=== PATIENT | male | born 1990 | race Caucasian/White ===

== ENCOUNTER 2021-08-07 12:10 | Emergency (ER) | payer MEDICAID, SELFPAY ==
--- NOTE | ~2021-08-07 | US_ITS ---
EXAMINATION: US SCROTUM CLINICAL INFORMATION: Testicular pain. COMPARISON: None TECHNIQUE: A sonogram of the scrotum was performed assessing galeano-scale appearance and color Doppler flow. Spectral Doppler analysis of the arterial and venous flow were performed in the testes bilaterally. FINDINGS: About the inferior lateral aspect of both testicles, right greater than left, there are heterogeneous echotexture structures which traverse superiorly to the spermatic cord up to the region of the inguinal canal.. These may be related to ductus deferens. With Valsalva maneuvers there is no evidence of inguinal hernia. RIGHT: Right testicle measures 4.0 x 2.3 x 3.2 cm, volume 15.4 mL. No focal testicular parenchymal lesions are visualized. Spectral Doppler analysis of the arterial and venous flow is normal in the right testis. Right epididymal head is normal in size. No varicocele is seen. There is a small right hydrocele. Right epididymal Doppler flow is normal. LEFT: Left testicle measures 4.0 x 2.2 x 2.6 cm, volume 12.0 mL. No focal testicular parenchymal lesions are visualized. Spectral Doppler analysis of the arterial and venous flow is normal in the left testis. Left epididymal head is normal in size. No left varicocele is seen. There is a small left hydrocele. Left epididymal Doppler flow is normal. US/US scrotum IMPRESSION: No suspicious testicular lesions. Small bilateral hydroceles. Region of pain and palpable abnormalities appear to be related to heterogeneous echotexture structure which communicates with the spermatic cord and may represent ductus deferens. This finding is bilateral.
--- NOTE | ~2021-08-07 | US_ITS ---
EXAMINATION: US SCROTUM CLINICAL INFORMATION: Testicular pain. COMPARISON: None TECHNIQUE: A sonogram of the scrotum was performed assessing galeano-scale appearance and color Doppler flow. Spectral Doppler analysis of the arterial and venous flow were performed in the testes bilaterally. FINDINGS: About the inferior lateral aspect of both testicles, right greater than left, there are heterogeneous echotexture structures which traverse superiorly to the spermatic cord up to the region of the inguinal canal.. These may be related to ductus deferens. With Valsalva maneuvers there is no evidence of inguinal hernia. RIGHT: Right testicle measures 4.0 x 2.3 x 3.2 cm, volume 15.4 mL. No focal testicular parenchymal lesions are visualized. Spectral Doppler analysis of the arterial and venous flow is normal in the right testis. Right epididymal head is normal in size. No varicocele is seen. There is a small right hydrocele. Right epididymal Doppler flow is normal. LEFT: Left testicle measures 4.0 x 2.2 x 2.6 cm, volume 12.0 mL. No focal testicular parenchymal lesions are visualized. Spectral Doppler analysis of the arterial and venous flow is normal in the left testis. Left epididymal head is normal in size. No left varicocele is seen. There is a small left hydrocele. Left epididymal Doppler flow is normal. US/US scrotum doppler IMPRESSION: No suspicious testicular lesions. Small bilateral hydroceles. Region of pain and palpable abnormalities appear to be related to heterogeneous echotexture structure which communicates with the spermatic cord and may represent ductus deferens. This finding is bilateral.
[2021-08-07 12:47] VITALS: BP 124/69; PULSE 80; RESP 19; TEMP 37.2; O2SAT 98; BMI 17.7
[2021-08-07 16:48] VITALS: BP 141/86; PULSE 80; RESP 16; TEMP 36.6; O2SAT 98
[2021-08-07 17:16] LABS: Appearance Urine CLEAR; Color Urine YELLOW; Glucose Urine UA NEG (NEG); Leukocyte Esterase Urine NEG (NEG); Nitrite Urine NEG (NEG); Specific Gravity - Urine 1.015 (1.005-1.025); Urine Blood NEG (NEG); Urine Ketones NEG (NEG); Urine Protein NEG (NEG-TRACE)
--- NOTE | 2021-08-07 17:45 | ED_ITS ---
HPI - Male Genitourinary General Chief complaint: Urogenital-Male Stated complaint: testicle pain lump Time Seen by Provider: 08/07/21 16:48 Source: patient Mode of arrival: ambulatory History of Present Illness HPI Narrative: 31-year-old male with a past medical history significant for recently diagnosed with syphilis, presenting to the ED complaining of acute on chronic bilateral testicular pain x6 years. Admits to feeling extra lumps in testicles which are painful to palpation. Admits went to [facility] on Wednesday was tested for HIV, syphilis, CT/NG tested positive for syphilis and was treated appropriately, tested negative for everything else. Denies being sexually active. Denies fever, abdominal pain, nausea/vomiting, penile discharge, penile/testicular lesions. MD Complaint: testicle pain Onset (ago): year(s) Related Data Previous Rx's Medication Instructions Recorded acetaminophen 500 mg tablet 500 mg PO Q6H PRN #20 tab 08/07/21 (Tylenol Extra Strength) levofloxacin 500 mg tablet 500 mg PO DAILY #10 tab 08/07/21 metronidazole 500 mg tablet 500 mg PO Q8H 7 Days #21 tab 08/07/21 naproxen 500 mg tablet 500 mg PO BID PRN 10 Days #20 tab 08/07/21 Allergies Allergy/AdvReac Type Severity Reaction Status Date / Time No Known Allergies Allergy Verified 08/07/21 12:50 Review of Systems Review of Systems: Constitutional: No Fever, No Chills, No Fatigue, No Malaise ENT/Mouth:No Ear Pain, No Nasal Congestion, No sore throat, No Rhinorrhea, No Swallowing Difficulty Eyes: No Eye Pain, No Swelling, No Redness Cardiovascular: No Chest Pain, No SOB, No Edema, No Palpitations Respiratory: No Cough, No Sputum, No Dyspnea Gastrointestinal: No Nausea, No Vomiting, No Diarrhea, No Constipation, No Abdominal pain Genitourinary: + bilateral testicular pain/lumps, No penile discharge, No Dysuria, No Urinary Frequency, No Hematuria, No Urinary Incontinence, No Urgency, No Flank Pain, No Urinary Flow Changes Musculoskeletal: No joint pain, No Myalgias, No Joint Swelling Skin: No Skin Lesions, No rash Neuro: No Weakness, No Dizziness, No Headache Yes all other systems are reviewed and are negative [facility] Past Medical History Attestation statement: The following information was validated with the patient. Social History Social History Advance Directives: No Advance Directives Information Provided: No Physical Exam Vital Signs: Vital Signs: Last Vital Signs Temp 97.9 F 08/07/21 16:48 Pulse 80 08/07/21 16:48 Resp 16 08/07/21 16:48 BP 141/86 H 08/07/21 16:48 Pulse Ox 98 08/07/21 16:48 BMI result Body Mass Index 17.7 Const: General: cooperative, healthy appearing and no acute distress Orientation/consciousness: patient oriented x3 Limitations: no limitations HEENT: Head: Yes normal to inspection and Yes atraumatic Ears: hearing grossly normal bilaterally General nose exam: Normal external nose present Face and sinus: Yes normal facial exam Eyes: General: appearance normal, both eyes and all related structures EOM: EOMs intact bilaterally Neck: Neck: Yes normal visual inspection and Yes no meningeal signs Resp: Effort & Inspection: normal respiratory effort and no respiratory distress Cardio: Rate: regular rate GI: Inspection: Yes normal to inspection Palpation (GI): Soft to palpation, nontender, no guarding and not rigid : Other: +bilateral tender testicular lumps/cord Penis: normal penis Testes: epididymal tenderness bilateral, no testicular swelling, testicular tenderness bilateral and normal testicular lie Skin: Rashes: no rashes Wounds: no wounds Neuro: General: patient oriented x3 and no meningeal signs Gait exam (Neuro): Normal gait present Extrem: General: Yes normal to inspection Course Course Course Narrative: -UA negative US scrotum doppler IMPRESSION: No suspicious testicular lesions. ? Small bilateral hydroceles. ? Region of pain and palpable abnormalities appear to be related to heterogeneous echotexture structure which communicates with the spermatic cord and may represent ductus deferens. This finding is bilateral. >> case discussed with Dr. Grady, will initiate patient on Levaquin and Metronidazole. Discussed results with patient which she was mostly already aware due to previous workup in the past. Discussed with patient risk of sterility, and needed follow-up with Urology, he verbalized understanding and feel safe for discharge home at this time. Also discussed follow-up with [facility] for further STI testing MDM - Male Genitourinary MDM Narrative Medical decision making narrative: 31-year-old male with a past medical history significant for recently diagnosed with syphilis, presenting to the ED complaining of acute on chronic bilateral testicular pain x6 years. On exam vital signs stable, LUÍS, physical exam as above. Concern for epididymitis/orchitis vs UTI vs ?abscess. Unlikely torsion due to length of symptoms Patient already appropriately treated for syphilis Plan: UA, repeat CT NG, testicular ultrasound Differential Diagnosis Differential diagnosis: Likely urinary tract infection and epididymitis Medical Records Attestation: I reviewed the patient's medical records. Lab Data Attestation: I reviewed the patient's lab results. Labs: Lab Results 08/07/21 Range/Units 17:02 Urine Color YELLOW Urine Appearance CLEAR Urine pH 8.0 (5.0-8.0) Ur Specific [place] 1.015 (1.005-1.025) Urine Protein NEG (NEG-TRACE) MG/DL Urine Glucose (UA) NEG (NEG) MG/DL Urine Ketones NEG (NEG) MG/DL Urine Blood NEG (NEG) Urine Nitrite NEG (NEG) Ur Leukocyte Esterase NEG (NEG) Discharge Plan Discharge Clinical Impression: Scrotal pain Patient Disposition: Home, Self-Care Instructions: Scrotal Pain (ED) Additional Instructions: YOU NEED TO FOLLOW-UP WITH UROLOGY Levaquin and Flagyl are antibiotics please take as prescribed Please follow-up with [facility] for further STI testing If her symptoms persist or worsen, developed unbearable testicular pain, discharge, inability to urinate, abdominal pain, or fever please return to the ED Prescriptions: New levofloxacin 500 mg tablet 500 mg PO DAILY Qty: 10 0RF metronidazole 500 mg tablet 500 mg PO Q8H 7 Days Qty: 21 0RF acetaminophen [Tylenol Extra Strength] 500 mg tablet 500 mg PO Q6H PRN (Reason: pain or fever) Qty: 20 0RF naproxen 500 mg tablet 500 mg PO BID PRN (Reason: pain) 10 Days Qty: 20 0RF Referrals: David Quesada MD [Physician] - 1 day Interventions: ED Discharge Assessment Last Done: 08/07/21 17:54 Discharge Date/Time: 08/07/21 17:54
[2021-08-08 03:56] LABS: CT PCR NOT DETECTED (Not Detect.); NG PCR NOT DETECTED (Not Detect.)
== END 2021-08-07 17:54 | disposition home or self-care (01) ==
PROVIDERS: Physician Assistant; Emergency Provider Internal Medicine
DX: N50.812 Left testicular pain (principal); N50.811 Right testicular pain; N50.82 Scrotal pain
CPT/HCPCS: 76870; 81003; 87491; 87591; 93975; 99284

== ENCOUNTER → 2021-10-07 10:47 | Outpatient (BNVA) | payer MEDICAID, SELFPAY | PROVIDERS: Visit Provider Urology | DX: N45.3 Epididymo-orchitis (principal) | CPT/HCPCS: 99202 ==

== ENCOUNTER → 2021-11-26 11:09 | Outpatient (BNVA) | payer MEDICAID, SELFPAY | PROVIDERS: Visit Provider Urology | DX: N50.812 Left testicular pain (principal); N45.3 Epididymo-orchitis; Z20.2 Contact with and (suspected) exposure to infections with a predominantly sexual mode of transmission | CPT/HCPCS: 64425; 99212 ==

== ENCOUNTER 2022-05-17 21:20 | Emergency (ER) | payer MEDICAID, SELFPAY ==
--- NOTE | ~2022-05-17 | CT_ITS ---
EXAMINATION: CT ABDOMEN AND PELVIS WITHOUT CONTRAST CLINICAL INFORMATION: Made abdominal pain COMPARISON: None TECHNIQUE: Multidetector volumetric imaging was performed from the superior aspect of the liver through the pubic symphysis. Sagittal and coronal reformatted images were obtained on the technologist's workstation. This CT examination was performed using dose optimization techniques as appropriate, variously including the following: *Automated exposure control *Adjustment of mA and/or kV according to patient size (this includes techniques or standardized protocols for targeted exams where dose is matched to indication/reason for exam; i.e. extremities or head) *Use of iterative reconstruction technique DLP: 394 mGy-cm FINDINGS: LUNG BASES: Reticular nodular infiltrate at the right base. LIVER, GALLBLADDER, AND BILIARY TREE: The liver is normal in size, shape, and attenuation. No focal hepatic lesion or biliary ductal dilatation is present. The gallbladder is unremarkable with no evidence of radiopaque gallstones, gallbladder wall thickening, or obvious pericholecystic inflammatory changes. PANCREAS: Unremarkable. SPLEEN: Unremarkable. ADRENAL GLANDS: Unremarkable. KIDNEYS AND URETERS: The kidneys are normal in size, shape, and attenuation. No hydronephrosis, hydroureter, or calculi seen. No perinephric stranding. BLADDER: Unremarkable. GASTROINTESTINAL TRACT: The bowel pattern is felt to be nonobstructing. There is no free fluid. Small hiatal hernia ABDOMINAL WALL: No significant hernia is appreciated. LYMPH NODES: Normal. VASCULAR: Unremarkable. PELVIC VISCERA: Unremarkable. OSSEOUS STRUCTURES: Unremarkable. CT/CT abdomen pelvis wo IV con IMPRESSION: Reticulonodular infiltrate at the right base. Small sliding-type hiatal hernia. The bowel pattern is felt to be nonobstructing. There is no free fluid. Fleischner guidelines were followed.
[2022-05-17 21:24] VITALS: BP 125/70; PULSE 80; O2SAT 98; BMI 26.6
[2022-05-17 21:28] VITALS: BP 146/102; PULSE 90; RESP 27; O2SAT 96
--- NOTE | 2022-05-17 21:54 | ED.NAVMDI ---
HPI - Nausea/Vomiting/Diarrhea General Chief complaint: Nausea/Vomiting/Diarrhea Stated complaint: Substance use, n/v, chills x1hr per EMS Time Seen by Provider: 05/17/22 21:29 Source: patient Mode of arrival: EMS Limitations: no limitations History of Present Illness HPI Narrative: Patient has a substance abuse on methadone 120 mg daily comes here for nausea vomiting and diarrhea not feeling good after taking a pill from her grandmother's pill box does not know what kind of pill was it feels weak exhausted no fever no chills Related Data Previous Rx's Medication Instructions Recorded acetaminophen 500 mg tablet 500 mg PO Q6H PRN pain or fever 08/07/21 (Tylenol Extra Strength) #20 tabs levofloxacin 500 mg tablet 500 mg PO DAILY #10 tabs 08/07/21 metronidazole 500 mg tablet 500 mg PO Q8H 7 days #21 tabs 08/07/21 naproxen 500 mg tablet 500 mg PO BID PRN pain 10 days #20 08/07/21 tabs ondansetron 4 mg disintegrating 4 mg PO Q6-8H PRN nausea and 05/18/22 tablet vomiting #7 tabs Allergies Allergy/AdvReac Type Severity Reaction Status Date / Time No Known Allergies Allergy Verified 11/25/21 15:47 Review of Systems Review of Systems: Yes all other systems are reviewed and are negative [facility] Social History Social History Smoked in Last 30 Days: Yes Use of substances other than those prescribed or required for medical reasons: No Physical Exam Vital Signs: Vital Signs: Last Vital Signs Temp 98.2 F 05/18/22 00:24 Pulse 77 05/18/22 00:24 Resp 16 05/18/22 00:24 BP 119/70 05/18/22 00:24 Pulse Ox 95 05/18/22 00:24 O2 Del Method 05/18/22 00:24 BMI result Body Mass Index 26.6 Appearance: Alert. Oriented X3. No acute distress. Diaphoretic Eyes: PERRLA, No Nystagmus ENT: Pharynx normal. Oral Mucosa moist Neck: Normal inspection. Neck supple. CVS: Normal heart rate and rhythm. Pulses normal. Respiratory: No respiratory distress. Equal air entry bilateral, no wheezing/rales/rhonchi Abdomen: Soft and nontender. Bowel sounds are present, no mass palpable, no CVA tenderness Skin: Skin warm and dry. Normal skin color. Normal skin turgor. Extremities: No lower extremity edema. No calf tenderness Neuro: Oriented X 3. No motor deficit. No sensory deficit.No cerebellar signs , cranial nerves II-XII intact Medications Administered Discontinued Medications Generic Name Dose Route Start Last Admin Trade Name Freq PRN Reason Stop Dose Admin Famotidine 20 mg 05/17/22 23:39 05/17/22 23:47 Famotidine/Pf 20 Mg/2 Ml Vial IVPUSH 05/17/22 23:40 20 mg ONCE ONE Administration Sodium Chloride 1,000 mls @ 999 mls/hr 05/17/22 22:10 05/17/22 23:51 Ns IV 05/17/22 23:10 Infused .Q1H1M ONE Infusion Loperamide HCl 4 mg 05/17/22 22:11 05/17/22 22:19 Loperamide Hcl 2 Mg Capsule PO 05/17/22 22:12 4 mg ONCE ONE Administration Lorazepam 1 mg 05/17/22 22:10 05/17/22 22:19 Lorazepam 2 Mg/Ml Vial IVPUSH 05/17/22 22:11 1 mg ONCE ONE Administration Ondansetron HCl 4 mg 05/17/22 22:10 05/17/22 22:19 Ondansetron Hcl 4 Mg/2 Ml Vial IVPUSH 05/17/22 22:11 4 mg ONCE ONE Administration Ondansetron HCl 4 mg 05/17/22 23:39 05/17/22 23:47 Ondansetron Hcl 4 Mg/2 Ml Vial IVPUSH 05/17/22 23:40 4 mg ONCE ONE Administration Medical Decision Making Medical Decision Making MDM Narrative: . Acute gastroenteritis likely withdrawal from opiates feeling much better now after IV hydration has elevated lipase with CT scan is negative without any significant abdominal pain which taking p.o. fluids will discharge patient home Lab Data [facility] Lab Attestation statement: I reviewed the patient's lab results. 05/17/22 21:52 05/17/22 21:52 Labs: Lab Results 05/17/22 05/17/22 05/17/22 Range/Units 21:52 21:52 23:53 WBC 11.8 H (4.8-10.8) X10*3/uL RBC 5.96 H (4.60-5.80) X10*6/uL Hgb 16.8 (14.0-18.0) g/dl Hct 48.2 (42.0-52.0) % MCV 80.9 (80.0-98.0) fL MCH 28.2 (27.0-33.0) pg MCHC 34.9 (31.0-36.0) g/dl RDW 15.3 (11.0-16.0) % Plt Count 340 (160-400) X10*3/uL MPV 11.5 (9.4-12.4) fL Immature Gran % (Auto) 0.3 (0.0-0.4) % Neut % (Auto) 71.6 (45-73) % Lymph % (Auto) 18.4 L (20-40) % [place] % (Auto) 7.9 (2-11) % Eos % (Auto) 1.3 (0-4) % Baso % (Auto) 0.5 (0-2) % Lymph # (Auto) 2.2 (1.2-4.9) X10*3/uL [place] # (Auto) 0.9 (0.1-1.2) X10*3/uL Eos # (Auto) 0.2 (0.0-0.4) X10*3/uL Baso # (Auto) 0.1 (0.0-0.2) X10*3/uL Abs Immat Gran (auto) 0.04 H (0.00-0.03) X10*3/uL Absolute Neuts (auto) 8.4 H (2.0-8.3) x10*3/uL Absolute Nucleated RBC 0.000 (0.0-0.012) X10*3/uL Nucleated RBC % (auto) 0.0 (0.0-0.2) /100WBC Sodium 140 (135-145) mmol/L Potassium 3.5 (3.3-5.1) mmol/L Chloride 103 (96-108) mmol/L Carbon Dioxide 22 (22-29) mmol/L Anion Gap 19 (12-20) BUN 13 (9-16) mg/dL Creatinine 1.00 (0.5-1.4) mg/dL Estim Creat Clear Calc 93.1 Estimated GFR > 60 Random Glucose 125 H (60-115) mg/dL Calcium 10.3 H (8.4-10.2) mg/dL Total Bilirubin 0.3 (0.0-1.0) mg/dL AST 24 (5-37) U/L ALT 19 (0-40) U/L Alkaline Phosphatase 113 (39-117) U/L Total Protein 8.7 H (6.5-8.0) g/dL Albumin 4.9 (3.5-5.0) g/dL Lipase 223 H (8-78) U/L COVID-19 (CHASE) Negative (Negative) COVID-19 Clin Com See Note Discharge Plan Discharge Clinical Impression: Gastroenteritis, Opiate withdrawal Patient Disposition: Home, Self-Care Instructions: Acute Nausea and Vomiting (ED), Narcotic Withdrawal (ED) Additional Instructions: Drink plenty of fluids Medicine for nausea and anxiety as prescribed Do not take non-prescribed medications Prescriptions: New ondansetron 4 mg tablet,disintegrating 4 mg PO Q6-8H PRN (Reason: nausea and vomiting) Qty: 7 0RF No Action levofloxacin 500 mg tablet 500 mg PO DAILY Qty: 10 0RF metronidazole 500 mg tablet 500 mg PO Q8H 7 Days Qty: 21 0RF acetaminophen [Tylenol Extra Strength] 500 mg tablet 500 mg PO Q6H PRN (Reason: pain or fever) Qty: 20 0RF naproxen 500 mg tablet 500 mg PO BID PRN (Reason: pain) 10 Days Qty: 20 0RF
[2022-05-17 21:59] LABS: Basophils Absolute Auto 0.1 X10*3/uL (0.0-0.2); Basophils Percent Auto 0.5 % (0-2); Imm Gran Pct Auto 0.3 % (0.0-0.4); Mean Corpuscular HGB Conc 34.9 g/dl (31.0-36.0); WBC ABN SCTR 1
--- NOTE | 2022-05-17 22:03 | PC.NURSE ---
Pt aox3. Reports N/V/D that started within the last hour. Reports taking one pill from grandmother but unable to identify the medication. Pt is on methadone 120mg. Diaphoretic with palor. Forecful vomiting noted. IV line established. Pt tolerated well. MD at bedside.
[2022-05-17 22:05] LABS: Eosinophils Absolute Auto 0.2 X10*3/uL (0.0-0.4); Eosinophils Percent Auto 1.3 % (0-4); Hematocrit 48.2 % (42.0-52.0); Hemoglobin 16.8 g/dl (14.0-18.0); Imm Gran Abs Auto 0.04 X10*3/uL (0.00-0.03); Lymphocytes Absolute Auto 2.2 X10*3/uL (1.2-4.9); Lymphocytes Percent Auto 18.4 % (20-40); Mean Corpuscular Hemoglobin 28.2 pg (27.0-33.0); Mean Corpuscular Volume 80.9 fL (80.0-98.0); Mean Platelet Volume 11.5 fL (9.4-12.4); Monocytes Absolute Auto 0.9 X10*3/uL (0.1-1.2); Monocytes Percent Auto 7.9 % (2-11); Neutrophils Absolute Auto 8.4 x10*3/uL (2.0-8.3); Neutrophils Percent Auto 71.6 % (45-73); Platelet Count 340 X10*3/uL (160-400); Red Blood Count 5.96 X10*6/uL (4.60-5.80); Red Cell Distribution Width 15.3 % (11.0-16.0)
[2022-05-17 22:07] LABS: WBC ABN SCTR FOR CBC 1
[2022-05-17 22:08] LABS: MANUAL DIFF FLAG NO; White Blood Count 11.8 X10*3/uL (4.8-10.8)
--- NOTE | 2022-05-17 22:11 | PC.NURSE ---
Pts mother, Phuong, called for an update. Phuong updated on pts status with pts verbal consent.
[2022-05-17] MEDS: LORazepam 2 MG/ML VIAL 1 MG IVPUSH (22:19)
[2022-05-17] MEDS: 0.9 % Sodium Chloride 1,000 ML 999 ML IV (22:19)
[2022-05-17] MEDS: Loperamide HCl 2 MG CAPSULE 4 MG PO (22:19)
[2022-05-17] MEDS: ondansetron HCL 4 MG/2 ML VIAL IVPUSH ×2 (22:19→23:47)
[2022-05-17 22:23] LABS: Alanine Aminotransferase 19 U/L (0-40); Albumin Level 4.9 g/dL (3.5-5.0); Alkaline Phosphatase 113 U/L (39-117); Anion Gap 19 (12-20); Aspartate Amino Transferase 24 U/L (5-37); Bilirubin Total 0.3 mg/dL (0.0-1.0); Blood Urea Nitrogen 13 mg/dL (9-16); Calcium 10.3 mg/dL (8.4-10.2); Carbon Dioxide 22 mmol/L (22-29); Chloride 103 mmol/L (96-108); Creatinine Clr Calc Pharmacy 93.1; Estimated Glomerular Filt Rate > 60; Glucose Random 125 mg/dL (60-115); Lipase 223 U/L (8-78); Potassium 3.5 mmol/L (3.3-5.1); Sodium 140 mmol/L (135-145); Total Protein 8.7 g/dL (6.5-8.0)
[2022-05-17] MEDS: Famotidine/PF 20 MG/2 ML VIAL IVPUSH (23:47)
[2022-05-18 00:16] LABS: COVID-19 Test Negative (Negative); IDNOW Serial# BCCEAD1C
[2022-05-18 00:24] VITALS: BP 119/70; PULSE 77; RESP 16; TEMP 36.8; O2SAT 95
--- NOTE | 2022-05-18 01:44 | PC.NURSE ---
IV line removed. Pt tolerated well. Discharge instructions reviewed with pt. Pt verbalizes understanding.
== END 2022-05-18 01:46 | disposition home or self-care (01) ==
PROVIDERS: Emergency Provider Internal Medicine
DX: K52.9 Noninfective gastroenteritis and colitis, unspecified (principal); F11.23 Opioid dependence with withdrawal; R11.2 Nausea with vomiting, unspecified; Z20.822 Contact with and (suspected) exposure to COVID-19
CPT/HCPCS: 36415; 74176; 80053; 83690; 85025; 87635; 96361; 96374; 96375; 96376; 99284; J2060; J2405

== ENCOUNTER → 2022-05-19 14:18 | Outpatient (BNVA) | payer MEDICAID, SELFPAY | PROVIDERS: Visit Provider Urology | DX: Z13.89 Encounter for screening for other disorder (principal) ==

== ENCOUNTER → 2022-08-27 10:39 | Outpatient (REF) | payer MEDICAID, SELFPAY ==
--- NOTE | 2022-08-27 10:46 | ECG_ITS ---
Test Reason : QTC PROLONGATION Blood Pressure : / mmHG Vent. Rate : 078 BPM Atrial Rate : 078 BPM P-R Int : 152 ms QRS Dur : 086 ms QT Int : 360 ms P-R-T Axes : 040 068 031 degrees QTc Int : 410 ms Normal sinus rhythm Normal ECG No previous ECGs available Referred By: Polina Bruce Electronically Signed By:Yoshi Johnson
== END ==
LOC: HO.CARD 10:39
PROVIDERS: Visit Provider Family Medicine
DX: Z79.899 Other long term (current) drug therapy (principal)
CPT/HCPCS: 93005

== ENCOUNTER 2022-11-25 09:03 | Outpatient (AMB) | payer MEDICAID, SELFPAY ==
--- NOTE | 2022-11-25 06:52 | A.OFFVIS_ITS ---
Intake Intake Visit Reasons: Discussed epididymectomy, former pt of Dr Quesada Allergies No Known Allergies Allergy (Verified 11/25/22 09:14) HPI HPI Comments History of Present Illness Details Antonio is a 32-year-old male who presents today to the office for an evaluation of epididymectomy. 11/25/2022-- He was last seen on 05/19/[address] Quesada. He is in a residential addiction recovery program and he presents with a care provider from that program. He reports testicle pain, left greater than the right. After ejaculation, he feels the sensation of pain gets better. He reports that something was placed in urethra, at the age of 6. He also reports urinary urgency. The patient has a history of STDs in his mid 20s. He is not sure what type of an STD it was. He denies any history of HIV infection or hepatitis. He is on methadone 135 mg daily, trazadone, hydroxyzine, Prozac, and Clonidine. He had a procedure on when he was 5-years ago. He denies vasectomy. Results reviewed-- CT of the abdomen/pelvis without contrast-- -05/18/2022--kidneys and bladder unremarkable; negative for stones Results reviewed-- US scrotal-- 11/21/2022-- no suspicious testicular lesions. Evaluation today UA-- 11/25/2022--Lueocytes: negative; blood: negative. Exam: mild tenderness on palpation of both testicles, left greater than right; tail of epididymis on both right and left side has mild tenderness. Plan Scrotal US prior was ordered. Urinalysis for chlamydia and gonorrhea. I discussed that his primary care physician can send other blood tests for STD screening. The patient will follow up with Dr. Quesada to discuss surgical options. Review of Systems Const All systems reviewed & are unremarkable except as noted in HPI and below Reports no additional complaints Eyes Reports no additional complaints ENT Reports no additional complaints Card Denies dyspnea Resp Denies cough and Denies dyspnea GI Reports no additional complaints Musc Reports no additional complaints Skin/Breast Denies rash and Denies unusual bruising Neuro Reports no additional complaints Psych Reports no additional complaints Endo Reports no additional complaints Jeff/Lymph Reports no additional complaints Aller/Immun Reports no additional complaints Physical Exam Const General: healthy appearing, no acute distress and well developed Orientation/consciousness: patient oriented x3 HEENT Head: Yes normocephalic and Yes atraumatic Eyes Conjunctivae: conjunctivae normal Neck Neck: Yes normal visual inspection Chest Chest palpation & inspection: normal inspection of the chest Resp Effort & Inspection: normal respiratory effort Cardio Rate: regular rate GI Inspection: Yes normal to inspection Palpation (GI): Soft to palpation Other: Bilateral testes palp'd, no suspicious masses palp'd, mild tenderness L>R, also mild tenderness tail of epidydimis L>R Penis: normal penis Scrotum: scrotum normal Skin General skin exam: no rashes or lesions noted Neuro General: patient oriented x3 Extrem General: No pedal edema Psych Appearance: grossly normal Affect: normal affect Results AMB Urinalysis, Automated UA Leukoctes 0 Cuong/uL Last Edit by Andre Kerr CMA on 11/25/22 09:30 UA Nitrite Negative Last Edit by Andre Kerr CMA on 11/25/22 09:30 UA Urobilinogen 0.2 mg/dL Last Edit by Andre Kerr CMA on 11/25/22 09:3 0 UA Protein 0 mg/dL Last Edit by Andre Kerr CMA on 11/25/22 09:30 UA pH 5.5 Last Edit by Andre Kerr CMA on 11/25/22 09:30 UA Blood 0 Luis Felipe/uL Last Edit by Andre Kerr CMA on 11/25/22 09:30 UA Specific [place] 1.025 Last Edit by Andre Kerr CMA on 11/25/22 09: 30 UA Ketone Negative Last Edit by Andre Kerr CMA on 11/25/22 09:30 UA Bilirubin 0 mg/dL Last Edit by nAdre Kerr CMA on 11/25/22 09:30 UA Glucose 0 mg/dL Last Edit by Andre Kerr CMA on 11/25/22 09:30 Results Reviewed Results Reviewed: Laboratory Last Values Urine pH (Auto) 5.5 11/25/22 09:28 Specific [place] (Auto) 1.025 11/25/22 09:28 Urine Protein (Auto) 0 mg/dL 11/25/22 09:28 Glucose (UA)(Auto) 0 mg/dL 11/25/22 09:28 Urine Ketones (Auto) Negative 11/25/22 09:28 Urine Blood (Auto) 0 Luis Felipe/uL 11/25/22 09:28 Urine Nitrite (Auto) Negative 11/25/22 09:28 Urine Bilirubin (Auto) 0 mg/dL 11/25/22 09:28 Urine Urobilinogen (Auto) 0.2 mg/dL 11/25/22 09:28 Leukocyte Esterase (Auto) 0 Cuong/uL 11/25/22 09:28 Assessment & Plan Assessment & Plan (1) Orchalgia: Code(s): N50.819 - Testicular pain, unspecified Plan Scrotal US prior was ordered. Urinalysis was ordered for chlamydia and gonorrhea. I discussed that his primary care physician can send other blood tests for STD screening. The patient will follow up with Dr. Quesada to discuss other surgical options. Orders: Orders US scrotum 11/25/22 N50.819 - Testicular pain, unspecified CT NG by PCR 11/25/22 N50.819 - Testicular pain, unspecified, N45.3 - Epididymo- orchitis AMB Urinalysis Automated 11/25/22 Z13.9 - Encounter for screening, unspecified Patient Instructions: The patient had an opportunity to ask questions regarding treatment plan. All questions were answered. Imaging, Laboratory studies and physical exam results were discussed and reviewed in detail. No major barriers to understanding were identified. The patient expressed understanding and agreement with the above treatment plan.? ? ? The patient is aware they should contact our office by phone for worsening of their current condition or the appearance of new symptoms. Compliance is encouraged with any medications and followup testing that is ordered.? ? ? It is a privilege to be allowed the opportunity to participate in the urologic care of your patient. If you have any questions or concerns regarding treatment for the above conditions please do not hesitate to contact me. The office telephone contact is [phone].? ? ? This note is constructed in part using voice recognition software. While every effort has been made to ensure accuracy mending carrier errors may have been included.? ? ? Yours sincerely,? ? ? Annika Mas MD? Coding Level of Care Code Est Pt Level 4 (28712) Diagnoses Orchalgia N50.819
== END 2022-11-25 09:47 | disposition home or self-care (01) ==
PROVIDERS: PCP Registered Nurse; Visit Provider Urology
DX: N50.819 Testicular pain, unspecified (principal)
CPT/HCPCS: 99214

== ENCOUNTER 2022-11-25 09:03 | Outpatient (REF) | payer MEDICAID, SELFPAY ==
[2022-11-26 02:52] LABS: CT PCR NOT DETECTED (Not Detect.); NG PCR NOT DETECTED (Not Detect.)
== END 2022-11-25 09:04 | disposition home or self-care (01) ==
LOC: HO.LNP 09:03
PROVIDERS: PCP Registered Nurse; Visit Provider Urology
DX: N50.819 Testicular pain, unspecified (principal); N45.3 Epididymo-orchitis
CPT/HCPCS: 0353U; 81003; 99212

== ENCOUNTER 2023-02-25 15:18 | Outpatient (REF) | payer MEDICAID, SELFPAY ==
--- NOTE | ~2023-02-25 | US_ITS ---
EXAMINATION: US SCROTUM CLINICAL INFORMATION: Testicular pain, unspecified. COMPARISON: Scrotal ultrasound 08/07/2021. TECHNIQUE: A sonogram of the scrotum was performed assessing galeano-scale appearance and color Doppler flow. Spectral Doppler analysis of the arterial and venous flow were performed in the testes bilaterally. FINDINGS: BILATERAL: Along the inferior lateral aspect of the bilateral testicles there is redemonstration of right greater than left heterogeneous in echotexture structures which appear to extend superiorly to the spermatic cord. RIGHT: Right testicle measures 4.0 x 2.0 x 3.0 cm, volume 12.6 mL. No focal testicular parenchymal lesions are visualized. Spectral Doppler analysis of the arterial and venous flow is normal in the right testis. Right epididymal head is normal in size. No right varicocele is seen. Right epididymal Doppler flow is normal. Small right hydrocele. LEFT: Left testicle measures 3.9 x 1.9 x 2.6 cm, volume 10.1 mL. No focal testicular parenchymal lesions are visualized. Spectral Doppler analysis of the arterial and venous flow is normal in the left testis. Left epididymal head is normal in size. No left varicocele is seen. Left epididymal Doppler flow is normal. Small left hydrocele. US/US scrotum IMPRESSION: 1. Small bilateral hydroceles. 2. Right epididymis appendix identified. 3. Along the inferolateral aspect of the bilateral testicles there is redemonstration of right greater than left heterogeneous in echotexture structures which appear to extend superiorly to the spermatic cord. Urology consultation and possible MRI recommended for further evaluation.
== END 2023-02-25 15:19 | disposition home or self-care (01) ==
LOC: HO.US 15:18
PROVIDERS: PCP Registered Nurse; Visit Provider Urology
DX: N50.819 Testicular pain, unspecified (principal)
CPT/HCPCS: 76870

== ENCOUNTER 2023-04-02 12:58 | Outpatient (AMB) | payer MEDICAID, SELFPAY ==
--- NOTE | 2023-04-02 13:01 | A.OFFVIS_ITS ---
Intake Intake Visit Reasons: possible surgery Intake Note: Patient is present for Consultation on surgery Allergies No Known Allergies Allergy (Verified 04/02/23 13:04) HPI HPI Comments History of Present Illness Details Antonio is a 33-year-old male who presents today to the office for a follow-up. 04/02/2023? He was last seen by me on 11/25/2022 for orchalgia. He states the pain has improved. I have reviewed the US results from 02/25/2023 revealed small bilateral hydroceles. Examination: no significant abnormalities along the spermatic cord; no masses or tenderness in the testicles. Review of chart: Last visit: 11/25/2022-- He is in a residential addiction recovery program and he presents with a care provider from that program. He was last seen on 05/19/[address] Quesada. He reports testicle pain, left greater than the right. After ejaculation, he feels the sensation of pain gets better. He reports that something was placed in urethra, at the age of 6. He also reports urinary urgency. The patient has a history of STDs in his mid 20s. He is not sure what type of an STD it was. He denies any history of HIV infection or hepatitis. He is on methadone 135 mg daily, trazadone, hydroxyzine, Prozac, and Clonidine.? He had a procedure on when he was 5-years ago. He denies vasectomy.? Exam:mild tenderness on palpation of both testicles, left greater than right; tail of epididymis on both right and left side has mild tenderness.? Results reviewed-- CT of the abdomen/pelvis without contrast-- -05/18/2022--kidneys and bladder unremarkable; negative for stones Results reviewed-- US scrotal-- 11/21/2022-- no suspicious testicular lesions. 03/04/2023: Plan: Repeat a scrotal US in 6 months. Follow-up post scrotal US done. [facility] Social History Smoked in Last 30 Days: No Advance Directives: No Advance Directives Information Provided: No Review of Systems Const All systems reviewed & are unremarkable except as noted in HPI and below Reports no additional complaints Eyes Reports no additional complaints ENT Reports no additional complaints Card Denies dyspnea Resp Denies cough and Denies dyspnea GI Reports no additional complaints Musc Reports no additional complaints Skin/Breast Denies rash and Denies unusual bruising Neuro Reports no additional complaints Psych Reports no additional complaints Endo Reports no additional complaints Jeff/Lymph Reports no additional complaints Aller/Immun Reports no additional complaints Physical Exam Const General: healthy appearing, no acute distress and well developed Orientation/consciousness: patient oriented x3 HEENT Head: Yes normocephalic and Yes atraumatic Eyes Conjunctivae: conjunctivae normal Neck Neck: Yes normal visual inspection Chest Chest palpation & inspection: normal inspection of the chest Resp Effort & Inspection: normal respiratory effort Cardio Rate: regular rate GI Inspection: Yes normal to inspection Other: Examination: no significant abnormalities along the spermatic cord; no masses or tenderness in the testicles. Penis: normal penis Scrotum: scrotum normal Skin General skin exam: no rashes or lesions noted Neuro General: patient oriented x3 Extrem General: No pedal edema Psych Appearance: grossly normal Affect: normal affect Results Reviewed Results Reviewed: Date of Service: 02/25/23 EXAMINATION: US SCROTUM CLINICAL INFORMATION:? Testicular pain, unspecified. COMPARISON:? Scrotal ultrasound 08/07/2021. FINDINGS: BILATERAL: Along the inferior lateral aspect of the bilateral testicles there is redemonstration of right greater than left heterogeneous in echotexture structures which appear to extend superiorly to the spermatic cord.? RIGHT: Right testicle measures 4.0 x 2.0 x 3.0 cm, volume 12.6 mL. No focal testicular parenchymal lesions are visualized. Spectral Doppler analysis of the arterial and venous flow is normal in the right testis. Right epididymal head is normal in size. No right varicocele is seen. Right epididymal Doppler flow is normal. Small right hydrocele. LEFT: Left testicle measures 3.9 x 1.9 x 2.6 cm, volume 10.1 mL. No focal testicular parenchymal lesions are visualized. Spectral Doppler analysis of the arterial and venous flow is normal in the left testis.? Left epididymal head is normal in size. No left varicocele is seen. Left epididymal Doppler flow is normal. Small left hydrocele. IMPRESSION: 1. Small bilateral hydroceles. 2. Right epididymis appendix identified. 3. Along the inferolateral aspect of the bilateral testicles there is redemonstration of right greater than left heterogeneous in echotexture structures which appear to extend superiorly to the spermatic cord. Urology consultation and possible MRI recommended for further evaluation. Assessment & Plan Assessment & Plan (1) Orchalgia: Code(s): N50.819 - Testicular pain, unspecified Plan Repeat a scrotal US in 6 months. Follow-up post scrotal US done. Patient Instructions: The patient had an opportunity to ask questions regarding treatment plan. All questions were answered. Imaging, Laboratory studies and physical exam results were discussed and reviewed in detail. No major barriers to understanding were identified. The patient expressed understanding and agreement with the above treatment plan.? ? ? The patient is aware they should contact our office by phone for worsening of their current condition or the appearance of new symptoms. Compliance is encouraged with any medications and followup testing that is ordered.? ? ? It is a privilege to be allowed the opportunity to participate in the urologic care of your patient. If you have any questions or concerns regarding treatment for the above conditions please do not hesitate to contact me. The office telephone contact is [phone].? ? ? This note is constructed in part using voice recognition software. While every effort has been made to ensure accuracy title one kindergarten teacher errors may have been included.? ? ? Yours sincerely,? ? ? Annika Mas MD? Coding Level of Care Code Est Pt Level 4 (47160) Diagnoses Orchalgia N50.819
== END 2023-04-02 13:49 | disposition home or self-care (01) ==
PROVIDERS: PCP Registered Nurse; Visit Provider Urology
DX: N50.819 Testicular pain, unspecified (principal)
CPT/HCPCS: 99213

== ENCOUNTER → 2023-04-02 12:58 | Outpatient (BNVA) | payer MEDICAID, SELFPAY | PROVIDERS: PCP Registered Nurse; Visit Provider Urology | DX: N50.819 Testicular pain, unspecified (principal) | CPT/HCPCS: 99212 ==

== ENCOUNTER 2023-04-28 11:57 | Emergency (ER) | payer MEDICAID, SELFPAY ==
--- NOTE | 2023-04-28 12:19 | ED.SKABFB ---
HPI - Skin/Abscess/Foreign Bdy General Chief complaint: Skin/Abscess/Foreign Body Stated complaint: Rash on foot Time Seen by Provider: 04/28/23 12:51 Source: patient Mode of arrival: ambulatory Limitations: no limitations History of Present Illness HPI narrative: This is a 33-year-old male hx of substance abuse clean X 6 months presenting to the emergency for complaints of rash that has been progressively worsening over the past month, patient reports the rash is itchy, painful and localized to his upper and lower extremities, patient reports that the rash does also involve his palms and soles, he denies new exposures, lotions, travel, sexual partners. No history of syphilis, HIV. Denies fevers, chills, chest pain, shortness of breath, nausea, vomiting, abnormal bleeding, headache, vision changes, dizziness and weakness Reports something similar happened 3 years ago Related Data Home Medications Medication Instructions Recorded Confirmed clonidine HCl 0.1 mg tablet 0.1 mg PO TID 11/25/22 fluoxetine 40 mg capsule (Prozac) 40 mg PO DAILY 11/25/22 hydroxyzine HCl 50 mg tablet 50 mg PO TID 11/25/22 trazodone 50 mg tablet 50 mg PO DAILY 11/25/22 Previous Rx's Medication Instructions Recorded acetaminophen 500 mg tablet 500 mg PO Q6H PRN pain or fever 08/07/21 (Tylenol Extra Strength) #20 tabs cephalexin 500 mg tablet 500 mg PO Q6H 10 days #40 tabs 04/28/23 doxycycline hyclate 100 mg capsule 100 mg PO BID 10 days #20 caps 04/28/23 prednisone 50 mg tablet 50 mg PO DAILY 5 days #5 tabs 04/28/23 Allergies Allergy/AdvReac Type Severity Reaction Status Date / Time No Known Allergies Allergy Verified 04/02/23 13:04 Review of Systems Review of Systems: Constitutional : No Weight loss, No Fever, No Chills, No Fatigue, No Malaise ENT/Mouth : No sore throat, No Rhinorrhea Eyes: No Eye Pain, No Swelling, No Redness Cardiovascular : No Chest Pain, No SOB, No Dyspnea on Exertion, No Orthopnea, No Edema, No Palpitations Respiratory : No Cough, No Sputum, No Wheezing Gastrointestinal : No Nausea, No Vomiting, No Diarrhea, No Constipation, No abdominal Pain, No Hematochezia, No Melena Genitourinary : No Dysuria, No Urinary Frequency, No Hematuria, Musculoskeletal : No joint pain, No Myalgias, No Joint Swelling Skin : No Skin Lesions, + rash Neuro : No Weakness, No Numbness, No Dizziness, No Headache Psych : No Anxiety/Panic, No Depression All other systems reviewed and are negative Yes all other systems are reviewed and are negative [facility] Past Medical History Attestation statement: The following information was validated with the patient. Source: old records reviewed and nursing notes reviewed Social History Social History Advance Directives: No Advance Directives Information Provided: No Physical Exam Vital Signs: Vital Signs: Last Vital Signs Temp 98.2 F 04/28/23 12:20 Pulse 84 04/28/23 12:20 Resp 18 04/28/23 12:20 BP 121/71 04/28/23 12:20 Pulse Ox 96 04/28/23 12:20 O2 Del Method Room Air 04/28/23 12:20 BMI result Body Mass Index 26.5 vss Appearance: Alert.? Oriented X3.? No acute distress.? Head: Normocephalic, atraumatic, no step-offs or deformities Eyes: Pupils equal, round and reactive to light.? Respiratory: No respiratory distress.? Skin: Skin warm and dry.? Normal skin color.? Normal skin turgor.?Diffuse excoriated/scabbed papules to palms and soles, UE and LE, trunk and back Extremities: No lower extremity edema.? 5/5 strength to bilateral upper and lower extremities Neuro: Oriented X 3.? No motor deficit.? No sensory deficit. CN 2-12 intact Course Course Course Narrative: RME: 33yo M w/PMHx IVDA presenting to the ED c/o painful pruritic rash to UE and LE x1 month. reports pain ambulating and using hands from rash. denies new exposures/lotions, travel. Diffuse excoriated/scabbed papules to palms and soles and LE's visible in triage Labs ordered Full HPI, ROS and PE to be performed by primary ED provider. Reevaluation(s) Reevaluation #1: Labs appear to be around patient's baseline. Chemistry unremarkable. CRP is markedly elevated. Likely secondary to rash. Will have him follow up with Dermatology. Will prescribe doxycycline, Keflex and prednisone. Educated patient on diagnosis and treatment plan, answered all question, patient verbalizes understanding. At this time patient will be discharged home, advised to return with new or worsening symptoms. Educated on worrisome signs and symptoms and when to return. At this time I feel comfortable discharge home. Time: 13:12 Reevaluation #2: Patient left and moments after syphillis + I Called patient to let him know states he will be back later. Time: 14:12 Medical Decision Making Medical Decision Making [facility] Narrative: 33-year-old male presents with painful rash upper and lower extremities involving palms soles. PE w/ Diffuse excoriated/scabbed papules to palms and soles, UE and LE, trunk and back History and physical exam concerning for contact dermatitis versus rash versus allergic reaction versus syphilis versus [id number] although unlikely due to lack of viral illness vs viral illness vs spotted fever. Unlikely necrotizing infection, SJS,TEN Labs ordered Differential Diagnosis Differential Diagnoses: The differential diagnosis associated with the presentation includes History and physical exam concerning for contact dermatitis versus rash versus allergic reaction versus syphilis versus [id number] although unlikely due to lack of viral illness vs viral illness vs spotted fever Unlikely necrotizing infection, SJS, TEN Admission/Observation Consideration of admission/observation: Escalation of care including admission/observation considered Lab Data [facility] Lab Attestation statement: I reviewed the patient's lab results. 04/28/23 12:34 04/28/23 12:34 Labs: Lab Results 04/28/23 Range/Units 12:34 WBC 6.9 (4.8-10.8) X10*3/uL RBC 5.84 H (4.60-5.80) X10*6/uL Hgb 13.5 L (14.0-18.0) g/dl Hct 42.6 (42.0-52.0) % MCV 72.9 L (80.0-98.0) fL MCH 23.1 L (27.0-33.0) pg MCHC 31.7 (31.0-36.0) g/dl RDW 16.4 H (11.0-16.0) % Plt Count 406 H (160-400) X10*3/uL MPV 9.4 (9.4-12.4) fL Immature Gran % (Auto) 0.3 (0.0-0.4) % Neut % (Auto) 42.1 L (45-73) % Lymph % (Auto) 39.0 (20-40) % [place] % (Auto) 10.0 (2-11) % Eos % (Auto) 7.6 H (0-4) % Baso % (Auto) 1.0 (0-2) % Lymph # (Auto) 2.7 (1.2-4.9) X10*3/uL [place] # (Auto) 0.7 (0.1-1.2) X10*3/uL Eos # (Auto) 0.5 H (0.0-0.4) X10*3/uL Baso # (Auto) 0.1 (0.0-0.2) X10*3/uL Abs Immat Gran (auto) 0.02 (0.00-0.03) X10*3/uL Absolute Neuts (auto) 2.9 (2.0-8.3) x10*3/uL Absolute Nucleated RBC 0.000 (0.0-0.012) X10*3/uL Nucleated RBC % (auto) 0.0 (0.0-0.2) /100WBC ESR 12 (0-15) MM/HR Sodium 140 (135-145) mmol/L Potassium 4.0 (3.3-5.1) mmol/L Chloride 102 (96-108) mmol/L Carbon Dioxide 31 H (22-29) mmol/L Anion Gap 11 L (12-20) BUN 14 (9-16) mg/dL Creatinine 1.09 (0.5-1.4) mg/dL Estim Creat Clear Calc 84.6 Estimated GFR > 60 Random Glucose 86 (60-115) mg/dL Calcium 9.5 D (8.4-10.2) mg/dL C-Reactive Protein 3.69 H (< or = 0.50) mg/dL T.pallidum Ab (EIA) Reactive A (Nonreactive) Chronic Conditions Patient?s care impacted by: Other (opiate abuse.) Critical Care Time Critical Care Time Critical Care Time: No Discharge Plan Discharge Clinical Impression: Rash, Syphilis Patient Disposition: Home, Self-Care Instructions: Contact Dermatitis (DC), Acute Rash (ED), Cold Compress or Soak (ED) Additional Instructions: Take your medications as prescribed. If you were prescribed antibiotics today, it is important that you take your medication to their entirety, do not skip any doses, do not finish them early. Follow-up with your primary care provider this week. Return to the emergency department with new or worsening symptoms. Such as fevers, chills, chest pain, shortness of breath, nausea, vomiting, dizziness, headache, vision changes, lethargy In case of emergency call 911 Follow up with derm Prescriptions: New doxycycline hyclate 100 mg capsule 100 mg PO BID 10 Days Qty: 20 0RF prednisone 50 mg tablet 50 mg PO DAILY 5 Days Qty: 5 0RF cephalexin 500 mg tablet 500 mg PO Q6H 10 Days Qty: 40 0RF No Action acetaminophen [Tylenol Extra Strength] 500 mg tablet 500 mg PO Q6H PRN (Reason: pain or fever) Qty: 20 0RF fluoxetine [Prozac] 40 mg capsule 40 mg PO DAILY clonidine HCl 0.1 mg tablet 0.1 mg PO TID trazodone 50 mg tablet 50 mg PO DAILY hydroxyzine HCl 50 mg tablet 50 mg PO TID Referrals: [facility] [Provider Group] Interventions: ED Discharge Assessment Last Done: 04/28/23 13:40
[2023-04-28 12:20] VITALS: BP 121/71; PULSE 84; RESP 18; TEMP 36.8; O2SAT 96; BMI 26.5
[2023-04-28 12:38] LABS: MANUAL DIFF FLAG NO
[2023-04-28 12:42] LABS: Basophils Absolute Auto 0.1 X10*3/uL (0.0-0.2); Eosinophils Absolute Auto 0.5 X10*3/uL (0.0-0.4); Eosinophils Percent Auto 7.6 % (0-4); Hematocrit 42.6 % (42.0-52.0); Hemoglobin 13.5 g/dl (14.0-18.0); Imm Gran Abs Auto 0.02 X10*3/uL (0.00-0.03); Imm Gran Pct Auto 0.3 % (0.0-0.4); Lymphocytes Absolute Auto 2.7 X10*3/uL (1.2-4.9); Mean Corpuscular HGB Conc 31.7 g/dl (31.0-36.0); Mean Corpuscular Hemoglobin 23.1 pg (27.0-33.0); Mean Corpuscular Volume 72.9 fL (80.0-98.0); Mean Platelet Volume 9.4 fL (9.4-12.4); Monocytes Absolute Auto 0.7 X10*3/uL (0.1-1.2); Neutrophils Absolute Auto 2.9 x10*3/uL (2.0-8.3); Neutrophils Percent Auto 42.1 % (45-73); Platelet Count 406 X10*3/uL (160-400); Red Blood Count 5.84 X10*6/uL (4.60-5.80); Red Cell Distribution Width 16.4 % (11.0-16.0); White Blood Count 6.9 X10*3/uL (4.8-10.8)
[2023-04-28 12:57] LABS: Anion Gap 11 (12-20); Blood Urea Nitrogen 14 mg/dL (9-16); C Reactive Protein 3.69 mg/dL (< or = 0.50); Calcium 9.5 mg/dL (8.4-10.2); Carbon Dioxide 31 mmol/L (22-29); Chloride 102 mmol/L (96-108); Creatinine Clr Calc Pharmacy 84.6; Estimated Glomerular Filt Rate > 60; Glucose Random 86 mg/dL (60-115); Sodium 140 mmol/L (135-145)
[2023-04-28 13:19] LABS: Syphilis Screen Reactive (Nonreactive)
[2023-04-28 13:21] LABS: Erythrocyte Sedimentation Rate 12 MM/HR (0-15)
[2023-04-28 15:25] LABS: CT PCR NOT DETECTED (Not Detect.); NG PCR NOT DETECTED (Not Detect.)
[2023-04-29 09:14] LABS: Lyme Abs Screen <0.90 index
[2023-04-30 01:58] LABS: A. Phagocytphilium DNA,RT-PCR NOT DETECTED (NOT DETECTED); Babesia Microti DNA, RT-PCR NOT DETECTED (NOT DETECTED); Borrelia Miyamotoi,DNA RT-PCR NOT DETECTED (NOT DETECTED); E.Chaffeensis DNA RT-PCR NOT DETECTED (NOT DETECTED); Lyme(Borrelia ssp)DNA RT-PCR NOT DETECTED (NOT DETECTED)
[2023-05-07 14:35] LABS: RPR Quantitative Reactive 1:4 (Nonreactive); T.Pallidum Particle Agg Test Reactive (Nonreactive)
== END 2023-04-28 14:17 | disposition home or self-care (01) ==
PROVIDERS: Physician Assistant; Emergency Provider Emergency Medicine Emergency Medical Services
DX: A53.9 Syphilis, unspecified (principal)
CPT/HCPCS: 0353U; 36415; 80048; 85025; 85652; 86140; 86592; 86617; 86618; 86780; 87468; 87469; 87478; 87484; 87798; 99283

== ENCOUNTER 2023-04-28 15:41 | Emergency (ER) | payer MEDICAID, SELFPAY ==
[2023-04-28 16:07] VITALS: BP 118/78; PULSE 75; RESP 18; TEMP 36.7; O2SAT 98; BMI 26.3
[2023-04-28] MEDS: Penicillin G Benzathine 2,400,000 UNIT/4 ML SYRINGE 2400000 UNIT IM (16:29)
--- NOTE | 2023-04-28 16:38 | ED_ITS ---
HPI - General Adult General Chief complaint: General Medical Stated complaint: Was called an told to come back for a shot Time Seen by Provider: 04/28/23 16:10 Source: patient Mode of arrival: ambulatory Limitations: no limitations History of Present Illness HPI narrative: Patient was seen earlier for rash, re-presented after testing positive for syphilis. No tells me he has a remote history of syphilis. Will treat with penicillin G as discussed with him on the phone. No new symptoms since initial evaluation today at 12:19. Pain, shortness of breath, fevers, chills. Related Data Home Medications Medication Instructions Recorded Confirmed clonidine HCl 0.1 mg tablet 0.1 mg PO TID 11/25/22 fluoxetine 40 mg capsule (Prozac) 40 mg PO DAILY 11/25/22 hydroxyzine HCl 50 mg tablet 50 mg PO TID 11/25/22 trazodone 50 mg tablet 50 mg PO DAILY 11/25/22 Previous Rx's Medication Instructions Recorded acetaminophen 500 mg tablet 500 mg PO Q6H PRN pain or fever 08/07/21 (Tylenol Extra Strength) #20 tabs cephalexin 500 mg tablet 500 mg PO Q6H 10 days #40 tabs 04/28/23 doxycycline hyclate 100 mg capsule 100 mg PO BID 10 days #20 caps 04/28/23 prednisone 50 mg tablet 50 mg PO DAILY 5 days #5 tabs 04/28/23 Allergies Allergy/AdvReac Type Severity Reaction Status Date / Time No Known Allergies Allergy Verified 04/02/23 13:04 Review of Systems Review of Systems: Constitutional : No Weight loss, No Fever, No Chills, No Fatigue, No Malaise ENT/Mouth : No sore throat, No Rhinorrhea Eyes: No Eye Pain, No Swelling, No Redness Cardiovascular : No Chest Pain, No SOB, No Dyspnea on Exertion, No Orthopnea, No Edema, No Palpitations Respiratory : No Cough, No Sputum, No Wheezing Gastrointestinal : No Nausea, No Vomiting, No Diarrhea, No Constipation, No abdominal Pain, No Hematochezia, No Melena Genitourinary : No Dysuria, No Urinary Frequency, No Hematuria, Musculoskeletal : No joint pain, No Myalgias, No Joint Swelling Skin : No Skin Lesions, + rash Neuro : No Weakness, No Numbness, No Dizziness, No Headache Psych : No Anxiety/Panic, No Depression Yes all other systems are reviewed and are negative PMFSH Past Medical History Attestation statement: The following information was validated with the patient. Source: old records reviewed and nursing notes reviewed Social History Social History Smoked in Last 30 Days: No Advance Directives: No Advance Directives Information Provided: No Physical Exam ED Vital Signs: Vital Signs - 24 hr 04/28/23 16:07 Temperature 98.1 F Pulse Rate 75 Respiratory Rate 18 Blood Pressure 118/78 Pulse Oximetry 98 Oxygen Delivery Method Room Air BMI result Body Mass Index 26.3 vss Appearance: Alert.? Oriented X3.? No acute distress.? Head: Normocephalic, atraumatic, no step-offs or deformities Eyes: Pupils equal, round and reactive to light.? Respiratory: No respiratory distress.? Skin: Skin warm and dry.? Normal skin color.? Normal skin turgor.?Diffuse excoriated/scabbed papules to palms and soles, UE and LE, trunk and back Extremities: No lower extremity edema.? 5/5 strength to bilateral upper and lower extremities Neuro: Oriented X 3.? No motor deficit.? No sensory deficit. CN 2-12 intact Medications Administered Discontinued Medications Generic Name Dose Route Start Last Admin Trade Name Freq PRN Reason Stop Dose Admin Penicillin G Benzathine 2,400,000 unit 04/28/23 16:21 04/28/23 16:29 Penicillin G Benzathine 2,400,000 Unit/4 Ml Syringe IM 04/28/23 16:22 2,400,000 unit ONCE ONE Administration Medical Decision Making Medical Decision Making MDM Narrative: 33-year-old male presents after testing positive for syphilis, requesting treatment. He was called back by this [facility]. Physical exam with rash please refer to patient's previous charge Patient will be treated for syphilis. Advised for full panel STD testing Differential Diagnosis Differential Diagnoses: The differential diagnosis associated with the pres entation includes Likely syphilis rash. Admission/Observation Consideration of admission/observation: Escalation of care including admission/observation considered Discharge Plan Discharge Clinical Impression: Syphilis Patient Disposition: Home, Self-Care Additional Instructions: Take your medications as prescribed. If you were prescribed antibiotics today, it is important that you take your medication to their entirety, do not skip any doses, do not finish them early. Follow-up with your primary care provider this week. Return to the emergency department with new or worsening symptoms. Such as fevers, chills, chest pain, shortness of breath, nausea, vomiting, dizziness, headache, vision changes, lethargy In case of emergency call 911 Please practice safe sex practices. You tested positive for syphilis. Please speak to your sexual partners. Please go to a local clinic or your PCP for full panel STD testing. Prescriptions: No Action acetaminophen [Tylenol Extra Strength] 500 mg tablet 500 mg PO Q6H PRN (Reason: pain or fever) Qty: 20 0RF doxycycline hyclate 100 mg capsule 100 mg PO BID 10 Days Qty: 20 0RF prednisone 50 mg tablet 50 mg PO DAILY 5 Days Qty: 5 0RF cephalexin 500 mg tablet 500 mg PO Q6H 10 Days Qty: 40 0RF fluoxetine [Prozac] 40 mg capsule 40 mg PO DAILY clonidine HCl 0.1 mg tablet 0.1 mg PO TID trazodone 50 mg tablet 50 mg PO DAILY hydroxyzine HCl 50 mg tablet 50 mg PO TID Referrals: [facility] [Primary Care Provider] - 2 days
== END 2023-04-28 16:51 | disposition home or self-care (01) ==
PROVIDERS: Emergency Provider Emergency Medicine
DX: A53.9 Syphilis, unspecified (principal)
CPT/HCPCS: 96372; 99283; 99284; J0561

== ENCOUNTER 2023-05-20 16:38 | Emergency (ER) | payer MEDICAID, SELFPAY ==
[2023-05-20 17:12] VITALS: BP 97/76; PULSE 85; RESP 18; TEMP 36.9; O2SAT 97; BMI 23.9
--- NOTE | 2023-05-20 17:58 | ED.GENADULT ---
HPI - General Adult General Chief complaint: Skin/Abscess/Foreign Body Stated complaint: scabies Time Seen by Provider: 05/20/23 17:14 Source: patient Mode of arrival: ambulatory Limitations: no limitations History of Present Illness HPI narrative: 24-year-old male presents to ED for generalized itchiness and rash. Patient exposed to confirmed case of scabies at a prison. Patient other prison members also symptomatic. Patient denies any chest pain, shortness of breath, tongue swelling, facial swelling, chest pain, or shortness of breath Related Data Home Medications Medication Instructions Recorded Confirmed clonidine HCl 0.1 mg tablet 0.1 mg PO TID 11/25/22 fluoxetine 40 mg capsule (Prozac) 40 mg PO DAILY 11/25/22 hydroxyzine HCl 50 mg tablet 50 mg PO TID 11/25/22 trazodone 50 mg tablet 50 mg PO DAILY 11/25/22 Previous Rx's Medication Instructions Recorded acetaminophen 500 mg tablet 500 mg PO Q6H PRN pain or fever 08/07/21 (Tylenol Extra Strength) #20 tabs cephalexin 500 mg tablet 500 mg PO Q6H 10 days #40 tabs 04/28/23 doxycycline hyclate 100 mg capsule 100 mg PO BID 10 days #20 caps 04/28/23 prednisone 50 mg tablet 50 mg PO DAILY 5 days #5 tabs 04/28/23 permethrin 5 % topical cream 1 appl topical Q14D 2 doses #60 05/20/23 grams Allergies Allergy/AdvReac Type Severity Reaction Status Date / Time No Known Allergies Allergy Verified 05/20/23 17:14 Review of Systems Review of Systems: itchiness Yes all other systems are reviewed and are negative [facility] Social History Social History Advance Directives: No Advance Directives Information Provided: No Physical Exam ED Vital Signs: Vital Signs - 24 hr 05/20/23 17:12 Temperature 98.5 F Pulse Rate 85 Respiratory Rate 18 Blood Pressure 97/76 Pulse Oximetry 97 Oxygen Delivery Method Room Air BMI result Body Mass Index 23.9 Const General: cooperative, healthy appearing, comfortable, no acute distress, well developed, alert, awake and Physically active Orientation/consciousness: oriented to person, oriented to place, oriented to time and patient oriented x3 HENMT Head: Yes normal to inspection, Yes No palpable skull fracture present, Yes normocephalic and Yes atraumatic Eyes General: appearance normal, both eyes and all related structures Neck Neck: Yes normal visual inspection, Yes full ROM, Yes no lymphadenopathy, Yes no meningeal signs, Yes trachea midline, Yes supple, No anterior neck swelling and No tender Chest Chest palpation & inspection: normal inspection of the chest and normal palpation of entire chest wall Resp Effort & Inspection: normal respiratory effort and able to speak in complete sentences Auscultation: clear to auscultation bilaterally Cardio Jugular venous distension: no JVD Heart sounds: S1 normal heart sound present and S2 normal heart sound present GI Inspection: Yes normal to inspection Palpation (GI): Soft to palpation, not firm, nontender, no guarding and not rigid General: No CVA tenderness and Yes no CVA tenderness Back/Spine/Pelvis Back: no CVA tenderness, No CVA tenderness and No back tenderness Skin Other: Excoriations from itchiness. General skin exam: no rashes or lesions noted and elasticity normal Neuro General: oriented to person, oriented to place, oriented to time, patient oriented x3, gait normal, tone normal, moves all extremities, Normal light touch and pain sensation, no meningeal signs, no focal motor deficits, CN's II-XI intact bilaterally and normal sensation to monofilament Extrem General: Yes normal to inspection, Yes full ROM and Yes capillary refill normal Psych Appearance: grossly normal, well kempt and not disheveled Medical Decision Making Medical Decision Making MDM Narrative: 33-year-old male presents to ED for generalized itchiness.. Patient is exposed to confirm case of scabies at prison. Patient other prison members symptomatic with itchiness rash. Patient denies any anaphylactic symptoms. Patient denies any chest pain or shortness of breath. Differential Diagnosis Differential Diagnoses: The differential diagnosis associated with the presentation includes (Scabies, contact dermatitis, allergic reaction) Admission/Observation Consideration of admission/observation: Escalation of care including admission/observation considered Independent Historian Clinical information obtained from an independent historian. History obtained from or confirmed by: Other (assisted staff) External Record Review External record reviewed: Other (Per ED visits) Prescription Management I considered prescription management with: Other (Permethrin) Social Determinants Patient?s care significantly limited by Social Determinants of Health including: Other Social Determinant of Health (Lives in a prison) Discharge Plan Discharge Clinical Impression: Scabies Patient Disposition: Home, Self-Care Instructions: Scabies (ED) Additional Instructions: Return to the ED immediately for lip swelling, tongue swelling, sensation of throat closing, facial swelling, worsening rash, chest pain, shortness of breath, fever, chills, or any other concerning symptoms. Please follow-up with primary care provider Prescriptions: New permethrin 5 % cream 1 appl topical Q14D Qty: 60 0RF Rx Instructions: apply second treatment 14 days after first treatment if live lice remain. Leave on for 8-14 hours and then wash by shower or bath. No Action acetaminophen [Tylenol Extra Strength] 500 mg tablet 500 mg PO Q6H PRN (Reason: pain or fever) Qty: 20 0RF doxycycline hyclate 100 mg capsule 100 mg PO BID 10 Days Qty: 20 0RF prednisone 50 mg tablet 50 mg PO DAILY 5 Days Qty: 5 0RF cephalexin 500 mg tablet 500 mg PO Q6H 10 Days Qty: 40 0RF fluoxetine [Prozac] 40 mg capsule 40 mg PO DAILY clonidine HCl 0.1 mg tablet 0.1 mg PO TID trazodone 50 mg tablet 50 mg PO DAILY hydroxyzine HCl 50 mg tablet 50 mg PO TID Interventions: ED Discharge Assessment Last Done: 05/20/23 18:58 Discharge Date/Time: 05/20/23 19:12 Print Language: Pashto
== END 2023-05-20 19:12 | disposition home or self-care (01) ==
PROVIDERS: Emergency Provider Emergency Medicine
DX: B86 Scabies (principal); Z79.899 Other long term (current) drug therapy
CPT/HCPCS: 99282; 99283

== ENCOUNTER 2023-08-21 11:44 | Emergency (ER) | payer MEDICAID, SELFPAY ==
[2023-08-21 11:48] VITALS: BP 114/76; PULSE 104; RESP 18; TEMP 36; O2SAT 96; BMI 23.3
--- NOTE | 2023-08-21 11:49 | ED.GENADULT ---
HPI - General Adult General Stated complaint: Methadone dose Time Seen by Provider: 08/21/23 11:49 Source: patient Mode of arrival: ambulatory Limitations: no limitations History of Present Illness HPI narrative: 33 yo male with history of opiate use disorder here with complaints of needing methadone dose. Last dose yesterday and was 125mg. Goes to [facility] clinic on [address]. Arrived at clinic today 30 min after they closed. No physical complaints. Related Data Home Medications ?Medication ?Instructions ?Recorded ?Confirmed clonidine HCl 0.1 mg tablet 0.1 mg PO TID 11/25/22 fluoxetine 40 mg capsule (Prozac) 40 mg PO DAILY 11/25/22 hydroxyzine HCl 50 mg tablet 50 mg PO TID 11/25/22 trazodone 50 mg tablet 50 mg PO DAILY 11/25/22 Previous Rx's ?Medication ?Instructions ?Recorded acetaminophen 500 mg tablet 500 mg PO Q6H PRN pain or fever 08/07/21 (Tylenol Extra Strength) #20 tabs cephalexin 500 mg tablet 500 mg PO Q6H 10 days #40 tabs 04/28/23 doxycycline hyclate 100 mg capsule 100 mg PO BID 10 days #20 caps 04/28/23 prednisone 50 mg tablet 50 mg PO DAILY 5 days #5 tabs 04/28/23 permethrin 5 % topical cream 1 appl topical Q14D 2 doses #60 05/20/23 grams Allergies Allergy/AdvReac Type Severity Reaction Status Date / Time No Known Allergies Allergy Verified 08/21/23 11:50 Review of Systems Review of Systems: Yes all other systems are reviewed and are negative Constitutional: Constitutional: Reports no additional constitutional complaints, Denies body ache(s), Denies chills, Denies fever(s), Denies headache(s) and Denies weakness Eyes: Eyes: Reports no additional eye complaints and Denies change in vision ENT: Reports system reviewed and no additional complaints, except as documented, Denies dizziness, Denies headache(s), Denies nasal congestion, Denies nasal discharge and Denies neck pain Cardiovascular: Cardiovascular: Reports no additional cardiovascular complaints, Denies chest pain, Denies leg edema and Denies dyspnea Respiratory: Respiratory: Reports no additional respiratory complaints, Denies cough and Denies dyspnea Gastrointestinal: Gastrointestinal: Reports no additional gastrointestinal complaints, Denies abdominal pain, Denies diarrhea, Denies nausea and Denies vomiting Genitourinary: Genitourinary: Denies urinary incontinence Musculoskeletal: Musculoskeletal: Reports no additional musculoskeletal complaints, Denies back pain, Denies arthralgias, Denies joint swelling, Denies neck pain, Denies numbness and Denies tingling Integumentary/Breasts: Skin/Breast: Reports system reviewed and no additional complaints, except as docu and Denies rash Neurologic: Reports system reviewed and no additional complaints, except as documented, Denies Abnormal speech present, Denies dizziness, Denies headache(s), Denies numbness, Denies tingling and Denies weakness [facility] Past Medical History Attestation statement: The following information was validated with the patient. Source: old records reviewed and nursing notes reviewed Physical Exam ED Const General: cooperative, healthy appearing, comfortable and no acute distress Orientation/consciousness: patient oriented x3 Limitations: no limitations HENMT Head: Yes normal to inspection Ears: hearing grossly normal bilaterally General nose exam: Normal external nose present Face and sinus: Yes normal facial exam Mouth: Normal oral and palatal mucosa present Throat: Yes posterior oropharynx normal Eyes General: appearance normal, both eyes and all related structures Pupils: Equal, round and reactive pupils present Neck Neck: Yes normal visual inspection Chest Chest palpation & inspection: normal inspection of the chest Resp Effort & Inspection: normal respiratory effort Auscultation: clear to auscultation bilaterally Cardio Rate: regular rate Rhythm: regular rhythm Peripheral pulses: Peripheral pulses 2+ throughout GI Inspection: Yes normal to inspection Palpation (GI): Soft to palpation and nontender Auscultation: normal bowel sounds Back/Spine/Pelvis Thoracic/Lumbar Spine: thoracic and lumbar spine normal to inspection Skin General skin exam: no rashes or lesions noted Neuro General: patient oriented x3, no focal motor deficits and normal sensation to monofilament Cranial nerves: Yes Equal, round and reactive pupils present Cognition (Neuro): normal cognition Speech: No Abnormal speech present Gait exam (Neuro): Normal gait present Motor exam (neuro): 5/5 motor strength present throughout Extrem General: Yes normal to inspection Medical Decision Making Medical Decision Making MDM Narrative: 33 yo male with history of opiate use disorder here with complaints of needing methadone dose. Last dose yesterday and was 125mg. Goes to [facility] clinic on [address]. Arrived at clinic today 30 min after they closed. No physical complaints. Nursing will need to call to verify dose Differential Diagnosis Differential Diagnoses: The differential diagnosis associated with the presentation includes OUD Admission/Observation Consideration of admission/observation: Escalation of care including admission/observation considered no active withdrawal requiring admission External Record Review External record reviewed: Outpatient record Social Determinants Patient?s care significantly limited by Social Determinants of Health including: Problems related to primary support group and Other Social Determinant of Health Discharge Plan Discharge Clinical Impression: Opiate use, Medicine refill Patient Disposition: Still a Patient Prescriptions: No Action acetaminophen [Tylenol Extra Strength] 500 mg tablet 500 mg PO Q6H PRN (Reason: pain or fever) Qty: 20 0RF permethrin 5 % cream 1 appl topical Q14D Qty: 60 0RF Rx Instructions: apply second treatment 14 days after first treatment if live lice remain. Leave on for 8-14 hours and then wash by shower or bath. doxycycline hyclate 100 mg capsule 100 mg PO BID 10 Days Qty: 20 0RF prednisone 50 mg tablet 50 mg PO DAILY 5 Days Qty: 5 0RF cephalexin 500 mg tablet 500 mg PO Q6H 10 Days Qty: 40 0RF fluoxetine [Prozac] 40 mg capsule 40 mg PO DAILY clonidine HCl 0.1 mg tablet 0.1 mg PO TID trazodone 50 mg tablet 50 mg PO DAILY hydroxyzine HCl 50 mg tablet 50 mg PO TID Print Language: Macedonian
--- NOTE | 2023-08-21 12:02 | HE.PHANOTE ---
RE METHADONE PT RECEIVES METHADONE 125 MG FROM [facility] LAST DOSED 08/20/23 [place]
--- NOTE | 2023-08-21 12:02 | PC.NURSE ---
methadone dose verified: DANAE Will Lucile by Mae Nolan RN Last Dose 125 mg 08/20/23 @ 1128 paperwork faxed to pharmacy.
[2023-08-21] MEDS: methADONE HCl 20 MG/2 ML ORAL.CONC 125 MG PO (12:25)
--- NOTE | 2023-08-21 12:32 | PC.NURSE ---
pt medicated per MAR, last dose letter given.
[2023-08-21 12:33] VITALS: BP 114/76; PULSE 104; RESP 18; TEMP 36; O2SAT 96
== END 2023-08-21 12:34 | disposition home or self-care (01) ==
LOC: HO.ED 12:30
PROVIDERS: Emergency Provider Emergency Medicine
DX: F11.20 Opioid dependence, uncomplicated (principal); Z76.0 Encounter for issue of repeat prescription
CPT/HCPCS: 99282; 99283

== ENCOUNTER 2023-08-22 12:36 | Emergency (ER) | payer MEDICAID, SELFPAY ==
[2023-08-22 12:55] VITALS: BP 113/78; PULSE 91; RESP 19; TEMP 36.6; O2SAT 98; BMI 23.3
--- NOTE | 2023-08-22 12:57 | ED.GENADULT ---
HPI - General Adult General Chief complaint: General Medical Stated complaint: Methadone dose Time Seen by Provider: 08/22/23 12:55 Source: patient Mode of arrival: ambulatory Limitations: no limitations History of Present Illness HPI narrative: 33 yold male with pmh of substance abuse presents to the ED for his methadone dose. patient had last dose in the the ED yesterday. patient denies any physical or mental complaints. Related Data Home Medications ?Medication ?Instructions ?Recorded ?Confirmed clonidine HCl 0.1 mg tablet 0.1 mg PO TID 11/25/22 fluoxetine 40 mg capsule (Prozac) 40 mg PO DAILY 11/25/22 hydroxyzine HCl 50 mg tablet 50 mg PO TID 11/25/22 trazodone 50 mg tablet 50 mg PO DAILY 11/25/22 methadone 10 mg/mL oral 125 mg PO DAILY 08/22/23 08/22/23 concentrate (Methadone Intensol) Previous Rx's ?Medication ?Instructions ?Recorded acetaminophen 500 mg tablet 500 mg PO Q6H PRN pain or fever 08/07/21 (Tylenol Extra Strength) #20 tabs cephalexin 500 mg tablet 500 mg PO Q6H 10 days #40 tabs 04/28/23 doxycycline hyclate 100 mg capsule 100 mg PO BID 10 days #20 caps 04/28/23 prednisone 50 mg tablet 50 mg PO DAILY 5 days #5 tabs 04/28/23 permethrin 5 % topical cream 1 appl topical Q14D 2 doses #60 05/20/23 grams Allergies Allergy/AdvReac Type Severity Reaction Status Date / Time No Known Allergies Allergy Verified 08/22/23 12:57 Review of Systems Review of Systems: methadone dose Yes all other systems are reviewed and are negative [facility] Social History Social History Advance Directives: No Physical Exam ED Vital Signs: Vital Signs - 24 hr 08/22/23 12:55 08/22/23 13:29 Temperature 98 F 0 F L Pulse Rate 91 0 L Respiratory Rate 19 0 L Blood Pressure 113/78 0/0 L Pulse Oximetry 98 0 L Oxygen Delivery Method Room Air BMI result Body Mass Index 23.3 Const General: cooperative, healthy appearing, comfortable, no acute distress, well developed, alert, awake and Physically active Orientation/consciousness: oriented to person, oriented to place, oriented to time and patient oriented x3 [facility] Head: Yes normal to inspection, Yes No palpable skull fracture present, Yes normocephalic and Yes atraumatic Eyes General: appearance normal, both eyes and all related structures Neck Neck: Yes normal visual inspection, Yes full ROM, Yes no lymphadenopathy, Yes no meningeal signs, Yes trachea midline, Yes supple, No anterior neck swelling and No tender Chest Chest palpation & inspection: normal inspection of the chest and normal palpation of entire chest wall Resp Effort & Inspection: normal respiratory effort and able to speak in complete sentences Auscultation: clear to auscultation bilaterally Cardio Jugular venous distension: no JVD Heart sounds: S1 normal heart sound present and S2 normal heart sound present GI Inspection: Yes normal to inspection Palpation (GI): Soft to palpation, not firm, nontender, no guarding and not rigid General: No CVA tenderness and Yes no CVA tenderness Back/Spine/Pelvis Back: no CVA tenderness and No CVA tenderness Skin General skin exam: no rashes or lesions noted, elasticity normal and turgor normal Neuro General: oriented to person, oriented to place, oriented to time, patient oriented x3, gait normal, tone normal, moves all extremities, Normal light touch and pain sensation, no meningeal signs, no focal motor deficits, CN's II-XI intact bilaterally and normal sensation to monofilament Extrem General: Yes normal to inspection, Yes full ROM and Yes capillary refill normal Psych Appearance: grossly normal, well kempt and not disheveled Course Course Course Narrative: RME: 33-year-old male presents to the ED for methadone dose 125 mg. Patient states methadone clinic closed today. Patient last dose letter was was at this ER and given 125 dose yesterday. Patient denies any complaints Medications Administered Discontinued Medications Generic Name Dose Route Start Last Admin Trade Name Freq PRN Reason Stop Dose Admin Methadone HCl 125 mg 08/22/23 12:56 08/22/23 13:18 Methadone Hcl 20 Mg/2 Ml Oral.Conc PO 08/22/23 12:57 125 mg ONCE ONE Administration Medical Decision Making Medical Decision Making MDM Narrative: 33-year-old male presents to ED for methadone dose. Patient denies any complaints. Methadone 125 mg ordered and given to patient. Patient will follow up tomorrow at clinic Differential Diagnosis Differential Diagnoses: The differential diagnosis associated with the presentation includes (Methadone dose) Admission/Observation Consideration of admission/observation: Escalation of care including admission/observation considered Independent Historian Clinical information obtained from an independent historian. History obtained from or confirmed by: Other (Patient) External Record Review External record reviewed: Other (Prior visits) Discharge Plan Discharge Clinical Impression: Medication refill Patient Disposition: Home, Self-Care Instructions: Medicine Refill (ED) Additional Instructions: Recommend follow-up with methadone clinic tomorrow. Return to ED immediately for any physical, psychological or any other concerning symptoms. Prescriptions: No Action acetaminophen [Tylenol Extra Strength] 500 mg tablet 500 mg PO Q6H PRN (Reason: pain or fever) Qty: 20 0RF permethrin 5 % cream 1 appl topical Q14D Qty: 60 0RF Rx Instructions: apply second treatment 14 days after first treatment if live lice remain. Leave on for 8-14 hours and then wash by shower or bath. doxycycline hyclate 100 mg capsule 100 mg PO BID 10 Days Qty: 20 0RF prednisone 50 mg tablet 50 mg PO DAILY 5 Days Qty: 5 0RF cephalexin 500 mg tablet 500 mg PO Q6H 10 Days Qty: 40 0RF methadone [Methadone Intensol] 10 mg/mL Concentrate 125 mg PO DAILY Rx Instructions: CONFIRMED LAST DOSE WAS GIVEN IN THIS FACILITY 08/21/23 @1225 fluoxetine [Prozac] 40 mg capsule 40 mg PO DAILY clonidine HCl 0.1 mg tablet 0.1 mg PO TID trazodone 50 mg tablet 50 mg PO DAILY hydroxyzine HCl 50 mg tablet 50 mg PO TID Interventions: ED Discharge Assessment Last Done: 08/22/23 13:29 Discharge Date/Time: 08/22/23 13:30 Print Language: [place] Islander
--- NOTE | 2023-08-22 13:03 | HE.PHANOTE ---
LAST DOSE METHADONE GIVEN IN THIS FACILITY 08/21/23 CONFIRMED IN MAR
[2023-08-22] MEDS: methADONE HCl 20 MG/2 ML ORAL.CONC 125 MG PO (13:18)
[2023-08-22 13:29] VITALS: BP 0/0; PULSE 0; RESP 0; TEMP -17.7; TEMP 0; O2SAT 0
== END 2023-08-22 13:30 | disposition home or self-care (01) ==
PROVIDERS: Emergency Provider Emergency Medicine
DX: Z76.0 Encounter for issue of repeat prescription (principal); Z79.899 Other long term (current) drug therapy
CPT/HCPCS: 99282; 99283

== ENCOUNTER 2023-09-24 03:27 | Inpatient (IN) | payer OTHER, SELFPAY ==
--- NOTE | 2023-09-24 | ECG_ITS ---
Test Reason : qt interval Blood Pressure : / mmHG Vent. Rate : 083 BPM Atrial Rate : 083 BPM P-R Int : 142 ms QRS Dur : 078 ms QT Int : 322 ms P-R-T Axes : 052 061 058 degrees QTc Int : 378 ms Normal sinus rhythm Possible Left atrial enlargement Borderline ECG When compared with ECG of 27-AUG-2022 11:16, No significant change was found Referred By: Ellis Rodriguez Electronically Signed By:Yoshi Johnson
--- NOTE | ~2023-09-24 | XR_ITS ---
EXAMINATION: XR CHEST CLINICAL INFORMATION: Leukocytosis. Shortness of breath. COMPARISON: None available. TECHNIQUE: Frontal view of the chest was obtained. FINDINGS: The lungs are well expanded. No focal consolidation. No pleural effusion. Cardiac silhouette is within normal limits. XR/XR chest 1V IMPRESSION: No acute abnormality.
[2023-09-24 03:49] VITALS: BP 100/62; BP 156/97; PULSE 103; PULSE 110; RESP 16; TEMP 36.7; O2SAT 96; O2SAT 97; BMI 22.8
--- NOTE | 2023-09-24 04:27 | PC.NURSE ---
Addendum entered by Eliud Omer RN 09/24/23 04:41: pt changed over, belongins in the POD Original Note: pt reported he is having a mental health crisis, pt reported I took pictures of kids i dont suppose to , security called pt changed over
[2023-09-24 06:05] VITALS: BP 127/82; PULSE 99; RESP 16; TEMP 37; O2SAT 97
--- NOTE | 2023-09-24 07:05 | ED_ITS ---
HPI - General Adult General Chief complaint: Behavioral Concerns Stated complaint: PTSD FLASHBACK Time Seen by Provider: 09/24/23 06:53 Source: patient Mode of arrival: EMS History of Present Illness ED Provider: CHICO Cannon HPI narrative: This is a 33 year old man with a history of PTSD, presenting to the emergency room for increased feelings of confusion, depression, and PTSD flashbacks. He also complains of nausea and vomiting. Patient has not been taking his meds for the last 3 days. He denies suicidal ideation and homicidal ideation. No visual or auditory hallucinations. Related Data Home Medications ?Medication ?Instructions ?Recorded ?Confirmed clonidine HCl 0.1 mg tablet 0.1 mg PO TID 11/25/22 fluoxetine 40 mg capsule (Prozac) 40 mg PO DAILY 11/25/22 hydroxyzine HCl 50 mg tablet 50 mg PO TID 11/25/22 trazodone 50 mg tablet 50 mg PO DAILY 11/25/22 methadone 10 mg/mL oral 145 mg PO DAILY 08/22/23 08/22/23 concentrate (Methadone Intensol) Previous Rx's ?Medication ?Instructions ?Recorded acetaminophen 500 mg tablet 500 mg PO Q6H PRN pain or fever 08/07/21 (Tylenol Extra Strength) #20 tabs cephalexin 500 mg tablet 500 mg PO Q6H 10 days #40 tabs 04/28/23 doxycycline hyclate 100 mg capsule 100 mg PO BID 10 days #20 caps 04/28/23 prednisone 50 mg tablet 50 mg PO DAILY 5 days #5 tabs 04/28/23 permethrin 5 % topical cream 1 appl topical Q14D 2 doses #60 05/20/23 grams Allergies Allergy/AdvReac Type Severity Reaction Status Date / Time No Known Allergies Allergy Verified 09/24/23 03:55 Review of Systems 2 Review of Systems: Yes all other systems are reviewed and are negative Gastrointestinal: Gastrointestinal: Reports nausea and Reports vomiting Neurologic: Reports confusion Psychiatric: Psychiatric: Reports confusion and Reports depression [facility] Social History Social History Advance Directives: No Advance Directives Information Provided: Yes Do you have a plan to hurt others: No Plan Physical Exam ED Vital Signs: Vital Signs - 24 hr 09/24/23 03:49 09/24/23 06:05 Temperature 98.0 F 98.6 F Pulse Rate 103 H 99 Respiratory Rate 16 16 Blood Pressure 156/97 H 127/82 Pulse Oximetry 96 97 Oxygen Delivery Method Room Air Room Air BMI result Body Mass Index 22.8 vss. Appearance: Alert.? Oriented X3. Flat affect poor historian. Head: Normocephalic, atraumatic, no step-offs or deformities Eyes: Pupils equal, round and reactive to light.? Neck: Normal inspection.? Neck supple.? CVS: Normal heart rate and rhythm.? Pulses normal.? Respiratory: No respiratory distress.? Breath sounds normal.? Abdomen: Soft and nontender.? Skin: Skin warm and dry.? Normal skin color.? Normal skin turgor.? Extremities: No lower extremity edema.? No calf ttp. 5/5 strength to bilateral upper and lower extremities Back: No midline tenderness, no C-spine tenderness, full range of motion, no CVA tenderness bilaterally Neuro: Oriented X 3.? No motor deficit.? No sensory deficit. CN 2-12 intact Const General: confusion Orientation/consciousness: confusion Neuro General: confusion Course Reevaluation(s) Reevaluation #1: Concerning nursing note reviewed in regards to patient taking pictures of children. Patient did not mention this to me and no further comments made, denies this. Again patient with unorganized thoughts and poor historian he is withdrawn in conversation and a vague historian upon my exam and history taking. Time: 07:28 Reevaluation #2: CBC with a white count of 13.3. No medical complaints. I do not suspect infection. Will obtain a urine and chest xray to rule out however, as patient is poor historian. No electrolyte abnormalities needing intervention. UA clean.Utox posiive for methadone and marajuana. Negative salicylates, acetaminophen, and ehtanol. At this time, physician observation will be inittiated. PAtient calm and cooperative. Pending crisis evaluation and will follow Xray. Time: 09:22 Reevaluation #3: Patient will be an inpatient bedsearch Medical Decision Making Medical Decision Making MDM Narrative: 0700 33 year old male presenting with PTSD flashbacks, confusion, and increased feelings of depression, not taking medications x3 days. Negative SI/HI. PE: Appearance: Alert.? Oriented X3.?Flat affect, poor historian. Differential: PTSD vs depression vs drug/alcohol intoxication. Unlikely metabolic derangements, encephaitis/menangitis, or intracranial hemorrhage. Plan: Safety checks every 15 minutes, consult to care team. UA, drug screen, ethanol, salicylate, acetaminophen, CBC, CMP results pending. Differential Diagnosis Differential Diagnoses: The differential diagnosis associated with the presentation includes PTSD vs depression vs drug/alcohol intoxication. Unlikely metabolic derangements, encephaitis/menangitis, or intracranial hemmorhage. Admission/Observation Consideration of admission/observation: Escalation of care including admission/observation considered Consult Healthcare Provider Management of the patient was discussed with: Behavioral Health Provider Lab Data MDM Lab Attestation statement: I reviewed the patient's lab results. 09/24/23 08:04 09/24/23 08:04 Labs: Lab Results 09/24/23 Range/Units 08:04 WBC 13.3 H (4.8-10.8) X10*3/uL RBC 5.77 (4.60-5.80) X10*6/uL Hgb 15.9 (14.0-18.0) g/dl Hct 45.4 (42.0-52.0) % MCV 78.7 L (80.0-98.0) fL MCH 27.6 (27.0-33.0) pg MCHC 35.0 (31.0-36.0) g/dl RDW 15.4 (11.0-16.0) % Plt Count 408 H (160-400) X10*3/uL MPV 10.3 (9.4-12.4) fL Immature Gran % (Auto) 0.4 (0.0-0.4) % Neut % (Auto) 83.7 H (45-73) % Lymph % (Auto) 10.4 L (20-40) % [place] % (Auto) 5.2 (2-11) % Eos % (Auto) 0.1 (0-4) % Baso % (Auto) 0.2 (0-2) % Lymph # (Auto) 1.4 (1.2-4.9) X10*3/uL [place] # (Auto) 0.7 (0.1-1.2) X10*3/uL Eos # (Auto) 0.0 (0.0-0.4) X10*3/uL Baso # (Auto) 0.0 (0.0-0.2) X10*3/uL Abs Immat Gran (auto) 0.05 H (0.00-0.03) X10*3/uL Absolute Neuts (auto) 11.2 H (2.0-8.3) x10*3/uL Absolute Nucleated RBC 0.000 (0.0-0.012) X10*3/uL Nucleated RBC % (auto) 0.0 (0.0-0.2) /100WBC Sodium 140 (135-145) mmol/L Potassium 3.8 (3.3-5.1) mmol/L Chloride 103 (96-108) mmol/L Carbon Dioxide 26 (22-29) mmol/L Anion Gap 15 (12-20) BUN 12 (9-16) mg/dL Creatinine 0.74 (0.5-1.4) mg/dL Estim Creat Clear Calc 129.3 Estimated GFR > 60 Random Glucose 131 H (60-115) mg/dL Calcium 10.2 D (8.4-10.2) mg/dL Total Bilirubin 0.8 (0.0-1.0) mg/dL AST 21 (5-37) U/L ALT 20 (0-40) U/L Alkaline Phosphatase 105 (39-117) U/L Total Protein 9.1 H (6.5-8.0) g/dL Albumin 4.7 (3.5-5.0) g/dL Urine Color Yellow Urine Appearance Turbid Urine pH 7.5 (5.0-9.0) Ur Specific [place] >= 1.030 H (1.005-1.025) Urine Protein 30 (1+) H (Neg-Trace) mg/dL Urine Glucose (UA) Negative (Negative) mg/dL Urine Ketones 15 (Negative) mg/dL Urine Blood Negative (Negative) Urine Nitrite Negative (Negative) Ur Leukocyte Esterase Negative (Negative) Urine RBC 0-2 (0-2) /HPF Urine WBC 0-5 (0-5) /HPF Ur Squamous Epith Cells 0-2 (0-2) /HPF Urine Bacteria None Seen (None Seen) Hyaline Casts 0-2 (0-2) /LPF Salicylates < 5.0 L (15-30) mg/dL Urine Opiates Screen Not Detected (Not Detect) Ur Buprenorphine Scrn Not Detected (Not Detect) ng/mL Ur Oxycodone Screen Not Detected (Not Detect) ng/mL Urine Methadone Screen Positive H (Not Detect) ng/mL Urine Fentanyl Screen Not Detected (Not Detect) Acetaminophen < 3 (<30) mcg/mL Ur Barbiturates Screen Not Detected (Not Detect) Ur Phencyclidine Scrn Not Detected (Not Detect) Ur Amphetamines Screen Not Detected (Not Detect) U Benzodiazepines Scrn Not Detected (Not Detect) Urine Cocaine Screen Not Detected (Not Detect) U Marijuana (THC) Screen POSITIVE H (Not Detect) Ethyl Alcohol < 10 mg/dL External Record Review External record reviewed: Inpatient record, Office record, Outpatient record, Prior outpatient labs, Prior outpatient radiology, Primary care record and Outside ED record Chronic Conditions Patient?s care impacted by: Other (PTSD) Discharge Plan Discharge Clinical Impression: Depression, Acute anxiety, Post traumatic stress disorder (PTSD) Patient Disposition: Still a Patient Prescriptions: No Action acetaminophen [Tylenol Extra Strength] 500 mg tablet 500 mg PO Q6H PRN (Reason: pain or fever) Qty: 20 0RF permethrin 5 % cream 1 appl topical Q14D Qty: 60 0RF Rx Instructions: apply second treatment 14 days after first treatment if live lice remain. Leave on for 8-14 hours and then wash by shower or bath. doxycycline hyclate 100 mg capsule 100 mg PO BID 10 Days Qty: 20 0RF prednisone 50 mg tablet 50 mg PO DAILY 5 Days Qty: 5 0RF cephalexin 500 mg tablet 500 mg PO Q6H 10 Days Qty: 40 0RF methadone [Methadone Intensol] 10 mg/mL Concentrate 145 mg PO DAILY fluoxetine [Prozac] 40 mg capsule 40 mg PO DAILY clonidine HCl 0.1 mg tablet 0.1 mg PO TID trazodone 50 mg tablet 50 mg PO DAILY hydroxyzine HCl 50 mg tablet 50 mg PO TID Print Language: [place]
--- NOTE | 2023-09-24 07:49 | PC.NURSE ---
Assumed care of patient at approximately 0730. Patient brought over from main ER, phone removed from patient and placed with rica. CARE team now meeting with patient
[2023-09-24 08:08] LABS: MANUAL DIFF FLAG NO
[2023-09-24 08:11] LABS: Appearance Urine Turbid; Basophils Percent Auto 0.2 % (0-2); Color Urine Yellow; Eosinophils Percent Auto 0.1 % (0-4); Glucose Urine UA Negative (Negative); Hematocrit 45.4 % (42.0-52.0); Hemoglobin 15.9 g/dl (14.0-18.0); Imm Gran Abs Auto 0.05 X10*3/uL (0.00-0.03); Imm Gran Pct Auto 0.4 % (0.0-0.4); Leukocyte Esterase Urine Negative (Negative); Lymphocytes Absolute Auto 1.4 X10*3/uL (1.2-4.9); Lymphocytes Percent Auto 10.4 % (20-40); Mean Corpuscular Hemoglobin 27.6 pg (27.0-33.0); Mean Corpuscular Volume 78.7 fL (80.0-98.0); Mean Platelet Volume 10.3 fL (9.4-12.4); Monocytes Absolute Auto 0.7 X10*3/uL (0.1-1.2); Monocytes Percent Auto 5.2 % (2-11); Neutrophils Absolute Auto 11.2 x10*3/uL (2.0-8.3); Neutrophils Percent Auto 83.7 % (45-73); Nitrite Urine Negative (Negative); PH 7.5 (5.0-9.0); Platelet Count 408 X10*3/uL (160-400); Red Blood Count 5.77 X10*6/uL (4.60-5.80); Red Cell Distribution Width 15.4 % (11.0-16.0); Specific Gravity - Urine >= 1.030 (1.005-1.025); UMIC TRIGGER UACC YES; Urine Blood Negative (Negative); Urine Ketones 15 mg/dL (Negative); Urine Protein 30 (1+) mg/dL (Neg-Trace); White Blood Count 13.3 X10*3/uL (4.8-10.8)
[2023-09-24 08:16] LABS: Bacteria Urine None Seen (None Seen); Hyaline Casts Urine 0-2 /LPF (0-2); RBC Urine 0-2 /HPF (0-2); Squamous Epithelial Cell Urine 0-2 /HPF (0-2); WBC Urine 0-5 /HPF (0-5)
[2023-09-24 08:21] LABS: Amphetamine Screen Urine Not Detected (Not Detect); Barbiturates, Urine Not Detected (Not Detect); Benzodiazepines Screen Urine Not Detected (Not Detect); Buprenorphine Scr Not Detected (Not Detect); Cannabinoid Screen Urine POSITIVE (Not Detect); Cocaine Screen Urine Not Detected (Not Detect); Fentanyl, urine Not Detected (Not Detect); Methadone Screen, Urine Positive (Not Detect); Opiate Screen Urine Not Detected (Not Detect); Oxycodone Screen Urine Not Detected (Not Detect); Phencyclidine Screen Urine Not Detected (Not Detect)
[2023-09-24 08:31] LABS: Alanine Aminotransferase 20 U/L (0-40); Albumin Level 4.7 g/dL (3.5-5.0); Alkaline Phosphatase 105 U/L (39-117); Anion Gap 15 (12-20); Aspartate Amino Transferase 21 U/L (5-37); Bilirubin Total 0.8 mg/dL (0.0-1.0); Blood Urea Nitrogen 12 mg/dL (9-16); Calcium 10.2 mg/dL (8.4-10.2); Carbon Dioxide 26 mmol/L (22-29); Chloride 103 mmol/L (96-108); Creatinine Clr Calc Pharmacy 129.3; Estimated Glomerular Filt Rate > 60; Ethanol < 10 mg/dL; Glucose Random 131 mg/dL (60-115); Potassium 3.8 mmol/L (3.3-5.1); Sodium 140 mmol/L (135-145); Total Protein 9.1 g/dL (6.5-8.0)
[2023-09-24 09:05] LABS: Acetaminophen LAB < 3 mcg/mL (<30); Salicylate < 5.0 mg/dL (15-30)
--- NOTE | 2023-09-24 10:07 | HE.PHANOTE ---
RE: methadone Received last dose verification for 145mg; last given in clinic 09/20 @1143 with six take home bottles, which patient reports last taking yesterday
--- NOTE | 2023-09-24 11:18 | PC.NURSE ---
Patient resting comfortably on couch in milieu watching TV with another patient, offers no complaints at this time. Aware of plan for inpatient admission
--- NOTE | 2023-09-24 11:29 | MHC.CARE ---
CARE Team noted that nurse and providers notes indicated that pt may have taken photos of children.? This did not come up during the assessment.? Pt does appear disorganized, did speak regarding childhood trauma, and does appear to be responding to internal stimuli and may be experiencing delusions.
[2023-09-24 14:00] VITALS: BMI 22.0
[2023-09-24 14:01] VITALS: BP 166/105; PULSE 97; RESP 22; TEMP 36.6; O2SAT 97
[2023-09-24] MEDS: hydrOXYzine HCL 25 MG TABLET PO (14:54)
[2023-09-24] MEDS: methADONE HCl 20 MG/2 ML ORAL.CONC 145 MG PO (18:47)
--- NOTE | 2023-09-24 19:28 | HO.PSYADMNOT ---
HPI Date of Service: 09/24/23 Chief Complaint: Psychosis Sources of Information: patient interviewed, chart reviewed and crisis/core team assessment reviewed HPI Subjective Notes: [place] Warning and Conditional Voluntary Healthcare Proxy: No Guardianship: No Medical Problems Affecting Mental Status: No Narrative: I hope to show the world that my lifestyle will change. I am wanting to try something new. (references sexual identity). 33 yo male, hx of PTSD, opiate use-methadone maintence, 145 mg daily verified with Lindsay by team- last dose 09/22-needs his dose today, reports off meds for 3-5 days. Presented with plan to go cold and stop Methadone as he reports he had a moment of euphoric insight and does not need it any longer. I am trying to find pain, find feeling. Pt is anxious and tangential when talking. He is responding to internal stimuli, attempting to have 2 conversations at once. Reports stopping medicines which he is not sure what they are, do I need them? . Reports using cannabis to sleep, but has been up for 3 days, having flashbacks and anxiety. Pt willing to take Methadone today and work with addictions on a tapering schedule, so this was ordered. 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 5 years with positive results Trauma History: of brother in childhood Affirms other traumas without specifics Diagnostics Vital Signs (24Hr): Vital Signs - 24 hr 09/24/23 03:49 09/24/23 06:05 09/24/23 14:01 Temperature 98.0 F 98.6 F 98 F Pulse Rate 103 H 99 97 Respiratory Rate 16 16 22 H Blood Pressure 156/97 H 127/82 166/105 H Pulse Oximetry 96 97 97 Oxygen Delivery Method Room Air Room Air Room Air BMI result Body Mass Index 22.0 Labs 09/29/23 08:37 09/29/23 08:36 Labs: Laboratory Results - last 48 hr 09/24/23 08:04 WBC 13.3 H RBC 5.77 Hgb 15.9 Hct 45.4 MCV 78.7 L MCH 27.6 MCHC 35.0 RDW 15.4 Plt Count 408 H MPV 10.3 Immature Gran % (Auto) 0.4 Neut % (Auto) 83.7 H Lymph % (Auto) 10.4 L [place] % (Auto) 5.2 Eos % (Auto) 0.1 Baso % (Auto) 0.2 Lymph # (Auto) 1.4 [place] # (Auto) 0.7 Eos # (Auto) 0.0 Baso # (Auto) 0.0 Abs Immat Gran (auto) 0.05 H Absolute Neuts (auto) 11.2 H Absolute Nucleated RBC 0.000 Nucleated RBC % (auto) 0.0 Sodium 140 Potassium 3.8 Chloride 103 Carbon Dioxide 26 Anion Gap 15 BUN 12 Creatinine 0.74 Estim Creat Clear Calc 129.3 Estimated GFR > 60 Random Glucose 131 H Calcium 10.2 D Total Bilirubin 0.8 AST 21 ALT 20 Alkaline Phosphatase 105 Total Protein 9.1 H Albumin 4.7 Urine Color Yellow Urine Appearance Turbid Urine pH 7.5 Ur Specific [place] >= 1.030 H Urine Protein 30 (1+) H Urine Glucose (UA) Negative Urine Ketones 15 Urine Blood Negative Urine Nitrite Negative Ur Leukocyte Esterase Negative Urine RBC 0-2 Urine WBC 0-5 Ur Squamous Epith Cells 0-2 Urine Bacteria None Seen Hyaline Casts 0-2 Salicylates < 5.0 L Urine Opiates Screen Not Detected Ur Buprenorphine Scrn Not Detected Ur Oxycodone Screen Not Detected Urine Methadone Screen Positive H Urine Fentanyl Screen Not Detected Acetaminophen < 3 Ur Barbiturates Screen Not Detected Ur Phencyclidine Scrn Not Detected Ur Amphetamines Screen Not Detected U Benzodiazepines Scrn Not Detected Urine Cocaine Screen Not Detected U Marijuana (THC) Screen POSITIVE H Ethyl Alcohol < 10 Imaging Radiology Impressions: ITS Impressions Chest X-Ray 09/24/23 09:58 IMPRESSION: No acute abnormality. Meds/Allergies Meds Home Medications ?Medication ?Instructions ?Recorded ?Confirmed ?Type clonidine HCl 0.1 mg tablet 0.1 mg PO TID 11/25/22 History fluoxetine 40 mg capsule (Prozac) 40 mg PO DAILY 11/25/22 History hydroxyzine HCl 50 mg tablet 50 mg PO TID 11/25/22 History trazodone 50 mg tablet 50 mg PO DAILY 11/25/22 History methadone 10 mg/mL oral 145 mg PO DAILY 08/22/23 09/24/23 History concentrate (Methadone Intensol) Allergies Allergies Allergy/AdvReac Type Severity Reaction Status Date / Time No Known Allergies Allergy Verified 09/24/23 03:55 Mental Status Exam Mental Status Exam Patient Appearance: Fatigued Patient Orientation: Person, Place and Situation Level of Consciousness: Alert Patient Behavior: Guarded, Talkative, Anxious, Fearful, Fatigued, Distractible and Good Eye Contact Mood Description: Anxious and Apprehensive Affect Description: Anxious and Apprehensive Patient Cognition Impaired: No Ability to Follow Directions: Fair Speech Pattern: Spontaneous Speech Memory Description: Episodic Impaired Hallucinations: Auditory Delusions: Paranoid Ideation and Present Perceptual Disturbances: Depersonalization and Derealization Thought Process: Distracted Thought Content: positive for Circumstantial and positive for Preoccupation Depressive Symptoms: Increased Anxiety Abnormal Motor Activity Signs and Symptoms: Restlessness Judgement: Poor Assessment & Plan Assessment & Plan (1) Post traumatic stress disorder (PTSD): Status: Acute Code(s): F43.10 - Post-traumatic stress disorder, unspecified (2) Acute anxiety: Status: Acute Code(s): F41.9 - Anxiety disorder, unspecified (3) Depression: Status: Acute Code(s): F32.A - Depression, unspecified (4) Opioid use disorder, severe, on maintenance therapy: Status: Acute Code(s): F11.20 - Opioid dependence, uncomplicated Plan 33 yo male, hx of opiate use disorder, methadone maintenace, PTSD, currently with psychotic sx. Plan: Collateral contact Maintain methadone dosing tonight Addiction consult Re-started clonidine, prozac, hydroxyzine, trazodone Risperdal trial- ?psychosis, PTSD exacerbation? Pt may need a mood stabilizer, however will re-establish regime, treat psychosis and assess. Patient educated on: therapeutic strategies Informed Consent: further education needed Reason for continued inpatient stay Substantial Risk for: rapid decompensation Statement Statement: I have reviewed the history and physical and performed a pertinent examination on my patient. No changes have occurred unless specified. If the History and Physical was not performed prior to admission, the Hospitalist's service will be consulted for completing the admission physical. Time Spent With Patient Time: Total time managing care of this patient today ____ minutes.
[2023-09-24 20:00] VITALS: BP 151/93; PULSE 80; RESP 17; RESP 18; TEMP 36.3; O2SAT 97
[2023-09-24 21:07] VITALS: BP 151/93
[2023-09-24] MEDS: cloNIDine HCL 0.1 MG TABLET PO (21:07)
[2023-09-24] MEDS: risperiDONE 0.5 MG TABLET PO (21:08)
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
[2023-09-25] MEDS: traZODone HCL 50 MG TABLET PO (00:15)
[2023-09-25] MEDS: hydrOXYzine HCL 25 MG TABLET PO ×2 (00:15→09:56)
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
--- NOTE | 2023-09-25 08:04 | HO.PSYCHPN ---
Subjective Subjective Date of Service: 09/25/23 Reason For Visit: Psychosis Subjective Notes: Conditional Voluntary Interim History: Patient presents very anxious, disorganized, and worried. He reports that he now knows he has schizophrenia he states he has always had different personalities but now he understands what is diagnosis is he reports he is having epiphanies. He reports feeling mixed up and disorganized in his head. He reports hearing voices he makes paranoid statements he reports he is having flashbacks of old trauma. He states he thought he was investigating someone else but now he knows that it is himself. No SI no HI, did not sleep last night Medication Compliance: Intermittent Side effects from medications: No Review of Systems Acute medical concerns: No Medical Review of Systems: unchanged Review of Systems Review of Systems pt appears to be in withdrawal. Yes all other systems are reviewed and are negative Gastrointestinal: Reports nausea and Reports vomiting Reports confusion Psychiatric: Reports confusion and Reports depression Mental Status Exam Mental Status Exam Patient Appearance: Fatigued and Perspiring Patient Orientation: Person, Place and Situation Level of Consciousness: Alert Patient Behavior: Guarded, Talkative, Anxious, Fearful, Fatigued, Distractible and Good Eye Contact Mood Description: Anxious and Apprehensive Affect Description: Anxious and Apprehensive Patient Cognition Impaired: No Ability to Follow Directions: Fair Speech Pattern: Spontaneous Speech Memory Description: Episodic Impaired Hallucinations: Auditory Delusions: Paranoid Ideation Thought Process: Illogical and Rumination Thought Content: positive for Loose Associations Judgement: Poor Diagnostics Vital Signs (24Hr): Vital Signs - 24 hr 09/24/23 14:01 09/24/23 20:00 09/24/23 20:00 Temperature 98 F 97.4 F 97.4 F Pulse Rate 97 80 80 Respiratory Rate 22 H 18 17 Blood Pressure 166/105 H 151/93 H 151/93 H Pulse Oximetry 97 97 97 Oxygen Delivery Method Room Air Room Air Room Air 09/24/23 21:07 Temperature Pulse Rate Respiratory Rate Blood Pressure 151/93 H Pulse Oximetry Oxygen Delivery Method BMI result Body Mass Index 22.0 Labs 09/24/23 08:04 09/24/23 08:04 Labs: Laboratory Results - last 48 hr 09/24/23 08:04 WBC 13.3 H RBC 5.77 Hgb 15.9 Hct 45.4 MCV 78.7 L MCH 27.6 MCHC 35.0 RDW 15.4 Plt Count 408 H MPV 10.3 Immature Gran % (Auto) 0.4 Neut % (Auto) 83.7 H Lymph % (Auto) 10.4 L [place] % (Auto) 5.2 Eos % (Auto) 0.1 Baso % (Auto) 0.2 Lymph # (Auto) 1.4 [place] # (Auto) 0.7 Eos # (Auto) 0.0 Baso # (Auto) 0.0 Abs Immat Gran (auto) 0.05 H Absolute Neuts (auto) 11.2 H Absolute Nucleated RBC 0.000 Nucleated RBC % (auto) 0.0 Sodium 140 Potassium 3.8 Chloride 103 Carbon Dioxide 26 Anion Gap 15 BUN 12 Creatinine 0.74 Estim Creat Clear Calc 129.3 Estimated GFR > 60 Random Glucose 131 H Calcium 10.2 D Total Bilirubin 0.8 AST 21 ALT 20 Alkaline Phosphatase 105 Total Protein 9.1 H Albumin 4.7 Urine Color Yellow Urine Appearance Turbid Urine pH 7.5 Ur Specific [place] >= 1.030 H Urine Protein 30 (1+) H Urine Glucose (UA) Negative Urine Ketones 15 Urine Blood Negative Urine Nitrite Negative Ur Leukocyte Esterase Negative Urine RBC 0-2 Urine WBC 0-5 Ur Squamous Epith Cells 0-2 Urine Bacteria None Seen Hyaline Casts 0-2 Salicylates < 5.0 L Urine Opiates Screen Not Detected Ur Buprenorphine Scrn Not Detected Ur Oxycodone Screen Not Detected Urine Methadone Screen Positive H Urine Fentanyl Screen Not Detected Acetaminophen < 3 Ur Barbiturates Screen Not Detected Ur Phencyclidine Scrn Not Detected Ur Amphetamines Screen Not Detected U Benzodiazepines Scrn Not Detected Urine Cocaine Screen Not Detected U Marijuana (THC) Screen POSITIVE H Ethyl Alcohol < 10 Imaging Radiology Impressions: ITS Impressions Chest X-Ray 09/24/23 09:58 IMPRESSION: No acute abnormality. Medications Medications Current Medications Acetaminophen (Acetaminophen 325 Mg Tablet) 650 mg PO Q6H PRN PRN Reason: Headache/Pain Mild Scale (1-3) Al Hydroxide/Mg Hydroxide (Magnesium Hydrox/Alum Hydrox 30 Ml Oral.Susp) 30 ml PO Q6H PRN PRN Reason: Heartburn/Nausea Clonidine HCl (Clonidine Hcl 0.1 Mg Tablet) 0.1 mg PO TID [facility]; Protocol Last Admin: 09/24/23 21:07 Dose: 0.1 mg Fluoxetine HCl (Fluoxetine Hcl 20 Mg Capsule) 20 mg PO DAILY [facility] Hydroxyzine HCl (Hydroxyzine Hcl 25 Mg Tablet) 25 mg PO Q6H PRN PRN Reason: Anxiety Last Admin: 09/25/23 00:15 Dose: 25 mg Magnesium Hydroxide (Milk Of Magnesia 30 Ml Oral.Susp) 30 ml PO DAILY PRN PRN Reason: Constipation Methadone HCl (Methadone Hcl 20 Mg/2 Ml Oral.Conc) 145 mg PO DAILY [facility] Last Admin: 09/24/23 18:47 Dose: 145 mg Risperidone (Risperidone 0.5 Mg Tablet) 0.5 mg PO BID [facility] Last Admin: 09/24/23 21:08 Dose: 0.5 mg Risperidone (Risperidone 0.5 Mg Tablet) 0.5 mg PO Q4H PRN PRN Reason: Psychosis Trazodone HCl (Trazodone Hcl 50 Mg Tablet) 50 mg PO BEDTIME MRX1 PRN PRN Reason: Insomnia Last Admin: 09/25/23 00:15 Dose: 50 mg Allergies Allergies Allergy/AdvReac Type Severity Reaction Status Date / Time No Known Allergies Allergy Verified 09/24/23 03:55 Assessment & Plan Assessment & Plan (1) Post traumatic stress disorder (PTSD): Status: Acute Code(s): F43.10 - Post-traumatic stress disorder, unspecified (2) Acute anxiety: Status: Acute Code(s): F41.9 - Anxiety disorder, unspecified (3) Depression: Status: Acute Code(s): F32.A - Depression, unspecified (4) Opioid use disorder, severe, on maintenance therapy: Status: Acute Code(s): F11.20 - Opioid dependence, uncomplicated Plan 33 yo male, hx of opiate use disorder, methadone maintenace, PTSD, currently with psychotic sx. Plan: Collateral contact Maintain methadone dosing tonight Addiction consult Re-started clonidine, prozac, hydroxyzine, trazodone Risperdal trial- ?psychosis, PTSD exacerbation? Pt may need a mood stabilizer, however will re-establish regime, treat psychosis and assess. 09/25/23 trial of zyprexa 5 mg BID prn and if more calming may switch from risperdal to zyprexa Reason for continued inpatient stay Substantial Risk for: harm to self, inability to function and rapid decompensation Time Spent With Patient Time: Total time managing care of this patient today ____ minutes.
[2023-09-25 08:06] LABS: Estimated Average Glucose 91 mg/dL; Hemoglobin A1c % 4.8 % (<6.0)
[2023-09-25 08:18] LABS: Cholesterol 164 mg/dL (<200); HDL Cholesterol 49 mg/dL (>40); LDL Cholesterol Calculated 104 mg/dL (<100); Magnesium 1.9 mg/dL (1.6-2.6); Triglycerides 58 mg/dL (<150)
[2023-09-25 08:24] VITALS: BP 165/111
[2023-09-25] MEDS: cloNIDine HCL 0.1 MG TABLET PO ×3 (08:24→22:26)
[2023-09-25 08:34] LABS: Free T4 (Free Thyroxine) 1.28 ng/dL (0.71-1.85); Thyroid Stimulating Hormone 0.71 uIU/mL (0.32-4.0)
[2023-09-25 08:46] LABS: Folate 11.1 ng/mL (> or = 4.0); Vitamin B12 760 pg/mL (200-900)
[2023-09-25 09:12] VITALS: BP 160/103; PULSE 107; RESP 18; TEMP 36.4; O2SAT 97
[2023-09-25] MEDS: FLUoxetine HCl 20 MG CAPSULE PO (09:14)
[2023-09-25] MEDS: risperiDONE 0.5 MG TABLET PO (09:14)
[2023-09-25] MEDS: methADONE HCl 20 MG/2 ML ORAL.CONC 145 MG PO (09:16)
[2023-09-25] MEDS: OLANZapine 5 MG TABLET PO (14:05)
[2023-09-25 14:07] VITALS: BP 136/92; PULSE 95
[2023-09-25 22:15] VITALS: BP 135/94; PULSE 92; TEMP 36.9
[2023-09-26] MEDS: risperiDONE 0.5 MG TABLET PO ×2 (08:51→21:55)
[2023-09-26] MEDS: FLUoxetine HCl 20 MG CAPSULE PO (08:51)
[2023-09-26] MEDS: cloNIDine HCL 0.1 MG TABLET PO ×3 (08:51→21:55)
[2023-09-26 08:59] VITALS: BP 129/84; PULSE 103; RESP 16; TEMP 37; O2SAT 97
--- NOTE | 2023-09-26 10:25 | HO.PSYCHPN ---
Subjective Subjective Date of Service: 09/26/23 Reason For Visit: Psychosis Interim History: Patient presents very anxious, disorganized, and worried. Initiall refuse methadone this am; he reports he wants to be off it; education re: need to taper done in session; pt intermittently agreeable; stated he would take medication if I reduce dose tomorrow. He reports hearing voices he makes paranoid statements he reports he is having flashbacks of old trauma. He states he thought he was investigating someone else but now he knows that it is himself. No SI no HI, did not sleep last night Medication Compliance: Yes Side effects from medications: No Review of Systems Review of Systems pt appears to be in withdrawal. Yes all other systems are reviewed and are negative Gastrointestinal: Reports nausea and Reports vomiting Reports confusion Psychiatric: Reports confusion and Reports depression Mental Status Exam Mental Status Exam Patient Appearance: Fatigued and Perspiring Patient Orientation: Person, Place and Situation Level of Consciousness: Alert Patient Behavior: Guarded, Talkative, Anxious, Fearful, Fatigued, Distractible and Good Eye Contact Mood Description: Anxious and Apprehensive Affect Description: Anxious and Apprehensive Patient Cognition Impaired: No Ability to Follow Directions: Fair Speech Pattern: Spontaneous Speech Memory Description: Episodic Impaired Judgement: Poor Diagnostics Vital Signs (24Hr): Vital Signs - 24 hr 09/25/23 14:07 09/25/23 22:15 09/26/23 08:59 Temperature 98.4 F 98.6 F Pulse Rate 95 92 103 H Respiratory Rate 16 Blood Pressure 136/92 H 135/94 H 129/84 Pulse Oximetry 97 Oxygen Delivery Method Room Air BMI result Body Mass Index 22.0 Labs 09/24/23 08:04 09/24/23 08:04 Labs: Laboratory Results - last 48 hr 09/25/23 07:43 Estimat Average Glucose 91 Hemoglobin A1c % 4.8 Magnesium 1.9 Triglycerides 58 Cholesterol 164 LDL Cholesterol, Calc 104 H HDL Cholesterol 49 Vitamin B12 760 Folate 11.1 TSH 0.71 Free T4 1.28 Imaging Radiology Impressions: ITS Impressions Chest X-Ray 09/24/23 09:58 IMPRESSION: No acute abnormality. Medications Medications Current Medications Acetaminophen (Acetaminophen 325 Mg Tablet) 650 mg PO Q6H PRN PRN Reason: Headache/Pain Mild Scale (1-3) Al Hydroxide/Mg Hydroxide (Magnesium Hydrox/Alum Hydrox 30 Ml Oral.Susp) 30 ml PO Q6H PRN PRN Reason: Heartburn/Nausea Clonidine HCl (Clonidine Hcl 0.1 Mg Tablet) 0.1 mg PO TID [facility]; Protocol Last Admin: 09/26/23 08:51 Dose: 0.1 mg Fluoxetine HCl (Fluoxetine Hcl 20 Mg Capsule) 20 mg PO DAILY [facility] Last Admin: 09/26/23 08:51 Dose: 20 mg Hydroxyzine HCl (Hydroxyzine Hcl 25 Mg Tablet) 25 mg PO Q6H PRN PRN Reason: Anxiety Last Admin: 09/25/23 09:56 Dose: 25 mg Magnesium Hydroxide (Milk Of Magnesia 30 Ml Oral.Susp) 30 ml PO DAILY PRN PRN Reason: Constipation Methadone HCl (Methadone Hcl 20 Mg/2 Ml Oral.Conc) 145 mg PO DAILY [facility] Last Admin: 09/26/23 08:58 Dose: Not Given Olanzapine (Olanzapine 5 Mg Tablet) 5 mg PO BID PRN PRN Reason: voices,paranoid thoughts Last Admin: 09/25/23 14:05 Dose: 5 mg Risperidone (Risperidone 0.5 Mg Tablet) 0.5 mg PO BID [facility] Last Admin: 09/26/23 08:51 Dose: 0.5 mg Risperidone (Risperidone 0.5 Mg Tablet) 0.5 mg PO Q4H PRN PRN Reason: Psychosis Trazodone HCl (Trazodone Hcl 50 Mg Tablet) 50 mg PO BEDTIME MRX1 PRN PRN Reason: Insomnia Last Admin: 09/25/23 00:15 Dose: 50 mg Allergies Allergies Allergy/AdvReac Type Severity Reaction Status Date / Time No Known Allergies Allergy Verified 09/24/23 03:55 Assessment & Plan Assessment & Plan (1) Post traumatic stress disorder (PTSD): Status: Acute Code(s): F43.10 - Post-traumatic stress disorder, unspecified (2) Acute anxiety: Status: Acute Code(s): F41.9 - Anxiety disorder, unspecified (3) Depression: Status: Acute Code(s): F32.A - Depression, unspecified (4) Opioid use disorder, severe, on maintenance therapy: Status: Acute Code(s): F11.20 - Opioid dependence, uncomplicated Plan 33 yo male, hx of opiate use disorder, methadone maintenace, PTSD, currently with psychotic sx. Plan: Collateral contact Maintain methadone dosing tonight Addiction consult Re-started clonidine, prozac, hydroxyzine, trazodone Risperdal trial- ?psychosis, PTSD exacerbation? Pt may need a mood stabilizer, however will re-establish regime, treat psychosis and assess. 09/25/23 trial of zyprexa 5 mg BID prn and if more calming may switch from risperdal to zyprexa 09/25 methadone reduced to 140 mg for 09/26; brief consult with [facility] Care Team [facility] specialist in agreement Reason for continued inpatient stay Substantial Risk for: harm to self, inability to function and rapid decompensation Time Spent With Patient Time: Total time managing care of this patient today ____ minutes.
[2023-09-26] MEDS: methADONE HCl 20 MG/2 ML ORAL.CONC 145 MG PO (11:56)
[2023-09-26 16:23] VITALS: BP 154/95; PULSE 103
[2023-09-26 20:00] VITALS: BP 115/79; PULSE 97; RESP 20; TEMP 37.1; O2SAT 96
[2023-09-27] MEDS: risperiDONE 0.5 MG TABLET PO ×3 (08:35→22:02)
[2023-09-27] MEDS: FLUoxetine HCl 20 MG CAPSULE PO (08:35)
[2023-09-27] MEDS: cloNIDine HCL 0.1 MG TABLET PO ×3 (08:35→22:01)
[2023-09-27 08:40] VITALS: BP 137/79; PULSE 123; RESP 16; TEMP 37.1; O2SAT 99
[2023-09-27] MEDS: methADONE HCl 20 MG/2 ML ORAL.CONC 142 MG PO (09:33)
[2023-09-27 16:08] VITALS: BP 135/86; PULSE 117
[2023-09-27 17:37] LABS: Glucose, Whole Blood 128 mg/dL (60-115)
[2023-09-27] MEDS: OLANZapine 5 MG TABLET PO (18:00)
--- NOTE | 2023-09-27 18:55 | HO.PSYCHPN ---
Subjective Subjective Date of Service: 09/27/23 Reason For Visit: Psychosis Interim History: Patient presents very anxious, disorganized, and confused. he reports he wants to be off the methadone- spilled some on himself today; education re: need to taper done in session; wants to reduce dose of methadone. No SI no HI, did not sleep last night Review of Systems Review of Systems pt appears to be in withdrawal. Yes all other systems are reviewed and are negative Gastrointestinal: Reports nausea and Reports vomiting Reports confusion Psychiatric: Reports confusion and Reports depression Mental Status Exam Mental Status Exam Patient Appearance: Fatigued and Perspiring Patient Orientation: Person, Place and Situation Level of Consciousness: Drowsy and Sedated Patient Behavior: Guarded, Anxious, Fearful, Fatigued and Distractible Mood Description: Withdrawn, Anxious and Apprehensive Affect Description: Withdrawn, Anxious and Apprehensive Patient Cognition Impaired: No Ability to Follow Directions: Fair Speech Pattern: Spontaneous Speech Memory Description: Episodic Impaired Thought Process: Illogical, Distracted and Confusion Thought Content: positive for Thought Blocking Judgement: Poor Diagnostics Vital Signs (24Hr): Vital Signs - 24 hr 09/26/23 20:00 09/27/23 08:40 09/27/23 16:08 Temperature 98.7 F 98.8 F Pulse Rate 97 123 H 117 H Respiratory Rate 20 16 Blood Pressure 115/79 137/79 135/86 Pulse Oximetry 96 99 Oxygen Delivery Method Room Air Room Air BMI result Body Mass Index 22.0 Labs 09/24/23 08:04 09/24/23 08:04 Labs: Laboratory Results - last 48 hr 09/27/23 17:33 POC Glucose 128 H Imaging Radiology Impressions: ITS Impressions Chest X-Ray 09/24/23 09:58 IMPRESSION: No acute abnormality. Medications Medications Current Medications Acetaminophen (Acetaminophen 325 Mg Tablet) 650 mg PO Q6H PRN PRN Reason: Headache/Pain Mild Scale (1-3) Al Hydroxide/Mg Hydroxide (Magnesium Hydrox/Alum Hydrox 30 Ml Oral.Susp) 30 ml PO Q6H PRN PRN Reason: Heartburn/Nausea Clonidine HCl (Clonidine Hcl 0.1 Mg Tablet) 0.1 mg PO TID [facility]; Protocol Last Admin: 09/27/23 16:05 Dose: 0.1 mg Fluoxetine HCl (Fluoxetine Hcl 20 Mg Capsule) 20 mg PO DAILY [facility] Last Admin: 09/27/23 08:35 Dose: 20 mg Hydroxyzine HCl (Hydroxyzine Hcl 25 Mg Tablet) 25 mg PO Q6H PRN PRN Reason: Anxiety Last Admin: 09/25/23 09:56 Dose: 25 mg Magnesium Hydroxide (Milk Of Magnesia 30 Ml Oral.Susp) 30 ml PO DAILY PRN PRN Reason: Constipation Methadone HCl (Methadone Hcl 20 Mg/2 Ml Oral.Conc) 138 mg PO DAILY [facility] Olanzapine (Olanzapine 5 Mg Tablet) 5 mg PO BID PRN PRN Reason: voices,paranoid thoughts Last Admin: 09/27/23 18:00 Dose: 5 mg Risperidone (Risperidone 0.5 Mg Tablet) 0.5 mg PO BID [facility] Last Admin: 09/27/23 08:35 Dose: 0.5 mg Risperidone (Risperidone 0.5 Mg Tablet) 0.5 mg PO Q4H PRN PRN Reason: Psychosis Last Admin: 09/27/23 17:59 Dose: 0.5 mg Trazodone HCl (Trazodone Hcl 50 Mg Tablet) 50 mg PO BEDTIME MRX1 PRN PRN Reason: Insomnia Last Admin: 09/25/23 00:15 Dose: 50 mg Allergies Allergies Allergy/AdvReac Type Severity Reaction Status Date / Time No Known Allergies Allergy Verified 09/24/23 03:55 Assessment & Plan Assessment & Plan (1) Post traumatic stress disorder (PTSD): Status: Acute Code(s): F43.10 - Post-traumatic stress disorder, unspecified (2) Acute anxiety: Status: Acute Code(s): F41.9 - Anxiety disorder, unspecified (3) Depression: Status: Acute Code(s): F32.A - Depression, unspecified (4) Opioid use disorder, severe, on maintenance therapy: Status: Acute Code(s): F11.20 - Opioid dependence, uncomplicated Plan 33 yo male, hx of opiate use disorder, methadone maintenace, PTSD, currently with psychotic sx. Plan: Collateral contact Maintain methadone dosing tonight Addiction consult Re-started clonidine, prozac, hydroxyzine, trazodone Risperdal trial- ?psychosis, PTSD exacerbation? Pt may need a mood stabilizer, however will re-establish regime, treat psychosis and assess. 09/25/23 trial of zyprexa 5 mg BID prn and if more calming may switch from risperdal to zyprexa 09/25 methadone reduced to 142 mg for 09/26; brief consult with [facility] Care Team [facility] specialist in agreement 09/26 methadone decreased to 138mg daily CBC and CMP ordered as pt more confused and WBc high in ED Patient educated on: diagnosis and medication risk/benefits Informed Consent: does not understand and further education needed Reason for continued inpatient stay Substantial Risk for: harm to self and inability to function Time Spent With Patient Time: Total time managing care of this patient today ____ minutes.
[2023-09-27 20:00] VITALS: BP 136/88; PULSE 114; RESP 18; TEMP 36.7; O2SAT 98
[2023-09-27 22:01] VITALS: BP 136/88
[2023-09-27] MEDS: traZODone HCL 50 MG TABLET PO (22:02)
--- NOTE | 2023-09-28 05:33 | PC.NURSE ---
RN woke patient to administer night time medications at 2100. Patient was confused, RN thought that patient might not understand [place] at first. Patient appeared a little sweaty, he is very thin and looks malnourished. Vital signs taken and stable at that time. Patient took his medications after prompting with just a very small sip of water. An hour later patient was up wandering halls with his tamia pants in his hand although he had underwear on and a tamia top. RN requested patient put his pants on but he was very confused and didn't know what to do or how to do it. His speech was not making sense talking about God and keeping it real . He was opening and closing his room door, very paranoid, and did state the fact that he was confused. RN paged the doctor, attempted to administer medications but patient would not take them. ordered a one to one sitter for patients safety. Early this morning patient was vomiting. He was accepting help this morning and his linens were changed and his face washed with a washcloth. Once again the patient reports feeling confused. Will continue to monitor closely
[2023-09-28] MEDS: methADONE HCl 20 MG/2 ML ORAL.CONC 138 MG PO (08:02)
[2023-09-28] MEDS: FLUoxetine HCl 20 MG CAPSULE PO (08:04)
[2023-09-28] MEDS: cloNIDine HCL 0.1 MG TABLET PO ×3 (08:04→21:06)
[2023-09-28] MEDS: risperiDONE 0.5 MG TABLET PO (08:05)
[2023-09-28 08:45] VITALS: BP 120/78; PULSE 103; RESP 18; TEMP 37.2; O2SAT 97
--- NOTE | 2023-09-28 10:21 | P.PNPSI_ITS ---
Subjective Subjective Date of Service: 09/28/23 Reason For Visit: Psychosis Subjective Notes: Conditional Voluntary Healthcare Proxy: No Guardianship: No Medical Problems Affecting Mental Status: No Interim History: Reviewed with team. Met with pt who is paranoid, distracted. Risperdal changed to Haldol. Pt struggled over the weekend with psychotic sx, refusal of methadone with agreement to taper. Dosage from 145 to 142 to 140 to 138 mg. Reports poor sleep, flashbacks, anxiety, disorganizaion, AH, paranoia. Tells team over the weekend he is schizophrenic with different personalities and having epiphanes about these now. Zyprexa prn added over the weekend Daily CBC, CMP ordered. Today, labs were not possible due to coagulation of the sample. Re-ordered for 09/28. Met with pt who is paranoid, appears fearful. Attempted to reassure him we are here to help. His response was I know, do you think I am beyond help at this point.? Reassurance offered. Medication Compliance: Yes Side effects from medications: No Attending Groups: No Review of Systems Acute medical concerns: No WBC elevation Medical Review of Systems: unchanged Review of Systems Review of Systems Yes all other systems are reviewed and are negative (denies) Mental Status Exam Mental Status Exam Patient Appearance: Fatigued, Disheveled and Unkempt Patient Orientation: Person and Place Level of Consciousness: Alert Patient Behavior: Guarded, Talkative, Cooperative, Suspicious, Anxious, Fearful, Fatigued, Distractible, Confused, Isolative and Good Eye Contact Mood Description: Blunted Affect Description: Blunted Patient Cognition Impaired: Yes Ability to Follow Directions: Fair Speech Pattern: Perseverating, Spontaneous Speech and Soft-Spoken Memory Description: Remote Impaired Hallucinations: Auditory Delusions: Being Controlled, Paranoid Ideation and Present Perceptual Disturbances: Depersonalization and Derealization Thought Process: Rumination Thought Content: positive for [place], positive for Obsessional Thoughts, positive for Circumstantial, positive for Perseveration, positive for Preoccupation, positive for Thought Blocking and positive for Tangential Depressive Symptoms: Difficulty Sleeping, Hopelessness, Increased Fatigue, Loss of Energy and Difficulty Concentrating Judgement: Poor Diagnostics Vital Signs (24Hr): Vital Signs - 24 hr 09/27/23 16:08 09/27/23 20:00 09/27/23 22:01 Temperature 98.0 F Pulse Rate 117 H 114 H Respiratory Rate 18 Blood Pressure 135/86 136/88 136/88 Pulse Oximetry 98 Oxygen Delivery Method Room Air 09/28/23 08:45 Temperature 98.9 F Pulse Rate 103 H Respiratory Rate 18 Blood Pressure 120/78 Pulse Oximetry 97 Oxygen Delivery Method Room Air BMI result Body Mass Index 22.0 Labs 09/28/23 10:08 09/28/23 10:08 Labs: Laboratory Results - last 48 hr 09/27/23 17:33 POC Glucose 128 H Imaging Radiology Impressions: ITS Impressions Chest X-Ray 09/24/23 09:58 IMPRESSION: No acute abnormality. Medications Medications Current Medications Acetaminophen (Acetaminophen 325 Mg Tablet) 650 mg PO Q6H PRN PRN Reason: Headache/Pain Mild Scale (1-3) Al Hydroxide/Mg Hydroxide (Magnesium Hydrox/Alum Hydrox 30 Ml Oral.Susp) 30 ml PO Q6H PRN PRN Reason: Heartburn/Nausea Clonidine HCl (Clonidine Hcl 0.1 Mg Tablet) 0.1 mg PO TID [facility]; Protocol Last Admin: 09/28/23 08:04 Dose: 0.1 mg Fluoxetine HCl (Fluoxetine Hcl 20 Mg Capsule) 20 mg PO DAILY [facility] Last Admin: 09/28/23 08:04 Dose: 20 mg Hydroxyzine HCl (Hydroxyzine Hcl 25 Mg Tablet) 25 mg PO Q6H PRN PRN Reason: Anxiety Last Admin: 09/25/23 09:56 Dose: 25 mg Magnesium Hydroxide (Milk Of Magnesia 30 Ml Oral.Susp) 30 ml PO DAILY PRN PRN Reason: Constipation Methadone HCl (Methadone Hcl 20 Mg/2 Ml Oral.Conc) 138 mg PO DAILY [facility] Last Admin: 09/28/23 08:02 Dose: 138 mg Olanzapine (Olanzapine 5 Mg Tablet) 5 mg PO BID PRN PRN Reason: voices,paranoid thoughts Last Admin: 09/27/23 18:00 Dose: 5 mg Risperidone (Risperidone 0.5 Mg Tablet) 0.5 mg PO BID [facility] Last Admin: 09/28/23 08:05 Dose: 0.5 mg Risperidone (Risperidone 0.5 Mg Tablet) 0.5 mg PO Q4H PRN PRN Reason: Psychosis Last Admin: 09/27/23 17:59 Dose: 0.5 mg Trazodone HCl (Trazodone Hcl 50 Mg Tablet) 50 mg PO BEDTIME MRX1 PRN PRN Reason: Insomnia Last Admin: 09/27/23 22:02 Dose: 50 mg Allergies Allergies Allergy/AdvReac Type Severity Reaction Status Date / Time No Known Allergies Allergy Verified 09/24/23 03:55 Assessment & Plan Assessment & Plan (1) Post traumatic stress disorder (PTSD): Status: Acute Code(s): F43.10 - Post-traumatic stress disorder, unspecified (2) Acute anxiety: Status: Acute Code(s): F41.9 - Anxiety disorder, unspecified (3) Depression: Status: Acute Code(s): F32.A - Depression, unspecified (4) Opioid use disorder, severe, on maintenance therapy: Status: Acute Code(s): F11.20 - Opioid dependence, uncomplicated Plan 33 yo male, hx of opiate use disorder, methadone maintenace, PTSD, currently with psychotic sx. Plan: Collateral contact Maintain methadone dosing tonight Addiction consult Re-started clonidine, prozac, hydroxyzine, trazodone Risperdal trial- ?psychosis, PTSD exacerbation? Pt may need a mood stabilizer, however will re-establish regime, treat psychosis and assess. 09/25/23 trial of zyprexa 5 mg BID prn and if more calming may switch from risperdal to zyprexa 09/25 methadone reduced to 142 mg for 09/26; brief consult with Comprehensice Care Team [facility] specialist in agreement 09/26 methadone decreased to 138mg daily CBC and CMP ordered as pt more confused and WBc high in ED 09/27 DC Risperdal Haldol 10 mg concentrate po bid [facility], CMP for 09/28 Continue Olanzapine prn Informed Consent: does not understand Reason for continued inpatient stay Substantial Risk for: rapid decompensation Time Spent With Patient Time: Total time managing care of this patient today ____ minutes.
[2023-09-28 10:48] LABS: Alanine Aminotransferase 22 U/L (0-40); Albumin Level 4.5 g/dL (3.5-5.0); Alkaline Phosphatase 118 U/L (39-117); Anion Gap 17 (12-20); Aspartate Amino Transferase 22 U/L (5-37); Bilirubin Total 0.7 mg/dL (0.0-1.0); Blood Urea Nitrogen 20 mg/dL (9-16); Calcium 9.7 mg/dL (8.4-10.2); Carbon Dioxide 25 mmol/L (22-29); Chloride 98 mmol/L (96-108); Creatinine Clr Calc Pharmacy 106.3; Estimated Glomerular Filt Rate > 60; Glucose Fasting 96 mg/dL (60-99); Potassium 4.3 mmol/L (3.3-5.1); Sodium 136 mmol/L (135-145); Total Protein 8.7 g/dL (6.5-8.0)
[2023-09-28] MEDS: hydrOXYzine HCL 25 MG TABLET PO ×2 (10:50→18:46)
[2023-09-28] MEDS: OLANZapine 5 MG TABLET PO ×2 (10:50→21:06)
--- NOTE | 2023-09-28 11:29 | PM.EVENT ---
Event Note Date of Service: 09/28/23 Event Note: Addiction consult placed for patient who is currently admitted to unit and requesting to d/c methadone Chart reviewed methadone dose 145mg daily Patient presents as disorganized, paranoid and making statements like he needs to feel pain recommendations: -methadone dose decreased by 5mg -advise against continuing to decrease dose as patient is not demonstrating ability to understand impact of reduction/discontinuation--outpatient dose is decreased once per week, unless medically necessary. If he continues to request decrease, small increments are preferred -will check in with patient once psychiatric acuity has lessened Time Spent With Patient Time: Total time managing care of this patient today ____ minutes.
[2023-09-28 14:52] VITALS: BP 145/98; PULSE 98
[2023-09-28 21:00] VITALS: BP 145/85; PULSE 98; RESP 16; TEMP 36.7; O2SAT 99
[2023-09-28] MEDS: Haloperidol Lactate Oral Conc 10 MG/5 ML ORAL.CONC PO (21:05)
[2023-09-28 21:06] VITALS: BP 145/85
[2023-09-28] MEDS: traZODone HCL 50 MG TABLET PO (21:06)
[2023-09-29 04:56] VITALS: BP 132/88; PULSE 125; RESP 17; TEMP 36.4; O2SAT 96
--- NOTE | 2023-09-29 06:36 | PC.NURSE ---
vomiting=patient slept until 0445. when still sleeping observer noted patient began retching in his sleep then woke up and began to vomit. odd coloration noted being a green colored bile. patient fell back asleep. HOB is elevated.
[2023-09-29 07:30] VITALS: BP 125/75; PULSE 98; RESP 15; TEMP 36.8; O2SAT 96
[2023-09-29 08:41] LABS: MANUAL DIFF FLAG NO
[2023-09-29 08:43] LABS: Basophils Absolute Auto 0.1 X10*3/uL (0.0-0.2); Basophils Percent Auto 0.7 % (0-2); Eosinophils Absolute Auto 0.1 X10*3/uL (0.0-0.4); Eosinophils Percent Auto 0.5 % (0-4); Hematocrit 48.5 % (42.0-52.0); Hemoglobin 16.9 g/dl (14.0-18.0); Imm Gran Abs Auto 0.05 X10*3/uL (0.00-0.03); Imm Gran Pct Auto 0.5 % (0.0-0.4); Lymphocytes Absolute Auto 2.1 X10*3/uL (1.2-4.9); Lymphocytes Percent Auto 18.5 % (20-40); Mean Corpuscular HGB Conc 34.8 g/dl (31.0-36.0); Mean Corpuscular Hemoglobin 27.6 pg (27.0-33.0); Mean Corpuscular Volume 79.1 fL (80.0-98.0); Monocytes Absolute Auto 1.1 X10*3/uL (0.1-1.2); Monocytes Percent Auto 9.9 % (2-11); Neutrophils Absolute Auto 7.7 x10*3/uL (2.0-8.3); Neutrophils Percent Auto 69.9 % (45-73); Platelet Count 388 X10*3/uL (160-400); Red Blood Count 6.13 X10*6/uL (4.60-5.80); Red Cell Distribution Width 13.9 % (11.0-16.0); White Blood Count 11.1 X10*3/uL (4.8-10.8)
[2023-09-29 08:57] LABS: Alanine Aminotransferase 22 U/L (0-40); Albumin Level 4.2 g/dL (3.5-5.0); Alkaline Phosphatase 111 U/L (39-117); Anion Gap 15 (12-20); Aspartate Amino Transferase 26 U/L (5-37); Bilirubin Total 0.6 mg/dL (0.0-1.0); Blood Urea Nitrogen 21 mg/dL (9-16); Calcium 9.1 mg/dL (8.4-10.2); Carbon Dioxide 24 mmol/L (22-29); Chloride 101 mmol/L (96-108); Creatinine Clr Calc Pharmacy 94.4; Estimated Glomerular Filt Rate > 60; Glucose Random 99 mg/dL (60-115); Potassium 4.1 mmol/L (3.3-5.1); Sodium 136 mmol/L (135-145)
[2023-09-29] MEDS: Haloperidol Lactate Oral Conc 10 MG/5 ML ORAL.CONC PO ×2 (09:01→21:30)
[2023-09-29] MEDS: methADONE HCl 20 MG/2 ML ORAL.CONC 138 MG PO (09:04)
[2023-09-29 09:09] VITALS: BP 125/75
[2023-09-29] MEDS: cloNIDine HCL 0.1 MG TABLET PO ×3 (09:09→21:30)
[2023-09-29] MEDS: FLUoxetine HCl 20 MG CAPSULE PO (09:09)
--- NOTE | 2023-09-29 09:59 | HO.PSYCHPN ---
Subjective Subjective Date of Service: 09/29/23 Reason For Visit: Psychosis Subjective Notes: Conditional Voluntary Healthcare Proxy: No Guardianship: No Medical Problems Affecting Mental Status: No Interim History: One to one remains. Team report vomiting x 1-bile like substance. Haldol has been helpful per team report, pt able to eat, drink, interact, however it wears off quickly. Overall appetite is poor when paranoia is high. Alternated today from eating nothing to a full meal. Meds reviewed- Will add benztropine, lorazepam prn, MVI, Thiamine, Folic Acid Met with pt and aunt briefly. Pt presented as non verbal, staring, smiling. Team is working on collateral information from family. Medication Compliance: Intermittent Side effects from medications: No Attending Groups: No Review of Systems Acute medical concerns: No Medical Review of Systems: unchanged Review of Systems Review of Systems Yes Unobtainable due to mental status Mental Status Exam Mental Status Exam Patient Appearance: Fatigued, Disheveled and Unkempt Patient Orientation: Person and Place Level of Consciousness: Alert Patient Behavior: Guarded, Talkative, Cooperative, Suspicious, Anxious, Fearful, Fatigued, Distractible, Confused, Isolative and Good Eye Contact Mood Description: Blunted Affect Description: Blunted Patient Cognition Impaired: Yes Ability to Follow Directions: Fair Speech Pattern: Perseverating, Spontaneous Speech and Soft-Spoken Memory Description: Remote Impaired Hallucinations: Auditory Delusions: Being Controlled, Paranoid Ideation and Present Perceptual Disturbances: Depersonalization and Derealization Thought Process: Rumination Thought Content: positive for [place], positive for Obsessional Thoughts, positive for Circumstantial, positive for Perseveration, positive for Preoccupation, positive for Thought Blocking and positive for Tangential Depressive Symptoms: Difficulty Sleeping, Hopelessness, Increased Fatigue, Loss of Energy and Difficulty Concentrating Judgement: Poor Diagnostics Vital Signs (24Hr): Vital Signs - 24 hr 09/28/23 14:52 09/28/23 21:00 09/28/23 21:06 Temperature 98.1 F Pulse Rate 98 98 Respiratory Rate 16 Blood Pressure 145/98 H 145/85 H 145/85 H Pulse Oximetry 99 Oxygen Delivery Method Room Air 09/29/23 04:56 09/29/23 09:09 Temperature 97.6 F Pulse Rate 125 H Respiratory Rate 17 Blood Pressure 132/88 125/75 Pulse Oximetry 96 Oxygen Delivery Method Room Air BMI result Body Mass Index 22.0 Labs 09/29/23 08:37 09/29/23 08:36 Labs: Laboratory Results - last 48 hr 09/27/23 09/28/23 09/29/23 17:33 10:08 08:36 WBC Not Reportable RBC TNP Hgb TNP Hct TNP MCV TNP MCH TNP MCHC TNP RDW TNP Plt Count Not Reportable MPV Not Reportable Immature Gran % (Auto) Neut % (Auto) Lymph % (Auto) [place] % (Auto) Eos % (Auto) Baso % (Auto) Lymph # (Auto) [place] # (Auto) Eos # (Auto) Baso # (Auto) Abs Immat Gran (auto) Absolute Neuts (auto) Absolute Nucleated RBC [employer]ER Nucleated RBC % (auto) [place] Neutrophils % (Manual) Not Reportable Abs Neuts (Manual) Not Reportable Platelet Estimate Not Reportable Plt Morphology Comment Not Reportable RBC Morphology Not Reportable Sodium 136 136 Potassium 4.3 4.1 Chloride 98 101 Carbon Dioxide 25 24 Anion Gap 17 15 BUN 20 H 21 H Creatinine 0.87 0.98 Estim Creat Clear Calc 106.3 94.4 Estimated GFR > 60 > 60 POC Glucose 128 H Random Glucose 99 Fasting Glucose 96 Calcium 9.7 9.1 D Total Bilirubin 0.7 0.6 AST 22 26 ALT 22 22 Alkaline Phosphatase 118 H 111 Total Protein 8.7 H 8.0 Albumin 4.5 4.2 09/29/23 08:37 WBC 11.1 H RBC 6.13 H Hgb 16.9 Hct 48.5 MCV 79.1 L MCH 27.6 MCHC 34.8 RDW 13.9 Plt Count 388 MPV 10.0 Immature Gran % (Auto) 0.5 H Neut % (Auto) 69.9 Lymph % (Auto) 18.5 L [place] % (Auto) 9.9 Eos % (Auto) 0.5 Baso % (Auto) 0.7 Lymph # (Auto) 2.1 [place] # (Auto) 1.1 Eos # (Auto) 0.1 Baso # (Auto) 0.1 Abs Immat Gran (auto) 0.05 H Absolute Neuts (auto) 7.7 Absolute Nucleated RBC 0.000 Nucleated RBC % (auto) 0.0 Neutrophils % (Manual) Abs Neuts (Manual) Platelet Estimate Plt Morphology Comment RBC Morphology Sodium Potassium Chloride Carbon Dioxide Anion Gap BUN Creatinine Estim Creat Clear Calc Estimated GFR POC Glucose Random Glucose Fasting Glucose Calcium Total Bilirubin AST ALT Alkaline Phosphatase Total Protein Albumin Imaging Radiology Impressions: ITS Impressions Chest X-Ray 09/24/23 09:58 IMPRESSION: No acute abnormality. Medications Medications Current Medications Acetaminophen (Acetaminophen 325 Mg Tablet) 650 mg PO Q6H PRN PRN Reason: Headache/Pain Mild Scale (1-3) Al Hydroxide/Mg Hydroxide (Magnesium Hydrox/Alum Hydrox 30 Ml Oral.Susp) 30 ml PO Q6H PRN PRN Reason: Heartburn/Nausea Clonidine HCl (Clonidine Hcl 0.1 Mg Tablet) 0.1 mg PO TID [facility]; Protocol Last Admin: 09/29/23 09:09 Dose: 0.1 mg Fluoxetine HCl (Fluoxetine Hcl 20 Mg Capsule) 20 mg PO DAILY [facility] Last Admin: 09/29/23 09:09 Dose: 20 mg Haloperidol Lactate (Haloperidol Lactate Oral Conc 10 Mg/5 Ml Oral.Conc) 10 mg PO BID [facility] Last Admin: 09/29/23 09:01 Dose: 10 mg Hydroxyzine HCl (Hydroxyzine Hcl 25 Mg Tablet) 25 mg PO Q6H PRN PRN Reason: Anxiety Last Admin: 09/28/23 18:46 Dose: 25 mg Magnesium Hydroxide (Milk Of Magnesia 30 Ml Oral.Susp) 30 ml PO DAILY PRN PRN Reason: Constipation Methadone HCl (Methadone Hcl 20 Mg/2 Ml Oral.Conc) 138 mg PO DAILY [facility] Last Admin: 09/29/23 09:04 Dose: 138 mg Olanzapine (Olanzapine 5 Mg Tablet) 5 mg PO BID PRN PRN Reason: voices,paranoid thoughts Last Admin: 09/28/23 21:06 Dose: 5 mg Trazodone HCl (Trazodone Hcl 50 Mg Tablet) 50 mg PO BEDTIME MRX1 PRN PRN Reason: Insomnia Last Admin: 09/28/23 21:06 Dose: 50 mg Allergies Allergies Allergy/AdvReac Type Severity Reaction Status Date / Time No Known Allergies Allergy Verified 09/24/23 03:55 Assessment & Plan Assessment & Plan (1) Post traumatic stress disorder (PTSD): Status: Acute Code(s): F43.10 - Post-traumatic stress disorder, unspecified (2) Acute anxiety: Status: Acute Code(s): F41.9 - Anxiety disorder, unspecified (3) Depression: Status: Acute Code(s): F32.A - Depression, unspecified (4) Opioid use disorder, severe, on maintenance therapy: Status: Acute Code(s): F11.20 - Opioid dependence, uncomplicated Plan 33 yo male, hx of opiate use disorder, methadone maintenace, PTSD, currently with psychotic sx. Plan: Collateral contact Maintain methadone dosing tonight Addiction consult Re-started clonidine, prozac, hydroxyzine, trazodone Risperdal trial- ?psychosis, PTSD exacerbation? Pt may need a mood stabilizer, however will re-establish regime, treat psychosis and assess. 09/25/23 trial of zyprexa 5 mg BID prn and if more calming may switch from risperdal to zyprexa 09/25 methadone reduced to 142 mg for 09/26; brief consult with Comprehensice Care Team [facility] specialist in agreement 09/26 methadone decreased to 138mg daily CBC and CMP ordered as pt more confused and WBc high in ED 09/27 DC Risperdal Haldol 10 mg concentrate po bid [facility], CMP for 09/28 Continue Olanzapine prn 09/28 Lorazepam prn Benztropine scheduled MVI, Thiamine, Folate Informed Consent: does not understand Reason for continued inpatient stay Substantial Risk for: rapid decompensation Time Spent With Patient Time: Total time managing care of this patient today ____ minutes.
[2023-09-29 16:29] VITALS: BP 133/90
[2023-09-29 20:00] VITALS: BP 122/80; PULSE 102; RESP 18; TEMP 36.7; O2SAT 98
[2023-09-29 21:30] VITALS: BP 122/80
[2023-09-29] MEDS: LORazepam 0.5 MG TABLET PO (21:30)
[2023-09-29] MEDS: traZODone HCL 50 MG TABLET PO (21:30)
[2023-09-29] MEDS: Benztropine Mesylate 1 MG TABLET PO (21:30)
[2023-09-30 08:00] VITALS: BP 131/79; PULSE 95; RESP 16; TEMP 36.2; O2SAT 94
[2023-09-30] MEDS: Haloperidol Lactate Oral Conc 10 MG/5 ML ORAL.CONC PO (09:13)
[2023-09-30] MEDS: methADONE HCl 20 MG/2 ML ORAL.CONC 138 MG PO (09:13)
[2023-09-30] MEDS: Multivitamin TABLET 1 TAB PO (09:14)
[2023-09-30] MEDS: Thiamine HCL 100 MG TABLET PO (09:14)
[2023-09-30] MEDS: Folic Acid 1 MG TABLET PO (09:14)
--- NOTE | 2023-09-30 16:13 | HO.PSYCHPN ---
Subjective Subjective Date of Service: 09/30/23 Reason For Visit: Psychosis Subjective Notes: Conditional Voluntary Healthcare Proxy: No Guardianship: No Medical Problems Affecting Mental Status: No Interim History: Team report mother has given helpful information. Pt had been staying with grandmother in her home. It is described as a volitile home. Mother believes pt has experienced trauma there as this is when he began to decompensate. Family reports no hx of psychosis- hx trauma-hx of [facility] program for 2 years with stability. Mom, who is in [place] will come to see pt when team feels it is an appropriate time. One to one in place. Refused clonidine, prozac, benztropine Review of Systems Review of Systems Yes Unobtainable due to mental status Mental Status Exam Mental Status Exam Patient Appearance: Fatigued, Disheveled and Unkempt Patient Orientation: Person and Place Level of Consciousness: Alert Patient Behavior: Guarded, Talkative, Cooperative, Suspicious, Anxious, Fearful, Fatigued, Distractible, Confused, Isolative and Good Eye Contact Mood Description: Blunted Affect Description: Blunted Patient Cognition Impaired: Yes Ability to Follow Directions: Fair Speech Pattern: Perseverating, Spontaneous Speech and Soft-Spoken Memory Description: Remote Impaired Hallucinations: Auditory Delusions: Being Controlled, Paranoid Ideation and Present Perceptual Disturbances: Depersonalization and Derealization Thought Process: Rumination Thought Content: positive for [place], positive for Obsessional Thoughts, positive for Circumstantial, positive for Perseveration, positive for Preoccupation, positive for Thought Blocking and positive for Tangential Depressive Symptoms: Difficulty Sleeping, Hopelessness, Increased Fatigue, Loss of Energy and Difficulty Concentrating Judgement: Poor Diagnostics Vital Signs (24Hr): Vital Signs - 24 hr 09/29/23 16:29 09/29/23 20:00 09/29/23 21:30 Temperature 98.0 F Pulse Rate 102 H Respiratory Rate 18 Blood Pressure 133/90 H 122/80 122/80 Pulse Oximetry 98 Oxygen Delivery Method Room Air 09/30/23 08:00 Temperature 97.1 F Pulse Rate 95 Respiratory Rate 16 Blood Pressure 131/79 Pulse Oximetry 94 Oxygen Delivery Method Room Air BMI result Body Mass Index 22.0 Labs 09/29/23 08:37 09/29/23 08:36 Labs: Laboratory Results - last 48 hr 09/29/23 09/29/23 08:36 08:37 WBC 11.1 H RBC 6.13 H Hgb 16.9 Hct 48.5 MCV 79.1 L MCH 27.6 MCHC 34.8 RDW 13.9 Plt Count 388 MPV 10.0 Immature Gran % (Auto) 0.5 H Neut % (Auto) 69.9 Lymph % (Auto) 18.5 L [place] % (Auto) 9.9 Eos % (Auto) 0.5 Baso % (Auto) 0.7 Lymph # (Auto) 2.1 [place] # (Auto) 1.1 Eos # (Auto) 0.1 Baso # (Auto) 0.1 Abs Immat Gran (auto) 0.05 H Absolute Neuts (auto) 7.7 Absolute Nucleated RBC 0.000 Nucleated RBC % (auto) 0.0 Sodium 136 Potassium 4.1 Chloride 101 Carbon Dioxide 24 Anion Gap 15 BUN 21 H Creatinine 0.98 Estim Creat Clear Calc 94.4 Estimated GFR > 60 Random Glucose 99 Calcium 9.1 D Total Bilirubin 0.6 AST 26 ALT 22 Alkaline Phosphatase 111 Total Protein 8.0 Albumin 4.2 Imaging Radiology Impressions: ITS Impressions Chest X-Ray 09/24/23 09:58 IMPRESSION: No acute abnormality. Medications Medications Current Medications Acetaminophen (Acetaminophen 325 Mg Tablet) 650 mg PO Q6H PRN PRN Reason: Headache/Pain Mild Scale (1-3) Al Hydroxide/Mg Hydroxide (Magnesium Hydrox/Alum Hydrox 30 Ml Oral.Susp) 30 ml PO Q6H PRN PRN Reason: Heartburn/Nausea Benztropine Mesylate (Benztropine Mesylate 1 Mg Tablet) 1 mg PO BID [facility] Last Admin: 09/30/23 10:28 Dose: Not Given Clonidine HCl (Clonidine Hcl 0.1 Mg Tablet) 0.1 mg PO TID [facility]; Protocol Last Admin: 09/30/23 10:28 Dose: Not Given Fluoxetine HCl (Fluoxetine Hcl 20 Mg Capsule) 20 mg PO DAILY [facility] Last Admin: 09/30/23 10:28 Dose: Not Given Folic Acid (Folic Acid 1 Mg Tablet) 1 mg PO DAILY [facility] Last Admin: 09/30/23 09:14 Dose: 1 mg Haloperidol Lactate (Haloperidol Lactate Oral Conc 10 Mg/5 Ml Oral.Conc) 10 mg PO BID [facility] Last Admin: 09/30/23 09:13 Dose: 10 mg Hydroxyzine HCl (Hydroxyzine Hcl 25 Mg Tablet) 25 mg PO Q6H PRN PRN Reason: Anxiety Last Admin: 09/28/23 18:46 Dose: 25 mg Lorazepam (Lorazepam 0.5 Mg Tablet) 0.5 mg PO Q8H PRN PRN Reason: Anxiety Last Admin: 09/29/23 21:30 Dose: 0.5 mg Magnesium Hydroxide (Milk Of Magnesia 30 Ml Oral.Susp) 30 ml PO DAILY PRN PRN Reason: Constipation Methadone HCl (Methadone Hcl 20 Mg/2 Ml Oral.Conc) 138 mg PO DAILY [facility] Last Admin: 09/30/23 09:13 Dose: 138 mg Multivitamins/Vitamin C (Multivitamin Tablet) 1 tab PO DAILY [facility] Last Admin: 09/30/23 09:14 Dose: 1 tab Olanzapine (Olanzapine 5 Mg Tablet) 5 mg PO BID PRN PRN Reason: voices,paranoid thoughts Last Admin: 09/28/23 21:06 Dose: 5 mg Thiamine HCl (Thiamine Hcl 100 Mg Tablet) 100 mg PO DAILY [facility] Last Admin: 09/30/23 09:14 Dose: 100 mg Trazodone HCl (Trazodone Hcl 50 Mg Tablet) 50 mg PO BEDTIME MRX1 PRN PRN Reason: Insomnia Last Admin: 09/29/23 21:30 Dose: 50 mg Allergies Allergies Allergy/AdvReac Type Severity Reaction Status Date / Time No Known Allergies Allergy Verified 09/24/23 03:55 Assessment & Plan Assessment & Plan (1) Post traumatic stress disorder (PTSD): Status: Acute Code(s): F43.10 - Post-traumatic stress disorder, unspecified (2) Acute anxiety: Status: Acute Code(s): F41.9 - Anxiety disorder, unspecified (3) Depression: Status: Acute Code(s): F32.A - Depression, unspecified (4) Opioid use disorder, severe, on maintenance therapy: Status: Acute Code(s): F11.20 - Opioid dependence, uncomplicated Plan 33 yo male, hx of opiate use disorder, methadone maintenace, PTSD, currently with psychotic sx. Plan: Collateral contact Maintain methadone dosing tonight Addiction consult Re-started clonidine, prozac, hydroxyzine, trazodone Risperdal trial- ?psychosis, PTSD exacerbation? Pt may need a mood stabilizer, however will re-establish regime, treat psychosis and assess. 09/25/23 trial of zyprexa 5 mg BID prn and if more calming may switch from risperdal to zyprexa 09/25 methadone reduced to 142 mg for 09/26; brief consult with Comprehensice Care Team [facility]IL[facility] specialist in agreement 09/26 methadone decreased to 138mg daily CBC and CMP ordered as pt more confused and WBc high in ED 09/27 DC Risperdal Haldol 10 mg concentrate po bid [facility], CMP for 09/28 Continue Olanzapine prn 09/29 Change Haldol to 5 mg tid Add lorazepam 0.5 mg tid ?trauma, ?psychosis, ?catatonia, ?substance induced response Supportive care Continue one to one. Informed Consent: does not understand Reason for continued inpatient stay Substantial Risk for: rapid decompensation Time Spent With Patient Time: Total time managing care of this patient today ____ minutes.
[2023-09-30 20:00] VITALS: BP 132/92; PULSE 88; RESP 17; TEMP 36.6; O2SAT 96
[2023-09-30] MEDS: cloNIDine HCL 0.1 MG TABLET PO (20:19)
[2023-09-30] MEDS: Benztropine Mesylate 1 MG TABLET PO (20:19)
[2023-09-30] MEDS: LORazepam 0.5 MG TABLET PO (20:19)
[2023-09-30] MEDS: HaloperidoL 5 MG TABLET PO (20:19)
[2023-09-30 22:15] VITALS: BP 132/92; PULSE 96; TEMP 36.7; O2SAT 96
[2023-10-01 08:00] VITALS: RESP 18
[2023-10-01] MEDS: methADONE HCl 20 MG/2 ML ORAL.CONC 138 MG PO (09:13)
[2023-10-01] MEDS: HaloperidoL 5 MG TABLET PO ×3 (09:39→21:53)
[2023-10-01] MEDS: LORazepam 0.5 MG TABLET PO ×2 (09:39→21:53)
[2023-10-01] MEDS: Benztropine Mesylate 1 MG TABLET PO (09:39)
--- NOTE | 2023-10-01 10:26 | HO.PSYCHPN ---
Subjective Subjective Date of Service: 10/01/23 Reason For Visit: Psychosis Subjective Notes: Conditional Voluntary Healthcare Proxy: No Guardianship: No Medical Problems Affecting Mental Status: No Interim History: One to one remains. Mostly non verbal, thought blocking, catatonic appearing at times Family is coming in to support him. Appetite remains poor. Medication Compliance: Intermittent Side effects from medications: No Attending Groups: No Review of Systems Acute medical concerns: No Medical Review of Systems: unchanged Review of Systems Review of Systems Poor appetite Mental Status Exam Mental Status Exam Patient Appearance: Fatigued, Disheveled and Unkempt Patient Orientation: Person and Place Level of Consciousness: Alert Patient Behavior: Guarded, Talkative, Cooperative, Suspicious, Anxious, Fearful, Fatigued, Distractible, Confused, Isolative and Good Eye Contact Mood Description: Blunted Affect Description: Blunted Patient Cognition Impaired: Yes Ability to Follow Directions: Fair Speech Pattern: Perseverating, Spontaneous Speech and Soft-Spoken Memory Description: Remote Impaired Hallucinations: Auditory Delusions: Being Controlled, Paranoid Ideation and Present Perceptual Disturbances: Depersonalization and Derealization Thought Process: Rumination Thought Content: positive for [place], positive for Obsessional Thoughts, positive for Circumstantial, positive for Perseveration, positive for Preoccupation, positive for Thought Blocking and positive for Tangential Depressive Symptoms: Difficulty Sleeping, Hopelessness, Increased Fatigue, Loss of Energy and Difficulty Concentrating Judgement: Poor Diagnostics Vital Signs (24Hr): Vital Signs - 24 hr 09/30/23 20:00 09/30/23 22:15 10/01/23 08:00 Temperature 97.8 F 98.1 F Pulse Rate 88 96 Respiratory Rate 17 18 Blood Pressure 132/92 H 132/92 H Pulse Oximetry 96 96 Oxygen Delivery Method Room Air Room Air BMI result Body Mass Index 22.0 Labs 10/02/23 07:40 10/02/23 07:40 Imaging Radiology Impressions: ITS Impressions Chest X-Ray 09/24/23 09:58 IMPRESSION: No acute abnormality. Medications Medications Current Medications Acetaminophen (Acetaminophen 325 Mg Tablet) 650 mg PO Q6H PRN PRN Reason: Headache/Pain Mild Scale (1-3) Al Hydroxide/Mg Hydroxide (Magnesium Hydrox/Alum Hydrox 30 Ml Oral.Susp) 30 ml PO Q6H PRN PRN Reason: Heartburn/Nausea Benztropine Mesylate (Benztropine Mesylate 1 Mg Tablet) 1 mg PO BID [facility] Last Admin: 10/01/23 09:39 Dose: 1 mg Clonidine HCl (Clonidine Hcl 0.1 Mg Tablet) 0.1 mg PO TID [facility]; Protocol Last Admin: 10/01/23 10:08 Dose: Not Given Fluoxetine HCl (Fluoxetine Hcl 20 Mg Capsule) 20 mg PO DAILY [facility] Last Admin: 10/01/23 10:07 Dose: Not Given Folic Acid (Folic Acid 1 Mg Tablet) 1 mg PO DAILY [facility] Last Admin: 10/01/23 10:07 Dose: Not Given Haloperidol (Haloperidol 5 Mg Tablet) 5 mg PO TID [facility] Last Admin: 10/01/23 09:39 Dose: 5 mg Hydroxyzine HCl (Hydroxyzine Hcl 25 Mg Tablet) 25 mg PO Q6H PRN PRN Reason: Anxiety Last Admin: 09/28/23 18:46 Dose: 25 mg Lorazepam (Lorazepam 0.5 Mg Tablet) 0.5 mg PO Q8H PRN PRN Reason: Anxiety Last Admin: 09/29/23 21:30 Dose: 0.5 mg Lorazepam (Lorazepam 0.5 Mg Tablet) 0.5 mg PO TID [facility] Last Admin: 10/01/23 09:39 Dose: 0.5 mg Magnesium Hydroxide (Milk Of Magnesia 30 Ml Oral.Susp) 30 ml PO DAILY PRN PRN Reason: Constipation Methadone HCl (Methadone Hcl 20 Mg/2 Ml Oral.Conc) 138 mg PO DAILY [facility] Last Admin: 10/01/23 09:13 Dose: 138 mg Multivitamins/Vitamin C (Multivitamin Tablet) 1 tab PO DAILY [facility] Last Admin: 10/01/23 10:07 Dose: Not Given Olanzapine (Olanzapine 5 Mg Tablet) 5 mg PO BID PRN PRN Reason: voices,paranoid thoughts Last Admin: 09/28/23 21:06 Dose: 5 mg Thiamine HCl (Thiamine Hcl 100 Mg Tablet) 100 mg PO DAILY [facility] Last Admin: 10/01/23 10:07 Dose: Not Given Trazodone HCl (Trazodone Hcl 50 Mg Tablet) 50 mg PO BEDTIME MRX1 PRN PRN Reason: Insomnia Last Admin: 09/29/23 21:30 Dose: 50 mg Allergies Allergies Allergy/AdvReac Type Severity Reaction Status Date / Time No Known Allergies Allergy Verified 09/24/23 03:55 Assessment & Plan Assessment & Plan (1) Post traumatic stress disorder (PTSD): Status: Acute Code(s): F43.10 - Post-traumatic stress disorder, unspecified (2) Acute anxiety: Status: Acute Code(s): F41.9 - Anxiety disorder, unspecified (3) Depression: Status: Acute Code(s): F32.A - Depression, unspecified (4) Opioid use disorder, severe, on maintenance therapy: Status: Acute Code(s): F11.20 - Opioid dependence, uncomplicated Plan 33 yo male, hx of opiate use disorder, methadone maintenace, PTSD, currently with psychotic sx. Plan: Collateral contact Maintain methadone dosing tonight Addiction consult Re-started clonidine, prozac, hydroxyzine, trazodone Risperdal trial- ?psychosis, PTSD exacerbation? Pt may need a mood stabilizer, however will re-establish regime, treat psychosis and assess. 09/25/23 trial of zyprexa 5 mg BID prn and if more calming may switch from risperdal to zyprexa 09/25 methadone reduced to 142 mg for 09/26; brief consult with Comprehensice Care Team [facility] specialist in agreement 09/26 methadone decreased to 138mg daily CBC and CMP ordered as pt more confused and WBc high in ED 09/27 DC Risperdal Haldol 10 mg concentrate po bid CBCD, CMP for 09/28 Continue Olanzapine prn 09/29 Change Haldol to 5 mg tid Add lorazepam 0.5 mg tid ?trauma, ?psychosis, ?catatonia, ?substance induced response Supportive care Continue one to one. 09/30: CBC, CMP Decrease Benztropine to 0.5 mg bid Increase Lorazapam to 1 mg tid-?catatonia Reason for continued inpatient stay Substantial Risk for: med/psych decompensation Time Spent With Patient Time: Total time managing care of this patient today ____ minutes.
[2023-10-01 10:30] VITALS: BP 132/78; PULSE 96; RESP 18; TEMP 37.1; O2SAT 97
[2023-10-01 16:26] VITALS: BP 132/83; PULSE 100; RESP 18; TEMP 36.9; O2SAT 97
[2023-10-01] MEDS: LORazepam 1 MG TABLET PO ×2 (16:50→21:54)
[2023-10-01 20:00] VITALS: BP 121/81; PULSE 131; RESP 20; TEMP 36.4; O2SAT 97
[2023-10-01 21:53] VITALS: BP 121/81
[2023-10-01] MEDS: cloNIDine HCL 0.1 MG TABLET PO (21:53)
[2023-10-01] MEDS: Benztropine Mesylate 0.5 MG TABLET PO (21:53)
[2023-10-01] MEDS: OLANZapine 5 MG TABLET PO (21:54)
[2023-10-01] MEDS: traZODone HCL 50 MG TABLET PO (21:54)
[2023-10-02 08:05] LABS: MANUAL DIFF FLAG NO
[2023-10-02 08:09] LABS: Basophils Absolute Auto 0.1 X10*3/uL (0.0-0.2); Basophils Percent Auto 0.7 % (0-2); Eosinophils Absolute Auto 0.2 X10*3/uL (0.0-0.4); Eosinophils Percent Auto 1.9 % (0-4); Hemoglobin 16.8 g/dl (14.0-18.0); Imm Gran Abs Auto 0.04 X10*3/uL (0.00-0.03); Imm Gran Pct Auto 0.5 % (0.0-0.4); Lymphocytes Absolute Auto 2.9 X10*3/uL (1.2-4.9); Lymphocytes Percent Auto 35.4 % (20-40); Mean Corpuscular HGB Conc 32.9 g/dl (31.0-36.0); Mean Corpuscular Hemoglobin 26.9 pg (27.0-33.0); Mean Corpuscular Volume 81.7 fL (80.0-98.0); Mean Platelet Volume 10.7 fL (9.4-12.4); Monocytes Absolute Auto 0.9 X10*3/uL (0.1-1.2); Monocytes Percent Auto 11.2 % (2-11); Neutrophils Absolute Auto 4.1 x10*3/uL (2.0-8.3); Neutrophils Percent Auto 50.3 % (45-73); Platelet Count 387 X10*3/uL (160-400); Red Blood Count 6.24 X10*6/uL (4.60-5.80); Red Cell Distribution Width 13.8 % (11.0-16.0); White Blood Count 8.1 X10*3/uL (4.8-10.8)
[2023-10-02 08:31] LABS: Alanine Aminotransferase 24 U/L (0-40); Albumin Level 4.1 g/dL (3.5-5.0); Alkaline Phosphatase 106 U/L (39-117); Anion Gap 17 (12-20); Aspartate Amino Transferase 30 U/L (5-37); Bilirubin Total 0.5 mg/dL (0.0-1.0); Blood Urea Nitrogen 30 mg/dL (9-16); Calcium 9.8 mg/dL (8.4-10.2); Carbon Dioxide 27 mmol/L (22-29); Chloride 100 mmol/L (96-108); Creatinine Clr Calc Pharmacy 77.7; Estimated Glomerular Filt Rate > 60; Glucose Random 80 mg/dL (60-115); Potassium 4.2 mmol/L (3.3-5.1); Sodium 140 mmol/L (135-145); Total Protein 7.9 g/dL (6.5-8.0)
[2023-10-02 09:08] VITALS: BP 129/87; PULSE 92; RESP 16; TEMP 37; O2SAT 95
[2023-10-02] MEDS: methADONE HCl 20 MG/2 ML ORAL.CONC 138 MG PO (09:28)
[2023-10-02] MEDS: Benztropine Mesylate 0.5 MG TABLET PO ×2 (09:29→20:51)
[2023-10-02] MEDS: HaloperidoL 5 MG TABLET PO ×3 (09:29→20:51)
[2023-10-02] MEDS: LORazepam 1 MG TABLET PO ×3 (09:29→20:51)
[2023-10-02] MEDS: cloNIDine HCL 0.1 MG TABLET PO ×3 (09:29→20:50)
[2023-10-02] MEDS: FLUoxetine HCl 20 MG CAPSULE PO (09:55)
[2023-10-02 15:41] VITALS: BP 112/76
[2023-10-02] MEDS: Milk of Magnesia 30 ML ORAL.SUSP PO (16:03)
--- NOTE | 2023-10-02 18:01 | P.PNPSI_ITS ---
Subjective Subjective Date of Service: 10/02/23 Reason For Visit: Psychosis Interim History: Pt seen, discussed with team. Diagnostics reviewed, indicating dehydration. Team report improvement with increase in scheduled Ativan. Increase in intake, engagement and ability to talk with family via phone. Able to stand independently Medication Compliance: Yes Side effects from medications: No Attending Groups: No Review of Systems Acute medical concerns: No Dehydration Medical Review of Systems: unchanged Review of Systems Review of Systems Yes Unobtainable due to mental status Mental Status Exam Mental Status Exam Patient Appearance: Fatigued, Disheveled and Unkempt Patient Orientation: Person and Place Level of Consciousness: Alert Patient Behavior: Guarded, Talkative, Cooperative, Suspicious, Anxious, Fearful, Fatigued, Distractible, Confused, Isolative and Good Eye Contact Mood Description: Blunted Affect Description: Blunted Patient Cognition Impaired: Yes Ability to Follow Directions: Fair Speech Pattern: Perseverating, Spontaneous Speech and Soft-Spoken Memory Description: Remote Impaired Hallucinations: Auditory Delusions: Being Controlled, Paranoid Ideation and Present Perceptual Disturbances: Depersonalization and Derealization Thought Process: Rumination Thought Content: positive for [place], positive for Obsessional Thoughts, positive for Circumstantial, positive for Perseveration, positive for Preoccupation, positive for Thought Blocking and positive for Tangential Depressive Symptoms: Difficulty Sleeping, Hopelessness, Increased Fatigue, Loss of Energy and Difficulty Concentrating Judgement: Poor Diagnostics Vital Signs (24Hr): Vital Signs - 24 hr 10/01/23 20:00 10/01/23 21:53 10/02/23 09:08 Temperature 97.6 F 98.6 F Pulse Rate 131 H 92 Respiratory Rate 20 16 Blood Pressure 121/81 121/81 129/87 Pulse Oximetry 97 95 Oxygen Delivery Method Room Air Room Air 10/02/23 15:41 Temperature Pulse Rate Respiratory Rate Blood Pressure 112/76 Pulse Oximetry Oxygen Delivery Method BMI result Body Mass Index 22.0 Labs 10/02/23 07:40 10/02/23 07:40 Labs: Laboratory Results - last 48 hr 10/02/23 07:40 WBC 8.1 RBC 6.24 H Hgb 16.8 Hct 51.0 MCV 81.7 MCH 26.9 L MCHC 32.9 RDW 13.8 Plt Count 387 MPV 10.7 Immature Gran % (Auto) 0.5 H Neut % (Auto) 50.3 Lymph % (Auto) 35.4 [place] % (Auto) 11.2 H Eos % (Auto) 1.9 Baso % (Auto) 0.7 Lymph # (Auto) 2.9 [place] # (Auto) 0.9 Eos # (Auto) 0.2 Baso # (Auto) 0.1 Abs Immat Gran (auto) 0.04 H Absolute Neuts (auto) 4.1 Absolute Nucleated RBC 0.000 Nucleated RBC % (auto) 0.0 Sodium 140 Potassium 4.2 Chloride 100 Carbon Dioxide 27 Anion Gap 17 BUN 30 H Creatinine 1.19 Estim Creat Clear Calc 77.7 Estimated GFR > 60 Random Glucose 80 Calcium 9.8 D Total Bilirubin 0.5 AST 30 ALT 24 Alkaline Phosphatase 106 Total Protein 7.9 Albumin 4.1 Imaging Radiology Impressions: ITS Impressions Chest X-Ray 09/24/23 09:58 IMPRESSION: No acute abnormality. Medications Medications Current Medications Acetaminophen (Acetaminophen 325 Mg Tablet) 650 mg PO Q6H PRN PRN Reason: Headache/Pain Mild Scale (1-3) Al Hydroxide/Mg Hydroxide (Magnesium Hydrox/Alum Hydrox 30 Ml Oral.Susp) 30 ml PO Q6H PRN PRN Reason: Heartburn/Nausea Benztropine Mesylate (Benztropine Mesylate 0.5 Mg Tablet) 0.5 mg PO BID COUNTS INCLUDE 234 BEDS AT [facility] Last Admin: 10/02/23 09:29 Dose: 0.5 mg Clonidine HCl (Clonidine Hcl 0.1 Mg Tablet) 0.1 mg PO TID COUNTS INCLUDE 234 BEDS AT THE [facility]; Protocol Last Admin: 10/02/23 15:41 Dose: 0.1 mg Fluoxetine HCl (Fluoxetine Hcl 20 Mg Capsule) 20 mg PO DAILY COUNTS INCLUDE 234 BEDS AT THE [facility] Last Admin: 10/02/23 09:55 Dose: 20 mg Folic Acid (Folic Acid 1 Mg Tablet) 1 mg PO DAILY COUNTS INCLUDE 234 BEDS AT THE [facility] Last Admin: 10/02/23 09:51 Dose: Not Given Haloperidol (Haloperidol 5 Mg Tablet) 5 mg PO TID COUNTS INCLUDE 234 BEDS AT [facility] Last Admin: 10/02/23 15:41 Dose: 5 mg Hydroxyzine HCl (Hydroxyzine Hcl 25 Mg Tablet) 25 mg PO Q6H PRN PRN Reason: Anxiety Last Admin: 09/28/23 18:46 Dose: 25 mg Lorazepam (Lorazepam 0.5 Mg Tablet) 0.5 mg PO Q8H PRN PRN Reason: Anxiety Last Admin: 10/01/23 21:53 Dose: 0.5 mg Lorazepam (Lorazepam 1 Mg Tablet) 1 mg PO TID COUNTS INCLUDE 234 BEDS AT [facility] Last Admin: 10/02/23 15:41 Dose: 1 mg Magnesium Hydroxide (Milk Of Magnesia 30 Ml Oral.Susp) 30 ml PO DAILY PRN PRN Reason: Constipation Last Admin: 10/02/23 16:03 Dose: 30 ml Methadone HCl (Methadone Hcl 20 Mg/2 Ml Oral.Conc) 138 mg PO DAILY COUNTS INCLUDE 234 BEDS AT [facility] Last Admin: 10/02/23 09:28 Dose: 138 mg Multivitamins/Vitamin C (Multivitamin Tablet) 1 tab PO DAILY COUNTS INCLUDE 234 BEDS AT [facility] Last Admin: 10/02/23 09:52 Dose: Not Given Olanzapine (Olanzapine 5 Mg Tablet) 5 mg PO BID PRN PRN Reason: voices,paranoid thoughts Last Admin: 10/01/23 21:54 Dose: 5 mg Thiamine HCl (Thiamine Hcl 100 Mg Tablet) 100 mg PO DAILY COUNTS INCLUDE 234 BEDS AT [facility] Last Admin: 10/02/23 09:52 Dose: Not Given Trazodone HCl (Trazodone Hcl 50 Mg Tablet) 50 mg PO BEDTIME MRX1 PRN PRN Reason: Insomnia Last Admin: 10/01/23 21:54 Dose: 50 mg Allergies Allergies Allergy/AdvReac Type Severity Reaction Status Date / Time No Known Allergies Allergy Verified 09/24/23 03:55 Assessment & Plan Assessment & Plan (1) Post traumatic stress disorder (PTSD): Status: Acute Code(s): F43.10 - Post-traumatic stress disorder, unspecified (2) Acute anxiety: Status: Acute Code(s): F41.9 - Anxiety disorder, unspecified (3) Depression: Status: Acute Code(s): F32.A - Depression, unspecified (4) Opioid use disorder, severe, on maintenance therapy: Status: Acute Code(s): F11.20 - Opioid dependence, uncomplicated Plan 33 yo male, hx of opiate use disorder, methadone maintenace, PTSD, currently with psychotic sx. Plan: Collateral contact Maintain methadone dosing tonight Addiction consult Re-started clonidine, prozac, hydroxyzine, trazodone Risperdal trial- ?psychosis, PTSD exacerbation? Pt may need a mood stabilizer, however will re-establish regime, treat psychosis and assess. 09/25/23 trial of zyprexa 5 mg BID prn and if more calming may switch from risperdal to zyprexa 09/25 methadone reduced to 142 mg for 09/26; brief consult with Comprehens[facility] Care Team [facility] specialist in agreement 09/26 methadone decreased to 138mg daily CBC and CMP ordered as pt more confused and WBc high in ED 09/27 DC Risperdal Haldol 10 mg concentrate po bid CBCD, CMP for 09/28 Continue Olanzapine prn 09/29 Change Haldol to 5 mg tid Add lorazepam 0.5 mg tid ?trauma, ?psychosis, ?catatonia, ?substance induced response Supportive care Continue one to one. 10/01: Continue tx. Reason for continued inpatient stay Substantial Risk for: rapid decompensation and med/psych decompensation Time Spent With Patient Time: Total time managing care of this patient today ____ minutes.
[2023-10-02 20:00] VITALS: BP 152/86; PULSE 98; RESP 16; TEMP 36.6; O2SAT 99
[2023-10-02 20:50] VITALS: BP 152/86
[2023-10-02] MEDS: traZODone HCL 50 MG TABLET PO (20:51)
[2023-10-03 08:00] VITALS: BP 128/81; PULSE 95; RESP 18; TEMP 36.4; O2SAT 97
[2023-10-03] MEDS: Multivitamin TABLET 1 TAB PO (09:04)
[2023-10-03] MEDS: Benztropine Mesylate 0.5 MG TABLET PO ×2 (09:05→21:39)
[2023-10-03] MEDS: Thiamine HCL 100 MG TABLET PO (09:05)
[2023-10-03] MEDS: HaloperidoL 5 MG TABLET PO ×3 (09:05→21:39)
[2023-10-03] MEDS: LORazepam 1 MG TABLET PO ×3 (09:05→21:39)
[2023-10-03] MEDS: Folic Acid 1 MG TABLET PO (09:05)
[2023-10-03] MEDS: FLUoxetine HCl 20 MG CAPSULE PO (09:05)
[2023-10-03] MEDS: cloNIDine HCL 0.1 MG TABLET PO ×3 (09:05→21:39)
[2023-10-03] MEDS: methADONE HCl 20 MG/2 ML ORAL.CONC 138 MG PO (09:06)
--- NOTE | 2023-10-03 10:59 | HO.PSYCHPN ---
Subjective Subjective Date of Service: 10/03/23 Reason For Visit: Psychosis Interim History: Team reports continued improvement. Pt has showered, he is eating and drinking. This afternoon he is watching TV and working on a puzzle. Ativan appears to be helpful. Will begin to decrease antipsychotics. Medication Compliance: Yes Side effects from medications: No Attending Groups: No Review of Systems Acute medical concerns: No Medical Review of Systems: unchanged Review of Systems Review of Systems Yes all other systems are reviewed and are negative Mental Status Exam Mental Status Exam Narrative: Slow improvement. Patient Appearance: Fatigued, Disheveled and Unkempt Patient Orientation: Person and Place Level of Consciousness: Alert Patient Behavior: Guarded, Talkative, Cooperative, Suspicious, Anxious, Fearful, Fatigued, Distractible, Confused, Isolative and Good Eye Contact Mood Description: Blunted Affect Description: Blunted Patient Cognition Impaired: Yes Ability to Follow Directions: Fair Speech Pattern: Perseverating, Spontaneous Speech and Soft-Spoken Memory Description: Remote Impaired Hallucinations: Auditory Delusions: Being Controlled, Paranoid Ideation and Present Perceptual Disturbances: Depersonalization and Derealization Thought Process: Rumination Thought Content: positive for [place], positive for Obsessional Thoughts, positive for [place], positive for Perseveration, positive for Preoccupation, positive for Thought Blocking and positive for Tangential Depressive Symptoms: Difficulty Sleeping, Hopelessness, Increased Fatigue, Loss of Energy and Difficulty Concentrating Judgement: Poor Diagnostics Vital Signs (24Hr): Vital Signs - 24 hr 10/02/23 15:41 10/02/23 20:00 10/02/23 20:50 Temperature 97.9 F Pulse Rate 98 Respiratory Rate 16 Blood Pressure 112/76 152/86 H 152/86 H Pulse Oximetry 99 Oxygen Delivery Method Room Air 10/03/23 08:00 Temperature 97.6 F Pulse Rate 95 Respiratory Rate 18 Blood Pressure 128/81 Pulse Oximetry 97 Oxygen Delivery Method Room Air BMI result Body Mass Index 22.0 Labs 10/02/23 07:40 10/02/23 07:40 Labs: Laboratory Results - last 48 hr 10/02/23 07:40 WBC 8.1 RBC 6.24 H Hgb 16.8 Hct 51.0 MCV 81.7 MCH 26.9 L MCHC 32.9 RDW 13.8 Plt Count 387 MPV 10.7 Immature Gran % (Auto) 0.5 H Neut % (Auto) 50.3 Lymph % (Auto) 35.4 [place] % (Auto) 11.2 H Eos % (Auto) 1.9 Baso % (Auto) 0.7 Lymph # (Auto) 2.9 [place] # (Auto) 0.9 Eos # (Auto) 0.2 Baso # (Auto) 0.1 Abs Immat Gran (auto) 0.04 H Absolute Neuts (auto) 4.1 Absolute Nucleated RBC 0.000 Nucleated RBC % (auto) 0.0 Sodium 140 Potassium 4.2 Chloride 100 Carbon Dioxide 27 Anion Gap 17 BUN 30 H Creatinine 1.19 Estim Creat Clear Calc 77.7 Estimated GFR > 60 Random Glucose 80 Calcium 9.8 D Total Bilirubin 0.5 AST 30 ALT 24 Alkaline Phosphatase 106 Total Protein 7.9 Albumin 4.1 Imaging Radiology Impressions: ITS Impressions Chest X-Ray 09/24/23 09:58 IMPRESSION: No acute abnormality. Medications Medications Current Medications Acetaminophen (Acetaminophen 325 Mg Tablet) 650 mg PO Q6H PRN PRN Reason: Headache/Pain Mild Scale (1-3) Al Hydroxide/Mg Hydroxide (Magnesium Hydrox/Alum Hydrox 30 Ml Oral.Susp) 30 ml PO Q6H PRN PRN Reason: Heartburn/Nausea Benztropine Mesylate (Benztropine Mesylate 0.5 Mg Tablet) 0.5 mg PO BID [facility] Last Admin: 10/03/23 09:05 Dose: 0.5 mg Clonidine HCl (Clonidine Hcl 0.1 Mg Tablet) 0.1 mg PO TID [facility]; Protocol Last Admin: 10/03/23 09:05 Dose: 0.1 mg Fluoxetine HCl (Fluoxetine Hcl 20 Mg Capsule) 20 mg PO DAILY [facility] Last Admin: 10/03/23 09:05 Dose: 20 mg Folic Acid (Folic Acid 1 Mg Tablet) 1 mg PO DAILY [facility] Last Admin: 10/03/23 09:05 Dose: 1 mg Haloperidol (Haloperidol 5 Mg Tablet) 5 mg PO TID [facility] Last Admin: 10/03/23 09:05 Dose: 5 mg Hydroxyzine HCl (Hydroxyzine Hcl 25 Mg Tablet) 25 mg PO Q6H PRN PRN Reason: Anxiety Last Admin: 09/28/23 18:46 Dose: 25 mg Lorazepam (Lorazepam 0.5 Mg Tablet) 0.5 mg PO Q8H PRN PRN Reason: Anxiety Last Admin: 10/01/23 21:53 Dose: 0.5 mg Lorazepam (Lorazepam 1 Mg Tablet) 1 mg PO TID [facility] Last Admin: 10/03/23 09:05 Dose: 1 mg Magnesium Hydroxide (Milk Of Magnesia 30 Ml Oral.Susp) 30 ml PO DAILY PRN PRN Reason: Constipation Last Admin: 10/02/23 16:03 Dose: 30 ml Methadone HCl (Methadone Hcl 20 Mg/2 Ml Oral.Conc) 138 mg PO DAILY [facility] Last Admin: 10/03/23 09:06 Dose: 138 mg Multivitamins/Vitamin C (Multivitamin Tablet) 1 tab PO DAILY [facility] Last Admin: 10/03/23 09:04 Dose: 1 tab Olanzapine (Olanzapine 5 Mg Tablet) 5 mg PO BID PRN PRN Reason: voices,paranoid thoughts Last Admin: 10/01/23 21:54 Dose: 5 mg Thiamine HCl (Thiamine Hcl 100 Mg Tablet) 100 mg PO DAILY [facility] Last Admin: 10/03/23 09:05 Dose: 100 mg Trazodone HCl (Trazodone Hcl 50 Mg Tablet) 50 mg PO BEDTIME MRX1 PRN PRN Reason: Insomnia Last Admin: 10/02/23 20:51 Dose: 50 mg Allergies Allergies Allergy/AdvReac Type Severity Reaction Status Date / Time No Known Allergies Allergy Verified 09/24/23 03:55 Assessment & Plan Assessment & Plan (1) Post traumatic stress disorder (PTSD): Status: Acute Code(s): F43.10 - Post-traumatic stress disorder, unspecified (2) Acute anxiety: Status: Acute Code(s): F41.9 - Anxiety disorder, unspecified (3) Depression: Status: Acute Code(s): F32.A - Depression, unspecified (4) Opioid use disorder, severe, on maintenance therapy: Status: Acute Code(s): F11.20 - Opioid dependence, uncomplicated Plan 33 yo male, hx of opiate use disorder, methadone maintenace, PTSD, currently with psychotic sx. Plan: Collateral contact Maintain methadone dosing tonight Addiction consult Re-started clonidine, prozac, hydroxyzine, trazodone Risperdal trial- ?psychosis, PTSD exacerbation? Pt may need a mood stabilizer, however will re-establish regime, treat psychosis and assess. 09/25/23 trial of zyprexa 5 mg BID prn and if more calming may switch from risperdal to zyprexa 09/25 methadone reduced to 142 mg for 09/26; brief consult with Comprehensice Care Team [facility] specialist in agreement 09/26 methadone decreased to 138mg daily CBC and CMP ordered as pt more confused and WBc high in ED 09/27 DC Risperdal Haldol 10 mg concentrate po bid CBCD, CMP for 09/28 Continue Olanzapine prn 09/29 Change Haldol to 5 mg tid Add lorazepam 0.5 mg tid ?trauma, ?psychosis, ?catatonia, ?substance induced response Supportive care Continue one to one. 09/30: CBC, CMP Decrease Benztropine to 0.5 mg bid Increase Lorazapam to 1 mg tid-?catatonia 10/02: Decrease Haldol to 5 mg bid Reason for continued inpatient stay Substantial Risk for: rapid decompensation and med/psych decompensation Time Spent With Patient Time: Total time managing care of this patient today ____ minutes.
[2023-10-03 16:34] VITALS: BP 131/82
[2023-10-03] MEDS: Acetaminophen 325 MG TABLET 650 MG PO (16:35)
[2023-10-03 20:00] VITALS: BP 118/78; PULSE 91; RESP 18; TEMP 36.4; O2SAT 97
[2023-10-04 08:39] VITALS: BP 97/60; PULSE 82; RESP 20; TEMP 36.4; O2SAT 97
[2023-10-04 08:43] VITALS: BP 97/60
[2023-10-04] MEDS: Folic Acid 1 MG TABLET PO (08:43)
[2023-10-04] MEDS: Benztropine Mesylate 0.5 MG TABLET PO (08:43)
[2023-10-04] MEDS: cloNIDine HCL 0.1 MG TABLET PO (08:43)
[2023-10-04] MEDS: HaloperidoL 5 MG TABLET PO (08:43)
[2023-10-04] MEDS: LORazepam 1 MG TABLET PO (08:43)
[2023-10-04] MEDS: Thiamine HCL 100 MG TABLET PO (08:43)
[2023-10-04] MEDS: FLUoxetine HCl 20 MG CAPSULE PO (08:43)
[2023-10-04] MEDS: Multivitamin TABLET 1 TAB PO (08:43)
[2023-10-04] MEDS: methADONE HCl 20 MG/2 ML ORAL.CONC 138 MG PO (08:46)
--- NOTE | 2023-10-04 09:45 | P.PNPSI_ITS ---
Subjective Subjective Date of Service: 10/04/23 Reason For Visit: Psychosis Subjective Notes: Conditional Voluntary Healthcare Proxy: No Guardianship: No Interim History: Team reports gradual improvement. Improved intake, some milieu interaction. Team report family input helpful. Pt, [employer] was telling his sister he was confused about his take home methadone and they believe on some days pt took no methadone, on some days double dosing (given weekly methadone by his clinic). Decreasing meds per pt presentation and symptom report. Medication Compliance: Intermittent Side effects from medications: Yes (managing sedation) Attending Groups: Intermittent Review of Systems Acute medical concerns: No Medical Review of Systems: unchanged Review of Systems Review of Systems Yes Unobtainable due to mental status Mental Status Exam Mental Status Exam Narrative: Slow improvement. Patient Appearance: Fatigued, Disheveled and Unkempt Patient Orientation: Person and Place Level of Consciousness: Alert Patient Behavior: Guarded, Talkative, Cooperative, Suspicious, Anxious, Fearful, Fatigued, Distractible, Confused, Isolative and Good Eye Contact Mood Description: Blunted Affect Description: Blunted Patient Cognition Impaired: Yes Ability to Follow Directions: Fair Speech Pattern: Perseverating, Spontaneous Speech and Soft-Spoken Memory Description: Remote Impaired Hallucinations: Auditory Delusions: Being Controlled, Paranoid Ideation and Present Perceptual Disturbances: Depersonalization and Derealization Thought Process: Rumination Thought Content: positive for [place], positive for Obsessional Thoughts, positive for Circumstantial, positive for Perseveration, positive for Preoccupation, positive for Thought Blocking and positive for Tangential Depressive Symptoms: Difficulty Sleeping, Hopelessness, Increased Fatigue, Loss of Energy and Difficulty Concentrating Judgement: Poor Diagnostics Vital Signs (24Hr): Vital Signs - 24 hr 10/03/23 16:34 10/03/23 20:00 10/04/23 08:39 Temperature 97.5 F 97.6 F Pulse Rate 91 82 Respiratory Rate 18 20 Blood Pressure 131/82 118/78 97/60 Pulse Oximetry 97 97 Oxygen Delivery Method Room Air Room Air 10/04/23 08:43 Temperature Pulse Rate Respiratory Rate Blood Pressure 97/60 Pulse Oximetry Oxygen Delivery Method BMI result Body Mass Index 22.0 Labs 10/02/23 07:40 10/02/23 07:40 Imaging Radiology Impressions: ITS Impressions Chest X-Ray 09/24/23 09:58 IMPRESSION: No acute abnormality. Medications Medications Current Medications Acetaminophen (Acetaminophen 325 Mg Tablet) 650 mg PO Q6H PRN PRN Reason: Headache/Pain Mild Scale (1-3) Last Admin: 10/03/23 16:35 Dose: 650 mg Al Hydroxide/Mg Hydroxide (Magnesium Hydrox/Alum Hydrox 30 Ml Oral.Susp) 30 ml PO Q6H PRN PRN Reason: Heartburn/Nausea Benztropine Mesylate (Benztropine Mesylate 0.5 Mg Tablet) 0.5 mg PO BID [facility] Last Admin: 10/04/23 08:43 Dose: 0.5 mg Clonidine HCl (Clonidine Hcl 0.1 Mg Tablet) 0.1 mg PO TID [facility]; Protocol Last Admin: 10/04/23 08:43 Dose: 0.1 mg Fluoxetine HCl (Fluoxetine Hcl 20 Mg Capsule) 20 mg PO DAILY [facility] Last Admin: 10/04/23 08:43 Dose: 20 mg Folic Acid (Folic Acid 1 Mg Tablet) 1 mg PO DAILY [facility] Last Admin: 10/04/23 08:43 Dose: 1 mg Haloperidol (Haloperidol 5 Mg Tablet) 5 mg PO BID [facility] Last Admin: 10/04/23 08:43 Dose: 5 mg Hydroxyzine HCl (Hydroxyzine Hcl 25 Mg Tablet) 25 mg PO Q6H PRN PRN Reason: Anxiety Last Admin: 09/28/23 18:46 Dose: 25 mg Lorazepam (Lorazepam 0.5 Mg Tablet) 0.5 mg PO Q8H PRN PRN Reason: Anxiety Last Admin: 10/01/23 21:53 Dose: 0.5 mg Lorazepam (Lorazepam 1 Mg Tablet) 1 mg PO TID [facility] Last Admin: 10/04/23 08:43 Dose: 1 mg Magnesium Hydroxide (Milk Of Magnesia 30 Ml Oral.Susp) 30 ml PO DAILY PRN PRN Reason: Constipation Last Admin: 10/02/23 16:03 Dose: 30 ml Methadone HCl (Methadone Hcl 20 Mg/2 Ml Oral.Conc) 138 mg PO DAILY [facility] Last Admin: 10/04/23 08:46 Dose: 138 mg Multivitamins/Vitamin C (Multivitamin Tablet) 1 tab PO DAILY [facility] Last Admin: 10/04/23 08:43 Dose: 1 tab Olanzapine (Olanzapine 5 Mg Tablet) 5 mg PO BID PRN PRN Reason: voices,paranoid thoughts Last Admin: 10/01/23 21:54 Dose: 5 mg Thiamine HCl (Thiamine Hcl 100 Mg Tablet) 100 mg PO DAILY [facility] Last Admin: 10/04/23 08:43 Dose: 100 mg Trazodone HCl (Trazodone Hcl 50 Mg Tablet) 50 mg PO BEDTIME MRX1 PRN PRN Reason: Insomnia Last Admin: 10/02/23 20:51 Dose: 50 mg Allergies Allergies Allergy/AdvReac Type Severity Reaction Status Date / Time No Known Allergies Allergy Verified 09/24/23 03:55 Assessment & Plan Assessment & Plan (1) Post traumatic stress disorder (PTSD): Status: Acute Code(s): F43.10 - Post-traumatic stress disorder, unspecified (2) Acute anxiety: Status: Acute Code(s): F41.9 - Anxiety disorder, unspecified (3) Depression: Status: Acute Code(s): F32.A - Depression, unspecified (4) Opioid use disorder, severe, on maintenance therapy: Status: Acute Code(s): F11.20 - Opioid dependence, uncomplicated Plan 33 yo male, hx of opiate use disorder, methadone maintenace, PTSD, currently with psychotic sx. Plan: Collateral contact Maintain methadone dosing tonight Addiction consult Re-started clonidine, prozac, hydroxyzine, trazodone Risperdal trial- ?psychosis, PTSD exacerbation? Pt may need a mood stabilizer, however will re-establish regime, treat psychosis and assess. 09/25/23 trial of zyprexa 5 mg BID prn and if more calming may switch from risperdal to zyprexa 09/25 methadone reduced to 142 mg for 09/26; brief consult with Comprehens[facility] Care Team [facility] specialist in agreement 09/26 methadone decreased to 138mg daily CBC and CMP ordered as pt more confused and WBc high in ED 09/27 DC Risperdal Haldol 10 mg concentrate po bid [facility], CMP for 09/28 Continue Olanzapine prn 09/29 Change Haldol to 5 mg tid Add lorazepam 0.5 mg tid ?trauma, ?psychosis, ?catatonia, ?substance induced response Supportive care Continue one to one. 09/30: CBC, CMP Decrease Benztropine to 0.5 mg bid Increase Lorazapam to 1 mg tid-?catatonia 10/02: Decrease Haldol to 5 mg bid 10/03: Tapering of regime based on symptom presentation. Reason for continued inpatient stay Substantial Risk for: rapid decompensation Time Spent With Patient Time: Total time managing care of this patient today ____ minutes.
--- NOTE | 2023-10-04 13:49 | PM.EVENT ---
Event Note Date of Service: 10/04/23 Event Note: Addiction note chart reviewed. patient has been taking methadone without issue no documentation of request to decrease any further at this time, appears consult can be deferred unless requested by provider or patient Time Spent With Patient Time: Total time managing care of this patient today ____ minutes.
[2023-10-04] MEDS: HaloperidoL 0.5 MG TABLET 2.5 MG PO (22:22)
[2023-10-04] MEDS: LORazepam 0.5 MG TABLET PO (22:22)
[2023-10-05 08:15] VITALS: BP 127/68; PULSE 99; RESP 18; TEMP 36.4; O2SAT 99
[2023-10-05] MEDS: methADONE HCl 20 MG/2 ML ORAL.CONC 138 MG PO (09:18)
[2023-10-05] MEDS: Multivitamin TABLET 1 TAB PO (09:22)
[2023-10-05] MEDS: FLUoxetine HCl 20 MG CAPSULE PO (09:22)
[2023-10-05] MEDS: Folic Acid 1 MG TABLET PO (09:22)
[2023-10-05] MEDS: HaloperidoL 0.5 MG TABLET 2.5 MG PO ×2 (09:23→22:13)
[2023-10-05] MEDS: Thiamine HCL 100 MG TABLET PO (09:23)
[2023-10-05] MEDS: LORazepam 0.5 MG TABLET PO ×3 (09:23→22:13)
--- NOTE | 2023-10-05 16:28 | HO.PSYCHPN ---
Subjective Subjective Date of Service: 10/05/23 Reason For Visit: Psychosis Subjective Notes: Conditional Voluntary Interim History: Team reports refusal of a.m. meds due to sedation. Visable in milieu today. Family scheduled to visit. Engaged in activity, eating, taking fluids. Continue medication adjustments as symptoms resolve. Will change Haldol to prn beginning 10/05. Medication Compliance: Intermittent Side effects from medications: Yes (sedation) Attending Groups: No Review of Systems Acute medical concerns: No Medical Review of Systems: unchanged Review of Systems Review of Systems Pt is clearer in communication of how he is feeling. Mental Status Exam Mental Status Exam Narrative: Slow improvement. Patient Appearance: Appropriate Patient Orientation: Person, Place, Time and Situation Level of Consciousness: Alert Patient Behavior: Cooperative, Suspicious, Anxious, Distractible and Isolative Mood Description: Constricted Affect Description: Constricted Patient Cognition Impaired: No Ability to Follow Directions: Good Speech Pattern: Spontaneous Speech Memory Description: Remote Impaired Hallucinations: None Delusions: Not Present Perceptual Disturbances: Depersonalization and Derealization Thought Process: Rumination Thought Content: positive for [place], positive for Circumstantial, positive for Perseveration and positive for Tangential Depressive Symptoms: Loss of Energy Judgement: Fair Diagnostics Vital Signs (24Hr): Vital Signs - 24 hr 10/05/23 08:15 Temperature 97.6 F Pulse Rate 99 Respiratory Rate 18 Blood Pressure 127/68 Pulse Oximetry 99 Oxygen Delivery Method Room Air BMI result Body Mass Index 22.0 Labs 10/02/23 07:40 10/02/23 07:40 Imaging Radiology Impressions: ITS Impressions Chest X-Ray 09/24/23 09:58 IMPRESSION: No acute abnormality. Medications Medications Current Medications Acetaminophen (Acetaminophen 325 Mg Tablet) 650 mg PO Q6H PRN PRN Reason: Headache/Pain Mild Scale (1-3) Last Admin: 10/03/23 16:35 Dose: 650 mg Al Hydroxide/Mg Hydroxide (Magnesium Hydrox/Alum Hydrox 30 Ml Oral.Susp) 30 ml PO Q6H PRN PRN Reason: Heartburn/Nausea Benztropine Mesylate (Benztropine Mesylate 0.5 Mg Tablet) 0.5 mg PO BID PRN PRN Reason: EPS Clonidine HCl (Clonidine Hcl 0.1 Mg Tablet) 0.1 mg PO TID PRN; Protocol PRN Reason: anxiety Fluoxetine HCl (Fluoxetine Hcl 20 Mg Capsule) 20 mg PO DAILY [facility] Last Admin: 10/05/23 09:22 Dose: 20 mg Folic Acid (Folic Acid 1 Mg Tablet) 1 mg PO DAILY [facility] Last Admin: 10/05/23 09:22 Dose: 1 mg Haloperidol (Haloperidol 0.5 Mg Tablet) 2.5 mg PO BID [facility] Last Admin: 10/05/23 09:23 Dose: 2.5 mg Hydroxyzine HCl (Hydroxyzine Hcl 25 Mg Tablet) 25 mg PO Q6H PRN PRN Reason: Anxiety Last Admin: 09/28/23 18:46 Dose: 25 mg Lorazepam (Lorazepam 0.5 Mg Tablet) 0.5 mg PO Q8H PRN PRN Reason: Anxiety Last Admin: 10/01/23 21:53 Dose: 0.5 mg Lorazepam (Lorazepam 0.5 Mg Tablet) 0.5 mg PO TID [facility] Last Admin: 10/05/23 15:48 Dose: 0.5 mg Magnesium Hydroxide (Milk Of Magnesia 30 Ml Oral.Susp) 30 ml PO DAILY PRN PRN Reason: Constipation Last Admin: 10/02/23 16:03 Dose: 30 ml Methadone HCl (Methadone Hcl 20 Mg/2 Ml Oral.Conc) 138 mg PO DAILY [facility] Last Admin: 10/05/23 09:18 Dose: 138 mg Multivitamins/Vitamin C (Multivitamin Tablet) 1 tab PO DAILY [facility] Last Admin: 10/05/23 09:22 Dose: 1 tab Olanzapine (Olanzapine 5 Mg Tablet) 5 mg PO BID PRN PRN Reason: voices,paranoid thoughts Last Admin: 10/01/23 21:54 Dose: 5 mg Thiamine HCl (Thiamine Hcl 100 Mg Tablet) 100 mg PO DAILY [facility] Last Admin: 10/05/23 09:23 Dose: 100 mg Trazodone HCl (Trazodone Hcl 50 Mg Tablet) 50 mg PO BEDTIME MRX1 PRN PRN Reason: Insomnia Last Admin: 10/02/23 20:51 Dose: 50 mg Allergies Allergies Allergy/AdvReac Type Severity Reaction Status Date / Time No Known Allergies Allergy Verified 09/24/23 03:55 Assessment & Plan Assessment & Plan (1) Post traumatic stress disorder (PTSD): Status: Acute Code(s): F43.10 - Post-traumatic stress disorder, unspecified (2) Acute anxiety: Status: Acute Code(s): F41.9 - Anxiety disorder, unspecified (3) Depression: Status: Acute Code(s): F32.A - Depression, unspecified (4) Opioid use disorder, severe, on maintenance therapy: Status: Acute Code(s): F11.20 - Opioid dependence, uncomplicated Plan 33 yo male, hx of opiate use disorder, methadone maintenace, PTSD, currently with psychotic sx. Plan: Collateral contact Maintain methadone dosing tonight Addiction consult Re-started clonidine, prozac, hydroxyzine, trazodone Risperdal trial- ?psychosis, PTSD exacerbation? Pt may need a mood stabilizer, however will re-establish regime, treat psychosis and assess. 09/25/23 trial of zyprexa 5 mg BID prn and if more calming may switch from risperdal to zyprexa 09/25 methadone reduced to 142 mg for 09/26; brief consult with Comprehens[facility] Care Team [facility] specialist in agreement 09/26 methadone decreased to 138mg daily CBC and CMP ordered as pt more confused and WBc high in ED 09/27 DC Risperdal Haldol 10 mg concentrate po bid [facility], CMP for 09/28 Continue Olanzapine prn 09/29 Change Haldol to 5 mg tid Add lorazepam 0.5 mg tid ?trauma, ?psychosis, ?catatonia, ?substance induced response Supportive care Continue one to one. 09/30: CBC, CMP Decrease Benztropine to 0.5 mg bid Increase Lorazapam to 1 mg tid-?catatonia 10/02: Decrease Haldol to 5 mg bid 10/04: On 10/05 decrease Haldol to 2.5 mg bid prn Reason for continued inpatient stay Substantial Risk for: rapid decompensation Time Spent With Patient Time: Total time managing care of this patient today ____ minutes.
[2023-10-05 20:00] VITALS: BP 168/102; PULSE 114; TEMP 36.9
[2023-10-06 00:32] VITALS: BP 140/90; PULSE 85; O2SAT 98
[2023-10-06] MEDS: OLANZapine 5 MG TABLET PO (01:32)
[2023-10-06] MEDS: traZODone HCL 50 MG TABLET PO ×2 (02:17→21:33)
[2023-10-06] MEDS: LORazepam 0.5 MG TABLET PO ×3 (08:43→21:33)
[2023-10-06] MEDS: FLUoxetine HCl 20 MG CAPSULE PO (08:43)
[2023-10-06] MEDS: methADONE HCl 20 MG/2 ML ORAL.CONC 138 MG PO (08:43)
[2023-10-06] MEDS: Folic Acid 1 MG TABLET PO (08:43)
[2023-10-06] MEDS: Thiamine HCL 100 MG TABLET PO (08:43)
[2023-10-06 09:35] VITALS: BP 120/71; PULSE 83; RESP 18; TEMP 36.4; O2SAT 98
--- NOTE | 2023-10-06 10:57 | P.PNPSI_ITS ---
Subjective Subjective Date of Service: 10/06/23 Reason For Visit: Psychosis Subjective Notes: Conditional Voluntary Interim History: Pt seen in his room, staring at his food, with delayed in response. Pt reports he wants to do things right and not lie. When asked to elaborate, pt reports he thought he was mostly attracted to males but now realizes that he may be bisexual. His attention is poor and at times asks this junior copywriter to repeat the questions again. He denies SI/HI. Diagnostics Vital Signs (24Hr): Vital Signs - 24 hr 10/05/23 20:00 10/06/23 00:32 10/06/23 09:35 Temperature 98.5 F 97.5 F Pulse Rate 114 H 85 83 Respiratory Rate 18 Blood Pressure 168/102 H 140/90 H 120/71 Pulse Oximetry 98 98 Oxygen Delivery Method Room Air Room Air BMI result Body Mass Index 22.0 Labs 10/02/23 07:40 10/02/23 07:40 Imaging Radiology Impressions: ITS Impressions Chest X-Ray 09/24/23 09:58 IMPRESSION: No acute abnormality. Medications Medications Current Medications Acetaminophen (Acetaminophen 325 Mg Tablet) 650 mg PO Q6H PRN PRN Reason: Headache/Pain Mild Scale (1-3) Last Admin: 10/03/23 16:35 Dose: 650 mg Al Hydroxide/Mg Hydroxide (Magnesium Hydrox/Alum Hydrox 30 Ml Oral.Susp) 30 ml PO Q6H PRN PRN Reason: Heartburn/Nausea Benztropine Mesylate (Benztropine Mesylate 0.5 Mg Tablet) 0.5 mg PO BID PRN PRN Reason: EPS Clonidine HCl (Clonidine Hcl 0.1 Mg Tablet) 0.1 mg PO TID PRN; Protocol PRN Reason: anxiety Fluoxetine HCl (Fluoxetine Hcl 20 Mg Capsule) 20 mg PO DAILY [facility] Last Admin: 10/06/23 08:43 Dose: 20 mg Folic Acid (Folic Acid 1 Mg Tablet) 1 mg PO DAILY [facility] Last Admin: 10/06/23 08:43 Dose: 1 mg Haloperidol (Haloperidol 5 Mg Tablet) 2.5 mg PO BID PRN PRN Reason: psychosis, agitation Hydroxyzine HCl (Hydroxyzine Hcl 25 Mg Tablet) 25 mg PO Q6H PRN PRN Reason: Anxiety Last Admin: 09/28/23 18:46 Dose: 25 mg Lorazepam (Lorazepam 0.5 Mg Tablet) 0.5 mg PO Q8H PRN PRN Reason: Anxiety Last Admin: 10/01/23 21:53 Dose: 0.5 mg Lorazepam (Lorazepam 0.5 Mg Tablet) 0.5 mg PO TID [facility] Last Admin: 10/06/23 08:43 Dose: 0.5 mg Magnesium Hydroxide (Milk Of Magnesia 30 Ml Oral.Susp) 30 ml PO DAILY PRN PRN Reason: Constipation Last Admin: 10/02/23 16:03 Dose: 30 ml Methadone HCl (Methadone Hcl 20 Mg/2 Ml Oral.Conc) 138 mg PO DAILY [facility] Last Admin: 10/06/23 08:43 Dose: 138 mg Multivitamins/Vitamin C (Multivitamin Tablet) 1 tab PO DAILY [facility] Last Admin: 10/06/23 08:48 Dose: Not Given Olanzapine (Olanzapine 5 Mg Tablet) 5 mg PO BID PRN PRN Reason: voices,paranoid thoughts Last Admin: 10/06/23 01:32 Dose: 5 mg Thiamine HCl (Thiamine Hcl 100 Mg Tablet) 100 mg PO DAILY [facility] Last Admin: 10/06/23 08:43 Dose: 100 mg Trazodone HCl (Trazodone Hcl 50 Mg Tablet) 50 mg PO BEDTIME MRX1 PRN PRN Reason: Insomnia Last Admin: 10/06/23 02:17 Dose: 50 mg Allergies Allergies Allergy/AdvReac Type Severity Reaction Status Date / Time No Known Allergies Allergy Verified 09/24/23 03:55 Assessment & Plan Assessment & Plan (1) Post traumatic stress disorder (PTSD): Status: Acute Code(s): F43.10 - Post-traumatic stress disorder, unspecified (2) Acute anxiety: Status: Acute Code(s): F41.9 - Anxiety disorder, unspecified (3) Depression: Status: Acute Code(s): F32.A - Depression, unspecified (4) Opioid use disorder, severe, on maintenance therapy: Status: Acute Code(s): F11.20 - Opioid dependence, uncomplicated Plan 33 yo male, hx of opiate use disorder, methadone maintenace, PTSD, currently with psychotic sx. Plan: Collateral contact Maintain methadone dosing tonight Addiction consult Re-started clonidine, prozac, hydroxyzine, trazodone Risperdal trial- ?psychosis, PTSD exacerbation? Pt may need a mood stabilizer, however will re-establish regime, treat psychosis and assess. 09/25/23 trial of zyprexa 5 mg BID prn and if more calming may switch from risperdal to zyprexa 09/25 methadone reduced to 142 mg for 09/26; brief consult with [facility]prehens[facility] Care Team [facility] specialist in agreement 09/26 methadone decreased to 138mg daily CBC and CMP ordered as pt more confused and WBc high in ED 09/27 DC Risperdal Haldol 10 mg concentrate po bid [facility], CMP for 09/28 Continue Olanzapine prn 09/29 Change Haldol to 5 mg tid Add lorazepam 0.5 mg tid ?trauma, ?psychosis, ?catatonia, ?substance induced response Supportive care Continue one to one. 09/30: CBC, CMP Decrease Benztropine to 0.5 mg bid Increase Lorazapam to 1 mg tid-?catatonia 10/02: Decrease Haldol to 5 mg bid 10/04: On 10/05 decrease Haldol to 2.5 mg bid prn 10/05 pt presents with catatonic like s/s including staring, delayed response, no complete mutism but speech minimally spontaneous and his attention is poor and appears thought blocking. He seems to have responded positively/partially to schedule ativan, however, caution when increasing ativan as he is also on methadone fairly high dose. So far no s/s of respiratory distress- o2sat on RA>98%. will avoid high potency antipsychotic such as haldol as it will worsen catatonic like symptoms. but will schedule low dose olanzapine to tx underlying psychosis. continue current dose of ativan schedule for today, may consider increasing tomorrow. Reason for continued inpatient stay Substantial Risk for: inability to function Time Spent With Patient Time: Total time managing care of this patient today ____ minutes.
[2023-10-06] MEDS: cloNIDine HCL 0.1 MG TABLET PO (18:20)
[2023-10-06 20:00] VITALS: BP 130/79; PULSE 75; RESP 18; TEMP 36.4; O2SAT 97
[2023-10-06] MEDS: OLANZapine 2.5 MG TABLET PO (21:32)
[2023-10-07 08:00] VITALS: BP 123/65; PULSE 76; RESP 16; TEMP 36.3; O2SAT 98
[2023-10-07] MEDS: methADONE HCl 20 MG/2 ML ORAL.CONC 138 MG PO (08:36)
[2023-10-07] MEDS: Thiamine HCL 100 MG TABLET PO (08:37)
[2023-10-07] MEDS: Folic Acid 1 MG TABLET PO (08:37)
[2023-10-07] MEDS: LORazepam 0.5 MG TABLET PO ×2 (08:37→20:50)
[2023-10-07] MEDS: OLANZapine 2.5 MG TABLET PO ×2 (08:37→20:50)
[2023-10-07] MEDS: Multivitamin TABLET 1 TAB PO (08:37)
--- NOTE | 2023-10-07 10:15 | HO.PSYCHPN ---
Subjective Subjective Date of Service: 10/07/23 Reason For Visit: Psychosis Subjective Notes: Conditional Voluntary Interim History: Pt slept. He is much more talkative. less s/s of catatonia- more spontaneous speech. more visible and social with peers. No SI/HI. Asking more appropriate questions about his treatment and goals. taking medications as prescribed. Medication Compliance: Yes Review of Systems Review of Systems Pt is clearer in communication of how he is feeling. Yes all other systems are reviewed and are negative and Unobtainable due to mental status Gastrointestinal: Reports nausea and Reports vomiting Reports confusion Psychiatric: Reports confusion and Reports depression Diagnostics Vital Signs (24Hr): Vital Signs - 24 hr 10/06/23 20:00 Temperature 97.6 F Pulse Rate 75 Respiratory Rate 18 Blood Pressure 130/79 Pulse Oximetry 97 Oxygen Delivery Method Room Air BMI result Body Mass Index 22.0 Labs 10/02/23 07:40 10/02/23 07:40 Imaging Radiology Impressions: ITS Impressions Chest X-Ray 09/24/23 09:58 IMPRESSION: No acute abnormality. Medications Medications Current Medications Acetaminophen (Acetaminophen 325 Mg Tablet) 650 mg PO Q6H PRN PRN Reason: Headache/Pain Mild Scale (1-3) Last Admin: 10/03/23 16:35 Dose: 650 mg Al Hydroxide/Mg Hydroxide (Magnesium Hydrox/Alum Hydrox 30 Ml Oral.Susp) 30 ml PO Q6H PRN PRN Reason: Heartburn/Nausea Clonidine HCl (Clonidine Hcl 0.1 Mg Tablet) 0.1 mg PO TID PRN; Protocol PRN Reason: anxiety Last Admin: 10/06/23 18:20 Dose: 0.1 mg Folic Acid (Folic Acid 1 Mg Tablet) 1 mg PO DAILY [facility] Last Admin: 10/07/23 08:37 Dose: 1 mg Lorazepam (Lorazepam 0.5 Mg Tablet) 0.5 mg PO Q8H PRN PRN Reason: Anxiety Last Admin: 10/01/23 21:53 Dose: 0.5 mg Lorazepam (Lorazepam 0.5 Mg Tablet) 0.5 mg PO TID [facility] Last Admin: 10/07/23 08:37 Dose: 0.5 mg Magnesium Hydroxide (Milk Of Magnesia 30 Ml Oral.Susp) 30 ml PO DAILY PRN PRN Reason: Constipation Last Admin: 10/02/23 16:03 Dose: 30 ml Methadone HCl (Methadone Hcl 20 Mg/2 Ml Oral.Conc) 138 mg PO DAILY [facility] Last Admin: 10/07/23 08:36 Dose: 138 mg Multivitamins/Vitamin C (Multivitamin Tablet) 1 tab PO DAILY [facility] Last Admin: 10/07/23 08:37 Dose: 1 tab Olanzapine (Olanzapine 2.5 Mg Tablet) 2.5 mg PO BID [facility] Last Admin: 10/07/23 08:37 Dose: 2.5 mg Thiamine HCl (Thiamine Hcl 100 Mg Tablet) 100 mg PO DAILY [facility] Last Admin: 10/07/23 08:37 Dose: 100 mg Trazodone HCl (Trazodone Hcl 50 Mg Tablet) 50 mg PO BEDTIME MRX1 PRN PRN Reason: Insomnia Last Admin: 10/06/23 21:33 Dose: 50 mg Allergies Allergies Allergy/AdvReac Type Severity Reaction Status Date / Time No Known Allergies Allergy Verified 09/24/23 03:55 Assessment & Plan Assessment & Plan (1) Post traumatic stress disorder (PTSD): Status: Acute Code(s): F43.10 - Post-traumatic stress disorder, unspecified (2) Acute anxiety: Status: Acute Code(s): F41.9 - Anxiety disorder, unspecified (3) Depression: Status: Acute Code(s): F32.A - Depression, unspecified (4) Opioid use disorder, severe, on maintenance therapy: Status: Acute Code(s): F11.20 - Opioid dependence, uncomplicated Plan 33 yo male, hx of opiate use disorder, methadone maintenace, PTSD, currently with psychotic sx. Plan: Collateral contact Maintain methadone dosing tonight Addiction consult Re-started clonidine, prozac, hydroxyzine, trazodone Risperdal trial- ?psychosis, PTSD exacerbation? Pt may need a mood stabilizer, however will re-establish regime, treat psychosis and assess. 09/25/23 trial of zyprexa 5 mg BID prn and if more calming may switch from risperdal to zyprexa 09/25 methadone reduced to 142 mg for 09/26; brief consult with Comprehens[facility] Care Team [facility] specialist in agreement 09/26 methadone decreased to 138mg daily CBC and CMP ordered as pt more confused and WBc high in ED 09/27 DC Risperdal Haldol 10 mg concentrate po bid [facility], CMP for 09/28 Continue Olanzapine prn 09/29 Change Haldol to 5 mg tid Add lorazepam 0.5 mg tid ?trauma, ?psychosis, ?catatonia, ?substance induced response Supportive care Continue one to one. 09/30: CBC, CMP Decrease Benztropine to 0.5 mg bid Increase Lorazapam to 1 mg tid-?catatonia 10/02: Decrease Haldol to 5 mg bid 10/04: On 10/05 decrease Haldol to 2.5 mg bid prn 10/05 pt presents with catatonic like s/s including staring, delayed response, no complete mutism but speech minimally spontaneous and his attention is poor and appears thought blocking. He seems to have responded positively/partially to schedule ativan, however, caution when increasing ativan as he is also on methadone fairly high dose. So far no s/s of respiratory distress- o2sat on RA>98%. will avoid high potency antipsychotic such as haldol as it will worsen catatonic like symptoms. but will schedule low dose olanzapine to tx underlying psychosis. continue current dose of ativan schedule for today, may consider increasing tomorrow. 10/06 continu tx. improving catatonia. Reason for continued inpatient stay Substantial Risk for: inability to function Time Spent With Patient Time: Total time managing care of this patient today ____ minutes.
[2023-10-07 20:00] VITALS: RESP 18
[2023-10-07 20:53] VITALS: BP 135/84
[2023-10-07] MEDS: traZODone HCL 50 MG TABLET PO (20:53)
[2023-10-07] MEDS: cloNIDine HCL 0.1 MG TABLET PO (20:53)
[2023-10-08 08:00] VITALS: BP 106/53; PULSE 60; RESP 16; TEMP 36.4; O2SAT 96
[2023-10-08] MEDS: methADONE HCl 20 MG/2 ML ORAL.CONC 138 MG PO (09:05)
[2023-10-08] MEDS: Folic Acid 1 MG TABLET PO (09:07)
[2023-10-08] MEDS: LORazepam 0.5 MG TABLET PO ×3 (09:07→20:22)
[2023-10-08] MEDS: Thiamine HCL 100 MG TABLET PO (09:07)
[2023-10-08] MEDS: Multivitamin TABLET 1 TAB PO (09:07)
[2023-10-08] MEDS: OLANZapine 2.5 MG TABLET PO (09:08)
--- NOTE | 2023-10-08 11:09 | HO.PSYCHPN ---
Subjective Subjective Date of Service: 10/08/23 Reason For Visit: Psychosis Subjective Notes: Conditional Voluntary Interim History: Pt slept- but reports he woke up fw times at night. He appears with a much brighter affect. He denies SI/HI speech continues to be much more spontaneous. He has been eating and much more visible and appropriate on the unit. Much less s/s catatonia. He is not currently sedated. He does not present as internally preoccupied. No overt delusional statements- but some shinto references related to having a purpose, prayer helping him recovered. he reports in the past hearing god or feeling his presence closer. he does think past few weeks was related to a spiritual experience. He states I realized words are powerful Review of Systems Review of Systems Pt is clearer in communication of how he is feeling. Yes all other systems are reviewed and are negative and Unobtainable due to mental status Gastrointestinal: Reports nausea and Reports vomiting Reports confusion Psychiatric: Reports confusion and Reports depression Mental Status Exam Mental Status Exam Patient Appearance: Appropriate Patient Orientation: Person, Place, Time and Situation Level of Consciousness: Alert Patient Behavior: Cooperative, Suspicious, Anxious, Distractible and Isolative Mood Description: Constricted Affect Description: Constricted Patient Cognition Impaired: No Ability to Follow Directions: Good Speech Pattern: Spontaneous Speech Memory Description: Remote Impaired Diagnostics Vital Signs (24Hr): Vital Signs - 24 hr 10/07/23 20:00 10/07/23 20:53 Respiratory Rate 18 Blood Pressure 135/84 BMI result Body Mass Index 22.0 Labs 10/02/23 07:40 10/02/23 07:40 Imaging Radiology Impressions: ITS Impressions Chest X-Ray 09/24/23 09:58 IMPRESSION: No acute abnormality. Medications Medications Current Medications Acetaminophen (Acetaminophen 325 Mg Tablet) 650 mg PO Q6H PRN PRN Reason: Headache/Pain Mild Scale (1-3) Last Admin: 10/03/23 16:35 Dose: 650 mg Al Hydroxide/Mg Hydroxide (Magnesium Hydrox/Alum Hydrox 30 Ml Oral.Susp) 30 ml PO Q6H PRN PRN Reason: Heartburn/Nausea Clonidine HCl (Clonidine Hcl 0.1 Mg Tablet) 0.1 mg PO TID PRN; Protocol PRN Reason: anxiety Last Admin: 10/07/23 20:53 Dose: 0.1 mg Folic Acid (Folic Acid 1 Mg Tablet) 1 mg PO DAILY [facility] Last Admin: 10/08/23 09:07 Dose: 1 mg Lorazepam (Lorazepam 0.5 Mg Tablet) 0.5 mg PO Q8H PRN PRN Reason: Anxiety Last Admin: 10/01/23 21:53 Dose: 0.5 mg Lorazepam (Lorazepam 0.5 Mg Tablet) 0.5 mg PO TID [facility] Last Admin: 10/08/23 09:07 Dose: 0.5 mg Magnesium Hydroxide (Milk Of Magnesia 30 Ml Oral.Susp) 30 ml PO DAILY PRN PRN Reason: Constipation Last Admin: 10/02/23 16:03 Dose: 30 ml Methadone HCl (Methadone Hcl 20 Mg/2 Ml Oral.Conc) 138 mg PO DAILY [facility] Last Admin: 10/08/23 09:05 Dose: 138 mg Multivitamins/Vitamin C (Multivitamin Tablet) 1 tab PO DAILY [facility] Last Admin: 10/08/23 09:07 Dose: 1 tab Olanzapine (Olanzapine 2.5 Mg Tablet) 2.5 mg PO BID [facility] Last Admin: 10/08/23 09:08 Dose: 2.5 mg Thiamine HCl (Thiamine Hcl 100 Mg Tablet) 100 mg PO DAILY [facility] Last Admin: 10/08/23 09:07 Dose: 100 mg Trazodone HCl (Trazodone Hcl 50 Mg Tablet) 50 mg PO BEDTIME MRX1 PRN PRN Reason: Insomnia Last Admin: 10/07/23 20:53 Dose: 50 mg Allergies Allergies Allergy/AdvReac Type Severity Reaction Status Date / Time No Known Allergies Allergy Verified 09/24/23 03:55 Assessment & Plan Assessment & Plan (1) Post traumatic stress disorder (PTSD): Status: Acute Code(s): F43.10 - Post-traumatic stress disorder, unspecified (2) Acute anxiety: Status: Acute Code(s): F41.9 - Anxiety disorder, unspecified (3) Depression: Status: Acute Code(s): F32.A - Depression, unspecified (4) Opioid use disorder, severe, on maintenance therapy: Status: Acute Code(s): F11.20 - Opioid dependence, uncomplicated Plan 33 yo male, hx of opiate use disorder, methadone maintenace, PTSD, currently with psychotic sx. Plan: Collateral contact Maintain methadone dosing tonight Addiction consult Re-started clonidine, prozac, hydroxyzine, trazodone Risperdal trial- ?psychosis, PTSD exacerbation? Pt may need a mood stabilizer, however will re-establish regime, treat psychosis and assess. 09/25/23 trial of zyprexa 5 mg BID prn and if more calming may switch from risperdal to zyprexa 09/25 methadone reduced to 142 mg for 09/26; brief consult with [facility] Care Team [facility] specialist in agreement 09/26 methadone decreased to 138mg daily CBC and CMP ordered as pt more confused and WBc high in ED 09/27 DC Risperdal Haldol 10 mg concentrate po bid [facility], CMP for 09/28 Continue Olanzapine prn 09/29 Change Haldol to 5 mg tid Add lorazepam 0.5 mg tid ?trauma, ?psychosis, ?catatonia, ?substance induced response Supportive care Continue one to one. 09/30: CBC, CMP Decrease Benztropine to 0.5 mg bid Increase Lorazapam to 1 mg tid-?catatonia 10/02: Decrease Haldol to 5 mg bid 10/04: On 10/05 decrease Haldol to 2.5 mg bid prn 10/05 pt presents with catatonic like s/s including staring, delayed response, no complete mutism but speech minimally spontaneous and his attention is poor and appears thought blocking. He seems to have responded positively/partially to schedule ativan, however, caution when increasing ativan as he is also on methadone fairly high dose. So far no s/s of respiratory distress- o2sat on RA>98%. will avoid high potency antipsychotic such as haldol as it will worsen catatonic like symptoms. but will schedule low dose olanzapine to tx underlying psychosis. continue current dose of ativan schedule for today, may consider increasing tomorrow. 10/06 continu tx. improving catatonia. 10/07 continue current medications but will try lowering ativan as catatonia resolving. may increase night time olanzapine to 5mg po qhs, continue 2.5mg po daily. Reason for continued inpatient stay Substantial Risk for: inability to function Time Spent With Patient Time: Total time managing care of this patient today ____ minutes.
--- NOTE | 2023-10-08 14:56 | HO.PSYCHPN ---
Subjective Subjective Date of Service: 10/09/23 Reason For Visit: Psychosis Subjective Notes: Conditional Voluntary Interim History: Pt sleeping through the night. His speech is much more spontaneous and based on reality. Much less signs of catatonia. Pt denies SI/HI. He has been visible on the unit and social with select peers. No behavioral concerns. Medication Compliance: Yes Review of Systems Review of Systems Pt is clearer in communication of how he is feeling. Yes all other systems are reviewed and are negative and Unobtainable due to mental status Gastrointestinal: Reports nausea and Reports vomiting Reports confusion Psychiatric: Reports confusion and Reports depression Mental Status Exam Mental Status Exam Narrative: Pt casually groomed, improved hygiene, in NAD Behavior: cooperative Psychomotor: no agitation or retardation noted TP: linear TC: feeling better, future oriented Mood: good Affect: congruent, brighter, non labile SI: denies HI: denies VH/AH: no overt signs delusions: residual oriental orthodox, but no overt signs Insight/judgment: improving x 2. memory/cog: alert, oriented x 3. Diagnostics Vital Signs (24Hr): Vital Signs - 24 hr 10/07/23 20:00 10/07/23 20:53 10/08/23 08:00 Temperature 97.5 F Pulse Rate 60 Respiratory Rate 18 16 Blood Pressure 135/84 106/53 L Pulse Oximetry 96 Oxygen Delivery Method Room Air BMI result Body Mass Index 22.0 Labs 10/02/23 07:40 10/02/23 07:40 Imaging Radiology Impressions: ITS Impressions Chest X-Ray 09/24/23 09:58 IMPRESSION: No acute abnormality. Medications Medications Current Medications Acetaminophen (Acetaminophen 325 Mg Tablet) 650 mg PO Q6H PRN PRN Reason: Headache/Pain Mild Scale (1-3) Last Admin: 10/03/23 16:35 Dose: 650 mg Al Hydroxide/Mg Hydroxide (Magnesium Hydrox/Alum Hydrox 30 Ml Oral.Susp) 30 ml PO Q6H PRN PRN Reason: Heartburn/Nausea Folic Acid (Folic Acid 1 Mg Tablet) 1 mg PO DAILY [facility] Last Admin: 10/08/23 09:07 Dose: 1 mg Lorazepam (Lorazepam 0.5 Mg Tablet) 0.5 mg PO TID [facility] Last Admin: 10/08/23 09:07 Dose: 0.5 mg Magnesium Hydroxide (Milk Of Magnesia 30 Ml Oral.Susp) 30 ml PO DAILY PRN PRN Reason: Constipation Last Admin: 10/02/23 16:03 Dose: 30 ml Methadone HCl (Methadone Hcl 20 Mg/2 Ml Oral.Conc) 138 mg PO DAILY [facility] Last Admin: 10/08/23 09:05 Dose: 138 mg Multivitamins/Vitamin C (Multivitamin Tablet) 1 tab PO DAILY [facility] Last Admin: 10/08/23 09:07 Dose: 1 tab Olanzapine (Olanzapine 2.5 Mg Tablet) 2.5 mg PO DAILY [facility] Olanzapine (Olanzapine 5 Mg Tablet) 5 mg PO BEDTIME [facility] Thiamine HCl (Thiamine Hcl 100 Mg Tablet) 100 mg PO DAILY [facility] Last Admin: 10/08/23 09:07 Dose: 100 mg Trazodone HCl (Trazodone Hcl 50 Mg Tablet) 50 mg PO BEDTIME MRX1 PRN PRN Reason: Insomnia Last Admin: 10/07/23 20:53 Dose: 50 mg Allergies Allergies Allergy/AdvReac Type Severity Reaction Status Date / Time No Known Allergies Allergy Verified 09/24/23 03:55 Assessment & Plan Assessment & Plan (1) Bipolar disorder with psychotic features: Status: Acute Code(s): F31.9 - Bipolar disorder, unspecified (2) Post traumatic stress disorder (PTSD): Status: Acute Code(s): F43.10 - Post-traumatic stress disorder, unspecified (3) Acute anxiety: Status: Acute Code(s): F41.9 - Anxiety disorder, unspecified (4) Opioid use disorder, severe, on maintenance therapy: Status: Acute Code(s): F11.20 - Opioid dependence, uncomplicated Plan 33 yo male, hx of opiate use disorder, methadone maintenace, PTSD, currently with psychotic sx. Plan: Collateral contact Maintain methadone dosing tonight Addiction consult Re-started clonidine, prozac, hydroxyzine, trazodone Risperdal trial- ?psychosis, PTSD exacerbation? Pt may need a mood stabilizer, however will re-establish regime, treat psychosis and assess. 09/25/23 trial of zyprexa 5 mg BID prn and if more calming may switch from risperdal to zyprexa 09/25 methadone reduced to 142 mg for 09/26; brief consult with [facility] Care Team [facility] specialist in agreement 09/26 methadone decreased to 138mg daily CBC and CMP ordered as pt more confused and WBc high in ED 09/27 DC Risperdal Haldol 10 mg concentrate po bid [facility], CMP for 09/28 Continue Olanzapine prn 09/29 Change Haldol to 5 mg tid Add lorazepam 0.5 mg tid ?trauma, ?psychosis, ?catatonia, ?substance induced response Supportive care Continue one to one. 09/30: CBC, CMP Decrease Benztropine to 0.5 mg bid Increase Lorazapam to 1 mg tid-?catatonia 10/02: Decrease Haldol to 5 mg bid 10/04: On 10/05 decrease Haldol to 2.5 mg bid prn 10/05 pt presents with catatonic like s/s including staring, delayed response, no complete mutism but speech minimally spontaneous and his attention is poor and appears thought blocking. He seems to have responded positively/partially to schedule ativan, however, caution when increasing ativan as he is also on methadone fairly high dose. So far no s/s of respiratory distress- o2sat on RA>98%. will avoid high potency antipsychotic such as haldol as it will worsen catatonic like symptoms. but will schedule low dose olanzapine to tx underlying psychosis. continue current dose of ativan schedule for today, may consider increasing tomorrow. 10/06 continu tx. improving catatonia. 10/07 continue current medications but will try lowering ativan as catatonia resolving. may increase night time olanzapine to 5mg po qhs, continue 2.5mg po daily. 10/08 much improved in terms of catatonia, psychosis/delusions. Reason for continued inpatient stay Substantial Risk for: inability to function Time Spent With Patient Time: Total time managing care of this patient today ____ minutes.
[2023-10-08 19:22] VITALS: BP 128/75; PULSE 63; TEMP 36.4; O2SAT 98
[2023-10-08] MEDS: Milk of Magnesia 30 ML ORAL.SUSP PO (20:22)
[2023-10-08] MEDS: OLANZapine 5 MG TABLET PO (20:22)
[2023-10-09] MEDS: traZODone HCL 50 MG TABLET PO (00:45)
[2023-10-09 08:35] VITALS: BP 114/67; PULSE 94; RESP 18; TEMP 37.2; O2SAT 96
--- NOTE | 2023-10-09 08:46 | HO.PSYCHPN ---
Subjective Subjective Date of Service: 10/09/23 Reason For Visit: Psychosis Subjective Notes: Conditional Voluntary Interim History: Pt sleeping through the night. His speech is much more spontaneous and based on reality. Much less signs of catatonia. Pt denies SI/HI. He has been visible on the unit and social with select peers. No behavioral concerns. Review of Systems Review of Systems Pt is clearer in communication of how he is feeling. Yes all other systems are reviewed and are negative and Unobtainable due to mental status Gastrointestinal: Reports nausea and Reports vomiting Reports confusion Psychiatric: Reports confusion and Reports depression Mental Status Exam Mental Status Exam Narrative: Pt casually groomed, improved hygiene, in NAD Behavior: cooperative Psychomotor: no agitation or retardation noted TP: linear TC: feeling better, future oriented Mood: good Affect: congruent, brighter, non labile SI: denies HI: denies VH/AH: no overt signs delusions: residual buddhism, but no overt signs Insight/judgment: improving x 2. memory/cog: alert, oriented x 3. Diagnostics Vital Signs (24Hr): Vital Signs - 24 hr 10/08/23 19:22 Temperature 97.5 F Pulse Rate 63 Blood Pressure 128/75 Pulse Oximetry 98 Oxygen Delivery Method Room Air BMI result Body Mass Index 22.0 Labs 10/02/23 07:40 10/02/23 07:40 Imaging Radiology Impressions: ITS Impressions Chest X-Ray 09/24/23 09:58 IMPRESSION: No acute abnormality. Medications Medications Current Medications Acetaminophen (Acetaminophen 325 Mg Tablet) 650 mg PO Q6H PRN PRN Reason: Headache/Pain Mild Scale (1-3) Last Admin: 10/03/23 16:35 Dose: 650 mg Al Hydroxide/Mg Hydroxide (Magnesium Hydrox/Alum Hydrox 30 Ml Oral.Susp) 30 ml PO Q6H PRN PRN Reason: Heartburn/Nausea Folic Acid (Folic Acid 1 Mg Tablet) 1 mg PO DAILY [facility] Last Admin: 10/08/23 09:07 Dose: 1 mg Lorazepam (Lorazepam 0.5 Mg Tablet) 0.5 mg PO TID [facility] Last Admin: 10/08/23 20:22 Dose: 0.5 mg Magnesium Hydroxide (Milk Of Magnesia 30 Ml Oral.Susp) 30 ml PO DAILY PRN PRN Reason: Constipation Last Admin: 10/08/23 20:22 Dose: 30 ml Methadone HCl (Methadone Hcl 20 Mg/2 Ml Oral.Conc) 138 mg PO DAILY [facility] Last Admin: 10/08/23 09:05 Dose: 138 mg Multivitamins/Vitamin C (Multivitamin Tablet) 1 tab PO DAILY [facility] Last Admin: 10/08/23 09:07 Dose: 1 tab Olanzapine (Olanzapine 2.5 Mg Tablet) 2.5 mg PO DAILY [facility] Olanzapine (Olanzapine 5 Mg Tablet) 5 mg PO BEDTIME [facility] Last Admin: 10/08/23 20:22 Dose: 5 mg Thiamine HCl (Thiamine Hcl 100 Mg Tablet) 100 mg PO DAILY [facility] Last Admin: 10/08/23 09:07 Dose: 100 mg Trazodone HCl (Trazodone Hcl 50 Mg Tablet) 50 mg PO BEDTIME MRX1 PRN PRN Reason: Insomnia Last Admin: 10/09/23 00:45 Dose: 50 mg Allergies Allergies Allergy/AdvReac Type Severity Reaction Status Date / Time No Known Allergies Allergy Verified 09/24/23 03:55 Assessment & Plan Assessment & Plan (1) Bipolar disorder with psychotic features: Status: Acute Code(s): F31.9 - Bipolar disorder, unspecified (2) Post traumatic stress disorder (PTSD): Status: Acute Code(s): F43.10 - Post-traumatic stress disorder, unspecified (3) Opioid use disorder, severe, on maintenance therapy: Status: Acute Code(s): F11.20 - Opioid dependence, uncomplicated Plan 33 yo male, hx of opiate use disorder, methadone maintenace, PTSD, currently with psychotic sx. Plan: Collateral contact Maintain methadone dosing tonight Addiction consult Re-started clonidine, prozac, hydroxyzine, trazodone Risperdal trial- ?psychosis, PTSD exacerbation? Pt may need a mood stabilizer, however will re-establish regime, treat psychosis and assess. 09/25/23 trial of zyprexa 5 mg BID prn and if more calming may switch from risperdal to zyprexa 09/25 methadone reduced to 142 mg for 09/26; brief consult with [facility] Care Team [facility] specialist in agreement 09/26 methadone decreased to 138mg daily CBC and CMP ordered as pt more confused and WBc high in ED 09/27 DC Risperdal Haldol 10 mg concentrate po bid [facility], CMP for 09/28 Continue Olanzapine prn 09/29 Change Haldol to 5 mg tid Add lorazepam 0.5 mg tid ?trauma, ?psychosis, ?catatonia, ?substance induced response Supportive care Continue one to one. 09/30: CBC, CMP Decrease Benztropine to 0.5 mg bid Increase Lorazapam to 1 mg tid-?catatonia 10/02: Decrease Haldol to 5 mg bid 10/04: On 10/05 decrease Haldol to 2.5 mg bid prn 10/05 pt presents with catatonic like s/s including staring, delayed response, no complete mutism but speech minimally spontaneous and his attention is poor and appears thought blocking. He seems to have responded positively/partially to schedule ativan, however, caution when increasing ativan as he is also on methadone fairly high dose. So far no s/s of respiratory distress- o2sat on RA>98%. will avoid high potency antipsychotic such as haldol as it will worsen catatonic like symptoms. but will schedule low dose olanzapine to tx underlying psychosis. continue current dose of ativan schedule for today, may consider increasing tomorrow. 10/06 continu tx. improving catatonia. 10/07 continue current medications but will try lowering ativan as catatonia resolving. may increase night time olanzapine to 5mg po qhs, continue 2.5mg po daily. 10/08 catatonia significantly improving. Reason for continued inpatient stay Substantial Risk for: inability to function Time Spent With Patient Time: Total time managing care of this patient today ____ minutes.
[2023-10-09] MEDS: methADONE HCl 20 MG/2 ML ORAL.CONC 138 MG PO (09:24)
[2023-10-09] MEDS: OLANZapine 2.5 MG TABLET PO (09:26)
[2023-10-09] MEDS: Thiamine HCL 100 MG TABLET PO (09:26)
[2023-10-09] MEDS: LORazepam 0.5 MG TABLET PO ×3 (09:26→20:48)
[2023-10-09] MEDS: Folic Acid 1 MG TABLET PO (09:26)
[2023-10-09] MEDS: Multivitamin TABLET 1 TAB PO (09:26)
[2023-10-09 20:00] VITALS: BP 126/77; PULSE 79; RESP 18; TEMP 36.8; O2SAT 96
[2023-10-09] MEDS: Milk of Magnesia 30 ML ORAL.SUSP PO (20:48)
[2023-10-09] MEDS: OLANZapine 5 MG TABLET PO (20:48)
[2023-10-10] MEDS: traZODone HCL 50 MG TABLET PO ×2 (00:20→23:28)
[2023-10-10] MEDS: Magnesium Hydrox/Alum Hydrox 30 ML ORAL.SUSP PO (04:25)
[2023-10-10] MEDS: methADONE HCl 20 MG/2 ML ORAL.CONC 138 MG PO (09:30)
[2023-10-10] MEDS: OLANZapine 2.5 MG TABLET PO (09:31)
[2023-10-10] MEDS: LORazepam 0.5 MG TABLET PO ×3 (09:31→21:49)
[2023-10-10] MEDS: Multivitamin TABLET 1 TAB PO (09:31)
[2023-10-10] MEDS: Folic Acid 1 MG TABLET PO (09:31)
[2023-10-10 09:56] VITALS: BP 138/84; PULSE 124; RESP 18; TEMP 37.1; O2SAT 92
--- NOTE | 2023-10-10 16:26 | HO.PSYCHPN ---
Subjective Subjective Date of Service: 10/10/23 Reason For Visit: Psychosis Subjective Notes: Conditional Voluntary Interim History: Pt sleeping through the night. His speech is much more spontaneous and based on reality. Much less signs of catatonia. Pt denies SI/HI. He has been visible on the unit and social with select peers. No behavioral concerns. Review of Systems Review of Systems Pt is clearer in communication of how he is feeling. Yes all other systems are reviewed and are negative and Unobtainable due to mental status Gastrointestinal: Reports nausea and Reports vomiting Reports confusion Psychiatric: Reports confusion and Reports depression Mental Status Exam Mental Status Exam Narrative: Pt casually groomed, improved hygiene, in NAD Behavior: cooperative Psychomotor: no agitation or retardation noted TP: linear TC: feeling better, future oriented Mood: good Affect: congruent, brighter, non labile SI: denies HI: denies VH/AH: no overt signs delusions: residual sikh, but no overt signs Insight/judgment: improving x 2. memory/cog: alert, oriented x 3. Diagnostics Vital Signs (24Hr): Vital Signs - 24 hr 10/09/23 20:00 10/10/23 09:56 Temperature 98.2 F 98.7 F Pulse Rate 79 124 H Respiratory Rate 18 18 Blood Pressure 126/77 138/84 Pulse Oximetry 96 92 Oxygen Delivery Method Room Air Room Air BMI result Body Mass Index 22.0 Labs 10/02/23 07:40 10/02/23 07:40 Imaging Radiology Impressions: ITS Impressions Chest X-Ray 09/24/23 09:58 IMPRESSION: No acute abnormality. Medications Medications Current Medications Acetaminophen (Acetaminophen 325 Mg Tablet) 650 mg PO Q6H PRN PRN Reason: Headache/Pain Mild Scale (1-3) Last Admin: 10/03/23 16:35 Dose: 650 mg Al Hydroxide/Mg Hydroxide (Magnesium Hydrox/Alum Hydrox 30 Ml Oral.Susp) 30 ml PO Q6H PRN PRN Reason: Heartburn/Nausea Last Admin: 10/10/23 04:25 Dose: 30 ml Folic Acid (Folic Acid 1 Mg Tablet) 1 mg PO DAILY [facility] Last Admin: 10/10/23 09:31 Dose: 1 mg Lorazepam (Lorazepam 0.5 Mg Tablet) 0.5 mg PO BID [facility] Magnesium Hydroxide (Milk Of Magnesia 30 Ml Oral.Susp) 30 ml PO DAILY PRN PRN Reason: Constipation Last Admin: 10/09/23 20:48 Dose: 30 ml Methadone HCl (Methadone Hcl 20 Mg/2 Ml Oral.Conc) 138 mg PO DAILY [facility] Last Admin: 10/10/23 09:30 Dose: 138 mg Olanzapine (Olanzapine 2.5 Mg Tablet) 2.5 mg PO DAILY [facility] Last Admin: 10/10/23 09:31 Dose: 2.5 mg Olanzapine (Olanzapine 5 Mg Tablet) 5 mg PO BEDTIME [facility] Last Admin: 10/09/23 20:48 Dose: 5 mg Olanzapine (Olanzapine 5 Mg Tablet) 5 mg PO Q4H PRN PRN Reason: agitation/severe anxiety Trazodone HCl (Trazodone Hcl 50 Mg Tablet) 50 mg PO BEDTIME MRX1 PRN PRN Reason: Insomnia Last Admin: 10/10/23 00:20 Dose: 50 mg Allergies Allergies Allergy/AdvReac Type Severity Reaction Status Date / Time No Known Allergies Allergy Verified 09/24/23 03:55 Assessment & Plan Assessment & Plan (1) Bipolar disorder with psychotic features: Status: Acute Code(s): F31.9 - Bipolar disorder, unspecified (2) Post traumatic stress disorder (PTSD): Status: Acute Code(s): F43.10 - Post-traumatic stress disorder, unspecified (3) Opioid use disorder, severe, on maintenance therapy: Status: Acute Code(s): F11.20 - Opioid dependence, uncomplicated Plan 33 yo male, hx of opiate use disorder, methadone maintenace, PTSD, currently with psychotic sx. Plan: Collateral contact Maintain methadone dosing tonight Addiction consult Re-started clonidine, prozac, hydroxyzine, trazodone Risperdal trial- ?psychosis, PTSD exacerbation? Pt may need a mood stabilizer, however will re-establish regime, treat psychosis and assess. 09/25/23 trial of zyprexa 5 mg BID prn and if more calming may switch from risperdal to zyprexa 09/25 methadone reduced to 142 mg for 09/26; brief consult with [facility] Care Team [facility] specialist in agreement 09/26 methadone decreased to 138mg daily CBC and CMP ordered as pt more confused and WBc high in ED 09/27 DC Risperdal Haldol 10 mg concentrate po bid [facility], CMP for 09/28 Continue Olanzapine prn 09/29 Change Haldol to 5 mg tid Add lorazepam 0.5 mg tid ?trauma, ?psychosis, ?catatonia, ?substance induced response Supportive care Continue one to one. 09/30: CBC, CMP Decrease Benztropine to 0.5 mg bid Increase Lorazapam to 1 mg tid-?catatonia 10/02: Decrease Haldol to 5 mg bid 10/04: On 10/05 decrease Haldol to 2.5 mg bid prn 10/05 pt presents with catatonic like s/s including staring, delayed response, no complete mutism but speech minimally spontaneous and his attention is poor and appears thought blocking. He seems to have responded positively/partially to schedule ativan, however, caution when increasing ativan as he is also on methadone fairly high dose. So far no s/s of respiratory distress- o2sat on RA>98%. will avoid high potency antipsychotic such as haldol as it will worsen catatonic like symptoms. but will schedule low dose olanzapine to tx underlying psychosis. continue current dose of ativan schedule for today, may consider increasing tomorrow. 10/06 continu tx. improving catatonia. 10/07 continue current medications but will try lowering ativan as catatonia resolving. may increase night time olanzapine to 5mg po qhs, continue 2.5mg po daily. 10/08 catatonia significantly improving. 10/09 may try lowering ativan as catatonia resolved. continue olanzapine. Reason for continued inpatient stay Substantial Risk for: inability to function Time Spent With Patient Time: Total time managing care of this patient today ____ minutes.
[2023-10-10] MEDS: OLANZapine 5 MG TABLET PO (21:48)
[2023-10-10 22:12] VITALS: BP 123/73; PULSE 88; RESP 16; TEMP 36.8; O2SAT 96
[2023-10-11 08:00] VITALS: BP 122/74; PULSE 97; TEMP 37.9; O2SAT 97
[2023-10-11] MEDS: OLANZapine 2.5 MG TABLET PO (08:45)
[2023-10-11] MEDS: LORazepam 0.5 MG TABLET PO ×2 (08:45→21:02)
[2023-10-11] MEDS: Folic Acid 1 MG TABLET PO (08:45)
[2023-10-11] MEDS: methADONE HCl 20 MG/2 ML ORAL.CONC 138 MG PO (08:45)
--- NOTE | 2023-10-11 15:05 | P.PNPSI_ITS ---
Subjective Subjective Date of Service: 10/11/23 Reason For Visit: Psychosis Subjective Notes: Conditional Voluntary Healthcare Proxy: No Guardianship: No Medical Problems Affecting Mental Status: No Interim History: Pt able to review regime today and discuss his thoughts on precipitants to admission and medication change. Discussed having sexual addiction sx and effects this has had upon his life and relationships. Reviewed medications and requests to return to preadmit regime of hydroxyzine, prozac Medication Compliance: Yes Side effects from medications: No Attending Groups: Yes Review of Systems Acute medical concerns: No Medical Review of Systems: unchanged Review of Systems Review of Systems Yes all other systems are reviewed and are negative Mental Status Exam Mental Status Exam Patient Appearance: Appropriate Patient Orientation: Person, Place, Time and Situation Level of Consciousness: Alert Patient Behavior: Appropriate, Talkative, Cooperative and Good Eye Contact Mood Description: Depressed and Anxious Affect Description: Flat Patient Cognition Impaired: No Ability to Follow Directions: Good Speech Pattern: Spontaneous Speech Memory Description: Episodic Impaired Hallucinations: None Delusions: Not Present Perceptual Disturbances: Depersonalization and Derealization Thought Process: Intact Thought Content: positive for Intact and positive for Circumstantial Depressive Symptoms: Increased Anxiety and Thoughts of /Suicide (denies) Judgement: Fair Diagnostics Vital Signs (24Hr): Vital Signs - 24 hr 10/10/23 22:12 10/11/23 08:00 Temperature 98.3 F 100.2 F Pulse Rate 88 977 H Respiratory Rate 16 Blood Pressure 123/73 122/74 Pulse Oximetry 96 97 Oxygen Delivery Method Room Air Room Air BMI result Body Mass Index 22.0 Labs 10/02/23 07:40 10/02/23 07:40 Imaging Radiology Impressions: ITS Impressions Chest X-Ray 09/24/23 09:58 IMPRESSION: No acute abnormality. Medications Medications Current Medications Acetaminophen (Acetaminophen 325 Mg Tablet) 650 mg PO Q6H PRN PRN Reason: Headache/Pain Mild Scale (1-3) Last Admin: 10/03/23 16:35 Dose: 650 mg Al Hydroxide/Mg Hydroxide (Magnesium Hydrox/Alum Hydrox 30 Ml Oral.Susp) 30 ml PO Q6H PRN PRN Reason: Heartburn/Nausea Last Admin: 10/10/23 04:25 Dose: 30 ml Fluoxetine HCl (Fluoxetine Hcl Oral Solution 20 Mg/5 Ml Solution) 20 mg PO DAILY [facility] Hydroxyzine HCl (Hydroxyzine Hcl 25 Mg Tablet) 25 mg PO Q6H PRN PRN Reason: Anxiety Lorazepam (Lorazepam 0.5 Mg Tablet) 0.5 mg PO BID [facility] Last Admin: 10/11/23 08:45 Dose: 0.5 mg Magnesium Hydroxide (Milk Of Magnesia 30 Ml Oral.Susp) 30 ml PO DAILY PRN PRN Reason: Constipation Last Admin: 10/09/23 20:48 Dose: 30 ml Methadone HCl (Methadone Hcl 20 Mg/2 Ml Oral.Conc) 138 mg PO DAILY [facility] Last Admin: 10/11/23 08:45 Dose: 138 mg Olanzapine (Olanzapine 5 Mg Tablet) 5 mg PO Q4H PRN PRN Reason: agitation/severe anxiety Polyethylene Glycol (Polyethylene Glycol 3350 17 Gm Powd.Pack) 17 gm PO DAILY [facility] Trazodone HCl (Trazodone Hcl 50 Mg Tablet) 50 mg PO BEDTIME MRX1 PRN PRN Reason: Insomnia Last Admin: 10/10/23 23:28 Dose: 50 mg Allergies Allergies Allergy/AdvReac Type Severity Reaction Status Date / Time No Known Allergies Allergy Verified 09/24/23 03:55 Assessment & Plan Assessment & Plan (1) Bipolar disorder with psychotic features: Status: Acute Code(s): F31.9 - Bipolar disorder, unspecified (2) Post traumatic stress disorder (PTSD): Status: Acute Code(s): F43.10 - Post-traumatic stress disorder, unspecified (3) Opioid use disorder, severe, on maintenance therapy: Status: Acute Code(s): F11.20 - Opioid dependence, uncomplicated Plan 33 yo male, hx of opiate use disorder, methadone maintenace, PTSD, currently with psychotic sx. Plan: Collateral contact Maintain methadone dosing tonight Addiction consult Re-started clonidine, prozac, hydroxyzine, trazodone Risperdal trial- ?psychosis, PTSD exacerbation? Pt may need a mood stabilizer, however will re-establish regime, treat psychosis and assess. 09/25/23 trial of zyprexa 5 mg BID prn and if more calming may switch from risperdal to zyprexa 09/25 methadone reduced to 142 mg for 09/26; brief consult with [facility] Team [facility] specialist in agreement 09/26 methadone decreased to 138mg daily CBC and CMP ordered as pt more confused and WBc high in ED 5/28 DC Risperdal Haldol 10 mg concentrate po bid CBCD, CMP for 09/28 Continue Olanzapine prn 09/29 Change Haldol to 5 mg tid Add lorazepam 0.5 mg tid ?trauma, ?psychosis, ?catatonia, ?substance induced response Supportive care Continue one to one. 09/30: CBC, CMP Decrease Benztropine to 0.5 mg bid Increase Lorazapam to 1 mg tid-?catatonia 10/02: Decrease Haldol to 5 mg bid 10/04: On 10/05 decrease Haldol to 2.5 mg bid prn 10/05 pt presents with catatonic like s/s including staring, delayed response, no complete mutism but speech minimally spontaneous and his attention is poor and appears thought blocking. He seems to have responded positively/partially to schedule ativan, however, caution when increasing ativan as he is also on methadone fairly high dose. So far no s/s of respiratory distress- o2sat on RA>98%. will avoid high potency antipsychotic such as haldol as it will worsen catatonic like symptoms. but will schedule low dose olanzapine to tx underlying psychosis. continue current dose of ativan schedule for today, may consider increasing tomorrow. 10/06 continu tx. improving catatonia. 10/07 continue current medications but will try lowering ativan as catatonia resolving. may increase night time olanzapine to 5mg po qhs, continue 2.5mg po daily. 10/08 catatonia significantly improving. 10/09 may try lowering ativan as catatonia resolved. continue olanzapine. 10/10 catatonia resolving prozac 20 mg daily hydroxyzine 25 mg q 6 prn miralax qd Reason for continued inpatient stay Substantial Risk for: rapid decompensation Time Spent With Patient Time: Total time managing care of this patient today ____ minutes.
[2023-10-11] MEDS: hydrOXYzine HCL 25 MG TABLET PO (17:12)
[2023-10-11] MEDS: polyethylene glycoL 3350 17 GM POWD.PACK PO (17:12)
[2023-10-11 19:52] VITALS: BP 129/81; PULSE 89; RESP 16; TEMP 36.6; O2SAT 99
[2023-10-11] MEDS: traZODone HCL 50 MG TABLET PO (21:02)
[2023-10-12 08:00] VITALS: BP 117/73; PULSE 75; RESP 16; TEMP 36.6; O2SAT 98
[2023-10-12] MEDS: LORazepam 0.5 MG TABLET PO ×2 (10:23→21:00)
[2023-10-12] MEDS: methADONE HCl 20 MG/2 ML ORAL.CONC 138 MG PO (10:24)
[2023-10-12] MEDS: FLUoxetine HCl 20 MG CAPSULE PO (10:47)
[2023-10-12] MEDS: hydrOXYzine HCL 25 MG TABLET PO ×2 (15:41→21:00)
--- NOTE | 2023-10-12 18:29 | P.PNPSI_ITS ---
Subjective Subjective Date of Service: 10/12/23 Reason For Visit: Psychosis Subjective Notes: Conditional Voluntary Healthcare Proxy: No Guardianship: No Medical Problems Affecting Mental Status: No Interim History: Tolerating medication changes without adverse effects. Will proceed with STI testing per pt request Discussed tapering of Methadone from 145 to 138. I am feeling this today. Will ask addictions to meet with pt. Medication Compliance: Yes Side effects from medications: No Attending Groups: Yes Review of Systems Acute medical concerns: No Medical Review of Systems: unchanged Review of Systems Review of Systems Yes all other systems are reviewed and are negative Diagnostics Vital Signs (24Hr): Vital Signs - 24 hr 10/11/23 19:52 10/12/23 08:00 Temperature 97.8 F 97.8 F Pulse Rate 89 75 Respiratory Rate 16 16 Blood Pressure 129/81 117/73 Pulse Oximetry 99 98 Oxygen Delivery Method Room Air Room Air BMI result Body Mass Index 22.0 Labs 10/02/23 07:40 10/02/23 07:40 Imaging Radiology Impressions: ITS Impressions Chest X-Ray 09/24/23 09:58 IMPRESSION: No acute abnormality. Medications Medications Current Medications Acetaminophen (Acetaminophen 325 Mg Tablet) 650 mg PO Q6H PRN PRN Reason: Headache/Pain Mild Scale (1-3) Last Admin: 10/03/23 16:35 Dose: 650 mg Al Hydroxide/Mg Hydroxide (Magnesium Hydrox/Alum Hydrox 30 Ml Oral.Susp) 30 ml PO Q6H PRN PRN Reason: Heartburn/Nausea Last Admin: 10/10/23 04:25 Dose: 30 ml Fluoxetine HCl (Fluoxetine Hcl 20 Mg Capsule) 20 mg PO DAILY [facility] Last Admin: 10/12/23 10:47 Dose: 20 mg Hydroxyzine HCl (Hydroxyzine Hcl 25 Mg Tablet) 25 mg PO Q6H PRN PRN Reason: Anxiety Last Admin: 10/12/23 15:41 Dose: 25 mg Lorazepam (Lorazepam 0.5 Mg Tablet) 0.5 mg PO BID [facility] Last Admin: 10/12/23 10:23 Dose: 0.5 mg Magnesium Hydroxide (Milk Of Magnesia 30 Ml Oral.Susp) 30 ml PO DAILY PRN PRN Reason: Constipation Last Admin: 10/09/23 20:48 Dose: 30 ml Methadone HCl (Methadone Hcl 20 Mg/2 Ml Oral.Conc) 138 mg PO DAILY [facility] Last Admin: 10/12/23 10:24 Dose: 138 mg Olanzapine (Olanzapine 5 Mg Tablet) 5 mg PO Q4H PRN PRN Reason: agitation/severe anxiety Polyethylene Glycol (Polyethylene Glycol 3350 17 Gm Powd.Pack) 17 gm PO DAILY [facility] Last Admin: 10/12/23 10:25 Dose: Not Given Trazodone HCl (Trazodone Hcl 50 Mg Tablet) 50 mg PO BEDTIME MRX1 PRN PRN Reason: Insomnia Last Admin: 10/11/23 21:02 Dose: 50 mg Allergies Allergies Allergy/AdvReac Type Severity Reaction Status Date / Time No Known Allergies Allergy Verified 09/24/23 03:55 Assessment & Plan Assessment & Plan (1) Bipolar disorder with psychotic features: Status: Acute Code(s): F31.9 - Bipolar disorder, unspecified (2) Post traumatic stress disorder (PTSD): Status: Acute Code(s): F43.10 - Post-traumatic stress disorder, unspecified (3) Opioid use disorder, severe, on maintenance therapy: Status: Acute Code(s): F11.20 - Opioid dependence, uncomplicated Plan 33 yo male, hx of opiate use disorder, methadone maintenace, PTSD, currently with psychotic sx. Plan: Collateral contact Maintain methadone dosing tonight Addiction consult Re-started clonidine, prozac, hydroxyzine, trazodone Risperdal trial- ?psychosis, PTSD exacerbation? Pt may need a mood stabilizer, however will re-establish regime, treat psychosis and assess. 09/25/23 trial of zyprexa 5 mg BID prn and if more calming may switch from risperdal to zyprexa 09/25 methadone reduced to 142 mg for 09/26; brief consult with [facility] Care Team [facility] specialist in agreement 09/26 methadone decreased to 138mg daily CBC and CMP ordered as pt more confused and WBc high in ED 09/27 DC Risperdal Haldol 10 mg concentrate po bid CBCD, CMP for 09/28 Continue Olanzapine prn 09/29 Change Haldol to 5 mg tid Add lorazepam 0.5 mg tid ?trauma, ?psychosis, ?catatonia, ?substance induced response Supportive care Continue one to one. 09/30: CBC, CMP Decrease Benztropine to 0.5 mg bid Increase Lorazapam to 1 mg tid-?catatonia 10/02: Decrease Haldol to 5 mg bid 10/04: On 10/05 decrease Haldol to 2.5 mg bid prn 10/05 pt presents with catatonic like s/s including staring, delayed response, no complete mutism but speech minimally spontaneous and his attention is poor and appears thought blocking. He seems to have responded positively/partially to schedule ativan, however, caution when increasing ativan as he is also on methadone fairly high dose. So far no s/s of respiratory distress- o2sat on RA>98%. will avoid high potency antipsychotic such as haldol as it will worsen catatonic like symptoms. but will schedule low dose olanzapine to tx underlying psychosis. continue current dose of ativan schedule for today, may consider increasing tomorrow. 10/06 continu tx. improving catatonia. 10/07 continue current medications but will try lowering ativan as catatonia resolving. may increase night time olanzapine to 5mg po qhs, continue 2.5mg po daily. 10/08 catatonia significantly improving. 10/09 may try lowering ativan as catatonia resolved. continue olanzapine. 10/11 continue regime STI testing per pt request. Informed Consent: understands and further education needed Reason for continued inpatient stay Substantial Risk for: rapid decompensation Time Spent With Patient Time: Total time managing care of this patient today ____ minutes.
[2023-10-12] MEDS: polyethylene glycoL 3350 17 GM POWD.PACK PO (19:46)
[2023-10-12 20:00] VITALS: BP 136/87; PULSE 88; RESP 16; TEMP 36.9; O2SAT 95
[2023-10-12] MEDS: traZODone HCL 50 MG TABLET PO (21:00)
[2023-10-12] MEDS: OLANZapine 5 MG TABLET PO (23:42)
[2023-10-13] MEDS: LORazepam 0.5 MG TABLET PO ×2 (08:54→21:57)
[2023-10-13] MEDS: methADONE HCl 20 MG/2 ML ORAL.CONC 138 MG PO (08:54)
[2023-10-13] MEDS: FLUoxetine HCl 20 MG CAPSULE PO (08:54)
--- NOTE | 2023-10-13 13:23 | P.PNPSI_ITS ---
Subjective Subjective Date of Service: 10/13/23 Reason For Visit: Psychosis Subjective Notes: Conditional Voluntary Healthcare Proxy: No Guardianship: No Medical Problems Affecting Mental Status: No Interim History: Team reports paranoia, anxiety, increase sx of psychosis since pt asked for changes this week. Discussed with pt-agrees to re-start Olanzapine 10 mg hs, change Trazodone to prn, Methadone to return to 145 mg. Reports some racing of thoughts, voices in his head-unsure if this is distraction, ADHD sx. Some decline since he made requested medication changes. Team has provided education to assist him in stabilizing sx. Medication Compliance: Yes Side effects from medications: No Attending Groups: Yes Review of Systems Acute medical concerns: No Medical Review of Systems: unchanged Review of Systems Review of Systems Yes all other systems are reviewed and are negative Mental Status Exam Mental Status Exam Patient Appearance: Appropriate Patient Orientation: Person, Place, Time and Situation Level of Consciousness: Alert Patient Behavior: Appropriate, Talkative, Cooperative and Good Eye Contact Mood Description: Depressed and Anxious Affect Description: Flat Patient Cognition Impaired: No Ability to Follow Directions: Good Speech Pattern: Spontaneous Speech Memory Description: Episodic Impaired Hallucinations: None Delusions: Not Present Perceptual Disturbances: Depersonalization and Derealization Thought Process: Intact Thought Content: positive for Intact and positive for Circumstantial Depressive Symptoms: Increased Anxiety and Thoughts of /Suicide (denies) Judgement: Fair Diagnostics Vital Signs (24Hr): Vital Signs - 24 hr 10/12/23 20:00 Temperature 98.4 F Pulse Rate 88 Respiratory Rate 16 Blood Pressure 136/87 Pulse Oximetry 95 Oxygen Delivery Method Room Air BMI result Body Mass Index 22.0 Labs 10/02/23 07:40 10/02/23 07:40 Imaging Radiology Impressions: ITS Impressions Chest X-Ray 09/24/23 09:58 IMPRESSION: No acute abnormality. Medications Medications Current Medications Acetaminophen (Acetaminophen 325 Mg Tablet) 650 mg PO Q6H PRN PRN Reason: Headache/Pain Mild Scale (1-3) Last Admin: 10/03/23 16:35 Dose: 650 mg Al Hydroxide/Mg Hydroxide (Magnesium Hydrox/Alum Hydrox 30 Ml Oral.Susp) 30 ml PO Q6H PRN PRN Reason: Heartburn/Nausea Last Admin: 10/10/23 04:25 Dose: 30 ml Fluoxetine HCl (Fluoxetine Hcl 20 Mg Capsule) 20 mg PO DAILY [facility] Last Admin: 10/13/23 08:54 Dose: 20 mg Guaifenesin/Dextromethorphan (Guaifenesin Dm 600/30 1 Tab Tab.Er.12h) 1 tab PO BID PRN PRN Reason: Congestion Hydroxyzine HCl (Hydroxyzine Hcl 25 Mg Tablet) 25 mg PO Q4H PRN PRN Reason: Anxiety Lorazepam (Lorazepam 0.5 Mg Tablet) 0.5 mg PO BID [facility] Last Admin: 10/13/23 08:54 Dose: 0.5 mg Magnesium Hydroxide (Milk Of Magnesia 30 Ml Oral.Susp) 30 ml PO DAILY PRN PRN Reason: Constipation Last Admin: 10/09/23 20:48 Dose: 30 ml Methadone HCl (Methadone Hcl 20 Mg/2 Ml Oral.Conc) 145 mg PO DAILY [facility] Olanzapine (Olanzapine 5 Mg Tablet) 5 mg PO Q4H PRN PRN Reason: agitation/severe anxiety Last Admin: 10/12/23 23:42 Dose: 5 mg Olanzapine (Olanzapine 10 Mg Tablet) 10 mg PO BEDTIME [facility] Polyethylene Glycol (Polyethylene Glycol 3350 17 Gm Powd.Pack) 17 gm PO DAILY [facility] Last Admin: 10/12/23 19:46 Dose: 17 gm Trazodone HCl (Trazodone Hcl 50 Mg Tablet) 50 mg PO BEDTIME PRN PRN Reason: Insomnia Allergies Allergies Allergy/AdvReac Type Severity Reaction Status Date / Time No Known Allergies Allergy Verified 09/24/23 03:55 Assessment & Plan Assessment & Plan (1) Bipolar disorder with psychotic features: Status: Acute Code(s): F31.9 - Bipolar disorder, unspecified (2) Post traumatic stress disorder (PTSD): Status: Acute Code(s): F43.10 - Post-traumatic stress disorder, unspecified (3) Opioid use disorder, severe, on maintenance therapy: Status: Acute Code(s): F11.20 - Opioid dependence, uncomplicated Plan 33 yo male, hx of opiate use disorder, methadone maintenace, PTSD, currently with psychotic sx. Plan: Collateral contact Maintain methadone dosing tonight Addiction consult Re-started clonidine, prozac, hydroxyzine, trazodone Risperdal trial- ?psychosis, PTSD exacerbation? Pt may need a mood stabilizer, however will re-establish regime, treat psychosis and assess. 09/25/23 trial of zyprexa 5 mg BID prn and if more calming may switch from risperdal to zyprexa 09/25 methadone reduced to 142 mg for 09/26; brief consult with [facility] Care Team [facility] specialist in agreement 09/26 methadone decreased to 138mg daily CBC and CMP ordered as pt more confused and WBc high in ED 09/27 DC Risperdal Haldol 10 mg concentrate po bid CBCD, CMP for 09/28 Continue Olanzapine prn 09/29 Change Haldol to 5 mg tid Add lorazepam 0.5 mg tid ?trauma, ?psychosis, ?catatonia, ?substance induced response Supportive care Continue one to one. 09/30: CBC, CMP Decrease Benztropine to 0.5 mg bid Increase Lorazapam to 1 mg tid-?catatonia 10/02: Decrease Haldol to 5 mg bid 10/04: On 10/05 decrease Haldol to 2.5 mg bid prn 10/05 pt presents with catatonic like s/s including staring, delayed response, no complete mutism but speech minimally spontaneous and his attention is poor and appears thought blocking. He seems to have responded positively/partially to schedule ativan, however, caution when increasing ativan as he is also on methadone fairly high dose. So far no s/s of respiratory distress- o2sat on RA>98%. will avoid high potency antipsychotic such as haldol as it will worsen catatonic like symptoms. but will schedule low dose olanzapine to tx underlying psychosis. continue current dose of ativan schedule for today, may consider increasing tomorrow. 10/06 continu tx. improving catatonia. 10/07 continue current medications but will try lowering ativan as catatonia resolving. may increase night time olanzapine to 5mg po qhs, continue 2.5mg po daily. 10/08 catatonia significantly improving. 10/09 may try lowering ativan as catatonia resolved. continue olanzapine. 10/11 continue regime STI testing per pt request. 10/12 Increase Methadone to 145 mg daily from 138 mg (consulted with Addiction Medicine) Change Trazodone to prn Olanzapine 10 mg HS Informed Consent: further education needed Reason for continued inpatient stay Substantial Risk for: rapid decompensation Time Spent With Patient Time: Total time managing care of this patient today ____ minutes.
[2023-10-13] MEDS: methADONE HCl 20 MG/2 ML ORAL.CONC 6 MG PO (13:48)
[2023-10-13 13:50] VITALS: BP 134/83; PULSE 87; RESP 18; TEMP 37.1
[2023-10-13] MEDS: Milk of Magnesia 30 ML ORAL.SUSP PO (16:23)
[2023-10-13 19:44] VITALS: BP 140/85; PULSE 84; RESP 16; O2SAT 95
[2023-10-13] MEDS: OLANZapine 10 MG TABLET PO (21:57)
[2023-10-14 03:27] LABS: CT PCR NOT DETECTED (Not Detect.); NG PCR NOT DETECTED (Not Detect.)
[2023-10-14 07:00] VITALS: BMI 22.5
[2023-10-14 08:00] VITALS: BP 152/77; PULSE 96; RESP 20; TEMP 36.1; O2SAT 98
[2023-10-14] MEDS: LORazepam 0.5 MG TABLET PO ×2 (08:48→21:47)
[2023-10-14] MEDS: FLUoxetine HCl 20 MG CAPSULE PO (08:48)
[2023-10-14] MEDS: methADONE HCl 20 MG/2 ML ORAL.CONC 145 MG PO (08:50)
--- NOTE | 2023-10-14 10:53 | HO.PSYCHPN ---
Subjective Subjective Date of Service: 10/14/23 Reason For Visit: Psychosis Subjective Notes: Conditional Voluntary Healthcare Proxy: No Guardianship: No Medical Problems Affecting Mental Status: No Interim History: Review of med changes. Asks for Methadone decrease-discussed, will decrease to 143 beginning 10/14. Discussed nightmares-will trial Prazosin 1 mg HS and Risperdal 1 mg HS prn for grounding and mgt of PTSD sx which he reports increase in the evening/night. Discussed concerns today regarding housing, living away from children-reviewed an instance in childhood which at age 9 occurred and his guild around this. Discussed his assessment of this incident today, at his age, vs what a [age] year old may be thinking when this occurred. Encouraged to consider this. Medication Compliance: Yes Side effects from medications: No Attending Groups: Yes Review of Systems Acute medical concerns: No Medical Review of Systems: unchanged Review of Systems Review of Systems constipation-dulcolax ordered Mental Status Exam Mental Status Exam Patient Appearance: Appropriate Patient Orientation: Person, Place, Time and Situation Level of Consciousness: Alert Patient Behavior: Appropriate, Talkative, Cooperative and Good Eye Contact Mood Description: Depressed and Anxious Affect Description: Flat Patient Cognition Impaired: No Ability to Follow Directions: Good Speech Pattern: Spontaneous Speech Memory Description: Episodic Impaired Hallucinations: None Delusions: Not Present Perceptual Disturbances: Depersonalization and Derealization Thought Process: Intact Thought Content: positive for Intact and positive for Circumstantial Depressive Symptoms: Increased Anxiety and Thoughts of /Suicide (denies) Judgement: Fair Diagnostics Vital Signs (24Hr): Vital Signs - 24 hr 10/13/23 13:50 10/13/23 19:44 10/14/23 08:00 Temperature 98.8 F 97 F Pulse Rate 87 84 96 Respiratory Rate 18 16 20 Blood Pressure 134/83 140/85 H 152/77 H Pulse Oximetry 95 98 Oxygen Delivery Method Room Air Room Air BMI result Body Mass Index 22.5 Labs 10/02/23 07:40 10/02/23 07:40 Labs: Laboratory Results - last 48 hr 10/13/23 22:07 Chlam trachomat DNA PCR NOT DETECTED N.gonorrhoeae DNA (PCR) NOT DETECTED Imaging Radiology Impressions: ITS Impressions Chest X-Ray 09/24/23 09:58 IMPRESSION: No acute abnormality. Medications Medications Current Medications Acetaminophen (Acetaminophen 325 Mg Tablet) 650 mg PO Q6H PRN PRN Reason: Headache/Pain Mild Scale (1-3) Last Admin: 10/03/23 16:35 Dose: 650 mg Al Hydroxide/Mg Hydroxide (Magnesium Hydrox/Alum Hydrox 30 Ml Oral.Susp) 30 ml PO Q6H PRN PRN Reason: Heartburn/Nausea Last Admin: 10/10/23 04:25 Dose: 30 ml Fluoxetine HCl (Fluoxetine Hcl 20 Mg Capsule) 20 mg PO DAILY [facility] Last Admin: 10/14/23 08:48 Dose: 20 mg Guaifenesin/Dextromethorphan (Guaifenesin Dm 600/30 1 Tab Tab.Er.12h) 1 tab PO BID PRN PRN Reason: Congestion Hydroxyzine HCl (Hydroxyzine Hcl 25 Mg Tablet) 25 mg PO Q4H PRN PRN Reason: Anxiety Lorazepam (Lorazepam 0.5 Mg Tablet) 0.5 mg PO BID [facility] Last Admin: 10/14/23 08:48 Dose: 0.5 mg Magnesium Hydroxide (Milk Of Magnesia 30 Ml Oral.Susp) 30 ml PO DAILY PRN PRN Reason: Constipation Last Admin: 10/13/23 16:23 Dose: 30 ml Methadone HCl (Methadone Hcl 20 Mg/2 Ml Oral.Conc) 145 mg PO DAILY [facility] Last Admin: 10/14/23 08:50 Dose: 145 mg Olanzapine (Olanzapine 5 Mg Tablet) 5 mg PO Q4H PRN PRN Reason: agitation/severe anxiety Last Admin: 10/12/23 23:42 Dose: 5 mg Olanzapine (Olanzapine 10 Mg Tablet) 10 mg PO BEDTIME [facility] Last Admin: 10/13/23 21:57 Dose: 10 mg Polyethylene Glycol (Polyethylene Glycol 3350 17 Gm Powd.Pack) 17 gm PO DAILY [facility] Last Admin: 10/14/23 09:37 Dose: Not Given Trazodone HCl (Trazodone Hcl 50 Mg Tablet) 50 mg PO BEDTIME PRN PRN Reason: Insomnia Allergies Allergies Allergy/AdvReac Type Severity Reaction Status Date / Time No Known Allergies Allergy Verified 09/24/23 03:55 Assessment & Plan Assessment & Plan (1) Bipolar disorder with psychotic features: Status: Acute Code(s): F31.9 - Bipolar disorder, unspecified (2) Post traumatic stress disorder (PTSD): Status: Acute Code(s): F43.10 - Post-traumatic stress disorder, unspecified (3) Opioid use disorder, severe, on maintenance therapy: Status: Acute Code(s): F11.20 - Opioid dependence, uncomplicated Plan 33 yo male, hx of opiate use disorder, methadone maintenace, PTSD, currently with psychotic sx. Plan: Collateral contact Maintain methadone dosing tonight Addiction consult Re-started clonidine, prozac, hydroxyzine, trazodone Risperdal trial- ?psychosis, PTSD exacerbation? Pt may need a mood stabilizer, however will re-establish regime, treat psychosis and assess. 09/25/23 trial of zyprexa 5 mg BID prn and if more calming may switch from risperdal to zyprexa 09/25 methadone reduced to 142 mg for 09/26; brief consult with Comprehensice Care Team [facility]IL[facility] specialist in agreement 09/26 methadone decreased to 138mg daily CBC and CMP ordered as pt more confused and WBc high in ED 09/27 DC Risperdal Haldol 10 mg concentrate po bid CBCD, CMP for 09/28 Continue Olanzapine prn 09/29 Change Haldol to 5 mg tid Add lorazepam 0.5 mg tid ?trauma, ?psychosis, ?catatonia, ?substance induced response Supportive care Continue one to one. 09/30: CBC, CMP Decrease Benztropine to 0.5 mg bid Increase Lorazapam to 1 mg tid-?catatonia 10/02: Decrease Haldol to 5 mg bid 10/04: On 10/05 decrease Haldol to 2.5 mg bid prn 10/05 pt presents with catatonic like s/s including staring, delayed response, no complete mutism but speech minimally spontaneous and his attention is poor and appears thought blocking. He seems to have responded positively/partially to schedule ativan, however, caution when increasing ativan as he is also on methadone fairly high dose. So far no s/s of respiratory distress- o2sat on RA>98%. will avoid high potency antipsychotic such as haldol as it will worsen catatonic like symptoms. but will schedule low dose olanzapine to tx underlying psychosis. continue current dose of ativan schedule for today, may consider increasing tomorrow. 10/06 continu tx. improving catatonia. 10/07 continue current medications but will try lowering ativan as catatonia resolving. may increase night time olanzapine to 5mg po qhs, continue 2.5mg po daily. 10/08 catatonia significantly improving. 10/09 may try lowering ativan as catatonia resolved. continue olanzapine. 10/11 continue regime STI testing per pt request. 10/13: Decrease Methadone to 143 mg daily Prazosin 1 mg HS Risperdal 1 mg HS prn for PTSD sx increase and need for grounding. Dulcolax 10 mg HS x1 Informed Consent: further education needed Reason for continued inpatient stay Substantial Risk for: rapid decompensation Time Spent With Patient Time: Total time managing care of this patient today ____ minutes.
[2023-10-14] MEDS: hydrOXYzine HCL 25 MG TABLET PO ×2 (14:36→22:56)
[2023-10-14] MEDS: polyethylene glycoL 3350 17 GM POWD.PACK PO (14:38)
[2023-10-14 19:43] VITALS: BP 143/98; PULSE 95; RESP 16; TEMP 37.1; O2SAT 97
[2023-10-14] MEDS: Prazosin HCL 1 MG CAPSULE PO (21:47)
[2023-10-14] MEDS: OLANZapine 10 MG TABLET PO (21:47)
[2023-10-14] MEDS: Milk of Magnesia 30 ML ORAL.SUSP PO (21:58)
[2023-10-14] MEDS: risperiDONE 1 MG TABLET PO (22:56)
[2023-10-15 08:00] VITALS: BP 125/68; PULSE 104; TEMP 36.5; O2SAT 98
[2023-10-15 08:19] LABS: HIV AB/AG Nonreactive (Nonreactive); HIV Num 1 0.07 S/CO (0.00-0.99)
[2023-10-15] MEDS: FLUoxetine HCl 20 MG CAPSULE PO (08:32)
[2023-10-15] MEDS: methADONE HCl 20 MG/2 ML ORAL.CONC 143 MG PO (09:16)
[2023-10-15] MEDS: LORazepam 0.5 MG TABLET PO ×2 (09:26→20:07)
[2023-10-15] MEDS: OLANZapine ODT 10 MG TAB.RAPDIS 20 MG TRANSLINGU (10:51)
[2023-10-15] MEDS: OLANZapine 5 MG TABLET PO (16:59)
--- NOTE | 2023-10-15 17:44 | HO.PSYCHPN ---
Subjective Subjective Date of Service: 10/15/23 Reason For Visit: Psychosis Subjective Notes: Conditional Voluntary Healthcare Proxy: No Guardianship: No Medical Problems Affecting Mental Status: No Interim History: Team reports decline since pt returned to regime he is used to taking [employer]. Prozac discontinued. Olanzapine re-started, 20 mg HS Talking of an incident with brother at age 9. Mother reports both pt and brother have reviewed this and have come to a resolution of this incident Medication Compliance: Yes Side effects from medications: No Attending Groups: Intermittent Review of Systems Acute medical concerns: No Medical Review of Systems: unchanged Review of Systems Review of Systems Yes all other systems are reviewed and are negative Mental Status Exam Mental Status Exam Patient Appearance: Appropriate Patient Orientation: Person, Place, Time and Situation Level of Consciousness: Alert Patient Behavior: Appropriate, Talkative, Cooperative and Good Eye Contact Mood Description: Depressed and Anxious Affect Description: Flat Patient Cognition Impaired: No Ability to Follow Directions: Good Speech Pattern: Spontaneous Speech Memory Description: Episodic Impaired Hallucinations: None Delusions: Paranoid Ideation and Present Perceptual Disturbances: Depersonalization and Derealization Thought Process: Distracted and Rumination Thought Content: positive for Circumstantial and positive for Perseveration Depressive Symptoms: Increased Anxiety and Thoughts of /Suicide (denies) Judgement: Poor Diagnostics Vital Signs (24Hr): Vital Signs - 24 hr 10/14/23 19:43 10/15/23 08:00 Temperature 98.7 F 97.7 F Pulse Rate 95 104 H Respiratory Rate 16 Blood Pressure 143/98 H 125/68 Pulse Oximetry 97 98 Oxygen Delivery Method Room Air Room Air BMI result Body Mass Index 22.5 Labs 10/02/23 07:40 10/02/23 07:40 Labs: Laboratory Results - last 48 hr 10/13/23 10/14/23 22:07 12:49 Chlam trachomat DNA PCR NOT DETECTED HIV 1&2 Ab/P24 Ag 4thGn Nonreactive N.gonorrhoeae DNA (PCR) NOT DETECTED Imaging Radiology Impressions: ITS Impressions Chest X-Ray 09/24/23 09:58 IMPRESSION: No acute abnormality. Medications Medications Current Medications Acetaminophen (Acetaminophen 325 Mg Tablet) 650 mg PO Q6H PRN PRN Reason: Headache/Pain Mild Scale (1-3) Last Admin: 10/03/23 16:35 Dose: 650 mg Al Hydroxide/Mg Hydroxide (Magnesium Hydrox/Alum Hydrox 30 Ml Oral.Susp) 30 ml PO Q6H PRN PRN Reason: Heartburn/Nausea Last Admin: 10/10/23 04:25 Dose: 30 ml Guaifenesin/Dextromethorphan (Guaifenesin Dm 600/30 1 Tab Tab.Er.12h) 1 tab PO BID PRN PRN Reason: Congestion Hydroxyzine HCl (Hydroxyzine Hcl 25 Mg Tablet) 25 mg PO Q4H PRN PRN Reason: Anxiety Last Admin: 10/14/23 22:56 Dose: 25 mg Lorazepam (Lorazepam 0.5 Mg Tablet) 0.5 mg PO BID [facility] Last Admin: 10/15/23 09:26 Dose: 0.5 mg Magnesium Hydroxide (Milk Of Magnesia 30 Ml Oral.Susp) 30 ml PO DAILY PRN PRN Reason: Constipation Last Admin: 10/14/23 21:58 Dose: 30 ml Methadone HCl (Methadone Hcl 20 Mg/2 Ml Oral.Conc) 140 mg PO DAILY [facility] Olanzapine (Olanzapine 5 Mg Tablet) 5 mg PO Q4H PRN PRN Reason: agitation/severe anxiety Last Admin: 10/15/23 16:59 Dose: 5 mg Olanzapine (Olanzapine 10 Mg Tablet) 10 mg PO BEDTIME [facility] Last Admin: 10/14/23 21:47 Dose: 10 mg Polyethylene Glycol (Polyethylene Glycol 3350 17 Gm Powd.Pack) 17 gm PO DAILY [facility] Last Admin: 10/14/23 14:38 Dose: 17 gm Prazosin HCl (Prazosin Hcl 1 Mg Capsule) 1 mg PO BEDTIME [facility]; Protocol Last Admin: 10/14/23 21:47 Dose: 1 mg Risperidone (Risperidone 1 Mg Tablet) 1 mg PO BEDTIME PRN PRN Reason: need for grounding Last Admin: 10/14/23 22:56 Dose: 1 mg Trazodone HCl (Trazodone Hcl 50 Mg Tablet) 50 mg PO BEDTIME PRN PRN Reason: Insomnia Allergies Allergies Allergy/AdvReac Type Severity Reaction Status Date / Time No Known Allergies Allergy Verified 09/24/23 03:55 Assessment & Plan Assessment & Plan (1) Bipolar disorder with psychotic features: Status: Acute Code(s): F31.9 - Bipolar disorder, unspecified (2) Post traumatic stress disorder (PTSD): Status: Acute Code(s): F43.10 - Post-traumatic stress disorder, unspecified (3) Opioid use disorder, severe, on maintenance therapy: Status: Acute Code(s): F11.20 - Opioid dependence, uncomplicated Plan 33 yo male, hx of opiate use disorder, methadone maintenace, PTSD, currently with psychotic sx. Plan: Collateral contact Maintain methadone dosing tonight Addiction consult Re-started clonidine, prozac, hydroxyzine, trazodone Risperdal trial- ?psychosis, PTSD exacerbation? Pt may need a mood stabilizer, however will re-establish regime, treat psychosis and assess. 09/25/23 trial of zyprexa 5 mg BID prn and if more calming may switch from risperdal to zyprexa 09/25 methadone reduced to 142 mg for 09/26; brief consult with Comprehensice Care Team [facility] specialist in agreement 09/26 methadone decreased to 138mg daily CBC and CMP ordered as pt more confused and WBc high in ED 09/27 DC Risperdal Haldol 10 mg concentrate po bid [facility]CD, CMP for 09/28 Continue Olanzapine prn 09/29 Change Haldol to 5 mg tid Add lorazepam 0.5 mg tid ?trauma, ?psychosis, ?catatonia, ?substance induced response Supportive care Continue one to one. 09/30: CBC, CMP Decrease Benztropine to 0.5 mg bid Increase Lorazapam to 1 mg tid-?catatonia 10/02: Decrease Haldol to 5 mg bid 10/04: On 10/05 decrease Haldol to 2.5 mg bid prn 10/05 pt presents with catatonic like s/s including staring, delayed response, no complete mutism but speech minimally spontaneous and his attention is poor and appears thought blocking. He seems to have responded positively/partially to schedule ativan, however, caution when increasing ativan as he is also on methadone fairly high dose. So far no s/s of respiratory distress- o2sat on RA>98%. will avoid high potency antipsychotic such as haldol as it will worsen catatonic like symptoms. but will schedule low dose olanzapine to tx underlying psychosis. continue current dose of ativan schedule for today, may consider increasing tomorrow. 10/06 continu tx. improving catatonia. 10/07 continue current medications but will try lowering ativan as catatonia resolving. may increase night time olanzapine to 5mg po qhs, continue 2.5mg po daily. 10/08 catatonia significantly improving. 10/09 may try lowering ativan as catatonia resolved. continue olanzapine. 10/11 continue regime STI testing per pt request. 10/13: Decrease Methadone to 143 mg daily Prazosin 1 mg HS Risperdal 1 mg HS prn for PTSD sx increase and need for grounding. Dulcolax 10 mg HS x1 10/14: Discontinue Prozac Zyprexa 20 mg HS Reason for continued inpatient stay Substantial Risk for: rapid decompensation Time Spent With Patient Time: Total time managing care of this patient today ____ minutes.
[2023-10-15 20:00] VITALS: BP 179/104; PULSE 125; RESP 20; TEMP 36.7; O2SAT 98
[2023-10-15] MEDS: hydrOXYzine HCL 25 MG TABLET PO (20:07)
[2023-10-15] MEDS: Prazosin HCL 1 MG CAPSULE PO (20:07)
[2023-10-15] MEDS: OLANZapine 10 MG TABLET PO (20:07)
[2023-10-15] MEDS: risperiDONE 1 MG TABLET PO (20:07)
[2023-10-16 08:00] VITALS: BP 130/79; PULSE 98; RESP 16; TEMP 36.6; O2SAT 96
--- NOTE | 2023-10-16 09:48 | P.PNPSI_ITS ---
Subjective Subjective Date of Service: 10/16/23 Reason For Visit: Psychosis Interim History: met with patient; discussed with team Patient seems to have regressed; having a hard time talking, took nurse 45 minutes to get him to take his medication, patient says he is feeling confused, although hard to get words out he reported AH of unnecessary noises and then said I feel like i'm a performer. Reviewed chart and Discussed with nursing staff who report that this behavior similar to when he was 1st here and treated for catatonic like symptoms with Ativan; technical report writer reviewed and so the patient was on Ativan 1 mg t.i.d. 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 and patient quickly perked backup, was organized, talking, Diagnostics Vital Signs (24Hr): Vital Signs - 24 hr 10/15/23 20:00 Temperature 98.0 F Pulse Rate 125 H Respiratory Rate 20 Blood Pressure 179/104 H Pulse Oximetry 98 Oxygen Delivery Method Room Air BMI result Body Mass Index 22.5 Labs 10/02/23 07:40 10/02/23 07:40 Labs: Laboratory Results - last 48 hr 10/14/23 12:49 HIV 1&2 Ab/P24 Ag 4thGn Nonreactive Imaging Radiology Impressions: ITS Impressions Chest X-Ray 09/24/23 09:58 IMPRESSION: No acute abnormality. Medications Medications Current Medications Acetaminophen (Acetaminophen 325 Mg Tablet) 650 mg PO Q6H PRN PRN Reason: Headache/Pain Mild Scale (1-3) Last Admin: 10/03/23 16:35 Dose: 650 mg Al Hydroxide/Mg Hydroxide (Magnesium Hydrox/Alum Hydrox 30 Ml Oral.Susp) 30 ml PO Q6H PRN PRN Reason: Heartburn/Nausea Last Admin: 10/10/23 04:25 Dose: 30 ml Guaifenesin/Dextromethorphan (Guaifenesin Dm 600/30 1 Tab Tab.Er.12h) 1 tab PO BID PRN PRN Reason: Congestion Hydroxyzine HCl (Hydroxyzine Hcl 25 Mg Tablet) 25 mg PO Q4H PRN PRN Reason: Anxiety Last Admin: 10/15/23 20:07 Dose: 25 mg Lorazepam (Lorazepam 0.5 Mg Tablet) 0.5 mg PO BID [facility] Last Admin: 10/15/23 20:07 Dose: 0.5 mg Magnesium Hydroxide (Milk Of Magnesia 30 Ml Oral.Susp) 30 ml PO DAILY PRN PRN Reason: Constipation Last Admin: 10/14/23 21:58 Dose: 30 ml Methadone HCl (Methadone Hcl 20 Mg/2 Ml Oral.Conc) 140 mg PO DAILY [facility] Olanzapine (Olanzapine 5 Mg Tablet) 5 mg PO Q4H PRN PRN Reason: agitation/severe anxiety Last Admin: 10/15/23 16:59 Dose: 5 mg Olanzapine (Olanzapine 10 Mg Tablet) 10 mg PO BEDTIME [facility] Last Admin: 10/15/23 20:07 Dose: 10 mg Polyethylene Glycol (Polyethylene Glycol 3350 17 Gm Powd.Pack) 17 gm PO DAILY [facility] Last Admin: 10/14/23 14:38 Dose: 17 gm Prazosin HCl (Prazosin Hcl 1 Mg Capsule) 1 mg PO BEDTIME [facility]; Protocol Last Admin: 10/15/23 20:07 Dose: 1 mg Risperidone (Risperidone 1 Mg Tablet) 1 mg PO BEDTIME PRN PRN Reason: need for grounding Last Admin: 10/15/23 20:07 Dose: 1 mg Trazodone HCl (Trazodone Hcl 50 Mg Tablet) 50 mg PO BEDTIME PRN PRN Reason: Insomnia Allergies Allergies Allergy/AdvReac Type Severity Reaction Status Date / Time No Known Allergies Allergy Verified 09/24/23 03:55 Assessment & Plan Assessment & Plan (1) Bipolar disorder with psychotic features: Status: Acute Code(s): F31.9 - Bipolar disorder, unspecified (2) Post traumatic stress disorder (PTSD): Status: Acute Code(s): F43.10 - Post-traumatic stress disorder, unspecified (3) Opioid use disorder, severe, on maintenance therapy: Status: Acute Code(s): F11.20 - Opioid dependence, uncomplicated (4) Catatonic reaction: Status: Acute Code(s): F06.1 - Catatonic disorder due to known physiological condition Plan 33 yo male, hx of opiate use disorder, methadone maintenace, PTSD, currently with psychotic sx. Plan: Collateral contact Maintain methadone dosing tonight Addiction consult Re-started clonidine, prozac, hydroxyzine, trazodone Risperdal trial- ?psychosis, PTSD exacerbation? Pt may need a mood stabilizer, however will re-establish regime, treat psychosis and assess. 09/25/23 trial of zyprexa 5 mg BID prn and if more calming may switch from risperdal to zyprexa 09/25 methadone reduced to 142 mg for 09/26; brief consult with Comprehensice Care Team [facility]IL[facility] specialist in agreement 09/26 methadone decreased to 138mg daily CBC and CMP ordered as pt more confused and WBc high in ED 09/27 DC Risperdal Haldol 10 mg concentrate po bid CBCD, CMP for 09/28 Continue Olanzapine prn 09/29 Change Haldol to 5 mg tid Add lorazepam 0.5 mg tid ?trauma, ?psychosis, ?catatonia, ?substance induced response Supportive care Continue one to one. 09/30: CBC, CMP Decrease Benztropine to 0.5 mg bid Increase Lorazapam to 1 mg tid-?catatonia 10/02: Decrease Haldol to 5 mg bid 10/04: On 10/05 decrease Haldol to 2.5 mg bid prn 10/05 pt presents with catatonic like s/s including staring, delayed response, no complete mutism but speech minimally spontaneous and his attention is poor and appears thought blocking. He seems to have responded positively/partially to schedule ativan, however, caution when increasing ativan as he is also on methadone fairly high dose. So far no s/s of respiratory distress- o2sat on RA>98%. will avoid high potency antipsychotic such as haldol as it will worsen catatonic like symptoms. but will schedule low dose olanzapine to tx underlying psychosis. continue current dose of ativan schedule for today, may consider increasing tomorrow. 10/06 continu tx. improving catatonia. 10/07 continue current medications but will try lowering ativan as catatonia resolving. may increase night time olanzapine to 5mg po qhs, continue 2.5mg po daily. 10/08 catatonia significantly improving. 10/09 may try lowering ativan as catatonia resolved. continue olanzapine. 10/11 continue regime STI testing per pt request. 10/13: Decrease Methadone to 143 mg daily Prazosin 1 mg HS Risperdal 1 mg HS prn for PTSD sx increase and need for grounding. Dulcolax 10 mg HS x1 10/14: Discontinue Prozac Zyprexa 20 mg HS 10/15 Patient seems to have regressed; having a hard time talking, took nurse 45 minutes to get him to take his medication, patient says he is feeling confused, although hard to get words out he reported AH of unnecessary noises and then said I feel like i'm a performer. -Reviewed chart and Discussed with nursing staff who report that this behavior similar to when he was 1st here and treated for catatonic like symptoms with Ativan; technical report writer reviewed and so the patient was on Ativan 1 mg t.i.d. which was tapered; patient's subsequent regression seem to have started around 10/11 or 10/12 -[employer]ground [employer] Mechanic restarted Ativan 1 mg and patient quickly perked backup, was organized, talking, Ativan 1 mg q.i.d. for today Will go back to Ativan 1 mg t.i.d. tomorrow Otherwise continue current medication regimen Patient educated on: diagnosis and medication risk/benefits Informed Consent: understands Reason for continued inpatient stay Substantial Risk for: rapid decompensation Time Spent With Patient Time: Total time managing care of this patient today ____ minutes.
[2023-10-16] MEDS: methADONE HCl 20 MG/2 ML ORAL.CONC 140 MG PO (10:18)
[2023-10-16] MEDS: LORazepam 0.5 MG TABLET PO (10:18)
[2023-10-16] MEDS: LORazepam 1 MG TABLET PO ×3 (11:33→21:37)
[2023-10-16 20:00] VITALS: BP 142/87; PULSE 101; RESP 18; TEMP 36.6; O2SAT 97
[2023-10-16] MEDS: risperiDONE 1 MG TABLET PO (21:37)
[2023-10-16] MEDS: Prazosin HCL 1 MG CAPSULE PO (21:37)
[2023-10-16] MEDS: hydrOXYzine HCL 25 MG TABLET PO (21:37)
[2023-10-17] MEDS: OLANZapine 5 MG TABLET PO (04:59)
[2023-10-17] MEDS: hydrOXYzine HCL 25 MG TABLET PO (04:59)
[2023-10-17 08:00] VITALS: BP 132/86; PULSE 113; RESP 16; TEMP 36.6; O2SAT 99
[2023-10-17] MEDS: polyethylene glycoL 3350 17 GM POWD.PACK PO (09:13)
[2023-10-17] MEDS: methADONE HCl 20 MG/2 ML ORAL.CONC 140 MG PO (09:14)
[2023-10-17] MEDS: LORazepam 1 MG TABLET PO ×4 (09:14→20:26)
--- NOTE | 2023-10-17 11:10 | P.PNPSI_ITS ---
Subjective Subjective Date of Service: 10/17/23 Reason For Visit: Psychosis Interim History: Met with patient; discussed with team Patient again seemed to slip back into catatonic symptoms, confused, having a hard time getting his words out. After Ativan dose, this cleared up for about an hour but slowly patient sank back into it. Patient had delusional thought that his family member was on the unit and he was looking around for them. Cardiac Nurse Practitioner explained catatonia in the treatment which patient seemed to understand and with which wants to continue Mental Status Exam Mental Status Exam Narrative: Pt is alert and oriented; behavior is intermittently confused, disorganized; patient is not in distress; dressed in casual attire with adequate hygiene; mood is described as anxious and affect congruent; eye contact appropriate; Speech is with significantly increased latency; some of both psychomotor agitation/retardation present; thought process can be goal oriented but also breaks down and gets disorganized; Thought content is on some delusional thinking; denies any SI/HI. AH intermittently present; appears internally preoccupied Patients insight and judgment impaired Diagnostics Vital Signs (24Hr): Vital Signs - 24 hr 10/16/23 20:00 10/17/23 08:00 Temperature 97.9 F 98 F Pulse Rate 101 H 113 H Respiratory Rate 18 16 Blood Pressure 142/87 H 132/86 Pulse Oximetry 97 99 Oxygen Delivery Method Room Air Room Air BMI result Body Mass Index 22.5 Labs 10/02/23 07:40 10/02/23 07:40 Imaging Radiology Impressions: ITS Impressions Chest X-Ray 09/24/23 09:58 IMPRESSION: No acute abnormality. Medications Medications Current Medications Acetaminophen (Acetaminophen 325 Mg Tablet) 650 mg PO Q6H PRN PRN Reason: Headache/Pain Mild Scale (1-3) Last Admin: 10/03/23 16:35 Dose: 650 mg Al Hydroxide/Mg Hydroxide (Magnesium Hydrox/Alum Hydrox 30 Ml Oral.Susp) 30 ml PO Q6H PRN PRN Reason: Heartburn/Nausea Last Admin: 10/10/23 04:25 Dose: 30 ml Guaifenesin/Dextromethorphan (Guaifenesin Dm 600/30 1 Tab Tab.Er.12h) 1 tab PO BID PRN PRN Reason: Congestion Hydroxyzine HCl (Hydroxyzine Hcl 25 Mg Tablet) 25 mg PO Q4H PRN PRN Reason: Anxiety Last Admin: 10/17/23 04:59 Dose: 25 mg Lorazepam (Lorazepam 1 Mg Tablet) 1 mg PO QID EDWARD Last Admin: 10/17/23 09:14 Dose: 1 mg Magnesium Hydroxide (Milk Of Magnesia 30 Ml Oral.Susp) 30 ml PO DAILY PRN PRN Reason: Constipation Last Admin: 10/14/23 21:58 Dose: 30 ml Methadone HCl (Methadone Hcl 20 Mg/2 Ml Oral.Conc) 140 mg PO DAILY EDWARD Last Admin: 10/17/23 09:14 Dose: 140 mg Olanzapine (Olanzapine 5 Mg Tablet) 5 mg PO Q4H PRN PRN Reason: agitation/severe anxiety Last Admin: 10/17/23 04:59 Dose: 5 mg Olanzapine (Olanzapine 10 Mg Tablet) 10 mg PO BEDTIME EDWARD Last Admin: 10/16/23 21:46 Dose: Not Given Polyethylene Glycol (Polyethylene Glycol 3350 17 Gm Powd.Pack) 17 gm PO DAILY EDWARD Last Admin: 10/17/23 09:13 Dose: 17 gm Prazosin HCl (Prazosin Hcl 1 Mg Capsule) 1 mg PO BEDTIME EDWARD; Protocol Last Admin: 10/16/23 21:37 Dose: 1 mg Risperidone (Risperidone 1 Mg Tablet) 1 mg PO BEDTIME PRN PRN Reason: need for grounding Last Admin: 10/16/23 21:37 Dose: 1 mg Trazodone HCl (Trazodone Hcl 50 Mg Tablet) 50 mg PO BEDTIME PRN PRN Reason: Insomnia Allergies Allergies Allergy/AdvReac Type Severity Reaction Status Date / Time No Known Allergies Allergy Verified 09/24/23 03:55 Assessment & Plan Assessment & Plan (1) Bipolar disorder with psychotic features: Status: Acute Code(s): F31.9 - Bipolar disorder, unspecified (2) Post traumatic stress disorder (PTSD): Status: Acute Code(s): F43.10 - Post-traumatic stress disorder, unspecified (3) Opioid use disorder, severe, on maintenance therapy: Status: Acute Code(s): F11.20 - Opioid dependence, uncomplicated (4) Catatonic reaction: Status: Acute Code(s): F06.1 - Catatonic disorder due to known physiological condition Plan 33 yo male, hx of opiate use disorder, methadone maintenace, PTSD, currently with psychotic sx. Plan: Collateral contact Maintain methadone dosing tonight Addiction consult Re-started clonidine, prozac, hydroxyzine, trazodone Risperdal trial- ?psychosis, PTSD exacerbation? Pt may need a mood stabilizer, however will re-establish regime, treat psychosis and assess. 09/25/23 trial of zyprexa 5 mg BID prn and if more calming may switch from risperdal to zyprexa 09/25 methadone reduced to 142 mg for 09/26; brief consult with Comprehensice Care Team WILVER specialist in agreement 09/26 methadone decreased to 138mg daily CBC and CMP ordered as pt more confused and WBc high in ED 09/27 DC Risperdal Haldol 10 mg concentrate po bid CBCD, CMP for 09/28 Continue Olanzapine prn 09/29 Change Haldol to 5 mg tid Add lorazepam 0.5 mg tid ?trauma, ?psychosis, ?catatonia, ?substance induced response Supportive care Continue one to one. 09/30: CBC, CMP Decrease Benztropine to 0.5 mg bid Increase Lorazapam to 1 mg tid-?catatonia 10/02: Decrease Haldol to 5 mg bid 10/04: On 10/05 decrease Haldol to 2.5 mg bid prn 10/05 pt presents with catatonic like s/s including staring, delayed response, no complete mutism but speech minimally spontaneous and his attention is poor and appears thought blocking. He seems to have responded positively/partially to schedule ativan, however, caution when increasing ativan as he is also on methadone fairly high dose. So far no s/s of respiratory distress- o2sat on RA>98%. will avoid high potency antipsychotic such as haldol as it will worsen catatonic like symptoms. but will schedule low dose olanzapine to tx underlying psychosis. continue current dose of ativan schedule for today, may consider increasing tomorrow. 10/06 continu tx. improving catatonia. 10/07 continue current medications but will try lowering ativan as catatonia resolving. may increase night time olanzapine to 5mg po qhs, continue 2.5mg po daily. 10/08 catatonia significantly improving. 10/09 may try lowering ativan as catatonia resolved. continue olanzapine. 10/11 continue regime STI testing per pt request. 10/13: Decrease Methadone to 143 mg daily Prazosin 1 mg HS Risperdal 1 mg HS prn for PTSD sx increase and need for grounding. Dulcolax 10 mg HS x1 10/14: Discontinue Prozac Zyprexa 20 mg HS 10/15 Patient seems to have regressed; having a hard time talking, took nurse 45 minutes to get him to take his medication, patient says he is feeling confused, although hard to get words out he reported AH of unnecessary noises and then said I feel like i'm a performer. -Reviewed chart and Discussed with nursing staff who report that this behavior similar to when he was 1st here and treated for catatonic like symptoms with Ativan; blurb writer reviewed and so the patient was on Ativan 1 mg t.i.d. which was tapered; patient's subsequent regression seem to have started around 10/11 or 10/12 -Cardiac Nurse Practitioner restarted Ativan 1 mg and patient quickly perked backup, was organized, talking, Ativan 1 mg q.i.d. for today Will go back to Ativan 1 mg t.i.d. tomorrow Otherwise continue current medication regimen 10/16 patient continues to have catatonic symptoms, confused, standing and staring, hard to get his words out. Each time patient gets an Ativan dose, symptoms temporarily resolved but then return. -seems last time that this cleared up with Ativan so will continue it at Ativan 1 mg q.i.d.; will also lower antipsychotic, Zyprexa to 5 mg q.h.s., down from 10 mg; if does not get better will consider discontinuing antipsychotic. -will also add clonazepam b.i.d. to see if that can help since it is longer acting than Ativan. Plan: Continue Ativan 1 mg q.i.d Will add clonazepam b.i.d. Lower Zyprexa to 5 mg q.h.s., down from 10 mg; this is temporary and will likely plan to increase once catatonic symptoms resolved Patient educated on: diagnosis and medication risk/benefits Informed Consent: understands, does not understand and further education needed Reason for continued inpatient stay Substantial Risk for: inability to function Time Spent With Patient Time: Total time managing care of this patient today ____ minutes.
[2023-10-17 20:00] VITALS: BP 145/87; PULSE 110; RESP 18; TEMP 36.9; O2SAT 96
[2023-10-17] MEDS: Prazosin HCL 1 MG CAPSULE PO (20:27)
[2023-10-17] MEDS: traZODone HCL 50 MG TABLET PO (23:27)
[2023-10-18 09:27] VITALS: BP 138/80; PULSE 96; RESP 16; TEMP 37.4; O2SAT 96
--- NOTE | 2023-10-18 11:17 | PC.NURSE ---
approached pt after breakfast w/ morning medication. Pt reported, ill take it in a little while . Reapproached pt at 10:45am and 11:15am but pt was meeting with social work. Will reattempt in 30 min.
[2023-10-18] MEDS: methADONE HCl 20 MG/2 ML ORAL.CONC 140 MG PO (11:26)
--- NOTE | 2023-10-18 14:50 | P.PNPSI_ITS ---
Subjective Subjective Date of Service: 10/18/23 Reason For Visit: Psychosis Subjective Notes: Conditional Voluntary Healthcare Proxy: No Guardianship: No Medical Problems Affecting Mental Status: No Interim History: Team report ongoing regressive sx which relates to Ativan tapering. Ativan 1 mg tid restarted over the weekend, seems effective for brief periods, then delusional sx. Olanzapine decreased to 5 mg, Klonopin added. Today, pt awake, in bed, reports he felt better on Prozac and asks that we [id number] Prozec seemingly contributing to increase in catatonic sx. He states he will consider. 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 Reviewed this with education provided. Medication Compliance: Intermittent Side effects from medications: No Attending Groups: Intermittent Review of Systems Acute medical concerns: No Medical Review of Systems: unchanged Review of Systems Review of Systems Pt denies medical sx today Mental Status Exam Mental Status Exam Patient Appearance: Fatigued and Disheveled Patient Orientation: Person, Place and Situation Level of Consciousness: Alert Patient Behavior: Talkative, Cooperative, Passive, Fatigued and Good Eye Contact Mood Description: Apprehensive Affect Description: Apprehensive Patient Cognition Impaired: No Ability to Follow Directions: Good Speech Pattern: Spontaneous Speech Memory Description: Episodic Impaired Hallucinations: Auditory (noises at times) Delusions: Paranoid Ideation and Present Perceptual Disturbances: Depersonalization and Derealization Thought Process: Rumination Thought Content: positive for Circumstantial and positive for Perseveration Depressive Symptoms: Increased Anxiety, Diff. Making Decisions, Increased Fatigue and Low Self Esteem Judgement: Poor Diagnostics Vital Signs (24Hr): Vital Signs - 24 hr 10/17/23 20:00 10/18/23 09:27 Temperature 98.4 F 99.4 F Pulse Rate 110 H 96 Respiratory Rate 18 16 Blood Pressure 145/87 H 138/80 Pulse Oximetry 96 96 Oxygen Delivery Method Room Air Room Air BMI result Body Mass Index 22.5 Labs 10/02/23 07:40 10/02/23 07:40 Imaging Radiology Impressions: ITS Impressions Chest X-Ray 09/24/23 09:58 IMPRESSION: No acute abnormality. Medications Medications Current Medications Acetaminophen (Acetaminophen 325 Mg Tablet) 650 mg PO Q6H PRN PRN Reason: Headache/Pain Mild Scale (1-3) Last Admin: 10/03/23 16:35 Dose: 650 mg Al Hydroxide/Mg Hydroxide (Magnesium Hydrox/Alum Hydrox 30 Ml Oral.Susp) 30 ml PO Q6H PRN PRN Reason: Heartburn/Nausea Last Admin: 10/10/23 04:25 Dose: 30 ml Clonazepam (Clonazepam 0.5 Mg Tablet) 0.5 mg PO BID EDWARD Last Admin: 10/18/23 11:30 Dose: Not Given Guaifenesin/Dextromethorphan (Guaifenesin Dm 600/30 1 Tab Tab.Er.12h) 1 tab PO BID PRN PRN Reason: Congestion Hydroxyzine HCl (Hydroxyzine Hcl 25 Mg Tablet) 25 mg PO Q4H PRN PRN Reason: Anxiety Last Admin: 10/17/23 04:59 Dose: 25 mg Lorazepam (Lorazepam 1 Mg Tablet) 1 mg PO QID EDWARD Last Admin: 10/18/23 14:41 Dose: Not Given Magnesium Hydroxide (Milk Of Magnesia 30 Ml Oral.Susp) 30 ml PO DAILY PRN PRN Reason: Constipation Last Admin: 10/14/23 21:58 Dose: 30 ml Methadone HCl (Methadone Hcl 20 Mg/2 Ml Oral.Conc) 140 mg PO DAILY EDWARD Last Admin: 10/18/23 11:26 Dose: 140 mg Olanzapine (Olanzapine 5 Mg Tablet) 5 mg PO BEDTIME EDWARD Last Admin: 10/17/23 21:58 Dose: Not Given Polyethylene Glycol (Polyethylene Glycol 3350 17 Gm Powd.Pack) 17 gm PO DAILY EDWARD Last Admin: 10/18/23 11:30 Dose: Not Given Prazosin HCl (Prazosin Hcl 1 Mg Capsule) 1 mg PO BEDTIME EDWARD; Protocol Last Admin: 10/17/23 20:27 Dose: 1 mg Risperidone (Risperidone 1 Mg Tablet) 1 mg PO BEDTIME PRN PRN Reason: need for grounding Last Admin: 10/16/23 21:37 Dose: 1 mg Trazodone HCl (Trazodone Hcl 50 Mg Tablet) 50 mg PO BEDTIME PRN PRN Reason: Insomnia Last Admin: 10/17/23 23:27 Dose: 50 mg Allergies Allergies Allergy/AdvReac Type Severity Reaction Status Date / Time No Known Allergies Allergy Verified 09/24/23 03:55 Assessment & Plan Assessment & Plan (1) Bipolar disorder with psychotic features: Status: Acute Code(s): F31.9 - Bipolar disorder, unspecified (2) Post traumatic stress disorder (PTSD): Status: Acute Code(s): F43.10 - Post-traumatic stress disorder, unspecified (3) Opioid use disorder, severe, on maintenance therapy: Status: Acute Code(s): F11.20 - Opioid dependence, uncomplicated (4) Catatonic reaction: Status: Acute Code(s): F06.1 - Catatonic disorder due to known physiological condition Plan 33 yo male, hx of opiate use disorder, methadone maintenace, PTSD, currently with psychotic sx. Plan: Collateral contact Maintain methadone dosing tonight Addiction consult Re-started clonidine, prozac, hydroxyzine, trazodone Risperdal trial- ?psychosis, PTSD exacerbation? Pt may need a mood stabilizer, however will re-establish regime, treat psychosis and assess. 09/25/23 trial of zyprexa 5 mg BID prn and if more calming may switch from risperdal to zyprexa 09/25 methadone reduced to 142 mg for 09/26; brief consult with Comprehensice Care Team WILVER specialist in agreement 09/26 methadone decreased to 138mg daily CBC and CMP ordered as pt more confused and WBc high in ED 09/27 DC Risperdal Haldol 10 mg concentrate po bid CBCD, CMP for 09/28 Continue Olanzapine prn 09/29 Change Haldol to 5 mg tid Add lorazepam 0.5 mg tid ?trauma, ?psychosis, ?catatonia, ?substance induced response Supportive care Continue one to one. 09/30: CBC, CMP Decrease Benztropine to 0.5 mg bid Increase Lorazapam to 1 mg tid-?catatonia 10/02: Decrease Haldol to 5 mg bid 10/04: On 10/05 decrease Haldol to 2.5 mg bid prn 10/05 pt presents with catatonic like s/s including staring, delayed response, no complete mutism but speech minimally spontaneous and his attention is poor and appears thought blocking. He seems to have responded positively/partially to schedule ativan, however, caution when increasing ativan as he is also on methadone fairly high dose. So far no s/s of respiratory distress- o2sat on RA>98%. will avoid high potency antipsychotic such as haldol as it will worsen catatonic like symptoms. but will schedule low dose olanzapine to tx underlying psychosis. continue current dose of ativan schedule for today, may consider increasing tomorrow. 10/06 continu tx. improving catatonia. 10/07 continue current medications but will try lowering ativan as catatonia resolving. may increase night time olanzapine to 5mg po qhs, continue 2.5mg po daily. 10/08 catatonia significantly improving. 10/09 may try lowering ativan as catatonia resolved. continue olanzapine. 10/11 continue regime STI testing per pt request. 10/13: Decrease Methadone to 143 mg daily Prazosin 1 mg HS Risperdal 1 mg HS prn for PTSD sx increase and need for grounding. Dulcolax 10 mg HS x1 10/14: Discontinue Prozac Zyprexa 20 mg HS 10/15 Patient seems to have regressed; having a hard time talking, took nurse 45 minutes to get him to take his medication, patient says he is feeling confused, although hard to get words out he reported AH of unnecessary noises and then said I feel like i'm a performer. -Reviewed chart and Discussed with nursing staff who report that this behavior similar to when he was 1st here and treated for catatonic like symptoms with Ativan; typewriter repairer reviewed and so the patient was on Ativan 1 mg t.i.d. which was tapered; patient's subsequent regression seem to have started around 10/11 or 10/12 -Director Of Recruitment And Admissions restarted Ativan 1 mg and patient quickly perked backup, was organized, talking, Ativan 1 mg q.i.d. for today Will go back to Ativan 1 mg t.i.d. tomorrow Otherwise continue current medication regimen 10/16 patient continues to have catatonic symptoms, confused, standing and staring, hard to get his words out. Each time patient gets an Ativan dose, symptoms temporarily resolved but then return. -seems last time that this cleared up with Ativan so will continue it at Ativan 1 mg q.i.d.; will also lower antipsychotic, Zyprexa to 5 mg q.h.s., down from 10 mg; if does not get better will consider discontinuing antipsychotic. -will also add clonazepam b.i.d. to see if that can help since it is longer acting than Ativan. 10/17- continues symptomatic, no changes today. Plan: Continue Ativan 1 mg q.i.d Will add clonazepam b.i.d. Lower Zyprexa to 5 mg q.h.s., down from 10 mg; this is temporary and will likely plan to increase once catatonic symptoms resolved Reason for continued inpatient stay Substantial Risk for: rapid decompensation Time Spent With Patient Time: Total time managing care of this patient today ____ minutes.
[2023-10-18] MEDS: LORazepam 1 MG TABLET PO (16:19)
[2023-10-18 20:00] VITALS: BP 141/96; PULSE 109; RESP 18; TEMP 36.4; O2SAT 97
[2023-10-19 08:00] VITALS: BP 136/86; PULSE 119; TEMP 36.4; O2SAT 95
[2023-10-19] MEDS: methADONE HCl 20 MG/2 ML ORAL.CONC 140 MG PO (08:41)
[2023-10-19] MEDS: clonazePAM 0.5 MG TABLET PO ×2 (08:42→23:14)
[2023-10-19] MEDS: LORazepam 1 MG TABLET PO ×2 (08:42→13:24)
--- NOTE | 2023-10-19 16:41 | P.PNPSI_ITS ---
Subjective Subjective Date of Service: 10/19/23 Reason For Visit: Psychosis Subjective Notes: Conditional Voluntary Healthcare Proxy: No Guardianship: No Medical Problems Affecting Mental Status: No Interim History: Refused Lorazepam and Klonopin this a.m. Reports happy thoughts with some racing and quick decision making along with more motivation. References Prozac and again asks for it to return- much happier on this , more motivation because without it I have no motivation. . Reports he misses family and thus his depression is a 4. Discussed his concern about Olanzapine and wanting to stop this. Medication Compliance: Intermittent Side effects from medications: No Attending Groups: Intermittent Review of Systems Acute medical concerns: No Medical Review of Systems: unchanged Review of Systems Review of Systems Denies Mental Status Exam Mental Status Exam Patient Appearance: Fatigued and Disheveled Patient Orientation: Person, Place and Situation Level of Consciousness: Alert Patient Behavior: Talkative, Cooperative, Passive, Fatigued and Good Eye Contact Mood Description: Apprehensive Affect Description: Apprehensive Patient Cognition Impaired: No Ability to Follow Directions: Good Speech Pattern: Spontaneous Speech Memory Description: Episodic Impaired Hallucinations: Auditory (noises at times) Delusions: Paranoid Ideation and Present Perceptual Disturbances: Depersonalization and Derealization Thought Process: Rumination Thought Content: positive for Circumstantial and positive for Perseveration Depressive Symptoms: Increased Anxiety, Diff. Making Decisions, Increased Fatigue and Low Self Esteem Judgement: Poor Diagnostics Vital Signs (24Hr): Vital Signs - 24 hr 10/18/23 20:00 10/19/23 08:00 Temperature 97.6 F 97.5 F Pulse Rate 109 H 119 H Respiratory Rate 18 Blood Pressure 141/96 H 136/86 Pulse Oximetry 97 95 Oxygen Delivery Method Room Air Room Air BMI result Body Mass Index 22.5 Labs 10/02/23 07:40 10/02/23 07:40 Imaging Radiology Impressions: ITS Impressions Chest X-Ray 09/24/23 09:58 IMPRESSION: No acute abnormality. Medications Medications Current Medications Acetaminophen (Acetaminophen 325 Mg Tablet) 650 mg PO Q6H PRN PRN Reason: Headache/Pain Mild Scale (1-3) Last Admin: 10/03/23 16:35 Dose: 650 mg Al Hydroxide/Mg Hydroxide (Magnesium Hydrox/Alum Hydrox 30 Ml Oral.Susp) 30 ml PO Q6H PRN PRN Reason: Heartburn/Nausea Last Admin: 10/10/23 04:25 Dose: 30 ml Clonazepam (Clonazepam 0.5 Mg Tablet) 0.5 mg PO BID [facility] Last Admin: 10/19/23 08:42 Dose: 0.5 mg Fluoxetine HCl (Fluoxetine Hcl Oral Solution 20 Mg/5 Ml Solution) 5 mg PO DAILY [facility] Guaifenesin/Dextromethorphan (Guaifenesin Dm 600/30 1 Tab Tab.Er.12h) 1 tab PO BID PRN PRN Reason: Congestion Hydroxyzine HCl (Hydroxyzine Hcl 25 Mg Tablet) 25 mg PO Q4H PRN PRN Reason: Anxiety Last Admin: 10/17/23 04:59 Dose: 25 mg Lorazepam (Lorazepam 1 Mg Tablet) 1 mg PO QID [facility] Last Admin: 10/19/23 13:24 Dose: 1 mg Magnesium Hydroxide (Milk Of Magnesia 30 Ml Oral.Susp) 30 ml PO DAILY PRN PRN Reason: Constipation Last Admin: 10/14/23 21:58 Dose: 30 ml Methadone HCl (Methadone Hcl 20 Mg/2 Ml Oral.Conc) 140 mg PO DAILY [facility] Last Admin: 10/19/23 08:41 Dose: 140 mg Olanzapine (Olanzapine 2.5 Mg Tablet) 2.5 mg PO BID PRN PRN Reason: Psychosis Polyethylene Glycol (Polyethylene Glycol 3350 17 Gm Powd.Pack) 17 gm PO DAILY [facility] Last Admin: 10/19/23 10:43 Dose: Not Given Prazosin HCl (Prazosin Hcl 1 Mg Capsule) 1 mg PO BEDTIME [facility]; Protocol Last Admin: 10/19/23 01:44 Dose: Not Given Trazodone HCl (Trazodone Hcl 50 Mg Tablet) 50 mg PO BEDTIME PRN PRN Reason: Insomnia Last Admin: 10/17/23 23:27 Dose: 50 mg Allergies Allergies Allergy/AdvReac Type Severity Reaction Status Date / Time No Known Allergies Allergy Verified 09/24/23 03:55 Assessment & Plan Assessment & Plan (1) Bipolar disorder with psychotic features: Status: Acute Code(s): F31.9 - Bipolar disorder, unspecified (2) Post traumatic stress disorder (PTSD): Status: Acute Code(s): F43.10 - Post-traumatic stress disorder, unspecified (3) Opioid use disorder, severe, on maintenance therapy: Status: Acute Code(s): F11.20 - Opioid dependence, uncomplicated (4) Catatonic reaction: Status: Acute Code(s): F06.1 - Catatonic disorder due to known physiological condition Plan 33 yo male, hx of opiate use disorder, methadone maintenace, PTSD, currently with psychotic sx. Plan: Collateral contact Maintain methadone dosing tonight Addiction consult Re-started clonidine, prozac, hydroxyzine, trazodone Risperdal trial- ?psychosis, PTSD exacerbation? Pt may need a mood stabilizer, however will re-establish regime, treat psychosis and assess. 09/25/23 trial of zyprexa 5 mg BID prn and if more calming may switch from risperdal to zyprexa 09/25 methadone reduced to 142 mg for 09/26; brief consult with Comprehensice Care Team WILVER specialist in agreement 09/26 methadone decreased to 138mg daily CBC and CMP ordered as pt more confused and WBc high in ED 09/27 DC Risperdal Haldol 10 mg concentrate po bid [facility]CD, CMP for 09/28 Continue Olanzapine prn 09/29 Change Haldol to 5 mg tid Add lorazepam 0.5 mg tid ?trauma, ?psychosis, ?catatonia, ?substance induced response Supportive care Continue one to one. 09/30: CBC, CMP Decrease Benztropine to 0.5 mg bid Increase Lorazapam to 1 mg tid-?catatonia 10/02: Decrease Haldol to 5 mg bid 10/04: On 10/05 decrease Haldol to 2.5 mg bid prn 10/05 pt presents with catatonic like s/s including staring, delayed response, no complete mutism but speech minimally spontaneous and his attention is poor and appears thought blocking. He seems to have responded positively/partially to schedule ativan, however, caution when increasing ativan as he is also on methadone fairly high dose. So far no s/s of respiratory distress- o2sat on RA>98%. will avoid high potency antipsychotic such as haldol as it will worsen catatonic like symptoms. but will schedule low dose olanzapine to tx underlying psychosis. continue current dose of ativan schedule for today, may consider increasing tomorrow. 10/06 continu tx. improving catatonia. 10/07 continue current medications but will try lowering ativan as catatonia resolving. may increase night time olanzapine to 5mg po qhs, continue 2.5mg po daily. 10/08 catatonia significantly improving. 10/09 may try lowering ativan as catatonia resolved. continue olanzapine. 10/11 continue regime STI testing per pt request. 10/13: Decrease Methadone to 143 mg daily Prazosin 1 mg HS Risperdal 1 mg HS prn for PTSD sx increase and need for grounding. Dulcolax 10 mg HS x1 10/14: Discontinue Prozac Zyprexa 20 mg HS 10/15 Patient seems to have regressed; having a hard time talking, took nurse 45 minutes to get him to take his medication, patient says he is feeling confused, although hard to get words out he reported AH of unnecessary noises and then said I feel like i'm a performer. -Reviewed chart and Discussed with nursing staff who report that this behavior similar to when he was 1st here and treated for catatonic like symptoms with Ativan; short story writer reviewed and so the patient was on Ativan 1 mg t.i.d. which was tapered; patient's subsequent regression seem to have started around 10/11 or 10/12 -Education Site Manager restarted Ativan 1 mg and patient quickly perked backup, was organized, talking, Ativan 1 mg q.i.d. for today Will go back to Ativan 1 mg t.i.d. tomorrow Otherwise continue current medication regimen 10/16 patient continues to have catatonic symptoms, confused, standing and staring, hard to get his words out. Each time patient gets an Ativan dose, symptoms temporarily resolved but then return. -seems last time that this cleared up with Ativan so will continue it at Ativan 1 mg q.i.d.; will also lower antipsychotic, Zyprexa to 5 mg q.h.s., down from 10 mg; if does not get better will consider discontinuing antipsychotic. -will also add clonazepam b.i.d. to see if that can help since it is longer acting than Ativan. 10/17- continues symptomatic, no changes today. 10/18: CBCD,CMP Prozac 5 mg a.m DC Olanzapine scheduled dose, change to 2.5 mg bid prn Plan: Continue Ativan 1 mg q.i.d Will add clonazepam b.i.d. Lower Zyprexa to 5 mg q.h.s., down from 10 mg; this is temporary and will likely plan to increase once catatonic symptoms resolved Reason for continued inpatient stay Substantial Risk for: rapid decompensation Time Spent With Patient Time: Total time managing care of this patient today ____ minutes.
[2023-10-20 08:00] VITALS: BP 124/75; PULSE 97; TEMP 36.4; O2SAT 97
[2023-10-20 08:18] LABS: MANUAL DIFF FLAG NO
[2023-10-20 08:24] LABS: Basophils Percent Auto 0.4 % (0-2); Eosinophils Absolute Auto 0.3 X10*3/uL (0.0-0.4); Eosinophils Percent Auto 4.1 % (0-4); Hematocrit 39.9 % (42.0-52.0); Hemoglobin 13.2 g/dl (14.0-18.0); Imm Gran Abs Auto 0.05 X10*3/uL (0.00-0.03); Imm Gran Pct Auto 0.6 % (0.0-0.4); Lymphocytes Absolute Auto 2.8 X10*3/uL (1.2-4.9); Lymphocytes Percent Auto 33.8 % (20-40); Mean Corpuscular HGB Conc 33.1 g/dl (31.0-36.0); Mean Corpuscular Hemoglobin 26.9 pg (27.0-33.0); Mean Corpuscular Volume 81.4 fL (80.0-98.0); Mean Platelet Volume 10.3 fL (9.4-12.4); Monocytes Absolute Auto 0.7 X10*3/uL (0.1-1.2); Monocytes Percent Auto 8.3 % (2-11); Neutrophils Absolute Auto 4.3 x10*3/uL (2.0-8.3); Neutrophils Percent Auto 52.8 % (45-73); Platelet Count 427 X10*3/uL (160-400); Red Cell Distribution Width 15.9 % (11.0-16.0); White Blood Count 8.2 X10*3/uL (4.8-10.8)
[2023-10-20] MEDS: LORazepam 1 MG TABLET PO ×3 (08:51→21:42)
[2023-10-20] MEDS: methADONE HCl 20 MG/2 ML ORAL.CONC 140 MG PO (08:51)
[2023-10-20] MEDS: clonazePAM 0.5 MG TABLET PO ×2 (08:51→21:42)
[2023-10-20 08:53] LABS: Alanine Aminotransferase 21 U/L (0-40); Albumin Level 3.6 g/dL (3.5-5.0); Alkaline Phosphatase 75 U/L (39-117); Anion Gap 11 (12-20); Aspartate Amino Transferase 26 U/L (5-37); Bilirubin Total 0.3 mg/dL (0.0-1.0); Blood Urea Nitrogen 9 mg/dL (9-16); Calcium 9.3 mg/dL (8.4-10.2); Carbon Dioxide 29 mmol/L (22-29); Chloride 106 mmol/L (96-108); Creatinine Clr Calc Pharmacy 118.3; Estimated Glomerular Filt Rate > 60; Glucose Random 75 mg/dL (60-115); Potassium 4.1 mmol/L (3.3-5.1); Sodium 142 mmol/L (135-145)
--- NOTE | 2023-10-20 12:19 | P.PNPSI_ITS ---
Subjective Subjective Date of Service: 10/20/23 Reason For Visit: Psychosis Subjective Notes: Conditional Voluntary Healthcare Proxy: No Guardianship: No Medical Problems Affecting Mental Status: No Interim History: Team report pt has significantly decompensated. He is exhibiting sx of psychosis and is refusing medications. He is attending groups. He has been excessively writing, crying, rearranging his writing papers, and experiencing internal preoccupation. Journal entry, the truth I get really cold easily and I get warm and then not quick because my long hair, also because before I take my meds I need true nurse and doctor------. Thats why I put a bun in my hair from being too hot. The only thing I did with children 5 and up is only wrestle I never had sex with any of the children. I wrestled with them. I never had sex. I was so confused. I do believe in myself and I need to stop listening to other peoples opinions. I also love my family unconditional. Met with pt who reports he believes he has improved since we made his requested med changes last week.We spoke of his request to return to Prozac and refusal of 5 mg today. Discussed discontinuation which he agrees, you may be right, it might not be the medicine for me. He reports today, he is thinking of his female friend, who called him for support. When she called he reports he was using drugs with another male, told her he would get back to her, did not, and she suicided approximately 4 days later. I think of her all the time, and how I was not there for her . Discussed a return to Olanzapine. Pt does not feel he needs any meds, but will consider, and we will restart Olanzapine 5 mg this evening. Denies SI/HI/AH/VH Medication Compliance: Intermittent Side effects from medications: No Attending Groups: Yes Review of Systems Writes about epididymal HTN sx Medical Review of Systems: unchanged Review of Systems Review of Systems Yes Unobtainable due to mental status Mental Status Exam Mental Status Exam Patient Appearance: Disheveled Patient Orientation: Person and Place Level of Consciousness: Restless Patient Behavior: Talkative, Suspicious, Restless, Fearful, Resistive to Care, Distractible, Good Eye Contact and Crying Mood Description: Withdrawn, Depressed, Fearful, Anxious, Labile, Sad, Nervous and Apprehensive Affect Description: Labile Patient Cognition Impaired: Yes Ability to Follow Directions: Fair Speech Pattern: Perseverating, Spontaneous Speech and Rambling Memory Description: Remote Impaired Hallucinations: None (pt denies these sx) Delusions: Being Controlled, Paranoid Ideation and Present Perceptual Disturbances: Depersonalization and Derealization Thought Process: Illogical, Distracted and Rumination Thought Content: positive for Circumstantial, positive for Perseveration, positive for Preoccupation, positive for Thought Blocking, positive for Suicidal Ideation (denies) and positive for Homicidal Ideation (denies) Depressive Symptoms: Increased Anxiety, Diff. Making Decisions, Crying Spells, Feelings of Guilt, Unhappiness, Low Self Esteem, Loss of Energy and Difficulty Concentrating Judgement: Poor Diagnostics Vital Signs (24Hr): Vital Signs - 24 hr 10/20/23 08:00 Temperature 97.5 F Pulse Rate 97 Blood Pressure 124/75 Pulse Oximetry 97 Oxygen Delivery Method Room Air BMI result Body Mass Index 22.5 Labs 10/20/23 08:11 10/20/23 08:11 Labs: Laboratory Results - last 48 hr 10/20/23 08:11 WBC 8.2 RBC 4.90 D Hgb 13.2 L D Hct 39.9 L D MCV 81.4 MCH 26.9 L MCHC 33.1 RDW 15.9 Plt Count 427 H MPV 10.3 Immature Gran % (Auto) 0.6 H Neut % (Auto) 52.8 Lymph % (Auto) 33.8 [place] % (Auto) 8.3 Eos % (Auto) 4.1 H Baso % (Auto) 0.4 Lymph # (Auto) 2.8 [place] # (Auto) 0.7 Eos # (Auto) 0.3 Baso # (Auto) 0.0 Abs Immat Gran (auto) 0.05 H Absolute Neuts (auto) 4.3 Absolute Nucleated RBC 0.000 Nucleated RBC % (auto) 0.0 Sodium 142 Potassium 4.1 Chloride 106 Carbon Dioxide 29 Anion Gap 11 L BUN 9 Creatinine 0.80 Estim Creat Clear Calc 118.3 Estimated GFR > 60 Random Glucose 75 Calcium 9.3 Total Bilirubin 0.3 AST 26 ALT 21 Alkaline Phosphatase 75 Total Protein 7.0 Albumin 3.6 Imaging Radiology Impressions: ITS Impressions Chest X-Ray 09/24/23 09:58 IMPRESSION: No acute abnormality. Medications Medications Current Medications Acetaminophen (Acetaminophen 325 Mg Tablet) 650 mg PO Q6H PRN PRN Reason: Headache/Pain Mild Scale (1-3) Last Admin: 10/03/23 16:35 Dose: 650 mg Al Hydroxide/Mg Hydroxide (Magnesium Hydrox/Alum Hydrox 30 Ml Oral.Susp) 30 ml PO Q6H PRN PRN Reason: Heartburn/Nausea Last Admin: 10/10/23 04:25 Dose: 30 ml Clonazepam (Clonazepam 0.5 Mg Tablet) 0.5 mg PO BID [facility] Last Admin: 10/20/23 08:51 Dose: 0.5 mg Guaifenesin/Dextromethorphan (Guaifenesin Dm 600/30 1 Tab Tab.Er.12h) 1 tab PO BID PRN PRN Reason: Congestion Haloperidol (Haloperidol 1 Mg Tablet) 2 mg PO BID [facility] Last Admin: 10/20/23 11:07 Dose: Not Given Hydroxyzine HCl (Hydroxyzine Hcl 25 Mg Tablet) 25 mg PO Q4H PRN PRN Reason: Anxiety Last Admin: 10/17/23 04:59 Dose: 25 mg Lorazepam (Lorazepam 1 Mg Tablet) 1 mg PO QID [facility] Last Admin: 10/20/23 08:51 Dose: 1 mg Magnesium Hydroxide (Milk Of Magnesia 30 Ml Oral.Susp) 30 ml PO DAILY PRN PRN Reason: Constipation Last Admin: 10/14/23 21:58 Dose: 30 ml Methadone HCl (Methadone Hcl 20 Mg/2 Ml Oral.Conc) 140 mg PO DAILY [facility] Last Admin: 10/20/23 08:51 Dose: 140 mg Olanzapine (Olanzapine 2.5 Mg Tablet) 2.5 mg PO BID PRN PRN Reason: Psychosis Polyethylene Glycol (Polyethylene Glycol 3350 17 Gm Powd.Pack) 17 gm PO DAILY [facility] Last Admin: 10/20/23 10:36 Dose: Not Given Prazosin HCl (Prazosin Hcl 1 Mg Capsule) 1 mg PO BEDTIME [facility]; Protocol Last Admin: 10/19/23 22:53 Dose: Not Given Trazodone HCl (Trazodone Hcl 50 Mg Tablet) 50 mg PO BEDTIME PRN PRN Reason: Insomnia Last Admin: 10/17/23 23:27 Dose: 50 mg Allergies Allergies Allergy/AdvReac Type Severity Reaction Status Date / Time No Known Allergies Allergy Verified 09/24/23 03:55 Assessment & Plan Assessment & Plan (1) Bipolar disorder with psychotic features: Status: Acute Code(s): F31.9 - Bipolar disorder, unspecified (2) Post traumatic stress disorder (PTSD): Status: Acute Code(s): F43.10 - Post-traumatic stress disorder, unspecified (3) Opioid use disorder, severe, on maintenance therapy: Status: Acute Code(s): F11.20 - Opioid dependence, uncomplicated (4) Catatonic reaction: Status: Acute Code(s): F06.1 - Catatonic disorder due to known physiological condition Plan 33 yo male, hx of opiate use disorder, methadone maintenace, PTSD, currently with psychotic sx. Plan: Collateral contact Maintain methadone dosing tonight Addiction consult Re-started clonidine, prozac, hydroxyzine, trazodone Risperdal trial- ?psychosis, PTSD exacerbation? Pt may need a mood stabilizer, however will re-establish regime, treat psychosis and assess. 09/25/23 trial of zyprexa 5 mg BID prn and if more calming may switch from risperdal to zyprexa 09/25 methadone reduced to 142 mg for 09/26; brief consult with Comprehensice Care Team WILVER specialist in agreement 09/26 methadone decreased to 138mg daily CBC and CMP ordered as pt more confused and WBc high in ED 09/27 DC Risperdal Haldol 10 mg concentrate po bid [facility], CMP for 09/28 Continue Olanzapine prn 09/29 Change Haldol to 5 mg tid Add lorazepam 0.5 mg tid ?trauma, ?psychosis, ?catatonia, ?substance induced response Supportive care Continue one to one. 09/30: CBC, CMP Decrease Benztropine to 0.5 mg bid Increase Lorazapam to 1 mg tid-?catatonia 10/02: Decrease Haldol to 5 mg bid 10/04: On 10/05 decrease Haldol to 2.5 mg bid prn 10/05 pt presents with catatonic like s/s including staring, delayed response, no complete mutism but speech minimally spontaneous and his attention is poor and appears thought blocking. He seems to have responded positively/partially to schedule ativan, however, caution when increasing ativan as he is also on methadone fairly high dose. So far no s/s of respiratory distress- o2sat on RA>98%. will avoid high potency antipsychotic such as haldol as it will worsen catatonic like symptoms. but will schedule low dose olanzapine to tx underlying psychosis. continue current dose of ativan schedule for today, may consider increasing tomorrow. 10/06 continu tx. improving catatonia. 10/07 continue current medications but will try lowering ativan as catatonia resolving. may increase night time olanzapine to 5mg po qhs, continue 2.5mg po daily. 10/08 catatonia significantly improving. 10/09 may try lowering ativan as catatonia resolved. continue olanzapine. 10/11 continue regime STI testing per pt request. 10/13: Decrease Methadone to 143 mg daily Prazosin 1 mg HS Risperdal 1 mg HS prn for PTSD sx increase and need for grounding. Dulcolax 10 mg HS x1 10/14: Discontinue Prozac Zyprexa 20 mg HS 10/15 Patient seems to have regressed; having a hard time talking, took nurse 45 minutes to get him to take his medication, patient says he is feeling confused, although hard to get words out he reported AH of unnecessary noises and then said I feel like i'm a performer. -Reviewed chart and Discussed with nursing staff who report that this behavior similar to when he was 1st here and treated for catatonic like symptoms with Ativan; script writer reviewed and so the patient was on Ativan 1 mg t.i.d. which was tapered; patient's subsequent regression seem to have started around 10/11 or 10/12 -[employer] Business Segment Leader restarted Ativan 1 mg and patient quickly perked backup, was organized, talking, Ativan 1 mg q.i.d. for today Will go back to Ativan 1 mg t.i.d. tomorrow Otherwise continue current medication regimen 10/16 patient continues to have catatonic symptoms, confused, standing and staring, hard to get his words out. Each time patient gets an Ativan dose, symptoms temporarily resolved but then return. -seems last time that this cleared up with Ativan so will continue it at Ativan 1 mg q.i.d.; will also lower antipsychotic, Zyprexa to 5 mg q.h.s., down from 10 mg; if does not get better will consider discontinuing antipsychotic. -will also add clonazepam b.i.d. to see if that can help since it is longer acting than Ativan. 10/17- continues symptomatic, no changes today. 10/18: CBCD,CMP Prozac 5 mg a.m DC Olanzapine scheduled dose, change to 2.5 mg bid prn 10/19: DC Prozac, pt refused Refuses retrial of Haldol, which had been effective by hx. Return to Olanzapine 5 mg hs. Continue prn Plan: Continue Ativan 1 mg q.i.d Will add clonazepam b.i.d. Lower Zyprexa to 5 mg q.h.s., down from 10 mg; this is temporary and will likely plan to increase once catatonic symptoms resolved Patient educated on: medication risk/benefits Reason for continued inpatient stay Substantial Risk for: rapid decompensation Time Spent With Patient Time: Total time managing care of this patient today ____ minutes.
[2023-10-20 20:00] VITALS: BP 110/55; PULSE 88; RESP 16; TEMP 36.4; O2SAT 95
[2023-10-20] MEDS: OLANZapine 5 MG TABLET PO (21:42)
[2023-10-20] MEDS: Prazosin HCL 1 MG CAPSULE PO (21:42)
[2023-10-21 07:00] VITALS: BMI 22.9
[2023-10-21 08:00] VITALS: BP 101/56; PULSE 91; RESP 17; TEMP 36.4; O2SAT 97
[2023-10-21] MEDS: methADONE HCl 20 MG/2 ML ORAL.CONC 140 MG PO (08:25)
[2023-10-21] MEDS: LORazepam 1 MG TABLET PO ×3 (08:25→20:13)
[2023-10-21] MEDS: clonazePAM 0.5 MG TABLET PO ×2 (08:25→20:13)
--- NOTE | 2023-10-21 09:50 | P.PNPSI_ITS ---
Subjective Subjective Date of Service: 10/21/23 Reason For Visit: Psychosis Subjective Notes: Conditional Voluntary Healthcare Proxy: No Guardianship: No Medical Problems Affecting Mental Status: No Interim History: Pt discussed his history of feeling uncomfortable when calm-states he feels he is always on alert if not he believes he is in danger. Discussed urological sx which he will need OP follow up for. 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 He agrees for OP appt TBS. Medication Compliance: Yes Side effects from medications: No Attending Groups: Intermittent Review of Systems Acute medical concerns: No Medical Review of Systems: unchanged Review of Systems Review of Systems Yes all other systems are reviewed and are negative Mental Status Exam Mental Status Exam Patient Appearance: Appropriate Patient Orientation: Person, Place and Situation Level of Consciousness: Restless and Alert Patient Behavior: Talkative, Restless, Distractible and Good Eye Contact Mood Description: Depressed, Anxious, Nervous and Apprehensive Affect Description: Anxious Patient Cognition Impaired: No Ability to Follow Directions: Fair Speech Pattern: Spontaneous Speech Memory Description: Remote Impaired Hallucinations: None (pt denies these sx) Delusions: Not Present Perceptual Disturbances: Depersonalization and Derealization Thought Content: positive for Circumstantial, positive for Suicidal Ideation (denies) and positive for Homicidal Ideation (denies) Depressive Symptoms: Increased Anxiety, Diff. Making Decisions, Feelings of Guilt, Unhappiness, Low Self Esteem and Difficulty Concentrating Judgement: Poor Diagnostics Vital Signs (24Hr): Vital Signs - 24 hr 10/20/23 20:00 10/21/23 08:00 Temperature 97.5 F 97.6 F Pulse Rate 88 91 Respiratory Rate 16 17 Blood Pressure 110/55 L 101/56 L Pulse Oximetry 95 97 Oxygen Delivery Method Room Air Room Air BMI result Body Mass Index 22.5 Labs 10/20/23 08:11 10/20/23 08:11 Labs: Laboratory Results - last 48 hr 10/20/23 08:11 WBC 8.2 RBC 4.90 D Hgb 13.2 L D Hct 39.9 L D MCV 81.4 MCH 26.9 L MCHC 33.1 RDW 15.9 Plt Count 427 H MPV 10.3 Immature Gran % (Auto) 0.6 H Neut % (Auto) 52.8 Lymph % (Auto) 33.8 [place] % (Auto) 8.3 Eos % (Auto) 4.1 H Baso % (Auto) 0.4 Lymph # (Auto) 2.8 [place] # (Auto) 0.7 Eos # (Auto) 0.3 Baso # (Auto) 0.0 Abs Immat Gran (auto) 0.05 H Absolute Neuts (auto) 4.3 Absolute Nucleated RBC 0.000 Nucleated RBC % (auto) 0.0 Sodium 142 Potassium 4.1 Chloride 106 Carbon Dioxide 29 Anion Gap 11 L BUN 9 Creatinine 0.80 Estim Creat Clear Calc 118.3 Estimated GFR > 60 Random Glucose 75 Calcium 9.3 Total Bilirubin 0.3 AST 26 ALT 21 Alkaline Phosphatase 75 Total Protein 7.0 Albumin 3.6 Imaging Radiology Impressions: ITS Impressions Chest X-Ray 09/24/23 09:58 IMPRESSION: No acute abnormality. Medications Medications Current Medications Acetaminophen (Acetaminophen 325 Mg Tablet) 650 mg PO Q6H PRN PRN Reason: Headache/Pain Mild Scale (1-3) Last Admin: 10/03/23 16:35 Dose: 650 mg Al Hydroxide/Mg Hydroxide (Magnesium Hydrox/Alum Hydrox 30 Ml Oral.Susp) 30 ml PO Q6H PRN PRN Reason: Heartburn/Nausea Last Admin: 10/10/23 04:25 Dose: 30 ml Clonazepam (Clonazepam 0.5 Mg Tablet) 0.5 mg PO BID EDWARD Last Admin: 10/21/23 08:25 Dose: 0.5 mg Guaifenesin/Dextromethorphan (Guaifenesin Dm 600/30 1 Tab Tab.Er.12h) 1 tab PO BID PRN PRN Reason: Congestion Hydroxyzine HCl (Hydroxyzine Hcl 25 Mg Tablet) 25 mg PO Q4H PRN PRN Reason: Anxiety Last Admin: 10/17/23 04:59 Dose: 25 mg Lorazepam (Lorazepam 1 Mg Tablet) 1 mg PO TID EDWARD Magnesium Hydroxide (Milk Of Magnesia 30 Ml Oral.Susp) 30 ml PO DAILY PRN PRN Reason: Constipation Last Admin: 10/14/23 21:58 Dose: 30 ml Methadone HCl (Methadone Hcl 20 Mg/2 Ml Oral.Conc) 140 mg PO DAILY EDWARD Last Admin: 10/21/23 08:25 Dose: 140 mg Olanzapine (Olanzapine 2.5 Mg Tablet) 2.5 mg PO BID PRN PRN Reason: Psychosis Olanzapine (Olanzapine 5 Mg Tablet) 5 mg PO BEDTIME EDWARD Last Admin: 10/20/23 21:42 Dose: 5 mg Polyethylene Glycol (Polyethylene Glycol 3350 17 Gm Powd.Pack) 17 gm PO DAILY EDWARD Last Admin: 10/21/23 09:13 Dose: Not Given Prazosin HCl (Prazosin Hcl 1 Mg Capsule) 1 mg PO BEDTIME EDWARD; Protocol Last Admin: 10/20/23 21:42 Dose: 1 mg Trazodone HCl (Trazodone Hcl 50 Mg Tablet) 50 mg PO BEDTIME PRN PRN Reason: Insomnia Last Admin: 10/17/23 23:27 Dose: 50 mg Allergies Allergies Allergy/AdvReac Type Severity Reaction Status Date / Time No Known Allergies Allergy Verified 09/24/23 03:55 Assessment & Plan Assessment & Plan (1) Bipolar disorder with psychotic features: Status: Acute Code(s): F31.9 - Bipolar disorder, unspecified (2) Post traumatic stress disorder (PTSD): Status: Acute Code(s): F43.10 - Post-traumatic stress disorder, unspecified (3) Opioid use disorder, severe, on maintenance therapy: Status: Acute Code(s): F11.20 - Opioid dependence, uncomplicated (4) Catatonic reaction: Status: Acute Code(s): F06.1 - Catatonic disorder due to known physiological condition Plan 33 yo male, hx of opiate use disorder, methadone maintenace, PTSD, currently with psychotic sx. Plan: Collateral contact Maintain methadone dosing tonight Addiction consult Re-started clonidine, prozac, hydroxyzine, trazodone Risperdal trial- ?psychosis, PTSD exacerbation? Pt may need a mood stabilizer, however will re-establish regime, treat psychosis and assess. 09/25/23 trial of zyprexa 5 mg BID prn and if more calming may switch from risperdal to zyprexa 09/25 methadone reduced to 142 mg for 09/26; brief consult with Comprehensice Care Team WILVER specialist in agreement 09/26 methadone decreased to 138mg daily CBC and CMP ordered as pt more confused and WBc high in ED 09/27 DC Risperdal Haldol 10 mg concentrate po bid CBCD, CMP for 09/28 Continue Olanzapine prn 09/29 Change Haldol to 5 mg tid Add lorazepam 0.5 mg tid ?trauma, ?psychosis, ?catatonia, ?substance induced response Supportive care Continue one to one. 09/30: CBC, CMP Decrease Benztropine to 0.5 mg bid Increase Lorazapam to 1 mg tid-?catatonia 10/02: Decrease Haldol to 5 mg bid 10/04: On 10/05 decrease Haldol to 2.5 mg bid prn 10/05 pt presents with catatonic like s/s including staring, delayed response, no complete mutism but speech minimally spontaneous and his attention is poor and appears thought blocking. He seems to have responded positively/partially to schedule ativan, however, caution when increasing ativan as he is also on methadone fairly high dose. So far no s/s of respiratory distress- o2sat on RA>98%. will avoid high potency antipsychotic such as haldol as it will worsen catatonic like symptoms. but will schedule low dose olanzapine to tx underlying psychosis. continue current dose of ativan schedule for today, may consider increasing tomorrow. 10/06 continu tx. improving catatonia. 10/07 continue current medications but will try lowering ativan as catatonia resolving. may increase night time olanzapine to 5mg po qhs, continue 2.5mg po daily. 10/08 catatonia significantly improving. 10/09 may try lowering ativan as catatonia resolved. continue olanzapine. 10/11 continue regime STI testing per pt request. 10/13: Decrease Methadone to 143 mg daily Prazosin 1 mg HS Risperdal 1 mg HS prn for PTSD sx increase and need for grounding. Dulcolax 10 mg HS x1 10/14: Discontinue Prozac Zyprexa 20 mg HS 10/15 Patient seems to have regressed; having a hard time talking, took nurse 45 minutes to get him to take his medication, patient says he is feeling confused, although hard to get words out he reported AH of unnecessary noises and then said I feel like i'm a performer. -Reviewed chart and Discussed with nursing staff who report that this behavior similar to when he was 1st here and treated for catatonic like symptoms with Ativan; clinical writer reviewed and so the patient was on Ativan 1 mg t.i.d. which was tapered; patient's subsequent regression seem to have started around 10/11 or 10/12 -Smoke Control Supervisor restarted Ativan 1 mg and patient quickly perked backup, was organized, talking, Ativan 1 mg q.i.d. for today Will go back to Ativan 1 mg t.i.d. tomorrow Otherwise continue current medication regimen 10/16 patient continues to have catatonic symptoms, confused, standing and staring, hard to get his words out. Each time patient gets an Ativan dose, symptoms temporarily resolved but then return. -seems last time that this cleared up with Ativan so will continue it at Ativan 1 mg q.i.d.; will also lower antipsychotic, Zyprexa to 5 mg q.h.s., down from 10 mg; if does not get better will consider discontinuing antipsychotic. -will also add clonazepam b.i.d. to see if that can help since it is longer acting than Ativan. 10/17- continues symptomatic, no changes today. 10/18: CBCD,CMP Prozac 5 mg a.m DC Olanzapine scheduled dose, change to 2.5 mg bid prn 10/19: DC Prozac, pt refused Refuses retrial of Haldol, which had been effective by hx. Return to Olanzapine 5 mg hs. Continue prn 10/20 : Continue tx. Plan: Continue Ativan 1 mg q.i.d Will add clonazepam b.i.d. Lower Zyprexa to 5 mg q.h.s., down from 10 mg; this is temporary and will likely plan to increase once catatonic symptoms resolved Reason for continued inpatient stay Substantial Risk for: rapid decompensation Time Spent With Patient Time: Total time managing care of this patient today ____ minutes.
[2023-10-21 20:00] VITALS: BP 107/67; PULSE 80; RESP 18; TEMP 36.4; O2SAT 97
[2023-10-21 20:12] VITALS: BP 108/58
[2023-10-21] MEDS: OLANZapine 5 MG TABLET PO (20:12)
[2023-10-21] MEDS: Prazosin HCL 1 MG CAPSULE PO (20:12)
[2023-10-22 08:28] VITALS: BP 134/83; PULSE 112; RESP 16; TEMP 36.6; O2SAT 99
[2023-10-22] MEDS: clonazePAM 0.5 MG TABLET PO (09:46)
[2023-10-22] MEDS: LORazepam 1 MG TABLET PO ×2 (09:46→15:08)
[2023-10-22] MEDS: methADONE HCl 20 MG/2 ML ORAL.CONC 140 MG PO (09:47)
--- NOTE | 2023-10-22 16:33 | P.PNPSI_ITS ---
Subjective Subjective Date of Service: 10/22/23 Reason For Visit: Psychosis Subjective Notes: Conditional Voluntary Interim History: Pt discussed social anxiety sx today. Family is encouraging pt to return to previous regime which was more effective in sx mgt Medication Compliance: Yes Side effects from medications: No Attending Groups: Yes Review of Systems Acute medical concerns: No Medical Review of Systems: unchanged Review of Systems Review of Systems Denies Mental Status Exam Mental Status Exam Patient Appearance: Appropriate Patient Orientation: Person, Place and Situation Level of Consciousness: Restless and Alert Patient Behavior: Talkative, Restless, Distractible and Good Eye Contact Mood Description: Depressed, Anxious, Nervous and Apprehensive Affect Description: Anxious Patient Cognition Impaired: No Ability to Follow Directions: Fair Speech Pattern: Spontaneous Speech Memory Description: Remote Impaired Hallucinations: None (pt denies these sx) Delusions: Not Present Perceptual Disturbances: Depersonalization and Derealization Thought Content: positive for Circumstantial, positive for Suicidal Ideation (denies) and positive for Homicidal Ideation (denies) Depressive Symptoms: Increased Anxiety, Diff. Making Decisions, Feelings of Guilt, Unhappiness, Low Self Esteem and Difficulty Concentrating Judgement: Poor Diagnostics Vital Signs (24Hr): Vital Signs - 24 hr 10/21/23 20:00 10/21/23 20:12 10/22/23 08:28 Temperature 97.6 F 97.8 F Pulse Rate 80 112 H Respiratory Rate 18 16 Blood Pressure 107/67 108/58 L 134/83 Pulse Oximetry 97 99 Oxygen Delivery Method Room Air Room Air BMI result Body Mass Index 22.9 Labs 10/20/23 08:11 10/20/23 08:11 Imaging Radiology Impressions: ITS Impressions Chest X-Ray 09/24/23 09:58 IMPRESSION: No acute abnormality. Medications Medications Current Medications Acetaminophen (Acetaminophen 325 Mg Tablet) 650 mg PO Q6H PRN PRN Reason: Headache/Pain Mild Scale (1-3) Last Admin: 10/03/23 16:35 Dose: 650 mg Al Hydroxide/Mg Hydroxide (Magnesium Hydrox/Alum Hydrox 30 Ml Oral.Susp) 30 ml PO Q6H PRN PRN Reason: Heartburn/Nausea Last Admin: 10/10/23 04:25 Dose: 30 ml Clonazepam (Clonazepam 0.5 Mg Tablet) 0.5 mg PO BID EDWARD Last Admin: 10/22/23 09:46 Dose: 0.5 mg Guaifenesin/Dextromethorphan (Guaifenesin Dm 600/30 1 Tab Tab.Er.12h) 1 tab PO BID PRN PRN Reason: Congestion Hydroxyzine HCl (Hydroxyzine Hcl 25 Mg Tablet) 25 mg PO Q4H PRN PRN Reason: Anxiety Last Admin: 10/17/23 04:59 Dose: 25 mg Lorazepam (Lorazepam 1 Mg Tablet) 1 mg PO TID EDWARD Last Admin: 10/22/23 15:08 Dose: 1 mg Magnesium Hydroxide (Milk Of Magnesia 30 Ml Oral.Susp) 30 ml PO DAILY PRN PRN Reason: Constipation Last Admin: 10/14/23 21:58 Dose: 30 ml Methadone HCl (Methadone Hcl 20 Mg/2 Ml Oral.Conc) 140 mg PO DAILY EDWARD Last Admin: 10/22/23 09:47 Dose: 140 mg Olanzapine (Olanzapine 2.5 Mg Tablet) 2.5 mg PO BID PRN PRN Reason: Psychosis Olanzapine (Olanzapine 5 Mg Tablet) 5 mg PO BEDTIME EDWARD Last Admin: 10/21/23 20:12 Dose: 5 mg Polyethylene Glycol (Polyethylene Glycol 3350 17 Gm Powd.Pack) 17 gm PO DAILY EDWARD Last Admin: 10/22/23 09:57 Dose: Not Given Prazosin HCl (Prazosin Hcl 1 Mg Capsule) 1 mg PO BEDTIME EDWARD; Protocol Last Admin: 10/21/23 20:12 Dose: 1 mg Trazodone HCl (Trazodone Hcl 50 Mg Tablet) 50 mg PO BEDTIME PRN PRN Reason: Insomnia Last Admin: 10/17/23 23:27 Dose: 50 mg Allergies Allergies Allergy/AdvReac Type Severity Reaction Status Date / Time No Known Allergies Allergy Verified 09/24/23 03:55 Assessment & Plan Assessment & Plan (1) Bipolar disorder with psychotic features: Status: Acute Code(s): F31.9 - Bipolar disorder, unspecified (2) Post traumatic stress disorder (PTSD): Status: Acute Code(s): F43.10 - Post-traumatic stress disorder, unspecified (3) Opioid use disorder, severe, on maintenance therapy: Status: Acute Code(s): F11.20 - Opioid dependence, uncomplicated (4) Catatonic reaction: Status: Acute Code(s): F06.1 - Catatonic disorder due to known physiological condition Plan 33 yo male, hx of opiate use disorder, methadone maintenace, PTSD, currently with psychotic sx. Plan: Collateral contact Maintain methadone dosing tonight Addiction consult Re-started clonidine, prozac, hydroxyzine, trazodone Risperdal trial- ?psychosis, PTSD exacerbation? Pt may need a mood stabilizer, however will re-establish regime, treat psychosis and assess. 09/25/23 trial of zyprexa 5 mg BID prn and if more calming may switch from risperdal to zyprexa 09/25 methadone reduced to 142 mg for 09/26; brief consult with Comprehensice Care Team WILVER specialist in agreement 09/26 methadone decreased to 138mg daily CBC and CMP ordered as pt more confused and WBc high in ED 09/27 DC Risperdal Haldol 10 mg concentrate po bid CBCD, CMP for 09/28 Continue Olanzapine prn 09/29 Change Haldol to 5 mg tid Add lorazepam 0.5 mg tid ?trauma, ?psychosis, ?catatonia, ?substance induced response Supportive care Continue one to one. 09/30: CBC, CMP Decrease Benztropine to 0.5 mg bid Increase Lorazapam to 1 mg tid-?catatonia 10/02: Decrease Haldol to 5 mg bid 10/04: On 10/05 decrease Haldol to 2.5 mg bid prn 10/05 pt presents with catatonic like s/s including staring, delayed response, no complete mutism but speech minimally spontaneous and his attention is poor and appears thought blocking. He seems to have responded positively/partially to schedule ativan, however, caution when increasing ativan as he is also on methadone fairly high dose. So far no s/s of respiratory distress- o2sat on RA>98%. will avoid high potency antipsychotic such as haldol as it will worsen catatonic like symptoms. but will schedule low dose olanzapine to tx underlying psychosis. continue current dose of ativan schedule for today, may consider increasing tomorrow. 10/06 continu tx. improving catatonia. 10/07 continue current medications but will try lowering ativan as catatonia resolving. may increase night time olanzapine to 5mg po qhs, continue 2.5mg po daily. 10/08 catatonia significantly improving. 10/09 may try lowering ativan as catatonia resolved. continue olanzapine. 10/11 continue regime STI testing per pt request. 10/13: Decrease Methadone to 143 mg daily Prazosin 1 mg HS Risperdal 1 mg HS prn for PTSD sx increase and need for grounding. Dulcolax 10 mg HS x1 10/14: Discontinue Prozac Zyprexa 20 mg HS 10/15 Patient seems to have regressed; having a hard time talking, took nurse 45 minutes to get him to take his medication, patient says he is feeling confused, although hard to get words out he reported AH of unnecessary noises and then said I feel like i'm a performer. -Reviewed chart and Discussed with nursing staff who report that this behavior similar to when he was 1st here and treated for catatonic like symptoms with Ativan; sports writer reviewed and so the patient was on Ativan 1 mg t.i.d. which was tapered; patient's subsequent regression seem to have started around 10/11 or 10/12 -Veterinary Laboratory Technician restarted Ativan 1 mg and patient quickly perked backup, was organized, talking, Ativan 1 mg q.i.d. for today Will go back to Ativan 1 mg t.i.d. tomorrow Otherwise continue current medication regimen 10/16 patient continues to have catatonic symptoms, confused, standing and staring, hard to get his words out. Each time patient gets an Ativan dose, symptoms temporarily resolved but then return. -seems last time that this cleared up with Ativan so will continue it at Ativan 1 mg q.i.d.; will also lower antipsychotic, Zyprexa to 5 mg q.h.s., down from 10 mg; if does not get better will consider discontinuing antipsychotic. -will also add clonazepam b.i.d. to see if that can help since it is longer acting than Ativan. 10/17- continues symptomatic, no changes today. 10/18: CBCD,CMP Prozac 5 mg a.m DC Olanzapine scheduled dose, change to 2.5 mg bid prn 10/19: DC Prozac, pt refused Refuses retrial of Haldol, which had been effective by hx. Return to Olanzapine 5 mg hs. Continue prn 10/20 : Continue tx. 10/21: Continue tx. Plan: Continue Ativan 1 mg q.i.d Will add clonazepam b.i.d. Lower Zyprexa to 5 mg q.h.s., down from 10 mg; this is temporary and will likely plan to increase once catatonic symptoms resolved Reason for continued inpatient stay Substantial Risk for: rapid decompensation Time Spent With Patient Time: Total time managing care of this patient today ____ minutes.
[2023-10-22 20:00] VITALS: BP 119/71; PULSE 94; RESP 18; TEMP 36.6; O2SAT 99
[2023-10-22] MEDS: OLANZapine 5 MG TABLET PO (21:52)
[2023-10-22] MEDS: traZODone HCL 50 MG TABLET PO (22:02)
[2023-10-23 08:06] VITALS: BP 135/85; PULSE 108; RESP 16; TEMP 36.4; O2SAT 100
[2023-10-23] MEDS: methADONE HCl 20 MG/2 ML ORAL.CONC 140 MG PO (08:38)
[2023-10-23] MEDS: LORazepam 1 MG TABLET PO (08:38)
--- NOTE | 2023-10-23 18:31 | P.PNPSI_ITS ---
Subjective Subjective Date of Service: 10/23/23 Reason For Visit: Psychosis Interim History: Pt withdrawn, slow to respond, staring at times. refused clonazepam says he can't take with methadone Medication Compliance: Intermittent Side effects from medications: No Attending Groups: No Review of Systems Acute medical concerns: No Medical Review of Systems: unchanged Review of Systems Review of Systems Denies Yes all other systems are reviewed and are negative and Unobtainable due to mental status Gastrointestinal: Reports nausea and Reports vomiting Reports confusion Psychiatric: Reports confusion and Reports depression Mental Status Exam Mental Status Exam Narrative: Pt is alert and oriented; behavior is intermittently confused, disorganized; patient is not in distress; dressed in casual attire with adequate hygiene; mood is anxious and affect congruent; eye contact appropriate; Speech is with significantly increased latency; some of both psychomotor agitation/retardation present; thought process can be goal oriented but also breaks down and gets disorganized; Thought content is on some delusional thinking; denies any SI/HI. AH intermittently present; appears internally preoccupied. Patients insight and judgment impaired Patient Appearance: Appropriate Patient Orientation: Person, Place and Situation Level of Consciousness: Restless and Alert Patient Behavior: Talkative, Restless, Distractible and Good Eye Contact Mood Description: Depressed, Anxious, Nervous and Apprehensive Affect Description: Anxious Patient Cognition Impaired: No Ability to Follow Directions: Fair Speech Pattern: Spontaneous Speech Memory Description: Remote Impaired Diagnostics Vital Signs (24Hr): Vital Signs - 24 hr 10/22/23 20:00 10/23/23 08:06 Temperature 97.8 F 97.6 F Pulse Rate 94 108 H Respiratory Rate 18 16 Blood Pressure 119/71 135/85 Pulse Oximetry 99 100 Oxygen Delivery Method Room Air Room Air BMI result Body Mass Index 22.9 Labs 10/20/23 08:11 10/20/23 08:11 Imaging Radiology Impressions: ITS Impressions Chest X-Ray 09/24/23 09:58 IMPRESSION: No acute abnormality. Medications Medications Current Medications Acetaminophen (Acetaminophen 325 Mg Tablet) 650 mg PO Q6H PRN PRN Reason: Headache/Pain Mild Scale (1-3) Last Admin: 10/03/23 16:35 Dose: 650 mg Al Hydroxide/Mg Hydroxide (Magnesium Hydrox/Alum Hydrox 30 Ml Oral.Susp) 30 ml PO Q6H PRN PRN Reason: Heartburn/Nausea Last Admin: 10/10/23 04:25 Dose: 30 ml Clonazepam (Clonazepam 0.5 Mg Tablet) 0.5 mg PO BID EDWARD Last Admin: 10/23/23 08:44 Dose: Not Given Guaifenesin/Dextromethorphan (Guaifenesin Dm 600/30 1 Tab Tab.Er.12h) 1 tab PO BID PRN PRN Reason: Congestion Hydroxyzine HCl (Hydroxyzine Hcl 25 Mg Tablet) 25 mg PO Q4H PRN PRN Reason: Anxiety Last Admin: 10/17/23 04:59 Dose: 25 mg Lorazepam (Lorazepam 1 Mg Tablet) 1 mg PO TID EDWARD Last Admin: 10/23/23 17:40 Dose: Not Given Magnesium Hydroxide (Milk Of Magnesia 30 Ml Oral.Susp) 30 ml PO DAILY PRN PRN Reason: Constipation Last Admin: 10/14/23 21:58 Dose: 30 ml Methadone HCl (Methadone Hcl 20 Mg/2 Ml Oral.Conc) 140 mg PO DAILY EDWARD Last Admin: 10/23/23 08:38 Dose: 140 mg Olanzapine (Olanzapine 2.5 Mg Tablet) 2.5 mg PO BID PRN PRN Reason: Psychosis Olanzapine (Olanzapine 5 Mg Tablet) 5 mg PO BEDTIME EDWARD Last Admin: 10/22/23 21:52 Dose: 5 mg Polyethylene Glycol (Polyethylene Glycol 3350 17 Gm Powd.Pack) 17 gm PO DAILY EDWARD Last Admin: 10/23/23 10:49 Dose: Not Given Prazosin HCl (Prazosin Hcl 1 Mg Capsule) 1 mg PO BEDTIME EDWARD; Protocol Last Admin: 10/23/23 00:56 Dose: Not Given Trazodone HCl (Trazodone Hcl 50 Mg Tablet) 50 mg PO BEDTIME PRN PRN Reason: Insomnia Last Admin: 10/22/23 22:02 Dose: 50 mg Allergies Allergies Allergy/AdvReac Type Severity Reaction Status Date / Time No Known Allergies Allergy Verified 09/24/23 03:55 Assessment & Plan Assessment & Plan (1) Bipolar disorder with psychotic features: Status: Acute Code(s): F31.9 - Bipolar disorder, unspecified (2) Post traumatic stress disorder (PTSD): Status: Acute Code(s): F43.10 - Post-traumatic stress disorder, unspecified (3) Opioid use disorder, severe, on maintenance therapy: Status: Acute Code(s): F11.20 - Opioid dependence, uncomplicated (4) Catatonic reaction: Status: Acute Code(s): F06.1 - Catatonic disorder due to known physiological condition Plan 33 yo male, hx of opiate use disorder, methadone maintenace, PTSD, currently with psychotic sx. Plan: Collateral contact Maintain methadone dosing tonight Addiction consult Re-started clonidine, prozac, hydroxyzine, trazodone Risperdal trial- ?psychosis, PTSD exacerbation? Pt may need a mood stabilizer, however will re-establish regime, treat psychosis and assess. 09/25/23 trial of zyprexa 5 mg BID prn and if more calming may switch from risperdal to zyprexa 09/25 methadone reduced to 142 mg for 09/26; brief consult with Comprehensice Care Team WILVER specialist in agreement 09/26 methadone decreased to 138mg daily CBC and CMP ordered as pt more confused and WBc high in ED 09/27 DC Risperdal Haldol 10 mg concentrate po bid CBCD, CMP for 09/28 Continue Olanzapine prn 09/29 Change Haldol to 5 mg tid Add lorazepam 0.5 mg tid ?trauma, ?psychosis, ?catatonia, ?substance induced response Supportive care Continue one to one. 09/30: CBC, CMP Decrease Benztropine to 0.5 mg bid Increase Lorazapam to 1 mg tid-?catatonia 10/02: Decrease Haldol to 5 mg bid 10/04: On 10/05 decrease Haldol to 2.5 mg bid prn 10/05 pt presents with catatonic like s/s including staring, delayed response, no complete mutism but speech minimally spontaneous and his attention is poor and appears thought blocking. He seems to have responded positively/partially to schedule ativan, however, caution when increasing ativan as he is also on methadone fairly high dose. So far no s/s of respiratory distress- o2sat on RA>98%. will avoid high potency antipsychotic such as haldol as it will worsen catatonic like symptoms. but will schedule low dose olanzapine to tx underlying psychosis. continue current dose of ativan schedule for today, may consider increasing tomorrow. 10/06 continu tx. improving catatonia. 10/07 continue current medications but will try lowering ativan as catatonia resolving. may increase night time olanzapine to 5mg po qhs, continue 2.5mg po daily. 10/08 catatonia significantly improving. 10/09 may try lowering ativan as catatonia resolved. continue olanzapine. 10/11 continue regime STI testing per pt request. 10/13: Decrease Methadone to 143 mg daily Prazosin 1 mg HS Risperdal 1 mg HS prn for PTSD sx increase and need for grounding. Dulcolax 10 mg HS x1 10/14: Discontinue Prozac Zyprexa 20 mg HS 10/15 Patient seems to have regressed; having a hard time talking, took nurse 45 minutes to get him to take his medication, patient says he is feeling confused, although hard to get words out he reported AH of unnecessary noises and then said I feel like i'm a performer. -Reviewed chart and Discussed with nursing staff who report that this behavior similar to when he was 1st here and treated for catatonic like symptoms with Ativan; field underwriter reviewed and so the patient was on Ativan 1 mg t.i.d. which was tapered; patient's subsequent regression seem to have started around 10/11 or 10/12 -Information Systems Planner restarted Ativan 1 mg and patient quickly perked backup, was organized, talking, Ativan 1 mg q.i.d. for today Will go back to Ativan 1 mg t.i.d. tomorrow Otherwise continue current medication regimen 10/16 patient continues to have catatonic symptoms, confused, standing and staring, hard to get his words out. Each time patient gets an Ativan dose, symptoms temporarily resolved but then return. -seems last time that this cleared up with Ativan so will continue it at Ativan 1 mg q.i.d.; will also lower antipsychotic, Zyprexa to 5 mg q.h.s., down from 10 mg; if does not get better will consider discontinuing antipsychotic. -will also add clonazepam b.i.d. to see if that can help since it is longer acting than Ativan. 10/17- continues symptomatic, no changes today. 10/18: CBCD,CMP Prozac 5 mg a.m DC Olanzapine scheduled dose, change to 2.5 mg bid prn 10/19: DC Prozac, pt refused Refuses retrial of Haldol, which had been effective by hx. Return to Olanzapine 5 mg hs. Continue prn 10/20 : Continue tx. 10/21: Continue tx. Plan: Continue Ativan 1 mg q.i.d Will add clonazepam b.i.d. Lower Zyprexa to 5 mg q.h.s., down from 10 mg; this is temporary and will likely plan to increase once catatonic symptoms resolved 10/22 continue tx plan Patient educated on: medication risk/benefits and therapeutic strategies Reason for continued inpatient stay Substantial Risk for: inability to function Time Spent With Patient Time: Total time managing care of this patient today ____ minutes.
[2023-10-23 20:00] VITALS: BP 117/73; PULSE 87; TEMP 36.4; O2SAT 97
[2023-10-23] MEDS: Prazosin HCL 1 MG CAPSULE PO (20:41)
[2023-10-23] MEDS: OLANZapine 5 MG TABLET PO (20:42)
[2023-10-24] MEDS: Magnesium Hydrox/Alum Hydrox 30 ML ORAL.SUSP PO (04:18)
[2023-10-24 08:14] VITALS: BP 121/69; PULSE 102; RESP 16; TEMP 36.4; O2SAT 97
[2023-10-24] MEDS: methADONE HCl 20 MG/2 ML ORAL.CONC 140 MG PO (08:40)
[2023-10-24] MEDS: LORazepam 1 MG TABLET PO ×2 (08:42→15:18)
--- NOTE | 2023-10-24 17:11 | HO.PSYCHPN ---
Subjective Subjective Date of Service: 10/24/23 Reason For Visit: Psychosis Interim History: Pt withdrawn, slow to respond, staring at times. speech nonsensical. refused clonazepam says he can't take with methadone Medication Compliance: Intermittent Side effects from medications: No Attending Groups: No Review of Systems Acute medical concerns: No Medical Review of Systems: unchanged Review of Systems Review of Systems Denies Yes all other systems are reviewed and are negative and Unobtainable due to mental status Gastrointestinal: Reports nausea and Reports vomiting Reports confusion Psychiatric: Reports confusion and Reports depression Mental Status Exam Mental Status Exam Narrative: Pt is sleepy but esily aroused; in bed upon appraoch; oriented; behavior is intermittently confused, disorganized; patient is not in distress; dressed in casual attire with adequate hygiene; mood is anxious and affect congruent; decreased eye contact; very few words spoken thoughts disorganized; Thought content is on some delusional thinking; denies any SI/HI. AH intermittently present; appears internally preoccupied. Patients insight and judgment impaired Patient Appearance: Appropriate Patient Orientation: Person, Place and Situation Level of Consciousness: Restless and Alert Patient Behavior: Talkative, Restless, Distractible and Good Eye Contact Mood Description: Depressed, Anxious, Nervous and Apprehensive Affect Description: Anxious Patient Cognition Impaired: No Ability to Follow Directions: Fair Speech Pattern: Spontaneous Speech Memory Description: Remote Impaired Diagnostics Vital Signs (24Hr): Vital Signs - 24 hr 10/23/23 20:00 10/24/23 08:14 Temperature 97.6 F 97.5 F Pulse Rate 87 102 H Respiratory Rate 16 Blood Pressure 117/73 121/69 Pulse Oximetry 97 97 Oxygen Delivery Method Room Air Room Air BMI result Body Mass Index 22.9 Labs 10/20/23 08:11 10/20/23 08:11 Imaging Radiology Impressions: ITS Impressions Chest X-Ray 09/24/23 09:58 IMPRESSION: No acute abnormality. Medications Medications Current Medications Acetaminophen (Acetaminophen 325 Mg Tablet) 650 mg PO Q6H PRN PRN Reason: Headache/Pain Mild Scale (1-3) Last Admin: 10/03/23 16:35 Dose: 650 mg Al Hydroxide/Mg Hydroxide (Magnesium Hydrox/Alum Hydrox 30 Ml Oral.Susp) 30 ml PO Q6H PRN PRN Reason: Heartburn/Nausea Last Admin: 10/24/23 04:18 Dose: 30 ml Clonazepam (Clonazepam 0.5 Mg Tablet) 0.5 mg PO BID EDWARD Last Admin: 10/24/23 08:43 Dose: Not Given Guaifenesin/Dextromethorphan (Guaifenesin Dm 600/30 1 Tab Tab.Er.12h) 1 tab PO BID PRN PRN Reason: Congestion Hydroxyzine HCl (Hydroxyzine Hcl 25 Mg Tablet) 25 mg PO Q4H PRN PRN Reason: Anxiety Last Admin: 10/17/23 04:59 Dose: 25 mg Lorazepam (Lorazepam 1 Mg Tablet) 1 mg PO TID EDWARD Last Admin: 10/24/23 15:18 Dose: 1 mg Magnesium Hydroxide (Milk Of Magnesia 30 Ml Oral.Susp) 30 ml PO DAILY PRN PRN Reason: Constipation Last Admin: 10/14/23 21:58 Dose: 30 ml Methadone HCl (Methadone Hcl 20 Mg/2 Ml Oral.Conc) 140 mg PO DAILY EDWARD Last Admin: 10/24/23 08:40 Dose: 140 mg Olanzapine (Olanzapine 2.5 Mg Tablet) 2.5 mg PO BID PRN PRN Reason: Psychosis Olanzapine (Olanzapine 5 Mg Tablet) 5 mg PO BEDTIME EDWARD Last Admin: 10/23/23 20:42 Dose: 5 mg Polyethylene Glycol (Polyethylene Glycol 3350 17 Gm Powd.Pack) 17 gm PO DAILY EDWARD Last Admin: 10/24/23 12:33 Dose: Not Given Prazosin HCl (Prazosin Hcl 1 Mg Capsule) 1 mg PO BEDTIME EDWARD; Protocol Last Admin: 10/23/23 20:41 Dose: 1 mg Trazodone HCl (Trazodone Hcl 50 Mg Tablet) 50 mg PO BEDTIME PRN PRN Reason: Insomnia Last Admin: 10/22/23 22:02 Dose: 50 mg Allergies Allergies Allergy/AdvReac Type Severity Reaction Status Date / Time No Known Allergies Allergy Verified 09/24/23 03:55 Assessment & Plan Assessment & Plan (1) Bipolar disorder with psychotic features: Status: Acute Code(s): F31.9 - Bipolar disorder, unspecified (2) Post traumatic stress disorder (PTSD): Status: Acute Code(s): F43.10 - Post-traumatic stress disorder, unspecified (3) Opioid use disorder, severe, on maintenance therapy: Status: Acute Code(s): F11.20 - Opioid dependence, uncomplicated (4) Catatonic reaction: Status: Acute Code(s): F06.1 - Catatonic disorder due to known physiological condition Plan 33 yo male, hx of opiate use disorder, methadone maintenace, PTSD, currently with psychotic sx. Plan: Collateral contact Maintain methadone dosing tonight Addiction consult Re-started clonidine, prozac, hydroxyzine, trazodone Risperdal trial- ?psychosis, PTSD exacerbation? Pt may need a mood stabilizer, however will re-establish regime, treat psychosis and assess. 09/25/23 trial of zyprexa 5 mg BID prn and if more calming may switch from risperdal to zyprexa 09/25 methadone reduced to 142 mg for 09/26; brief consult with Comprehensice Care Team WILVER specialist in agreement 09/26 methadone decreased to 138mg daily CBC and CMP ordered as pt more confused and WBc high in ED 09/27 DC Risperdal Haldol 10 mg concentrate po bid CBCD, CMP for 09/28 Continue Olanzapine prn 09/29 Change Haldol to 5 mg tid Add lorazepam 0.5 mg tid ?trauma, ?psychosis, ?catatonia, ?substance induced response Supportive care Continue one to one. 09/30: CBC, CMP Decrease Benztropine to 0.5 mg bid Increase Lorazapam to 1 mg tid-?catatonia 10/02: Decrease Haldol to 5 mg bid 10/04: On 10/05 decrease Haldol to 2.5 mg bid prn 10/05 pt presents with catatonic like s/s including staring, delayed response, no complete mutism but speech minimally spontaneous and his attention is poor and appears thought blocking. He seems to have responded positively/partially to schedule ativan, however, caution when increasing ativan as he is also on methadone fairly high dose. So far no s/s of respiratory distress- o2sat on RA>98%. will avoid high potency antipsychotic such as haldol as it will worsen catatonic like symptoms. but will schedule low dose olanzapine to tx underlying psychosis. continue current dose of ativan schedule for today, may consider increasing tomorrow. 10/06 continu tx. improving catatonia. 10/07 continue current medications but will try lowering ativan as catatonia resolving. may increase night time olanzapine to 5mg po qhs, continue 2.5mg po daily. 10/08 catatonia significantly improving. 10/09 may try lowering ativan as catatonia resolved. continue olanzapine. 10/11 continue regime STI testing per pt request. 10/13: Decrease Methadone to 143 mg daily Prazosin 1 mg HS Risperdal 1 mg HS prn for PTSD sx increase and need for grounding. Dulcolax 10 mg HS x1 10/14: Discontinue Prozac Zyprexa 20 mg HS 10/15 Patient seems to have regressed; having a hard time talking, took nurse 45 minutes to get him to take his medication, patient says he is feeling confused, although hard to get words out he reported AH of unnecessary noises and then said I feel like i'm a performer. -Reviewed chart and Discussed with nursing staff who report that this behavior similar to when he was 1st here and treated for catatonic like symptoms with Ativan; check writer salesperson reviewed and so the patient was on Ativan 1 mg t.i.d. which was tapered; patient's subsequent regression seem to have started around 10/11 or 10/12 -Marine Tower Operator restarted Ativan 1 mg and patient quickly perked backup, was organized, talking, Ativan 1 mg q.i.d. for today Will go back to Ativan 1 mg t.i.d. tomorrow Otherwise continue current medication regimen 10/16 patient continues to have catatonic symptoms, confused, standing and staring, hard to get his words out. Each time patient gets an Ativan dose, symptoms temporarily resolved but then return. -seems last time that this cleared up with Ativan so will continue it at Ativan 1 mg q.i.d.; will also lower antipsychotic, Zyprexa to 5 mg q.h.s., down from 10 mg; if does not get better will consider discontinuing antipsychotic. -will also add clonazepam b.i.d. to see if that can help since it is longer acting than Ativan. 10/17- continues symptomatic, no changes today. 10/18: CBCD,CMP Prozac 5 mg a.m DC Olanzapine scheduled dose, change to 2.5 mg bid prn 10/19: DC Prozac, pt refused Refuses retrial of Haldol, which had been effective by hx. Return to Olanzapine 5 mg hs. Continue prn 10/20 : Continue tx. 10/21: Continue tx. Plan: Continue Ativan 1 mg q.i.d Will add clonazepam b.i.d. Lower Zyprexa to 5 mg q.h.s., down from 10 mg; this is temporary and will likely plan to increase once catatonic symptoms resolved 10/22 continue tx plan 10/23 continue tx plan Patient educated on: diagnosis, medication risk/benefits and therapeutic strategies Informed Consent: does not understand and further education needed Reason for continued inpatient stay Substantial Risk for: harm to self and inability to function Time Spent With Patient Time: Total time managing care of this patient today ____ minutes.
[2023-10-24 20:00] VITALS: BP 138/70; PULSE 92; RESP 16; TEMP 36.6; O2SAT 98
[2023-10-24 21:16] VITALS: BP 138/70
[2023-10-24] MEDS: Prazosin HCL 1 MG CAPSULE PO (21:16)
[2023-10-24] MEDS: traZODone HCL 50 MG TABLET PO (21:18)
[2023-10-25] MEDS: Magnesium Hydrox/Alum Hydrox 30 ML ORAL.SUSP PO ×2 (01:16→20:28)
[2023-10-25 08:02] VITALS: BP 117/66; PULSE 94; RESP 16; TEMP 36.8; O2SAT 97
[2023-10-25] MEDS: LORazepam 1 MG TABLET PO ×3 (08:05→20:29)
[2023-10-25] MEDS: methADONE HCl 20 MG/2 ML ORAL.CONC 140 MG PO (08:05)
[2023-10-25] MEDS: hydrOXYzine HCL 25 MG TABLET PO (08:41)
--- NOTE | 2023-10-25 09:49 | P.PNPSI_ITS ---
Subjective Subjective Date of Service: 10/25/23 Reason For Visit: Psychosis Interim History: met with patient; discussed with team; reviewed chart Patient reports that he okay and starting to feel little better. Had some stomach upset this early on but says this is resolving. Patient volunteered that he has isolating a little bit but he wants to get himself back out in the milieu soon. Mental Status Exam Mental Status Exam Narrative: Pt is alert and oriented; behavior is more organized; cooperative and calm; patient is not in distress; dressed in casual attire with adequate hygiene; mood is described as a little better and affect congruent; eye contact appropriate; Speech is spontaneous, normal volume, rate and prosody; no speech latency present today; some psychomotor retardation present; thought process oriented, concrete; Thought content is on treatment and no overt delusional thoughts expressed to this mortgage or loan underwriter; denies any SI/HI. Intermittently, appears internally preoccupied Patients insight and judgment impaired but seems to be improving Diagnostics Vital Signs (24Hr): Vital Signs - 24 hr 10/24/23 20:00 10/24/23 21:16 10/25/23 08:02 Temperature 98 F 98.2 F Pulse Rate 92 94 Respiratory Rate 16 16 Blood Pressure 138/70 138/70 117/66 Pulse Oximetry 98 97 Oxygen Delivery Method Room Air Room Air BMI result Body Mass Index 22.9 Labs 10/20/23 08:11 10/20/23 08:11 Imaging Radiology Impressions: ITS Impressions Chest X-Ray 09/24/23 09:58 IMPRESSION: No acute abnormality. Medications Medications Current Medications Acetaminophen (Acetaminophen 325 Mg Tablet) 650 mg PO Q6H PRN PRN Reason: Headache/Pain Mild Scale (1-3) Last Admin: 10/03/23 16:35 Dose: 650 mg Al Hydroxide/Mg Hydroxide (Magnesium Hydrox/Alum Hydrox 30 Ml Oral.Susp) 30 ml PO Q6H PRN PRN Reason: Heartburn/Nausea Last Admin: 10/25/23 01:16 Dose: 30 ml Clonazepam (Clonazepam 0.5 Mg Tablet) 0.5 mg PO BID EDWARD Last Admin: 10/25/23 08:10 Dose: Not Given Guaifenesin/Dextromethorphan (Guaifenesin Dm 600/30 1 Tab Tab.Er.12h) 1 tab PO BID PRN PRN Reason: Congestion Hydroxyzine HCl (Hydroxyzine Hcl 25 Mg Tablet) 25 mg PO Q4H PRN PRN Reason: Anxiety Last Admin: 10/25/23 08:41 Dose: 25 mg Lorazepam (Lorazepam 1 Mg Tablet) 1 mg PO TID EDWARD Last Admin: 10/25/23 08:05 Dose: 1 mg Magnesium Hydroxide (Milk Of Magnesia 30 Ml Oral.Susp) 30 ml PO DAILY PRN PRN Reason: Constipation Last Admin: 10/14/23 21:58 Dose: 30 ml Methadone HCl (Methadone Hcl 20 Mg/2 Ml Oral.Conc) 140 mg PO DAILY EDWARD Last Admin: 10/25/23 08:05 Dose: 140 mg Olanzapine (Olanzapine 2.5 Mg Tablet) 2.5 mg PO BID PRN PRN Reason: Psychosis Olanzapine (Olanzapine 5 Mg Tablet) 5 mg PO BEDTIME EDWARD Last Admin: 10/24/23 21:19 Dose: Not Given Polyethylene Glycol (Polyethylene Glycol 3350 17 Gm Powd.Pack) 17 gm PO DAILY EDWARD Last Admin: 10/25/23 08:11 Dose: Not Given Prazosin HCl (Prazosin Hcl 1 Mg Capsule) 1 mg PO BEDTIME EDWARD; Protocol Last Admin: 10/24/23 21:16 Dose: 1 mg Trazodone HCl (Trazodone Hcl 50 Mg Tablet) 50 mg PO BEDTIME PRN PRN Reason: Insomnia Last Admin: 10/24/23 21:18 Dose: 50 mg Allergies Allergies Allergy/AdvReac Type Severity Reaction Status Date / Time No Known Allergies Allergy Verified 09/24/23 03:55 Assessment & Plan Assessment & Plan (1) Bipolar disorder with psychotic features: Status: Acute Code(s): F31.9 - Bipolar disorder, unspecified (2) Post traumatic stress disorder (PTSD): Status: Acute Code(s): F43.10 - Post-traumatic stress disorder, unspecified (3) Opioid use disorder, severe, on maintenance therapy: Status: Acute Code(s): F11.20 - Opioid dependence, uncomplicated (4) Catatonic reaction: Status: Acute Code(s): F06.1 - Catatonic disorder due to known physiological condition Plan 33 yo male, hx of opiate use disorder, methadone maintenace, PTSD, currently with psychotic sx. Plan: Collateral contact Maintain methadone dosing tonight Addiction consult Re-started clonidine, prozac, hydroxyzine, trazodone Risperdal trial- ?psychosis, PTSD exacerbation? Pt may need a mood stabilizer, however will re-establish regime, treat psychosis and assess. 09/25/23 trial of zyprexa 5 mg BID prn and if more calming may switch from risperdal to zyprexa 09/25 methadone reduced to 142 mg for 09/26; brief consult with Comprehensice Care Team WILVER specialist in agreement 09/26 methadone decreased to 138mg daily CBC and CMP ordered as pt more confused and WBc high in ED 09/27 DC Risperdal Haldol 10 mg concentrate po bid CBCD, CMP for 09/28 Continue Olanzapine prn 09/29 Change Haldol to 5 mg tid Add lorazepam 0.5 mg tid ?trauma, ?psychosis, ?catatonia, ?substance induced response Supportive care Continue one to one. 09/30: CBC, CMP Decrease Benztropine to 0.5 mg bid Increase Lorazapam to 1 mg tid-?catatonia 10/02: Decrease Haldol to 5 mg bid 10/04: On 10/05 decrease Haldol to 2.5 mg bid prn 10/05 pt presents with catatonic like s/s including staring, delayed response, no complete mutism but speech minimally spontaneous and his attention is poor and appears thought blocking. He seems to have responded positively/partially to schedule ativan, however, caution when increasing ativan as he is also on methadone fairly high dose. So far no s/s of respiratory distress- o2sat on RA>98%. will avoid high potency antipsychotic such as haldol as it will worsen catatonic like symptoms. but will schedule low dose olanzapine to tx underlying psychosis. continue current dose of ativan schedule for today, may consider increasing tomorrow. 10/06 continu tx. improving catatonia. 10/07 continue current medications but will try lowering ativan as catatonia resolving. may increase night time olanzapine to 5mg po qhs, continue 2.5mg po daily. 10/08 catatonia significantly improving. 10/09 may try lowering ativan as catatonia resolved. continue olanzapine. 10/11 continue regime STI testing per pt request. 10/13: Decrease Methadone to 143 mg daily Prazosin 1 mg HS Risperdal 1 mg HS prn for PTSD sx increase and need for grounding. Dulcolax 10 mg HS x1 10/14: Discontinue Prozac Zyprexa 20 mg HS 10/15 Patient seems to have regressed; having a hard time talking, took nurse 45 minutes to get him to take his medication, patient says he is feeling confused, although hard to get words out he reported AH of unnecessary noises and then said I feel like i'm a performer. -Reviewed chart and Discussed with nursing staff who report that this behavior similar to when he was 1st here and treated for catatonic like symptoms with Ativan; mortgage or loan underwriter reviewed and so the patient was on Ativan 1 mg t.i.d. which was tapered; patient's subsequent regression seem to have started around 10/11 or 10/12 -Whizzer Hand restarted Ativan 1 mg and patient quickly perked backup, was organized, talking, Ativan 1 mg q.i.d. for today Will go back to Ativan 1 mg t.i.d. tomorrow Otherwise continue current medication regimen 10/16 patient continues to have catatonic symptoms, confused, standing and staring, hard to get his words out. Each time patient gets an Ativan dose, symptoms temporarily resolved but then return. -seems last time that this cleared up with Ativan so will continue it at Ativan 1 mg q.i.d.; will also lower antipsychotic, Zyprexa to 5 mg q.h.s., down from 10 mg; if does not get better will consider discontinuing antipsychotic. -will also add clonazepam b.i.d. to see if that can help since it is longer acting than Ativan. 10/17- continues symptomatic, no changes today. 10/18: CBCD,CMP Prozac 5 mg a.m DC Olanzapine scheduled dose, change to 2.5 mg bid prn 10/19: DC Prozac, pt refused Refuses retrial of Haldol, which had been effective by hx. Return to Olanzapine 5 mg hs. Continue prn 10/20 : Continue tx. 10/21: Continue tx. 10/22 continue tx plan 10/24 seems little more organized; continue current treatment plan Plan: Patient educated on: diagnosis and medication risk/benefits Informed Consent: understands, does not understand and further education needed Reason for continued inpatient stay Substantial Risk for: rapid decompensation Time Spent With Patient Time: Total time managing care of this patient today ____ minutes.
[2023-10-25 20:00] VITALS: BP 120/71; PULSE 74; RESP 18; TEMP 36.4; O2SAT 97
[2023-10-25 20:29] VITALS: BP 120/71
[2023-10-25] MEDS: traZODone HCL 50 MG TABLET PO (20:29)
[2023-10-25] MEDS: Prazosin HCL 1 MG CAPSULE PO (20:29)
[2023-10-26 08:00] VITALS: BP 99/55; PULSE 93; RESP 17; TEMP 36.6; O2SAT 98
[2023-10-26] MEDS: LORazepam 1 MG TABLET PO ×3 (08:42→21:33)
[2023-10-26] MEDS: methADONE HCl 20 MG/2 ML ORAL.CONC 140 MG PO (08:51)
--- NOTE | 2023-10-26 17:11 | P.PNPSI_ITS ---
Subjective Subjective Date of Service: 10/26/23 Reason For Visit: Psychosis Subjective Notes: Conditional Voluntary Healthcare Proxy: No Guardianship: No Medical Problems Affecting Mental Status: No Interim History: Peer review completed with Nay Morris [phone]. Met with pt and Violeta Aldana [facility]. Pt is clearer, engaged, states he is feeling some improvement. Discussed history of positive responses with Haldol, negative responses with Prozac. Pt states he is attempting to remain positive, talking with mom, talking with his higher power, finding group time helpful for him. Will talk with family about medicine recommendations to return to [facility]. Review of sx of psychosis and how this sx has presented with pt. along with how medication can relieve sx. Medication Compliance: Yes Side effects from medications: No Attending Groups: Yes Review of Systems Acute medical concerns: No Medical Review of Systems: unchanged Review of Systems Review of Systems Yes all other systems are reviewed and are negative (denies) Mental Status Exam Mental Status Exam Patient Appearance: Appropriate Patient Orientation: Person, Place and Situation Level of Consciousness: Alert Patient Behavior: Talkative and Good Eye Contact Mood Description: Anxious Affect Description: Anxious Patient Cognition Impaired: Yes Ability to Follow Directions: Fair Speech Pattern: Spontaneous Speech and Soft-Spoken Memory Description: Episodic Impaired Hallucinations: None Delusions: Present Perceptual Disturbances: Depersonalization and Derealization Thought Process: Distracted and Rumination Thought Content: positive for Circumstantial Judgement: Fair Diagnostics Vital Signs (24Hr): Vital Signs - 24 hr 10/25/23 20:00 10/25/23 20:29 10/26/23 08:00 Temperature 97.6 F 97.8 F Pulse Rate 74 93 Respiratory Rate 18 17 Blood Pressure 120/71 120/71 99/55 L Pulse Oximetry 97 98 Oxygen Delivery Method Room Air Room Air BMI result Body Mass Index 22.9 Labs 10/20/23 08:11 10/20/23 08:11 Imaging Radiology Impressions: ITS Impressions Chest X-Ray 09/24/23 09:58 IMPRESSION: No acute abnormality. Medications Medications Current Medications Acetaminophen (Acetaminophen 325 Mg Tablet) 650 mg PO Q6H PRN PRN Reason: Headache/Pain Mild Scale (1-3) Last Admin: 10/03/23 16:35 Dose: 650 mg Al Hydroxide/Mg Hydroxide (Magnesium Hydrox/Alum Hydrox 30 Ml Oral.Susp) 30 ml PO Q6H PRN PRN Reason: Heartburn/Nausea Last Admin: 10/25/23 20:28 Dose: 30 ml Guaifenesin/Dextromethorphan (Guaifenesin Dm 600/30 1 Tab Tab.Er.12h) 1 tab PO BID PRN PRN Reason: Congestion Hydroxyzine HCl (Hydroxyzine Hcl 25 Mg Tablet) 25 mg PO Q4H PRN PRN Reason: Anxiety Last Admin: 10/25/23 08:41 Dose: 25 mg Lorazepam (Lorazepam 1 Mg Tablet) 1 mg PO TID EDWARD Last Admin: 10/26/23 14:31 Dose: 1 mg Magnesium Hydroxide (Milk Of Magnesia 30 Ml Oral.Susp) 30 ml PO DAILY PRN PRN Reason: Constipation Last Admin: 10/14/23 21:58 Dose: 30 ml Methadone HCl (Methadone Hcl 20 Mg/2 Ml Oral.Conc) 140 mg PO DAILY EDWRAD Last Admin: 10/26/23 08:51 Dose: 140 mg Olanzapine (Olanzapine 2.5 Mg Tablet) 2.5 mg PO BID PRN PRN Reason: Psychosis Olanzapine (Olanzapine 5 Mg Tablet) 5 mg PO BEDTIME EDWARD Last Admin: 10/25/23 23:12 Dose: Not Given Polyethylene Glycol (Polyethylene Glycol 3350 17 Gm Powd.Pack) 17 gm PO DAILY EDWARD Last Admin: 10/26/23 08:55 Dose: Not Given Prazosin HCl (Prazosin Hcl 1 Mg Capsule) 1 mg PO BEDTIME EDWARD; Protocol Last Admin: 10/25/23 20:29 Dose: 1 mg Trazodone HCl (Trazodone Hcl 50 Mg Tablet) 50 mg PO BEDTIME PRN PRN Reason: Insomnia Last Admin: 10/25/23 20:29 Dose: 50 mg Allergies Allergies Allergy/AdvReac Type Severity Reaction Status Date / Time No Known Allergies Allergy Verified 09/24/23 03:55 Assessment & Plan Assessment & Plan (1) Bipolar disorder with psychotic features: Status: Acute Code(s): F31.9 - Bipolar disorder, unspecified (2) Post traumatic stress disorder (PTSD): Status: Acute Code(s): F43.10 - Post-traumatic stress disorder, unspecified (3) Opioid use disorder, severe, on maintenance therapy: Status: Acute Code(s): F11.20 - Opioid dependence, uncomplicated (4) Catatonic reaction: Status: Acute Code(s): F06.1 - Catatonic disorder due to known physiological condition Plan 33 yo male, hx of opiate use disorder, methadone maintenace, PTSD, currently with psychotic sx. Plan: Collateral contact Maintain methadone dosing tonight Addiction consult Re-started clonidine, prozac, hydroxyzine, trazodone Risperdal trial- ?psychosis, PTSD exacerbation? Pt may need a mood stabilizer, however will re-establish regime, treat psychosis and assess. 09/25/23 trial of zyprexa 5 mg BID prn and if more calming may switch from risperdal to zyprexa 09/25 methadone reduced to 142 mg for 09/26; brief consult with Comprehensice Care Team WILVER specialist in agreement 09/26 methadone decreased to 138mg daily CBC and CMP ordered as pt more confused and WBc high in ED 09/27 DC Risperdal Haldol 10 mg concentrate po bid CBCD, CMP for 09/28 Continue Olanzapine prn 09/29 Change Haldol to 5 mg tid Add lorazepam 0.5 mg tid ?trauma, ?psychosis, ?catatonia, ?substance induced response Supportive care Continue one to one. 09/30: CBC, CMP Decrease Benztropine to 0.5 mg bid Increase Lorazapam to 1 mg tid-?catatonia 10/02: Decrease Haldol to 5 mg bid 10/04: On 10/05 decrease Haldol to 2.5 mg bid prn 10/05 pt presents with catatonic like s/s including staring, delayed response, no complete mutism but speech minimally spontaneous and his attention is poor and appears thought blocking. He seems to have responded positively/partially to schedule ativan, however, caution when increasing ativan as he is also on methadone fairly high dose. So far no s/s of respiratory distress- o2sat on RA>98%. will avoid high potency antipsychotic such as haldol as it will worsen catatonic like symptoms. but will schedule low dose olanzapine to tx underlying psychosis. continue current dose of ativan schedule for today, may consider increasing tomorrow. 10/06 continu tx. improving catatonia. 10/07 continue current medications but will try lowering ativan as catatonia resolving. may increase night time olanzapine to 5mg po qhs, continue 2.5mg po daily. 10/08 catatonia significantly improving. 10/09 may try lowering ativan as catatonia resolved. continue olanzapine. 10/11 continue regime STI testing per pt request. 10/13: Decrease Methadone to 143 mg daily Prazosin 1 mg HS Risperdal 1 mg HS prn for PTSD sx increase and need for grounding. Dulcolax 10 mg HS x1 10/14: Discontinue Prozac Zyprexa 20 mg HS 10/15 Patient seems to have regressed; having a hard time talking, took nurse 45 minutes to get him to take his medication, patient says he is feeling confused, although hard to get words out he reported AH of unnecessary noises and then said I feel like i'm a performer. -Reviewed chart and Discussed with nursing staff who report that this behavior similar to when he was 1st here and treated for catatonic like symptoms with Ativan; advertising copywriter reviewed and so the patient was on Ativan 1 mg t.i.d. which was tapered; patient's subsequent regression seem to have started around 10/11 or 10/12 -Ship Pilot Dispatcher restarted Ativan 1 mg and patient quickly perked backup, was organized, talking, Ativan 1 mg q.i.d. for today Will go back to Ativan 1 mg t.i.d. tomorrow Otherwise continue current medication regimen 10/16 patient continues to have catatonic symptoms, confused, standing and staring, hard to get his words out. Each time patient gets an Ativan dose, symptoms temporarily resolved but then return. -seems last time that this cleared up with Ativan so will continue it at Ativan 1 mg q.i.d.; will also lower antipsychotic, Zyprexa to 5 mg q.h.s., down from 10 mg; if does not get better will consider discontinuing antipsychotic. -will also add clonazepam b.i.d. to see if that can help since it is longer acting than Ativan. 10/17- continues symptomatic, no changes today. 10/18: CBCD,CMP Prozac 5 mg a.m DC Olanzapine scheduled dose, change to 2.5 mg bid prn 10/19: DC Prozac, pt refused Refuses retrial of Haldol, which had been effective by hx. Return to Olanzapine 5 mg hs. Continue prn 10/20 : Continue tx. 10/21: Continue tx. 10/22 continue tx plan 10/24 seems little more organized; continue current treatment plan 10/25 continue tx Plan: Reason for continued inpatient stay Substantial Risk for: rapid decompensation Time Spent With Patient Time: Total time managing care of this patient today ____ minutes.
[2023-10-26 21:30] VITALS: BP 107/61; PULSE 106; RESP 14; TEMP 36.8; O2SAT 98
[2023-10-26 21:31] VITALS: BP 101/61
[2023-10-26] MEDS: traZODone HCL 50 MG TABLET PO (21:31)
[2023-10-26] MEDS: Prazosin HCL 1 MG CAPSULE PO (21:31)
[2023-10-26] MEDS: OLANZapine 5 MG TABLET PO (21:31)
[2023-10-26] MEDS: Magnesium Hydrox/Alum Hydrox 30 ML ORAL.SUSP PO (22:51)
[2023-10-27] MEDS: methADONE HCl 20 MG/2 ML ORAL.CONC 140 MG PO (08:49)
[2023-10-27] MEDS: LORazepam 1 MG TABLET PO ×3 (08:51→20:28)
[2023-10-27 09:01] VITALS: BP 95/55; PULSE 71; RESP 16; TEMP 36.3; O2SAT 97
[2023-10-27] MEDS: hydrOXYzine HCL 25 MG TABLET PO (09:50)
--- NOTE | 2023-10-27 15:40 | HO.PSYCHPN ---
Subjective Subjective Date of Service: 10/27/23 Reason For Visit: Psychosis Subjective Notes: Conditional Voluntary Healthcare Proxy: No Guardianship: No Medical Problems Affecting Mental Status: No Interim History: Visable, interactive, reports improvement. Attending groups and initiating contacts with tw, team and peers. Medication Compliance: Yes Side effects from medications: No Attending Groups: Yes Review of Systems Acute medical concerns: No Medical Review of Systems: unchanged Review of Systems Review of Systems Yes all other systems are reviewed and are negative (denies) Mental Status Exam Mental Status Exam Patient Appearance: Appropriate Patient Orientation: Person, Place and Situation Level of Consciousness: Alert Patient Behavior: Talkative and Good Eye Contact Mood Description: Anxious Affect Description: Anxious Patient Cognition Impaired: Yes Ability to Follow Directions: Fair Speech Pattern: Spontaneous Speech and Soft-Spoken Memory Description: Episodic Impaired Hallucinations: None Delusions: Present Perceptual Disturbances: Depersonalization and Derealization Thought Process: Distracted and Rumination Thought Content: positive for Circumstantial Judgement: Fair Diagnostics Vital Signs (24Hr): Vital Signs - 24 hr 10/26/23 21:30 10/26/23 21:31 10/27/23 09:01 Temperature 98.3 F 97.3 F Pulse Rate 106 H 71 Respiratory Rate 14 16 Blood Pressure 107/61 101/61 95/55 L Pulse Oximetry 98 97 Oxygen Delivery Method Room Air Room Air BMI result Body Mass Index 22.9 Labs 10/20/23 08:11 10/20/23 08:11 Imaging Radiology Impressions: ITS Impressions Chest X-Ray 09/24/23 09:58 IMPRESSION: No acute abnormality. Medications Medications Current Medications Acetaminophen (Acetaminophen 325 Mg Tablet) 650 mg PO Q6H PRN PRN Reason: Headache/Pain Mild Scale (1-3) Last Admin: 10/03/23 16:35 Dose: 650 mg Al Hydroxide/Mg Hydroxide (Magnesium Hydrox/Alum Hydrox 30 Ml Oral.Susp) 30 ml PO Q6H PRN PRN Reason: Heartburn/Nausea Last Admin: 10/26/23 22:51 Dose: 30 ml Guaifenesin/Dextromethorphan (Guaifenesin Dm 600/30 1 Tab Tab.Er.12h) 1 tab PO BID PRN PRN Reason: Congestion Hydroxyzine HCl (Hydroxyzine Hcl 25 Mg Tablet) 25 mg PO Q4H PRN PRN Reason: Anxiety Last Admin: 10/27/23 09:50 Dose: 25 mg Lorazepam (Lorazepam 1 Mg Tablet) 1 mg PO TID EDWARD Last Admin: 10/27/23 14:24 Dose: 1 mg Magnesium Hydroxide (Milk Of Magnesia 30 Ml Oral.Susp) 30 ml PO DAILY PRN PRN Reason: Constipation Last Admin: 10/14/23 21:58 Dose: 30 ml Methadone HCl (Methadone Hcl 20 Mg/2 Ml Oral.Conc) 140 mg PO DAILY EDWARD Last Admin: 10/27/23 08:49 Dose: 140 mg Olanzapine (Olanzapine 2.5 Mg Tablet) 2.5 mg PO BID PRN PRN Reason: Psychosis Olanzapine (Olanzapine 5 Mg Tablet) 5 mg PO BEDTIME EDWARD Last Admin: 10/26/23 21:31 Dose: 5 mg Polyethylene Glycol (Polyethylene Glycol 3350 17 Gm Powd.Pack) 17 gm PO DAILY EDWARD Last Admin: 10/27/23 08:51 Dose: Not Given Prazosin HCl (Prazosin Hcl 1 Mg Capsule) 1 mg PO BEDTIME EDWARD; Protocol Last Admin: 10/26/23 21:31 Dose: 1 mg Trazodone HCl (Trazodone Hcl 50 Mg Tablet) 50 mg PO BEDTIME PRN PRN Reason: Insomnia Last Admin: 10/26/23 21:31 Dose: 50 mg Allergies Allergies Allergy/AdvReac Type Severity Reaction Status Date / Time No Known Allergies Allergy Verified 09/24/23 03:55 Assessment & Plan Assessment & Plan (1) Bipolar disorder with psychotic features: Status: Acute Code(s): F31.9 - Bipolar disorder, unspecified (2) Post traumatic stress disorder (PTSD): Status: Acute Code(s): F43.10 - Post-traumatic stress disorder, unspecified (3) Opioid use disorder, severe, on maintenance therapy: Status: Acute Code(s): F11.20 - Opioid dependence, uncomplicated (4) Catatonic reaction: Status: Acute Code(s): F06.1 - Catatonic disorder due to known physiological condition Plan 33 yo male, hx of opiate use disorder, methadone maintenace, PTSD, currently with psychotic sx. Plan: Collateral contact Maintain methadone dosing tonight Addiction consult Re-started clonidine, prozac, hydroxyzine, trazodone Risperdal trial- ?psychosis, PTSD exacerbation? Pt may need a mood stabilizer, however will re-establish regime, treat psychosis and assess. 09/25/23 trial of zyprexa 5 mg BID prn and if more calming may switch from risperdal to zyprexa 09/25 methadone reduced to 142 mg for 09/26; brief consult with Comprehensice Care Team WILVER specialist in agreement 09/26 methadone decreased to 138mg daily CBC and CMP ordered as pt more confused and WBc high in ED 09/27 DC Risperdal Haldol 10 mg concentrate po bid CBCD, CMP for 09/28 Continue Olanzapine prn 09/29 Change Haldol to 5 mg tid Add lorazepam 0.5 mg tid ?trauma, ?psychosis, ?catatonia, ?substance induced response Supportive care Continue one to one. 09/30: CBC, CMP Decrease Benztropine to 0.5 mg bid Increase Lorazapam to 1 mg tid-?catatonia 10/02: Decrease Haldol to 5 mg bid 10/04: On 10/05 decrease Haldol to 2.5 mg bid prn 10/05 pt presents with catatonic like s/s including staring, delayed response, no complete mutism but speech minimally spontaneous and his attention is poor and appears thought blocking. He seems to have responded positively/partially to schedule ativan, however, caution when increasing ativan as he is also on methadone fairly high dose. So far no s/s of respiratory distress- o2sat on RA>98%. will avoid high potency antipsychotic such as haldol as it will worsen catatonic like symptoms. but will schedule low dose olanzapine to tx underlying psychosis. continue current dose of ativan schedule for today, may consider increasing tomorrow. 10/06 continu tx. improving catatonia. 10/07 continue current medications but will try lowering ativan as catatonia resolving. may increase night time olanzapine to 5mg po qhs, continue 2.5mg po daily. 10/08 catatonia significantly improving. 10/09 may try lowering ativan as catatonia resolved. continue olanzapine. 10/11 continue regime STI testing per pt request. 10/13: Decrease Methadone to 143 mg daily Prazosin 1 mg HS Risperdal 1 mg HS prn for PTSD sx increase and need for grounding. Dulcolax 10 mg HS x1 10/14: Discontinue Prozac Zyprexa 20 mg HS 10/15 Patient seems to have regressed; having a hard time talking, took nurse 45 minutes to get him to take his medication, patient says he is feeling confused, although hard to get words out he reported AH of unnecessary noises and then said I feel like i'm a performer. -Reviewed chart and Discussed with nursing staff who report that this behavior similar to when he was 1st here and treated for catatonic like symptoms with Ativan; tag writer reviewed and so the patient was on Ativan 1 mg t.i.d. which was tapered; patient's subsequent regression seem to have started around 10/11 or 10/12 -Gear Coding Machine Operator restarted Ativan 1 mg and patient quickly perked backup, was organized, talking, Ativan 1 mg q.i.d. for today Will go back to Ativan 1 mg t.i.d. tomorrow Otherwise continue current medication regimen 10/16 patient continues to have catatonic symptoms, confused, standing and staring, hard to get his words out. Each time patient gets an Ativan dose, symptoms temporarily resolved but then return. -seems last time that this cleared up with Ativan so will continue it at Ativan 1 mg q.i.d.; will also lower antipsychotic, Zyprexa to 5 mg q.h.s., down from 10 mg; if does not get better will consider discontinuing antipsychotic. -will also add clonazepam b.i.d. to see if that can help since it is longer acting than Ativan. 10/17- continues symptomatic, no changes today. 10/18: CBCD,CMP Prozac 5 mg a.m DC Olanzapine scheduled dose, change to 2.5 mg bid prn 10/19: DC Prozac, pt refused Refuses retrial of Haldol, which had been effective by hx. Return to Olanzapine 5 mg hs. Continue prn 10/20 : Continue tx. 10/21: Continue tx. 10/22 continue tx plan 10/24 seems little more organized; continue current treatment plan 10/25 continue tx 10/26 Continue tx Plan: Reason for continued inpatient stay Substantial Risk for: rapid decompensation Time Spent With Patient Time: Total time managing care of this patient today ____ minutes.
[2023-10-27] MEDS: Magnesium Hydrox/Alum Hydrox 30 ML ORAL.SUSP PO (16:06)
[2023-10-27 20:00] VITALS: BP 121/72; PULSE 102; RESP 16; TEMP 36.5; O2SAT 98
[2023-10-27 20:28] VITALS: BP 121/72
[2023-10-27] MEDS: Prazosin HCL 1 MG CAPSULE PO (20:28)
[2023-10-27] MEDS: OLANZapine 5 MG TABLET PO (20:28)
[2023-10-27] MEDS: traZODone HCL 50 MG TABLET PO (20:29)
[2023-10-28 07:00] VITALS: BMI 22.5
[2023-10-28 08:00] VITALS: BP 99/56; PULSE 90; RESP 18; TEMP 36.9; O2SAT 98
[2023-10-28] MEDS: methADONE HCl 20 MG/2 ML ORAL.CONC 140 MG PO (08:47)
[2023-10-28] MEDS: LORazepam 1 MG TABLET PO ×3 (08:49→21:49)
[2023-10-28] MEDS: OLANZapine 5 MG TABLET PO ×2 (10:27→21:50)
[2023-10-28] MEDS: Omeprazole 20 MG CAPSULE.DR PO (10:27)
[2023-10-28] MEDS: hydrOXYzine HCL 25 MG TABLET PO (11:40)
[2023-10-28] MEDS: FLUoxetine HCl 10 MG CAPSULE PO (12:46)
[2023-10-28] MEDS: OLANZapine 2.5 MG TABLET PO (14:48)
--- NOTE | 2023-10-28 15:40 | HO.PSYCHPN ---
Subjective Subjective Date of Service: 10/28/23 Reason For Visit: Psychosis Subjective Notes: Conditional Voluntary Healthcare Proxy: No Guardianship: No Medical Problems Affecting Mental Status: No Interim History: Review of meds with pt Asks for Prozac return. Discussed what was observed during last trial. Asks to try again. Discussed increase in Olanzapine to 5 mg bid, adding Prozac 10 mg. He agrees. Prilosec requested and ordered. Clear, interactive, initiates dialogue and well involved in his planning of his care Medication Compliance: Yes Side effects from medications: No Attending Groups: Yes Review of Systems Acute medical concerns: No Medical Review of Systems: unchanged Review of Systems Review of Systems Yes all other systems are reviewed and are negative (denies) Mental Status Exam Mental Status Exam Patient Appearance: Appropriate Patient Orientation: Person, Place and Situation Level of Consciousness: Alert Patient Behavior: Talkative and Good Eye Contact Mood Description: Anxious Affect Description: Anxious Patient Cognition Impaired: Yes Ability to Follow Directions: Fair Speech Pattern: Spontaneous Speech and Soft-Spoken Memory Description: Episodic Impaired Hallucinations: None Delusions: Present Perceptual Disturbances: Depersonalization and Derealization Thought Process: Distracted and Rumination Thought Content: positive for Circumstantial Judgement: Fair Diagnostics Vital Signs (24Hr): Vital Signs - 24 hr 10/27/23 20:00 10/27/23 20:28 10/28/23 08:00 Temperature 97.7 F 98.5 F Pulse Rate 102 H 90 Respiratory Rate 16 18 Blood Pressure 121/72 121/72 99/56 L Pulse Oximetry 98 98 Oxygen Delivery Method Room Air Room Air BMI result Body Mass Index 22.5 Labs 10/20/23 08:11 10/20/23 08:11 Imaging Radiology Impressions: ITS Impressions Chest X-Ray 09/24/23 09:58 IMPRESSION: No acute abnormality. Medications Medications Current Medications Acetaminophen (Acetaminophen 325 Mg Tablet) 650 mg PO Q6H PRN PRN Reason: Headache/Pain Mild Scale (1-3) Last Admin: 10/03/23 16:35 Dose: 650 mg Al Hydroxide/Mg Hydroxide (Magnesium Hydrox/Alum Hydrox 30 Ml Oral.Susp) 30 ml PO Q6H PRN PRN Reason: Heartburn/Nausea Last Admin: 10/27/23 16:06 Dose: 30 ml Fluoxetine HCl (Fluoxetine Hcl 10 Mg Capsule) 10 mg PO DAILY EDWARD Last Admin: 10/28/23 12:46 Dose: 10 mg Guaifenesin/Dextromethorphan (Guaifenesin Dm 600/30 1 Tab Tab.Er.12h) 1 tab PO BID PRN PRN Reason: Congestion Hydroxyzine HCl (Hydroxyzine Hcl 25 Mg Tablet) 25 mg PO Q4H PRN PRN Reason: Anxiety Last Admin: 10/28/23 11:40 Dose: 25 mg Lorazepam (Lorazepam 1 Mg Tablet) 1 mg PO TID EDWARD Last Admin: 10/28/23 14:45 Dose: 1 mg Magnesium Hydroxide (Milk Of Magnesia 30 Ml Oral.Susp) 30 ml PO DAILY PRN PRN Reason: Constipation Last Admin: 10/14/23 21:58 Dose: 30 ml Methadone HCl (Methadone Hcl 20 Mg/2 Ml Oral.Conc) 140 mg PO DAILY EDWARD Last Admin: 10/28/23 08:47 Dose: 140 mg Olanzapine (Olanzapine 2.5 Mg Tablet) 2.5 mg PO BID PRN PRN Reason: Psychosis Last Admin: 10/28/23 14:48 Dose: 2.5 mg Olanzapine (Olanzapine 5 Mg Tablet) 5 mg PO BID EDWARD Last Admin: 10/28/23 10:27 Dose: 5 mg Omeprazole (Omeprazole 20 Mg Capsule.Dr) 20 mg PO DAILY@0630 EDWARD Last Admin: 10/28/23 10:27 Dose: 20 mg Polyethylene Glycol (Polyethylene Glycol 3350 17 Gm Powd.Pack) 17 gm PO DAILY EDWARD Last Admin: 10/28/23 08:50 Dose: Not Given Prazosin HCl (Prazosin Hcl 1 Mg Capsule) 1 mg PO BEDTIME EDWARD; Protocol Last Admin: 10/27/23 20:28 Dose: 1 mg Trazodone HCl (Trazodone Hcl 50 Mg Tablet) 50 mg PO BEDTIME PRN PRN Reason: Insomnia Last Admin: 10/27/23 20:29 Dose: 50 mg Allergies Allergies Allergy/AdvReac Type Severity Reaction Status Date / Time No Known Allergies Allergy Verified 09/24/23 03:55 Assessment & Plan Assessment & Plan (1) Bipolar disorder with psychotic features: Status: Acute Code(s): F31.9 - Bipolar disorder, unspecified (2) Post traumatic stress disorder (PTSD): Status: Acute Code(s): F43.10 - Post-traumatic stress disorder, unspecified (3) Opioid use disorder, severe, on maintenance therapy: Status: Acute Code(s): F11.20 - Opioid dependence, uncomplicated (4) Catatonic reaction: Status: Acute Code(s): F06.1 - Catatonic disorder due to known physiological condition Plan 33 yo male, hx of opiate use disorder, methadone maintenace, PTSD, currently with psychotic sx. Plan: Collateral contact Maintain methadone dosing tonight Addiction consult Re-started clonidine, prozac, hydroxyzine, trazodone Risperdal trial- ?psychosis, PTSD exacerbation? Pt may need a mood stabilizer, however will re-establish regime, treat psychosis and assess. 09/25/23 trial of zyprexa 5 mg BID prn and if more calming may switch from risperdal to zyprexa 09/25 methadone reduced to 142 mg for 09/26; brief consult with Comprehensice Care Team WILVER specialist in agreement 09/26 methadone decreased to 138mg daily CBC and CMP ordered as pt more confused and WBc high in ED 09/27 DC Risperdal Haldol 10 mg concentrate po bid CBCD, CMP for 09/28 Continue Olanzapine prn 09/29 Change Haldol to 5 mg tid Add lorazepam 0.5 mg tid ?trauma, ?psychosis, ?catatonia, ?substance induced response Supportive care Continue one to one. 09/30: CBC, CMP Decrease Benztropine to 0.5 mg bid Increase Lorazapam to 1 mg tid-?catatonia 10/02: Decrease Haldol to 5 mg bid 10/04: On 10/05 decrease Haldol to 2.5 mg bid prn 10/05 pt presents with catatonic like s/s including staring, delayed response, no complete mutism but speech minimally spontaneous and his attention is poor and appears thought blocking. He seems to have responded positively/partially to schedule ativan, however, caution when increasing ativan as he is also on methadone fairly high dose. So far no s/s of respiratory distress- o2sat on RA>98%. will avoid high potency antipsychotic such as haldol as it will worsen catatonic like symptoms. but will schedule low dose olanzapine to tx underlying psychosis. continue current dose of ativan schedule for today, may consider increasing tomorrow. 10/06 continu tx. improving catatonia. 10/07 continue current medications but will try lowering ativan as catatonia resolving. may increase night time olanzapine to 5mg po qhs, continue 2.5mg po daily. 10/08 catatonia significantly improving. 10/09 may try lowering ativan as catatonia resolved. continue olanzapine. 10/11 continue regime STI testing per pt request. 10/13: Decrease Methadone to 143 mg daily Prazosin 1 mg HS Risperdal 1 mg HS prn for PTSD sx increase and need for grounding. Dulcolax 10 mg HS x1 10/14: Discontinue Prozac Zyprexa 20 mg HS 10/15 Patient seems to have regressed; having a hard time talking, took nurse 45 minutes to get him to take his medication, patient says he is feeling confused, although hard to get words out he reported AH of unnecessary noises and then said I feel like i'm a performer. -Reviewed chart and Discussed with nursing staff who report that this behavior similar to when he was 1st here and treated for catatonic like symptoms with Ativan; sports book writer reviewed and so the patient was on Ativan 1 mg t.i.d. which was tapered; patient's subsequent regression seem to have started around 10/11 or 10/12 -Office Support Assistant restarted Ativan 1 mg and patient quickly perked backup, was organized, talking, Ativan 1 mg q.i.d. for today Will go back to Ativan 1 mg t.i.d. tomorrow Otherwise continue current medication regimen 10/16 patient continues to have catatonic symptoms, confused, standing and staring, hard to get his words out. Each time patient gets an Ativan dose, symptoms temporarily resolved but then return. -seems last time that this cleared up with Ativan so will continue it at Ativan 1 mg q.i.d.; will also lower antipsychotic, Zyprexa to 5 mg q.h.s., down from 10 mg; if does not get better will consider discontinuing antipsychotic. -will also add clonazepam b.i.d. to see if that can help since it is longer acting than Ativan. 10/17- continues symptomatic, no changes today. 10/18: CBCD,CMP Prozac 5 mg a.m DC Olanzapine scheduled dose, change to 2.5 mg bid prn 10/19: DC Prozac, pt refused Refuses retrial of Haldol, which had been effective by hx. Return to Olanzapine 5 mg hs. Continue prn 10/20 : Continue tx. 10/21: Continue tx. 10/22 continue tx plan 10/24 seems little more organized; continue current treatment plan 10/25 continue tx 10/27 Increase Olanzapine to 5 mg bid Prozac 10 mg a.m. Prilosec 20 mg a.m. Plan: Reason for continued inpatient stay Substantial Risk for: rapid decompensation Time Spent With Patient Time: Total time managing care of this patient today ____ minutes.
[2023-10-28 20:00] VITALS: BP 91/55; PULSE 77; TEMP 36.6; O2SAT 97
[2023-10-28] MEDS: traZODone HCL 50 MG TABLET PO (21:49)
[2023-10-29 08:50] VITALS: BP 99/51; PULSE 75; RESP 16; TEMP 36.9; O2SAT 98
[2023-10-29] MEDS: methADONE HCl 20 MG/2 ML ORAL.CONC 140 MG PO (09:19)
[2023-10-29] MEDS: FLUoxetine HCl 10 MG CAPSULE PO (09:19)
[2023-10-29] MEDS: LORazepam 1 MG TABLET PO ×3 (09:19→21:15)
[2023-10-29] MEDS: OLANZapine 5 MG TABLET PO ×2 (09:19→21:15)
[2023-10-29] MEDS: Omeprazole 20 MG CAPSULE.DR PO (09:19)
[2023-10-29] MEDS: Loperamide HCl 2 MG CAPSULE 4 MG PO (09:28)
--- NOTE | 2023-10-29 10:34 | P.PNPSI_ITS ---
Subjective Subjective Date of Service: 10/29/23 Reason For Visit: Psychosis Subjective Notes: Conditional Voluntary Healthcare Proxy: No Guardianship: No Medical Problems Affecting Mental Status: No Interim History: Pt reports feeling good. Discussed discharge for next week and he is in agreement. Reports appropriate sleep, appetite, no current fears or anxiety that is troublesome. Telephone review with pt's mother and Demetria ABRAHAMW. Meds reviewed, doses and rationale. Pt active in group, working on art projects and appears calm, not fearful. No overt psychosis evidenced when we met today. Medication Compliance: Yes Side effects from medications: No Attending Groups: Yes Review of Systems Acute medical concerns: No Medical Review of Systems: unchanged Review of Systems Review of Systems Yes all other systems are reviewed and are negative Mental Status Exam Mental Status Exam Patient Appearance: Appropriate Patient Orientation: Person, Place and Situation Level of Consciousness: Alert Patient Behavior: Talkative and Good Eye Contact Mood Description: Anxious Affect Description: Anxious Patient Cognition Impaired: Yes Ability to Follow Directions: Fair Speech Pattern: Spontaneous Speech and Soft-Spoken Memory Description: Episodic Impaired Hallucinations: None Delusions: Present Perceptual Disturbances: Depersonalization and Derealization Thought Process: Distracted and Rumination Thought Content: positive for Circumstantial Judgement: Fair Diagnostics Vital Signs (24Hr): Vital Signs - 24 hr 10/28/23 20:00 10/29/23 08:50 Temperature 97.8 F 98.4 F Pulse Rate 77 75 Respiratory Rate 16 Blood Pressure 91/55 L 99/51 L Pulse Oximetry 97 98 Oxygen Delivery Method Room Air BMI result Body Mass Index 22.5 Labs 10/20/23 08:11 10/20/23 08:11 Imaging Radiology Impressions: ITS Impressions Chest X-Ray 09/24/23 09:58 IMPRESSION: No acute abnormality. Medications Medications Current Medications Acetaminophen (Acetaminophen 325 Mg Tablet) 650 mg PO Q6H PRN PRN Reason: Headache/Pain Mild Scale (1-3) Last Admin: 10/03/23 16:35 Dose: 650 mg Al Hydroxide/Mg Hydroxide (Magnesium Hydrox/Alum Hydrox 30 Ml Oral.Susp) 30 ml PO Q6H PRN PRN Reason: Heartburn/Nausea Last Admin: 10/27/23 16:06 Dose: 30 ml Fluoxetine HCl (Fluoxetine Hcl 10 Mg Capsule) 10 mg PO DAILY [facility] Last Admin: 06/28/24 09:19 Dose: 10 mg Guaifenesin/Dextromethorphan (Guaifenesin Dm 600/30 1 Tab Tab.Er.12h) 1 tab PO BID PRN PRN Reason: Congestion Hydroxyzine HCl (Hydroxyzine Hcl 25 Mg Tablet) 25 mg PO Q4H PRN PRN Reason: Anxiety Last Admin: 10/28/23 11:40 Dose: 25 mg Loperamide HCl (Loperamide Hcl 2 Mg Capsule) 4 mg PO Q6H PRN PRN Reason: Diarrhea Last Admin: 10/29/23 09:28 Dose: 4 mg Lorazepam (Lorazepam 1 Mg Tablet) 1 mg PO TID [facility] Last Admin: 10/29/23 09:19 Dose: 1 mg Magnesium Hydroxide (Milk Of Magnesia 30 Ml Oral.Susp) 30 ml PO DAILY PRN PRN Reason: Constipation Last Admin: 10/14/23 21:58 Dose: 30 ml Methadone HCl (Methadone Hcl 20 Mg/2 Ml Oral.Conc) 140 mg PO DAILY [facility] Last Admin: 10/29/23 09:19 Dose: 140 mg Olanzapine (Olanzapine 2.5 Mg Tablet) 2.5 mg PO BID PRN PRN Reason: Psychosis Last Admin: 10/28/23 14:48 Dose: 2.5 mg Olanzapine (Olanzapine 5 Mg Tablet) 5 mg PO BID [facility] Last Admin: 10/29/23 09:19 Dose: 5 mg Omeprazole (Omeprazole 20 Mg Capsule.Dr) 20 mg PO DAILY@0630 [facility] Last Admin: 10/29/23 09:19 Dose: 20 mg Polyethylene Glycol (Polyethylene Glycol 3350 17 Gm Powd.Pack) 17 gm PO DAILY [facility] Last Admin: 10/29/23 09:23 Dose: Not Given Prazosin HCl (Prazosin Hcl 1 Mg Capsule) 1 mg PO BEDTIME [facility]; Protocol Last Admin: 10/28/23 21:53 Dose: Not Given Trazodone HCl (Trazodone Hcl 50 Mg Tablet) 50 mg PO BEDTIME PRN PRN Reason: Insomnia Last Admin: 10/28/23 21:49 Dose: 50 mg Allergies Allergies Allergy/AdvReac Type Severity Reaction Status Date / Time No Known Allergies Allergy Verified 09/24/23 03:55 Assessment & Plan Assessment & Plan (1) Bipolar disorder with psychotic features: Status: Acute Code(s): F31.9 - Bipolar disorder, unspecified (2) Post traumatic stress disorder (PTSD): Status: Acute Code(s): F43.10 - Post-traumatic stress disorder, unspecified (3) Opioid use disorder, severe, on maintenance therapy: Status: Acute Code(s): F11.20 - Opioid dependence, uncomplicated (4) Catatonic reaction: Status: Acute Code(s): F06.1 - Catatonic disorder due to known physiological condition Plan 33 yo male, hx of opiate use disorder, methadone maintenace, PTSD, currently with psychotic sx. Plan: Collateral contact Maintain methadone dosing tonight Addiction consult Re-started clonidine, prozac, hydroxyzine, trazodone Risperdal trial- ?psychosis, PTSD exacerbation? Pt may need a mood stabilizer, however will re-establish regime, treat psychosis and assess. 09/25/23 trial of zyprexa 5 mg BID prn and if more calming may switch from risperdal to zyprexa 09/25 methadone reduced to 142 mg for 09/26; brief consult with Comprehensice Care Team WILVER specialist in agreement 09/26 methadone decreased to 138mg daily CBC and CMP ordered as pt more confused and WBc high in ED 09/27 DC Risperdal Haldol 10 mg concentrate po bid CBCD, CMP for 09/28 Continue Olanzapine prn 09/29 Change Haldol to 5 mg tid Add lorazepam 0.5 mg tid ?trauma, ?psychosis, ?catatonia, ?substance induced response Supportive care Continue one to one. 09/30: CBC, CMP Decrease Benztropine to 0.5 mg bid Increase Lorazapam to 1 mg tid-?catatonia 10/02: Decrease Haldol to 5 mg bid 10/04: On 10/05 decrease Haldol to 2.5 mg bid prn 10/05 pt presents with catatonic like s/s including staring, delayed response, no complete mutism but speech minimally spontaneous and his attention is poor and appears thought blocking. He seems to have responded positively/partially to schedule ativan, however, caution when increasing ativan as he is also on methadone fairly high dose. So far no s/s of respiratory distress- o2sat on RA>98%. will avoid high potency antipsychotic such as haldol as it will worsen catatonic like symptoms. but will schedule low dose olanzapine to tx underlying psychosis. continue current dose of ativan schedule for today, may consider increasing tomorrow. 10/06 continu tx. improving catatonia. 10/07 continue current medications but will try lowering ativan as catatonia resolving. may increase night time olanzapine to 5mg po qhs, continue 2.5mg po daily. 10/08 catatonia significantly improving. 10/09 may try lowering ativan as catatonia resolved. continue olanzapine. 10/11 continue regime STI testing per pt request. 10/13: Decrease Methadone to 143 mg daily Prazosin 1 mg HS Risperdal 1 mg HS prn for PTSD sx increase and need for grounding. Dulcolax 10 mg HS x1 10/14: Discontinue Prozac Zyprexa 20 mg HS 10/15 Patient seems to have regressed; having a hard time talking, took nurse 45 minutes to get him to take his medication, patient says he is feeling confused, although hard to get words out he reported AH of unnecessary noises and then said I feel like i'm a performer. -Reviewed chart and Discussed with nursing staff who report that this behavior similar to when he was 1st here and treated for catatonic like symptoms with Ativan; narrative writer reviewed and so the patient was on Ativan 1 mg t.i.d. which was tapered; patient's subsequent regression seem to have started around 10/11 or 10/12 -Company Tanker Truck Driver restarted Ativan 1 mg and patient quickly perked backup, was organized, talking, Ativan 1 mg q.i.d. for today Will go back to Ativan 1 mg t.i.d. tomorrow Otherwise continue current medication regimen 10/16 patient continues to have catatonic symptoms, confused, standing and staring, hard to get his words out. Each time patient gets an Ativan dose, symptoms temporarily resolved but then return. -seems last time that this cleared up with Ativan so will continue it at Ativan 1 mg q.i.d.; will also lower antipsychotic, Zyprexa to 5 mg q.h.s., down from 10 mg; if does not get better will consider discontinuing antipsychotic. -will also add clonazepam b.i.d. to see if that can help since it is longer acting than Ativan. 10/17- continues symptomatic, no changes today. 10/18: CBCD,CMP Prozac 5 mg a.m DC Olanzapine scheduled dose, change to 2.5 mg bid prn 10/19: DC Prozac, pt refused Refuses retrial of Haldol, which had been effective by hx. Return to Olanzapine 5 mg hs. Continue prn 10/20 : Continue tx. 10/21: Continue tx. 10/22 continue tx plan 10/24 seems little more organized; continue current treatment plan 10/25 continue tx 10/27 Increase Olanzapine to 5 mg bid Prozac 10 mg a.m. Prilosec 20 mg a.m. 10/28 Continue tx Plan: Reason for continued inpatient stay Substantial Risk for: rapid decompensation Time Spent With Patient Time: Total time managing care of this patient today ____ minutes.
[2023-10-29] MEDS: hydrOXYzine HCL 25 MG TABLET PO (12:17)
[2023-10-29] MEDS: Prazosin HCL 1 MG CAPSULE PO (21:15)
[2023-10-30 08:00] VITALS: BP 131/85; PULSE 115; TEMP 36.4; O2SAT 98
[2023-10-30] MEDS: LORazepam 1 MG TABLET PO ×3 (08:29→20:54)
[2023-10-30] MEDS: FLUoxetine HCl 10 MG CAPSULE PO (08:29)
[2023-10-30] MEDS: OLANZapine 5 MG TABLET PO ×2 (08:29→20:54)
[2023-10-30] MEDS: methADONE HCl 20 MG/2 ML ORAL.CONC 140 MG PO (08:29)
--- NOTE | 2023-10-30 10:08 | HO.PSYCHPN ---
Subjective Subjective Date of Service: 10/30/23 Reason For Visit: Psychosis Interim History: Pt reports feeling good. Complains of feeling hyperacitve and says he has always been this way. Acknowledges overall improved and has been calm, engaged and cooperative in the milieu and with staff. Likely discharge for next week and he is in agreement. Reports appropriate sleep, appetite, no current fears or anxiety that is troublesome. No overt psychosis evidenced when we met today. Diarrhea improved. Review of Systems Review of Systems Denies Yes all other systems are reviewed and are negative and Unobtainable due to mental status Gastrointestinal: Reports nausea and Reports vomiting Reports confusion Psychiatric: Reports confusion and Reports depression Mental Status Exam Mental Status Exam Narrative: Pt is alert and oriented; behavior is more organized; cooperative and calm; patient is not in distress; dressed in casual attire with adequate hygiene; mood is described as a little better and affect congruent; eye contact appropriate; Speech is spontaneous, normal volume, rate and prosody; no speech latency present today; some psychomotor retardation present; thought process oriented, concrete; Thought content is on treatment and no overt delusional thoughts expressed to this communications writer; denies any SI/HI. Intermittently, appears internally preoccupied Patients insight and judgment impaired but seems to be improving Patient Appearance: Appropriate Patient Orientation: Person, Place and Situation Level of Consciousness: Alert Patient Behavior: Talkative and Good Eye Contact Mood Description: Anxious Affect Description: Anxious Patient Cognition Impaired: Yes Ability to Follow Directions: Fair Speech Pattern: Spontaneous Speech and Soft-Spoken Memory Description: Episodic Impaired Diagnostics Vital Signs (24Hr): Vital Signs - 24 hr 10/30/23 08:00 Temperature 97.5 F Pulse Rate 115 H Blood Pressure 131/85 Pulse Oximetry 98 Oxygen Delivery Method Room Air BMI result Body Mass Index 22.5 Labs 10/20/23 08:11 10/20/23 08:11 Imaging Radiology Impressions: ITS Impressions Chest X-Ray 09/24/23 09:58 IMPRESSION: No acute abnormality. Medications Medications Current Medications Acetaminophen (Acetaminophen 325 Mg Tablet) 650 mg PO Q6H PRN PRN Reason: Headache/Pain Mild Scale (1-3) Last Admin: 10/03/23 16:35 Dose: 650 mg Al Hydroxide/Mg Hydroxide (Magnesium Hydrox/Alum Hydrox 30 Ml Oral.Susp) 30 ml PO Q6H PRN PRN Reason: Heartburn/Nausea Last Admin: 10/27/23 16:06 Dose: 30 ml Fluoxetine HCl (Fluoxetine Hcl 10 Mg Capsule) 10 mg PO DAILY [facility] Last Admin: 10/30/23 08:29 Dose: 10 mg Guaifenesin/Dextromethorphan (Guaifenesin Dm 600/30 1 Tab Tab.Er.12h) 1 tab PO BID PRN PRN Reason: Congestion Hydroxyzine HCl (Hydroxyzine Hcl 25 Mg Tablet) 25 mg PO Q4H PRN PRN Reason: Anxiety Last Admin: 10/29/23 12:17 Dose: 25 mg Loperamide HCl (Loperamide Hcl 2 Mg Capsule) 4 mg PO Q6H PRN PRN Reason: Diarrhea Last Admin: 10/29/23 09:28 Dose: 4 mg Lorazepam (Lorazepam 1 Mg Tablet) 1 mg PO TID [facility] Last Admin: 10/30/23 08:29 Dose: 1 mg Magnesium Hydroxide (Milk Of Magnesia 30 Ml Oral.Susp) 30 ml PO DAILY PRN PRN Reason: Constipation Last Admin: 10/14/23 21:58 Dose: 30 ml Methadone HCl (Methadone Hcl 20 Mg/2 Ml Oral.Conc) 140 mg PO DAILY [facility] Last Admin: 10/30/23 08:29 Dose: 140 mg Olanzapine (Olanzapine 2.5 Mg Tablet) 2.5 mg PO BID PRN PRN Reason: Psychosis Last Admin: 10/28/23 14:48 Dose: 2.5 mg Olanzapine (Olanzapine 5 Mg Tablet) 5 mg PO BID [facility] Last Admin: 10/30/23 08:29 Dose: 5 mg Omeprazole (Omeprazole 20 Mg Capsule.Dr) 20 mg PO DAILY@0630 [facility] Last Admin: 10/30/23 06:17 Dose: Not Given Polyethylene Glycol (Polyethylene Glycol 3350 17 Gm Powd.Pack) 17 gm PO DAILY [facility] Last Admin: 10/29/23 09:23 Dose: Not Given Prazosin HCl (Prazosin Hcl 1 Mg Capsule) 1 mg PO BEDTIME [facility]; Protocol Last Admin: 10/29/23 21:15 Dose: 1 mg Trazodone HCl (Trazodone Hcl 50 Mg Tablet) 50 mg PO BEDTIME PRN PRN Reason: Insomnia Last Admin: 10/28/23 21:49 Dose: 50 mg Allergies Allergies Allergy/AdvReac Type Severity Reaction Status Date / Time No Known Allergies Allergy Verified 09/24/23 03:55 Assessment & Plan Assessment & Plan (1) Bipolar disorder with psychotic features: Status: Acute Code(s): F31.9 - Bipolar disorder, unspecified (2) Post traumatic stress disorder (PTSD): Status: Acute Code(s): F43.10 - Post-traumatic stress disorder, unspecified (3) Opioid use disorder, severe, on maintenance therapy: Status: Acute Code(s): F11.20 - Opioid dependence, uncomplicated (4) Catatonic reaction: Status: Acute Code(s): F06.1 - Catatonic disorder due to known physiological condition Plan 33 yo male, hx of opiate use disorder, methadone maintenace, PTSD, currently with psychotic sx. Plan: Collateral contact Maintain methadone dosing tonight Addiction consult Re-started clonidine, prozac, hydroxyzine, trazodone Risperdal trial- ?psychosis, PTSD exacerbation? Pt may need a mood stabilizer, however will re-establish regime, treat psychosis and assess. 09/25/23 trial of zyprexa 5 mg BID prn and if more calming may switch from risperdal to zyprexa 09/25 methadone reduced to 142 mg for 09/26; brief consult with Comprehensice Care Team [facility]ILVER specialist in agreement 09/26 methadone decreased to 138mg daily CBC and CMP ordered as pt more confused and WBc high in ED 09/27 DC Risperdal Haldol 10 mg concentrate po bid CBCD, CMP for 09/28 Continue Olanzapine prn 09/29 Change Haldol to 5 mg tid Add lorazepam 0.5 mg tid ?trauma, ?psychosis, ?catatonia, ?substance induced response Supportive care Continue one to one. 09/30: CBC, CMP Decrease Benztropine to 0.5 mg bid Increase Lorazapam to 1 mg tid-?catatonia 10/02: Decrease Haldol to 5 mg bid 10/04: On 10/05 decrease Haldol to 2.5 mg bid prn 10/05 pt presents with catatonic like s/s including staring, delayed response, no complete mutism but speech minimally spontaneous and his attention is poor and appears thought blocking. He seems to have responded positively/partially to schedule ativan, however, caution when increasing ativan as he is also on methadone fairly high dose. So far no s/s of respiratory distress- o2sat on RA>98%. will avoid high potency antipsychotic such as haldol as it will worsen catatonic like symptoms. but will schedule low dose olanzapine to tx underlying psychosis. continue current dose of ativan schedule for today, may consider increasing tomorrow. 10/06 continu tx. improving catatonia. 10/07 continue current medications but will try lowering ativan as catatonia resolving. may increase night time olanzapine to 5mg po qhs, continue 2.5mg po daily. 10/08 catatonia significantly improving. 10/09 may try lowering ativan as catatonia resolved. continue olanzapine. 10/11 continue regime STI testing per pt request. 10/13: Decrease Methadone to 143 mg daily Prazosin 1 mg HS Risperdal 1 mg HS prn for PTSD sx increase and need for grounding. Dulcolax 10 mg HS x1 10/14: Discontinue Prozac Zyprexa 20 mg HS 10/15 Patient seems to have regressed; having a hard time talking, took nurse 45 minutes to get him to take his medication, patient says he is feeling confused, although hard to get words out he reported AH of unnecessary noises and then said I feel like i'm a performer. -Reviewed chart and Discussed with nursing staff who report that this behavior similar to when he was 1st here and treated for catatonic like symptoms with Ativan; communications writer reviewed and so the patient was on Ativan 1 mg t.i.d. which was tapered; patient's subsequent regression seem to have started around 10/11 or 10/12 -Band Top Maker restarted Ativan 1 mg and patient quickly perked backup, was organized, talking, Ativan 1 mg q.i.d. for today Will go back to Ativan 1 mg t.i.d. tomorrow Otherwise continue current medication regimen 10/16 patient continues to have catatonic symptoms, confused, standing and staring, hard to get his words out. Each time patient gets an Ativan dose, symptoms temporarily resolved but then return. -seems last time that this cleared up with Ativan so will continue it at Ativan 1 mg q.i.d.; will also lower antipsychotic, Zyprexa to 5 mg q.h.s., down from 10 mg; if does not get better will consider discontinuing antipsychotic. -will also add clonazepam b.i.d. to see if that can help since it is longer acting than Ativan. 10/17- continues symptomatic, no changes today. 10/18: CBCD,CMP Prozac 5 mg a.m DC Olanzapine scheduled dose, change to 2.5 mg bid prn 10/19: DC Prozac, pt refused Refuses retrial of Haldol, which had been effective by hx. Return to Olanzapine 5 mg hs. Continue prn 10/20 : Continue tx. 10/21: Continue tx. 10/22 continue tx plan 10/24 seems little more organized; continue current treatment plan 10/25 continue tx 10/27 Increase Olanzapine to 5 mg bid Prozac 10 mg a.m. Prilosec 20 mg a.m. 10/28 Continue tx 10/29: continue current management and treatment plan. Plan: Reason for continued inpatient stay Substantial Risk for: inability to function, rapid decompensation and med/psych decompensation Time Spent With Patient Time: Total time managing care of this patient today ____ minutes.
[2023-10-30] MEDS: hydrOXYzine HCL 25 MG TABLET PO (10:38)
[2023-10-30] MEDS: OLANZapine 2.5 MG TABLET PO (11:13)
[2023-10-30] MEDS: Omeprazole 20 MG CAPSULE.DR PO (14:35)
[2023-10-30 20:00] VITALS: BP 112/55; PULSE 76; RESP 18; TEMP 36.4; O2SAT 76
[2023-10-30] MEDS: Prazosin HCL 1 MG CAPSULE PO (20:53)
[2023-10-30] MEDS: traZODone HCL 50 MG TABLET PO (20:54)
[2023-10-31 08:00] VITALS: BP 116/67; PULSE 82; TEMP 36.5; O2SAT 96
[2023-10-31] MEDS: OLANZapine 5 MG TABLET PO ×2 (08:22→21:16)
[2023-10-31] MEDS: methADONE HCl 20 MG/2 ML ORAL.CONC 140 MG PO (08:23)
[2023-10-31] MEDS: LORazepam 1 MG TABLET PO ×3 (08:23→21:10)
[2023-10-31] MEDS: Omeprazole 20 MG CAPSULE.DR PO (08:23)
[2023-10-31] MEDS: FLUoxetine HCl 10 MG CAPSULE PO (08:25)
[2023-10-31] MEDS: hydrOXYzine HCL 25 MG TABLET PO (11:22)
[2023-10-31] MEDS: Magnesium Hydrox/Alum Hydrox 30 ML ORAL.SUSP PO ×2 (15:25→22:55)
--- NOTE | 2023-10-31 17:15 | P.PNPSI_ITS ---
Subjective Subjective Date of Service: 10/31/23 Reason For Visit: Psychosis Interim History: Pt reports feeling good. Improved. Feels good. Has been calm, engaged and cooperative in the milieu and with staff. Likely discharge for next week and he is in agreement. Reports appropriate sleep, appetite, no current fears or anxiety that is troublesome. No overt psychosis evidenced when we met today. No SI/HI/AVH Review of Systems Review of Systems Denies Yes all other systems are reviewed and are negative and Unobtainable due to mental status Gastrointestinal: Reports nausea and Reports vomiting Reports confusion Psychiatric: Reports confusion and Reports depression Mental Status Exam Mental Status Exam Narrative: Pt is alert and oriented; behavior is more organized; cooperative and calm; patient is not in distress; dressed in casual attire with adequate hygiene; mood is described as a little better and affect congruent; eye contact appropriate; Speech is spontaneous, normal volume, rate and prosody; no speech latency present today; some psychomotor retardation present; thought process oriented, concrete; Thought content is on treatment and no overt delusional thoughts expressed to this senior copywriter; denies any SI/HI. Intermittently, appears internally preoccupied Patients insight and judgment impaired but seems to be improving Patient Appearance: Appropriate Patient Orientation: Person, Place and Situation Level of Consciousness: Alert Patient Behavior: Talkative and Good Eye Contact Mood Description: Anxious Affect Description: Anxious Patient Cognition Impaired: Yes Ability to Follow Directions: Fair Speech Pattern: Spontaneous Speech and Soft-Spoken Memory Description: Episodic Impaired Diagnostics Vital Signs (24Hr): Vital Signs - 24 hr 10/30/23 20:00 10/31/23 08:00 Temperature 97.6 F 97.7 F Pulse Rate 76 82 Respiratory Rate 18 Blood Pressure 112/55 L 116/67 Pulse Oximetry 76 L 96 Oxygen Delivery Method Room Air Room Air BMI result Body Mass Index 22.5 Labs 10/20/23 08:11 10/20/23 08:11 Imaging Radiology Impressions: ITS Impressions Chest X-Ray 09/24/23 09:58 IMPRESSION: No acute abnormality. Medications Medications Current Medications Acetaminophen (Acetaminophen 325 Mg Tablet) 650 mg PO Q6H PRN PRN Reason: Headache/Pain Mild Scale (1-3) Last Admin: 10/03/23 16:35 Dose: 650 mg Al Hydroxide/Mg Hydroxide (Magnesium Hydrox/Alum Hydrox 30 Ml Oral.Susp) 30 ml PO Q6H PRN PRN Reason: Heartburn/Nausea Last Admin: 10/31/23 15:25 Dose: 30 ml Fluoxetine HCl (Fluoxetine Hcl 10 Mg Capsule) 10 mg PO DAILY [facility] Last Admin: 10/31/23 08:25 Dose: 10 mg Guaifenesin/Dextromethorphan (Guaifenesin Dm 600/30 1 Tab Tab.Er.12h) 1 tab PO BID PRN PRN Reason: Congestion Hydroxyzine HCl (Hydroxyzine Hcl 25 Mg Tablet) 25 mg PO Q4H PRN PRN Reason: Anxiety Last Admin: 10/31/23 11:22 Dose: 25 mg Loperamide HCl (Loperamide Hcl 2 Mg Capsule) 4 mg PO Q6H PRN PRN Reason: Diarrhea Last Admin: 10/29/23 09:28 Dose: 4 mg Lorazepam (Lorazepam 1 Mg Tablet) 1 mg PO TID [facility] Last Admin: 10/31/23 14:10 Dose: 1 mg Magnesium Hydroxide (Milk Of Magnesia 30 Ml Oral.Susp) 30 ml PO DAILY PRN PRN Reason: Constipation Last Admin: 10/14/23 21:58 Dose: 30 ml Methadone HCl (Methadone Hcl 20 Mg/2 Ml Oral.Conc) 140 mg PO DAILY [facility] Last Admin: 10/31/23 08:23 Dose: 140 mg Olanzapine (Olanzapine 2.5 Mg Tablet) 2.5 mg PO BID PRN PRN Reason: Psychosis Last Admin: 10/30/23 11:13 Dose: 2.5 mg Olanzapine (Olanzapine 5 Mg Tablet) 5 mg PO BID [facility] Last Admin: 10/31/23 08:22 Dose: 5 mg Omeprazole (Omeprazole 20 Mg Capsule.Dr) 20 mg PO DAILY@30 [facility] Last Admin: 10/31/23 08:23 Dose: 20 mg Polyethylene Glycol (Polyethylene Glycol 3350 17 Gm Powd.Pack) 17 gm PO DAILY [facility] Last Admin: 10/31/23 13:02 Dose: Not Given Prazosin HCl (Prazosin Hcl 1 Mg Capsule) 1 mg PO BEDTIME [facility]; Protocol Last Admin: 10/30/23 20:53 Dose: 1 mg Trazodone HCl (Trazodone Hcl 50 Mg Tablet) 50 mg PO BEDTIME PRN PRN Reason: Insomnia Last Admin: 10/30/23 20:54 Dose: 50 mg Allergies Allergies Allergy/AdvReac Type Severity Reaction Status Date / Time No Known Allergies Allergy Verified 09/24/23 03:55 Assessment & Plan Assessment & Plan (1) Bipolar disorder with psychotic features: Status: Acute Code(s): F31.9 - Bipolar disorder, unspecified (2) Post traumatic stress disorder (PTSD): Status: Acute Code(s): F43.10 - Post-traumatic stress disorder, unspecified (3) Opioid use disorder, severe, on maintenance therapy: Status: Acute Code(s): F11.20 - Opioid dependence, uncomplicated (4) Catatonic reaction: Status: Acute Code(s): F06.1 - Catatonic disorder due to known physiological condition Plan 33 yo male, hx of opiate use disorder, methadone maintenace, PTSD, currently with psychotic sx. Plan: Collateral contact Maintain methadone dosing tonight Addiction consult Re-started clonidine, prozac, hydroxyzine, trazodone Risperdal trial- ?psychosis, PTSD exacerbation? Pt may need a mood stabilizer, however will re-establish regime, treat psychosis and assess. 09/25/23 trial of zyprexa 5 mg BID prn and if more calming may switch from risperdal to zyprexa 09/25 methadone reduced to 142 mg for 09/26; brief consult with Comprehensice Care Team WILVER specialist in agreement 09/26 methadone decreased to 138mg daily CBC and CMP ordered as pt more confused and WBc high in ED 09/27 DC Risperdal Haldol 10 mg concentrate po bid CBCD, CMP for 09/28 Continue Olanzapine prn 09/29 Change Haldol to 5 mg tid Add lorazepam 0.5 mg tid ?trauma, ?psychosis, ?catatonia, ?substance induced response Supportive care Continue one to one. 09/30: CBC, CMP Decrease Benztropine to 0.5 mg bid Increase Lorazapam to 1 mg tid-?catatonia 10/02: Decrease Haldol to 5 mg bid 10/04: On 10/05 decrease Haldol to 2.5 mg bid prn 10/05 pt presents with catatonic like s/s including staring, delayed response, no complete mutism but speech minimally spontaneous and his attention is poor and appears thought blocking. He seems to have responded positively/partially to schedule ativan, however, caution when increasing ativan as he is also on methadone fairly high dose. So far no s/s of respiratory distress- o2sat on RA>98%. will avoid high potency antipsychotic such as haldol as it will worsen catatonic like symptoms. but will schedule low dose olanzapine to tx underlying psychosis. continue current dose of ativan schedule for today, may consider increasing tomorrow. 10/06 continu tx. improving catatonia. 10/07 continue current medications but will try lowering ativan as catatonia resolving. may increase night time olanzapine to 5mg po qhs, continue 2.5mg po daily. 10/08 catatonia significantly improving. 10/09 may try lowering ativan as catatonia resolved. continue olanzapine. 10/11 continue regime STI testing per pt request. 10/13: Decrease Methadone to 143 mg daily Prazosin 1 mg HS Risperdal 1 mg HS prn for PTSD sx increase and need for grounding. Dulcolax 10 mg HS x1 10/14: Discontinue Prozac Zyprexa 20 mg HS 10/15 Patient seems to have regressed; having a hard time talking, took nurse 45 minutes to get him to take his medication, patient says he is feeling confused, although hard to get words out he reported AH of unnecessary noises and then said I feel like i'm a performer. -Reviewed chart and Discussed with nursing staff who report that this behavior similar to when he was 1st here and treated for catatonic like symptoms with Ativan; senior copywriter reviewed and so the patient was on Ativan 1 mg t.i.d. which was tapered; patient's subsequent regression seem to have started around 10/11 or 10/12 -Logistics Manager restarted Ativan 1 mg and patient quickly perked backup, was organized, talking, Ativan 1 mg q.i.d. for today Will go back to Ativan 1 mg t.i.d. tomorrow Otherwise continue current medication regimen 10/16 patient continues to have catatonic symptoms, confused, standing and staring, hard to get his words out. Each time patient gets an Ativan dose, symptoms temporarily resolved but then return. -seems last time that this cleared up with Ativan so will continue it at Ativan 1 mg q.i.d.; will also lower antipsychotic, Zyprexa to 5 mg q.h.s., down from 10 mg; if does not get better will consider discontinuing antipsychotic. -will also add clonazepam b.i.d. to see if that can help since it is longer acting than Ativan. 10/17- continues symptomatic, no changes today. 10/18: CBCD,CMP Prozac 5 mg a.m DC Olanzapine scheduled dose, change to 2.5 mg bid prn 10/19: DC Prozac, pt refused Refuses retrial of Haldol, which had been effective by hx. Return to Olanzapine 5 mg hs. Continue prn 10/20 : Continue tx. 10/21: Continue tx. 10/22 continue tx plan 10/24 seems little more organized; continue current treatment plan 10/25 continue tx 10/27 Increase Olanzapine to 5 mg bid Prozac 10 mg a.m. Prilosec 20 mg a.m. 10/28 Continue tx 10/29: continue current management and treatment plan. 10/30: continue current management and treatment plan. Plan: Reason for continued inpatient stay Substantial Risk for: inability to function and rapid decompensation Time Spent With Patient Time: Total time managing care of this patient today ____ minutes.
[2023-10-31 20:00] VITALS: BP 167/76; PULSE 92; TEMP 36.8; O2SAT 96
[2023-10-31] MEDS: Prazosin HCL 1 MG CAPSULE PO (21:14)
[2023-10-31] MEDS: traZODone HCL 50 MG TABLET PO (21:16)
[2023-11-01 08:00] VITALS: BP 162/95; PULSE 129; RESP 19; TEMP 36.8; O2SAT 97
[2023-11-01] MEDS: methADONE HCl 20 MG/2 ML ORAL.CONC 140 MG PO (08:41)
[2023-11-01] MEDS: Omeprazole 20 MG CAPSULE.DR PO ×2 (08:42→08:43)
[2023-11-01] MEDS: OLANZapine 5 MG TABLET PO ×2 (08:42→20:40)
[2023-11-01] MEDS: FLUoxetine HCl 10 MG CAPSULE PO (08:42)
[2023-11-01] MEDS: LORazepam 1 MG TABLET PO ×3 (08:42→20:40)
[2023-11-01] MEDS: polyethylene glycoL 3350 17 GM POWD.PACK PO (08:43)
--- NOTE | 2023-11-01 16:27 | HO.PSYCHPN ---
Subjective Subjective Date of Service: 11/01/23 Reason For Visit: Psychosis Subjective Notes: Conditional Voluntary Healthcare Proxy: No Guardianship: No Medical Problems Affecting Mental Status: No Interim History: Reports he is feeling well. I have had a few emotional attacks before I took meds and I still have anxiety and depression, but I am happy and have a positive attitude. Reports thinking others were talking about him on Wednesday evening-this usually occurs at night when his feeling of insecurity is stronger and he reports he ends up not being able to get to sleep. Team reports 8 hours of sleep last night. Reports he will be ready to discharge this week. Family reports they can come in from [place] to pick him up on Wednesday per team. Well engaged in discussion, good eye contact, no evidence of response to internal stimuli when seen today. Medication Compliance: Yes Side effects from medications: No Attending Groups: Yes Review of Systems Acute medical concerns: No Medical Review of Systems: unchanged Review of Systems Review of Systems Yes all other systems are reviewed and are negative Mental Status Exam Mental Status Exam Patient Appearance: Appropriate Patient Orientation: Person, Place, Time and Situation Level of Consciousness: Alert Patient Behavior: Talkative and Good Eye Contact Mood Description: Apprehensive Affect Description: Apprehensive Patient Cognition Impaired: No Ability to Follow Directions: Good Speech Pattern: Spontaneous Speech Memory Description: Episodic Impaired Hallucinations: None Delusions: Not Present Thought Process: Distracted Thought Content: positive for Perseveration Depressive Symptoms: Increased Anxiety Judgement: Fair Diagnostics Vital Signs (24Hr): Vital Signs - 24 hr 10/31/23 20:00 11/01/23 08:00 Temperature 98.2 F 98.2 F Pulse Rate 92 129 H Respiratory Rate 19 Blood Pressure 167/76 H 162/95 H Pulse Oximetry 96 97 Oxygen Delivery Method Room Air Room Air BMI result Body Mass Index 22.5 Labs 10/20/23 08:11 10/20/23 08:11 Imaging Radiology Impressions: ITS Impressions Chest X-Ray 09/24/23 09:58 IMPRESSION: No acute abnormality. Medications Medications Current Medications Acetaminophen (Acetaminophen 325 Mg Tablet) 650 mg PO Q6H PRN PRN Reason: Headache/Pain Mild Scale (1-3) Last Admin: 10/03/23 16:35 Dose: 650 mg Al Hydroxide/Mg Hydroxide (Magnesium Hydrox/Alum Hydrox 30 Ml Oral.Susp) 30 ml PO Q6H PRN PRN Reason: Heartburn/Nausea Last Admin: 10/31/23 22:55 Dose: 30 ml Fluoxetine HCl (Fluoxetine Hcl 10 Mg Capsule) 10 mg PO DAILY [facility] Last Admin: 11/01/23 08:42 Dose: 10 mg Guaifenesin/Dextromethorphan (Guaifenesin Dm 600/30 1 Tab Tab.Er.12h) 1 tab PO BID PRN PRN Reason: Congestion Hydroxyzine HCl (Hydroxyzine Hcl 25 Mg Tablet) 25 mg PO Q4H PRN PRN Reason: Anxiety Last Admin: 10/31/23 11:22 Dose: 25 mg Loperamide HCl (Loperamide Hcl 2 Mg Capsule) 4 mg PO Q6H PRN PRN Reason: Diarrhea Last Admin: 10/29/23 09:28 Dose: 4 mg Lorazepam (Lorazepam 1 Mg Tablet) 1 mg PO TID [facility] Last Admin: 11/01/23 14:12 Dose: 1 mg Magnesium Hydroxide (Milk Of Magnesia 30 Ml Oral.Susp) 30 ml PO DAILY PRN PRN Reason: Constipation Last Admin: 10/14/23 21:58 Dose: 30 ml Methadone HCl (Methadone Hcl 20 Mg/2 Ml Oral.Conc) 140 mg PO DAILY [facility] Last Admin: 11/01/23 08:41 Dose: 140 mg Olanzapine (Olanzapine 2.5 Mg Tablet) 2.5 mg PO BID PRN PRN Reason: Psychosis Last Admin: 10/30/23 11:13 Dose: 2.5 mg Olanzapine (Olanzapine 5 Mg Tablet) 5 mg PO BID [facility] Last Admin: 11/01/23 08:42 Dose: 5 mg Omeprazole (Omeprazole 20 Mg Capsule.Dr) 20 mg PO DAILY@0630 [facility] Last Admin: 11/01/23 08:43 Dose: 20 mg Polyethylene Glycol (Polyethylene Glycol 3350 17 Gm Powd.Pack) 17 gm PO DAILY [facility] Last Admin: 11/01/23 08:43 Dose: 17 gm Prazosin HCl (Prazosin Hcl 1 Mg Capsule) 1 mg PO BEDTIME [facility]; Protocol Last Admin: 10/31/23 21:14 Dose: 1 mg Trazodone HCl (Trazodone Hcl 50 Mg Tablet) 50 mg PO BEDTIME PRN PRN Reason: Insomnia Last Admin: 10/31/23 21:16 Dose: 50 mg Allergies Allergies Allergy/AdvReac Type Severity Reaction Status Date / Time No Known Allergies Allergy Verified 09/24/23 03:55 Assessment & Plan Assessment & Plan (1) Bipolar disorder with psychotic features: Status: Acute Code(s): F31.9 - Bipolar disorder, unspecified (2) Post traumatic stress disorder (PTSD): Status: Acute Code(s): F43.10 - Post-traumatic stress disorder, unspecified (3) Opioid use disorder, severe, on maintenance therapy: Status: Acute Code(s): F11.20 - Opioid dependence, uncomplicated (4) Catatonic reaction: Status: Acute Code(s): F06.1 - Catatonic disorder due to known physiological condition Plan 33 yo male, hx of opiate use disorder, methadone maintenace, PTSD, currently with psychotic sx. Plan: Collateral contact Maintain methadone dosing tonight Addiction consult Re-started clonidine, prozac, hydroxyzine, trazodone Risperdal trial- ?psychosis, PTSD exacerbation? Pt may need a mood stabilizer, however will re-establish regime, treat psychosis and assess. 09/25/23 trial of zyprexa 5 mg BID prn and if more calming may switch from risperdal to zyprexa 09/25 methadone reduced to 142 mg for 09/26; brief consult with Comprehensice Care Team WILVER specialist in agreement 09/26 methadone decreased to 138mg daily CBC and CMP ordered as pt more confused and WBc high in ED 09/27 DC Risperdal Haldol 10 mg concentrate po bid [facility], CMP for 09/28 Continue Olanzapine prn 09/29 Change Haldol to 5 mg tid Add lorazepam 0.5 mg tid ?trauma, ?psychosis, ?catatonia, ?substance induced response Supportive care Continue one to one. 09/30: CBC, CMP Decrease Benztropine to 0.5 mg bid Increase Lorazapam to 1 mg tid-?catatonia 10/02: Decrease Haldol to 5 mg bid 10/04: On 10/05 decrease Haldol to 2.5 mg bid prn 10/05 pt presents with catatonic like s/s including staring, delayed response, no complete mutism but speech minimally spontaneous and his attention is poor and appears thought blocking. He seems to have responded positively/partially to schedule ativan, however, caution when increasing ativan as he is also on methadone fairly high dose. So far no s/s of respiratory distress- o2sat on RA>98%. will avoid high potency antipsychotic such as haldol as it will worsen catatonic like symptoms. but will schedule low dose olanzapine to tx underlying psychosis. continue current dose of ativan schedule for today, may consider increasing tomorrow. 10/06 continu tx. improving catatonia. 10/07 continue current medications but will try lowering ativan as catatonia resolving. may increase night time olanzapine to 5mg po qhs, continue 2.5mg po daily. 10/08 catatonia significantly improving. 10/09 may try lowering ativan as catatonia resolved. continue olanzapine. 10/11 continue regime STI testing per pt request. 10/13: Decrease Methadone to 143 mg daily Prazosin 1 mg HS Risperdal 1 mg HS prn for PTSD sx increase and need for grounding. Dulcolax 10 mg HS x1 10/14: Discontinue Prozac Zyprexa 20 mg HS 10/15 Patient seems to have regressed; having a hard time talking, took nurse 45 minutes to get him to take his medication, patient says he is feeling confused, although hard to get words out he reported AH of unnecessary noises and then said I feel like i'm a performer. -Reviewed chart and Discussed with nursing staff who report that this behavior similar to when he was 1st here and treated for catatonic like symptoms with Ativan; proposal manager writer reviewed and so the patient was on Ativan 1 mg t.i.d. which was tapered; patient's subsequent regression seem to have started around 10/11 or 10/12 -Asset Protection Representative restarted Ativan 1 mg and patient quickly perked backup, was organized, talking, Ativan 1 mg q.i.d. for today Will go back to Ativan 1 mg t.i.d. tomorrow Otherwise continue current medication regimen 10/16 patient continues to have catatonic symptoms, confused, standing and staring, hard to get his words out. Each time patient gets an Ativan dose, symptoms temporarily resolved but then return. -seems last time that this cleared up with Ativan so will continue it at Ativan 1 mg q.i.d.; will also lower antipsychotic, Zyprexa to 5 mg q.h.s., down from 10 mg; if does not get better will consider discontinuing antipsychotic. -will also add clonazepam b.i.d. to see if that can help since it is longer acting than Ativan. 10/17- continues symptomatic, no changes today. 10/18: CBCD,CMP Prozac 5 mg a.m DC Olanzapine scheduled dose, change to 2.5 mg bid prn 10/19: DC Prozac, pt refused Refuses retrial of Haldol, which had been effective by hx. Return to Olanzapine 5 mg hs. Continue prn 10/20 : Continue tx. 10/21: Continue tx. 10/22 continue tx plan 10/24 seems little more organized; continue current treatment plan 10/25 continue tx 10/27 Increase Olanzapine to 5 mg bid Prozac 10 mg a.m. Prilosec 20 mg a.m. 10/28 Continue tx 10/29: continue current management and treatment plan. 10/30: continue current management and treatment plan. 10/31: Continue current regime/plan. Plan: Patient educated on: medication risk/benefits Reason for continued inpatient stay Substantial Risk for: rapid decompensation Time Spent With Patient Time: Total time managing care of this patient today ____ minutes.
[2023-11-01 20:00] VITALS: BP 116/66; PULSE 98; RESP 18; TEMP 36.4; O2SAT 96
[2023-11-01] MEDS: Prazosin HCL 1 MG CAPSULE PO (20:40)
[2023-11-01] MEDS: traZODone HCL 50 MG TABLET PO (20:41)
[2023-11-01] MEDS: guaiFENesin DM 600/30 1 TAB TAB.ER.12H PO (21:26)
[2023-11-01] MEDS: Magnesium Hydrox/Alum Hydrox 30 ML ORAL.SUSP PO (21:26)
[2023-11-02 08:00] VITALS: BP 123/78; PULSE 96; RESP 17; TEMP 36.4; O2SAT 96
[2023-11-02] MEDS: methADONE HCl 20 MG/2 ML ORAL.CONC 140 MG PO (08:47)
[2023-11-02] MEDS: polyethylene glycoL 3350 17 GM POWD.PACK PO (08:47)
[2023-11-02] MEDS: FLUoxetine HCl 10 MG CAPSULE PO (08:48)
[2023-11-02] MEDS: LORazepam 1 MG TABLET PO ×3 (08:49→21:14)
[2023-11-02] MEDS: OLANZapine 5 MG TABLET PO ×2 (08:49→21:14)
[2023-11-02] MEDS: hydrOXYzine HCL 25 MG TABLET PO (12:44)
--- NOTE | 2023-11-02 16:57 | P.PNPSI_ITS ---
Subjective Subjective Date of Service: 11/02/23 Reason For Visit: Psychosis Subjective Notes: Conditional Voluntary Healthcare Proxy: No Guardianship: No Medical Problems Affecting Mental Status: No Interim History: Antonio reports he feels well. He is excited, anxious to discharge this week and reports he feels more secure in going to stay with his mother for a time to adjust to being out of the hospital. He is attending groups, engaged in the milieu with peers and team, initiates interactions and contacts. He reports he does not feel overmedicated, however, a nap in the afternoon does help me to feel better. Denies SI/HI/AH/VH/Fears/paranoia/worries at this time. Medication Compliance: Yes Side effects from medications: No Attending Groups: Yes Review of Systems Acute medical concerns: No Medical Review of Systems: unchanged Review of Systems Review of Systems Yes all other systems are reviewed and are negative Mental Status Exam Mental Status Exam Patient Appearance: Appropriate Patient Orientation: Person, Place, Time and Situation Level of Consciousness: Alert Patient Behavior: Talkative and Good Eye Contact Mood Description: Apprehensive Affect Description: Apprehensive Patient Cognition Impaired: No Ability to Follow Directions: Good Speech Pattern: Spontaneous Speech Memory Description: Episodic Impaired Hallucinations: None Delusions: Not Present Thought Process: Distracted Thought Content: positive for Perseveration Depressive Symptoms: Increased Anxiety Judgement: Good Diagnostics Vital Signs (24Hr): Vital Signs - 24 hr 11/01/23 20:00 11/02/23 08:00 Temperature 97.5 F 97.6 F Pulse Rate 98 96 Respiratory Rate 18 17 Blood Pressure 116/66 123/78 Pulse Oximetry 96 96 Oxygen Delivery Method Room Air Room Air BMI result Body Mass Index 22.5 Labs 10/20/23 08:11 10/20/23 08:11 Imaging Radiology Impressions: ITS Impressions Chest X-Ray 09/24/23 09:58 IMPRESSION: No acute abnormality. Medications Medications Current Medications Acetaminophen (Acetaminophen 325 Mg Tablet) 650 mg PO Q6H PRN PRN Reason: Headache/Pain Mild Scale (1-3) Last Admin: 10/03/23 16:35 Dose: 650 mg Al Hydroxide/Mg Hydroxide (Magnesium Hydrox/Alum Hydrox 30 Ml Oral.Susp) 30 ml PO Q6H PRN PRN Reason: Heartburn/Nausea Last Admin: 11/01/23 21:26 Dose: 30 ml Fluoxetine HCl (Fluoxetine Hcl 10 Mg Capsule) 10 mg PO DAILY [facility] Last Admin: 11/02/23 08:48 Dose: 10 mg Guaifenesin/Dextromethorphan (Guaifenesin Dm 600/30 1 Tab Tab.Er.12h) 1 tab PO BID PRN PRN Reason: Congestion Last Admin: 11/01/23 21:26 Dose: 1 tab Hydroxyzine HCl (Hydroxyzine Hcl 25 Mg Tablet) 25 mg PO Q4H PRN PRN Reason: Anxiety Last Admin: 11/02/23 12:44 Dose: 25 mg Loperamide HCl (Loperamide Hcl 2 Mg Capsule) 4 mg PO Q6H PRN PRN Reason: Diarrhea Last Admin: 10/29/23 09:28 Dose: 4 mg Lorazepam (Lorazepam 1 Mg Tablet) 1 mg PO TID [facility] Last Admin: 11/02/23 14:47 Dose: 1 mg Magnesium Hydroxide (Milk Of Magnesia 30 Ml Oral.Susp) 30 ml PO DAILY PRN PRN Reason: Constipation Last Admin: 10/14/23 21:58 Dose: 30 ml Methadone HCl (Methadone Hcl 20 Mg/2 Ml Oral.Conc) 140 mg PO DAILY [facility] Last Admin: 11/02/23 08:47 Dose: 140 mg Olanzapine (Olanzapine 2.5 Mg Tablet) 2.5 mg PO BID PRN PRN Reason: Psychosis Last Admin: 10/30/23 11:13 Dose: 2.5 mg Olanzapine (Olanzapine 5 Mg Tablet) 5 mg PO BID [facility] Last Admin: 11/02/23 08:49 Dose: 5 mg Omeprazole (Omeprazole 20 Mg Capsule.Dr) 20 mg PO DAILY@0630 [facility] Last Admin: 11/01/23 08:43 Dose: 20 mg Polyethylene Glycol (Polyethylene Glycol 3350 17 Gm Powd.Pack) 17 gm PO DAILY [facility] Last Admin: 11/02/23 08:47 Dose: 17 gm Prazosin HCl (Prazosin Hcl 1 Mg Capsule) 1 mg PO BEDTIME [facility]; Protocol Last Admin: 11/01/23 20:40 Dose: 1 mg Trazodone HCl (Trazodone Hcl 50 Mg Tablet) 50 mg PO BEDTIME PRN PRN Reason: Insomnia Last Admin: 11/01/23 20:41 Dose: 50 mg Allergies Allergies Allergy/AdvReac Type Severity Reaction Status Date / Time No Known Allergies Allergy Verified 09/24/23 03:55 Assessment & Plan Assessment & Plan (1) Bipolar disorder with psychotic features: Status: Acute Code(s): F31.9 - Bipolar disorder, unspecified (2) Post traumatic stress disorder (PTSD): Status: Acute Code(s): F43.10 - Post-traumatic stress disorder, unspecified (3) Opioid use disorder, severe, on maintenance therapy: Status: Acute Code(s): F11.20 - Opioid dependence, uncomplicated (4) Catatonic reaction: Status: Acute Code(s): F06.1 - Catatonic disorder due to known physiological condition Plan 33 yo male, hx of opiate use disorder, methadone maintenace, PTSD, currently with psychotic sx. Plan: Collateral contact Maintain methadone dosing tonight Addiction consult Re-started clonidine, prozac, hydroxyzine, trazodone Risperdal trial- ?psychosis, PTSD exacerbation? Pt may need a mood stabilizer, however will re-establish regime, treat psychosis and assess. 09/25/23 trial of zyprexa 5 mg BID prn and if more calming may switch from risperdal to zyprexa 09/25 methadone reduced to 142 mg for 09/26; brief consult with Comprehens[employer] Care Team [facility]IL[facility] specialist in agreement 09/26 methadone decreased to 138mg daily CBC and CMP ordered as pt more confused and WBc high in ED 09/27 DC Risperdal Haldol 10 mg concentrate po bid CBCD, CMP for 09/28 Continue Olanzapine prn 09/29 Change Haldol to 5 mg tid Add lorazepam 0.5 mg tid ?trauma, ?psychosis, ?catatonia, ?substance induced response Supportive care Continue one to one. 09/30: CBC, CMP Decrease Benztropine to 0.5 mg bid Increase Lorazapam to 1 mg tid-?catatonia 10/02: Decrease Haldol to 5 mg bid 10/04: On 10/05 decrease Haldol to 2.5 mg bid prn 10/05 pt presents with catatonic like s/s including staring, delayed response, no complete mutism but speech minimally spontaneous and his attention is poor and appears thought blocking. He seems to have responded positively/partially to schedule ativan, however, caution when increasing ativan as he is also on methadone fairly high dose. So far no s/s of respiratory distress- o2sat on RA>98%. will avoid high potency antipsychotic such as haldol as it will worsen catatonic like symptoms. but will schedule low dose olanzapine to tx underlying psychosis. continue current dose of ativan schedule for today, may consider increasing tomorrow. 10/06 continu tx. improving catatonia. 10/07 continue current medications but will try lowering ativan as catatonia resolving. may increase night time olanzapine to 5mg po qhs, continue 2.5mg po daily. 10/08 catatonia significantly improving. 10/09 may try lowering ativan as catatonia resolved. continue olanzapine. 10/11 continue regime STI testing per pt request. 10/13: Decrease Methadone to 143 mg daily Prazosin 1 mg HS Risperdal 1 mg HS prn for PTSD sx increase and need for grounding. Dulcolax 10 mg HS x1 10/14: Discontinue Prozac Zyprexa 20 mg HS 10/15 Patient seems to have regressed; having a hard time talking, took nurse 45 minutes to get him to take his medication, patient says he is feeling confused, although hard to get words out he reported AH of unnecessary noises and then said I feel like i'm a performer. -Reviewed chart and Discussed with nursing staff who report that this behavior similar to when he was 1st here and treated for catatonic like symptoms with Ativan; screenplay writer reviewed and so the patient was on Ativan 1 mg t.i.d. which was tapered; patient's subsequent regression seem to have started around 10/11 or 10/12 -Range Conservationist restarted Ativan 1 mg and patient quickly perked backup, was organized, talking, Ativan 1 mg q.i.d. for today Will go back to Ativan 1 mg t.i.d. tomorrow Otherwise continue current medication regimen 10/16 patient continues to have catatonic symptoms, confused, standing and staring, hard to get his words out. Each time patient gets an Ativan dose, symptoms temporarily resolved but then return. -seems last time that this cleared up with Ativan so will continue it at Ativan 1 mg q.i.d.; will also lower antipsychotic, Zyprexa to 5 mg q.h.s., down from 10 mg; if does not get better will consider discontinuing antipsychotic. -will also add clonazepam b.i.d. to see if that can help since it is longer acting than Ativan. 10/17- continues symptomatic, no changes today. 10/18: CBCD,CMP Prozac 5 mg a.m DC Olanzapine scheduled dose, change to 2.5 mg bid prn 10/19: DC Prozac, pt refused Refuses retrial of Haldol, which had been effective by hx. Return to Olanzapine 5 mg hs. Continue prn 10/20 : Continue tx. 10/21: Continue tx. 10/22 continue tx plan 10/24 seems little more organized; continue current treatment plan 10/25 continue tx 10/27 Increase Olanzapine to 5 mg bid Prozac 10 mg a.m. Prilosec 20 mg a.m. 10/28 Continue tx 10/29: continue current management and treatment plan. 10/30: continue current management and treatment plan. 10/31: Continue current regime/plan. 11/01: Discharge planning Plan: Reason for continued inpatient stay Substantial Risk for: rapid decompensation Time Spent With Patient Time: Total time managing care of this patient today ____ minutes.
[2023-11-02 20:00] VITALS: BP 136/76; PULSE 91; RESP 16; TEMP 36.7; O2SAT 96
[2023-11-02 21:13] VITALS: BP 136/76
[2023-11-02] MEDS: Prazosin HCL 1 MG CAPSULE PO (21:13)
[2023-11-02] MEDS: traZODone HCL 50 MG TABLET PO (21:14)
[2023-11-03] MEDS: Omeprazole 20 MG CAPSULE.DR PO (06:54)
[2023-11-03 08:23] VITALS: BP 103/62; PULSE 77; RESP 16; TEMP 36.6; O2SAT 97
[2023-11-03] MEDS: FLUoxetine HCl 10 MG CAPSULE PO (09:01)
[2023-11-03] MEDS: OLANZapine 5 MG TABLET PO ×2 (09:01→22:27)
[2023-11-03] MEDS: methADONE HCl 20 MG/2 ML ORAL.CONC 140 MG PO (09:01)
[2023-11-03] MEDS: LORazepam 1 MG TABLET PO ×3 (09:01→22:26)
--- NOTE | 2023-11-03 10:52 | HO.PSYCHPN ---
Subjective Subjective Date of Service: 11/03/23 Reason For Visit: Psychosis Subjective Notes: Conditional Voluntary Healthcare Proxy: No Guardianship: No Medical Problems Affecting Mental Status: No Interim History: Denies SI,HI, AH, VH, Fear. Plans discharge for 11/04. Denies med SE, denies need to make dosage changes at this time. Medication Compliance: Yes Side effects from medications: No Attending Groups: Yes Review of Systems Acute medical concerns: No Medical Review of Systems: unchanged Review of Systems Review of Systems Yes all other systems are reviewed and are negative Mental Status Exam Mental Status Exam Patient Appearance: Appropriate Patient Orientation: Person, Place, Time and Situation Level of Consciousness: Alert Patient Behavior: Talkative and Good Eye Contact Mood Description: Apprehensive Affect Description: Apprehensive Patient Cognition Impaired: No Ability to Follow Directions: Good Speech Pattern: Spontaneous Speech Memory Description: Episodic Impaired Hallucinations: None Delusions: Not Present Thought Process: Distracted Thought Content: positive for Perseveration Depressive Symptoms: Increased Anxiety Judgement: Good Diagnostics Vital Signs (24Hr): Vital Signs - 24 hr 11/02/23 20:00 11/02/23 21:13 Temperature 98.1 F Pulse Rate 91 Respiratory Rate 16 Blood Pressure 136/76 136/76 Pulse Oximetry 96 Oxygen Delivery Method Room Air BMI result Body Mass Index 22.5 Labs 10/20/23 08:11 10/20/23 08:11 Imaging Radiology Impressions: ITS Impressions Chest X-Ray 09/24/23 09:58 IMPRESSION: No acute abnormality. Medications Medications Current Medications Acetaminophen (Acetaminophen 325 Mg Tablet) 650 mg PO Q6H PRN PRN Reason: Headache/Pain Mild Scale (1-3) Last Admin: 10/03/23 16:35 Dose: 650 mg Al Hydroxide/Mg Hydroxide (Magnesium Hydrox/Alum Hydrox 30 Ml Oral.Susp) 30 ml PO Q6H PRN PRN Reason: Heartburn/Nausea Last Admin: 11/01/23 21:26 Dose: 30 ml Fluoxetine HCl (Fluoxetine Hcl 10 Mg Capsule) 10 mg PO DAILY [facility] Last Admin: 11/03/23 09:01 Dose: 10 mg Guaifenesin/Dextromethorphan (Guaifenesin Dm 600/30 1 Tab Tab.Er.12h) 1 tab PO BID PRN PRN Reason: Congestion Last Admin: 11/01/23 21:26 Dose: 1 tab Hydroxyzine HCl (Hydroxyzine Hcl 25 Mg Tablet) 25 mg PO Q4H PRN PRN Reason: Anxiety Last Admin: 11/02/23 12:44 Dose: 25 mg Loperamide HCl (Loperamide Hcl 2 Mg Capsule) 4 mg PO Q6H PRN PRN Reason: Diarrhea Last Admin: 10/29/23 09:28 Dose: 4 mg Lorazepam (Lorazepam 1 Mg Tablet) 1 mg PO TID [facility] Last Admin: 11/03/23 09:01 Dose: 1 mg Magnesium Hydroxide (Milk Of Magnesia 30 Ml Oral.Susp) 30 ml PO DAILY PRN PRN Reason: Constipation Last Admin: 10/14/23 21:58 Dose: 30 ml Methadone HCl (Methadone Hcl 20 Mg/2 Ml Oral.Conc) 140 mg PO DAILY [facility] Last Admin: 11/03/23 09:01 Dose: 140 mg Olanzapine (Olanzapine 2.5 Mg Tablet) 2.5 mg PO BID PRN PRN Reason: Psychosis Last Admin: 10/30/23 11:13 Dose: 2.5 mg Olanzapine (Olanzapine 5 Mg Tablet) 5 mg PO BID [facility] Last Admin: 11/03/23 09:01 Dose: 5 mg Omeprazole (Omeprazole 20 Mg Capsule.Dr) 20 mg PO DAILY@0630 [facility] Last Admin: 11/03/23 06:54 Dose: 20 mg Polyethylene Glycol (Polyethylene Glycol 3350 17 Gm Powd.Pack) 17 gm PO DAILY [facility] Last Admin: 11/03/23 10:51 Dose: Not Given Prazosin HCl (Prazosin Hcl 1 Mg Capsule) 1 mg PO BEDTIME [facility]; Protocol Last Admin: 11/02/23 21:13 Dose: 1 mg Trazodone HCl (Trazodone Hcl 50 Mg Tablet) 50 mg PO BEDTIME PRN PRN Reason: Insomnia Last Admin: 11/02/23 21:14 Dose: 50 mg Allergies Allergies Allergy/AdvReac Type Severity Reaction Status Date / Time No Known Allergies Allergy Verified 09/24/23 03:55 Assessment & Plan Assessment & Plan (1) Bipolar disorder with psychotic features: Status: Acute Code(s): F31.9 - Bipolar disorder, unspecified (2) Post traumatic stress disorder (PTSD): Status: Acute Code(s): F43.10 - Post-traumatic stress disorder, unspecified (3) Opioid use disorder, severe, on maintenance therapy: Status: Acute Code(s): F11.20 - Opioid dependence, uncomplicated (4) Catatonic reaction: Status: Acute Code(s): F06.1 - Catatonic disorder due to known physiological condition Plan 33 yo male, hx of opiate use disorder, methadone maintenace, PTSD, currently with psychotic sx. Plan: Collateral contact Maintain methadone dosing tonight Addiction consult Re-started clonidine, prozac, hydroxyzine, trazodone Risperdal trial- ?psychosis, PTSD exacerbation? Pt may need a mood stabilizer, however will re-establish regime, treat psychosis and assess. 09/25/23 trial of zyprexa 5 mg BID prn and if more calming may switch from risperdal to zyprexa 09/25 methadone reduced to 142 mg for 09/26; brief consult with Comprehensice Care Team WILVER specialist in agreement 09/26 methadone decreased to 138mg daily CBC and CMP ordered as pt more confused and WBc high in ED 09/27 DC Risperdal Haldol 10 mg concentrate po bid [facility], CMP for 09/28 Continue Olanzapine prn 09/29 Change Haldol to 5 mg tid Add lorazepam 0.5 mg tid ?trauma, ?psychosis, ?catatonia, ?substance induced response Supportive care Continue one to one. 09/30: CBC, CMP Decrease Benztropine to 0.5 mg bid Increase Lorazapam to 1 mg tid-?catatonia 10/02: Decrease Haldol to 5 mg bid 10/04: On 10/05 decrease Haldol to 2.5 mg bid prn 10/05 pt presents with catatonic like s/s including staring, delayed response, no complete mutism but speech minimally spontaneous and his attention is poor and appears thought blocking. He seems to have responded positively/partially to schedule ativan, however, caution when increasing ativan as he is also on methadone fairly high dose. So far no s/s of respiratory distress- o2sat on RA>98%. will avoid high potency antipsychotic such as haldol as it will worsen catatonic like symptoms. but will schedule low dose olanzapine to tx underlying psychosis. continue current dose of ativan schedule for today, may consider increasing tomorrow. 10/06 continu tx. improving catatonia. 10/07 continue current medications but will try lowering ativan as catatonia resolving. may increase night time olanzapine to 5mg po qhs, continue 2.5mg po daily. 10/08 catatonia significantly improving. 10/09 may try lowering ativan as catatonia resolved. continue olanzapine. 10/11 continue regime STI testing per pt request. 10/13: Decrease Methadone to 143 mg daily Prazosin 1 mg HS Risperdal 1 mg HS prn for PTSD sx increase and need for grounding. Dulcolax 10 mg HS x1 10/14: Discontinue Prozac Zyprexa 20 mg HS 10/15 Patient seems to have regressed; having a hard time talking, took nurse 45 minutes to get him to take his medication, patient says he is feeling confused, although hard to get words out he reported AH of unnecessary noises and then said I feel like i'm a performer. -Reviewed chart and Discussed with nursing staff who report that this behavior similar to when he was 1st here and treated for catatonic like symptoms with Ativan; freelance copywriter reviewed and so the patient was on Ativan 1 mg t.i.d. which was tapered; patient's subsequent regression seem to have started around 10/11 or 10/12 -Manager Packaging restarted Ativan 1 mg and patient quickly perked backup, was organized, talking, Ativan 1 mg q.i.d. for today Will go back to Ativan 1 mg t.i.d. tomorrow Otherwise continue current medication regimen 10/16 patient continues to have catatonic symptoms, confused, standing and staring, hard to get his words out. Each time patient gets an Ativan dose, symptoms temporarily resolved but then return. -seems last time that this cleared up with Ativan so will continue it at Ativan 1 mg q.i.d.; will also lower antipsychotic, Zyprexa to 5 mg q.h.s., down from 10 mg; if does not get better will consider discontinuing antipsychotic. -will also add clonazepam b.i.d. to see if that can help since it is longer acting than Ativan. 10/17- continues symptomatic, no changes today. 10/18: CBCD,CMP Prozac 5 mg a.m DC Olanzapine scheduled dose, change to 2.5 mg bid prn 10/19: DC Prozac, pt refused Refuses retrial of Haldol, which had been effective by hx. Return to Olanzapine 5 mg hs. Continue prn 10/20 : Continue tx. 10/21: Continue tx. 10/22 continue tx plan 10/24 seems little more organized; continue current treatment plan 10/25 continue tx 10/27 Increase Olanzapine to 5 mg bid Prozac 10 mg a.m. Prilosec 20 mg a.m. 10/28 Continue tx 10/29: continue current management and treatment plan. 10/30: continue current management and treatment plan. 10/31: Continue current regime/plan. 11/02: Continue regime Plan: Reason for continued inpatient stay Substantial Risk for: rapid decompensation Time Spent With Patient Time: Total time managing care of this patient today ____ minutes.
[2023-11-03] MEDS: hydrOXYzine HCL 25 MG TABLET PO (13:42)
[2023-11-03] MEDS: Magnesium Hydrox/Alum Hydrox 30 ML ORAL.SUSP PO (16:12)
[2023-11-03 20:00] VITALS: BP 128/71; PULSE 85; RESP 18; TEMP 36.6; O2SAT 97
[2023-11-03] MEDS: traZODone HCL 50 MG TABLET PO (22:26)
[2023-11-03] MEDS: Prazosin HCL 1 MG CAPSULE PO (22:27)
[2023-11-04 07:00] VITALS: BMI 23.4
[2023-11-04 08:00] VITALS: BP 109/60; PULSE 86; RESP 18; TEMP 36.6; O2SAT 96
[2023-11-04] MEDS: OLANZapine 5 MG TABLET PO ×2 (09:14→21:00)
[2023-11-04] MEDS: Omeprazole 20 MG CAPSULE.DR PO (09:14)
[2023-11-04] MEDS: FLUoxetine HCl 10 MG CAPSULE PO (09:14)
[2023-11-04] MEDS: methADONE HCl 20 MG/2 ML ORAL.CONC 140 MG PO (09:14)
[2023-11-04] MEDS: LORazepam 1 MG TABLET PO ×3 (09:14→21:00)
--- NOTE | 2023-11-04 10:35 | HO.PSYCHPN ---
Subjective Subjective Date of Service: 11/04/23 Reason For Visit: Psychosis Interim History: Met with patient; discussed with team; reviewed chart pt reports that he's doing well and says i'm happy and the medications work well... he denies an SI or AVH. Mental Status Exam Mental Status Exam Patient Appearance: Appropriate Patient Orientation: Person, Place, Time and Situation Level of Consciousness: Alert Patient Behavior: Talkative and Good Eye Contact Mood Description: Apprehensive Affect Description: Apprehensive Patient Cognition Impaired: No Ability to Follow Directions: Good Speech Pattern: Spontaneous Speech Memory Description: Episodic Impaired Hallucinations: None Delusions: Not Present Thought Process: Distracted Thought Content: positive for Perseveration Depressive Symptoms: Increased Anxiety Judgement: Good Diagnostics Vital Signs (24Hr): Vital Signs - 24 hr 11/03/23 20:00 11/04/23 08:00 Temperature 97.8 F 97.8 F Pulse Rate 85 86 Respiratory Rate 18 18 Blood Pressure 128/71 109/60 Pulse Oximetry 97 96 Oxygen Delivery Method Room Air Room Air BMI result Body Mass Index 22.5 Labs 10/20/23 08:11 10/20/23 08:11 Imaging Radiology Impressions: ITS Impressions Chest X-Ray 09/24/23 09:58 IMPRESSION: No acute abnormality. Medications Medications Current Medications Acetaminophen (Acetaminophen 325 Mg Tablet) 650 mg PO Q6H PRN PRN Reason: Headache/Pain Mild Scale (1-3) Last Admin: 10/03/23 16:35 Dose: 650 mg Al Hydroxide/Mg Hydroxide (Magnesium Hydrox/Alum Hydrox 30 Ml Oral.Susp) 30 ml PO Q6H PRN PRN Reason: Heartburn/Nausea Last Admin: 11/03/23 16:12 Dose: 30 ml Fluoxetine HCl (Fluoxetine Hcl 10 Mg Capsule) 10 mg PO DAILY EDWARD Last Admin: 11/04/23 09:14 Dose: 10 mg Guaifenesin/Dextromethorphan (Guaifenesin Dm 600/30 1 Tab Tab.Er.12h) 1 tab PO BID PRN PRN Reason: Congestion Last Admin: 11/01/23 21:26 Dose: 1 tab Hydroxyzine HCl (Hydroxyzine Hcl 25 Mg Tablet) 25 mg PO Q4H PRN PRN Reason: Anxiety Last Admin: 11/03/23 13:42 Dose: 25 mg Loperamide HCl (Loperamide Hcl 2 Mg Capsule) 4 mg PO Q6H PRN PRN Reason: Diarrhea Last Admin: 10/29/23 09:28 Dose: 4 mg Lorazepam (Lorazepam 1 Mg Tablet) 1 mg PO TID [facility] Last Admin: 11/04/23 09:14 Dose: 1 mg Magnesium Hydroxide (Milk Of Magnesia 30 Ml Oral.Susp) 30 ml PO DAILY PRN PRN Reason: Constipation Last Admin: 10/14/23 21:58 Dose: 30 ml Methadone HCl (Methadone Hcl 20 Mg/2 Ml Oral.Conc) 140 mg PO DAILY EDWARD Last Admin: 11/04/23 09:14 Dose: 140 mg Olanzapine (Olanzapine 2.5 Mg Tablet) 2.5 mg PO BID PRN PRN Reason: Psychosis Last Admin: 10/30/23 11:13 Dose: 2.5 mg Olanzapine (Olanzapine 5 Mg Tablet) 5 mg PO BID [facility] Last Admin: 11/04/23 09:14 Dose: 5 mg Omeprazole (Omeprazole 20 Mg Capsule.Dr) 20 mg PO DAILY@0630 [facility] Last Admin: 11/04/23 09:14 Dose: 20 mg Polyethylene Glycol (Polyethylene Glycol 3350 17 Gm Powd.Pack) 17 gm PO DAILY [facility] Last Admin: 11/04/23 09:16 Dose: Not Given Prazosin HCl (Prazosin Hcl 1 Mg Capsule) 1 mg PO BEDTIME [facility]; Protocol Last Admin: 11/03/23 22:27 Dose: 1 mg Trazodone HCl (Trazodone Hcl 50 Mg Tablet) 50 mg PO BEDTIME PRN PRN Reason: Insomnia Last Admin: 11/03/23 22:26 Dose: 50 mg Allergies Allergies Allergy/AdvReac Type Severity Reaction Status Date / Time No Known Allergies Allergy Verified 09/24/23 03:55 Assessment & Plan Assessment & Plan (1) Bipolar disorder with psychotic features: Status: Acute Code(s): F31.9 - Bipolar disorder, unspecified (2) Post traumatic stress disorder (PTSD): Status: Acute Code(s): F43.10 - Post-traumatic stress disorder, unspecified (3) Opioid use disorder, severe, on maintenance therapy: Status: Acute Code(s): F11.20 - Opioid dependence, uncomplicated (4) Catatonic reaction: Status: Acute Code(s): F06.1 - Catatonic disorder due to known physiological condition Plan 33 yo male, hx of opiate use disorder, methadone maintenace, PTSD, currently with psychotic sx. Plan: Collateral contact Maintain methadone dosing tonight Addiction consult Re-started clonidine, prozac, hydroxyzine, trazodone Risperdal trial- ?psychosis, PTSD exacerbation? Pt may need a mood stabilizer, however will re-establish regime, treat psychosis and assess. 09/25/23 trial of zyprexa 5 mg BID prn and if more calming may switch from risperdal to zyprexa 09/25 methadone reduced to 142 mg for 09/26; brief consult with [facility]prehens[facility] Care Team [facility]IL[facility] specialist in agreement 09/26 methadone decreased to 138mg daily CBC and CMP ordered as pt more confused and WBc high in ED 09/27 DC Risperdal Haldol 10 mg concentrate po bid CBCD, CMP for 09/28 Continue Olanzapine prn 09/29 Change Haldol to 5 mg tid Add lorazepam 0.5 mg tid ?trauma, ?psychosis, ?catatonia, ?substance induced response Supportive care Continue one to one. 09/30: CBC, CMP Decrease Benztropine to 0.5 mg bid Increase Lorazapam to 1 mg tid-?catatonia 10/02: Decrease Haldol to 5 mg bid 10/04: On 10/05 decrease Haldol to 2.5 mg bid prn 10/05 pt presents with catatonic like s/s including staring, delayed response, no complete mutism but speech minimally spontaneous and his attention is poor and appears thought blocking. He seems to have responded positively/partially to schedule ativan, however, caution when increasing ativan as he is also on methadone fairly high dose. So far no s/s of respiratory distress- o2sat on RA>98%. will avoid high potency antipsychotic such as haldol as it will worsen catatonic like symptoms. but will schedule low dose olanzapine to tx underlying psychosis. continue current dose of ativan schedule for today, may consider increasing tomorrow. 10/06 continu tx. improving catatonia. 10/07 continue current medications but will try lowering ativan as catatonia resolving. may increase night time olanzapine to 5mg po qhs, continue 2.5mg po daily. 10/08 catatonia significantly improving. 10/09 may try lowering ativan as catatonia resolved. continue olanzapine. 10/11 continue regime STI testing per pt request. 10/13: Decrease Methadone to 143 mg daily Prazosin 1 mg HS Risperdal 1 mg HS prn for PTSD sx increase and need for grounding. Dulcolax 10 mg HS x1 10/14: Discontinue Prozac Zyprexa 20 mg HS 10/15 Patient seems to have regressed; having a hard time talking, took nurse 45 minutes to get him to take his medication, patient says he is feeling confused, although hard to get words out he reported AH of unnecessary noises and then said I feel like i'm a performer. -Reviewed chart and Discussed with nursing staff who report that this behavior similar to when he was 1st here and treated for catatonic like symptoms with Ativan; bid writer reviewed and so the patient was on Ativan 1 mg t.i.d. which was tapered; patient's subsequent regression seem to have started around 10/11 or 10/12 -Reception Specialist restarted Ativan 1 mg and patient quickly perked backup, was organized, talking, Ativan 1 mg q.i.d. for today Will go back to Ativan 1 mg t.i.d. tomorrow Otherwise continue current medication regimen 10/16 patient continues to have catatonic symptoms, confused, standing and staring, hard to get his words out. Each time patient gets an Ativan dose, symptoms temporarily resolved but then return. -seems last time that this cleared up with Ativan so will continue it at Ativan 1 mg q.i.d.; will also lower antipsychotic, Zyprexa to 5 mg q.h.s., down from 10 mg; if does not get better will consider discontinuing antipsychotic. -will also add clonazepam b.i.d. to see if that can help since it is longer acting than Ativan. 10/17- continues symptomatic, no changes today. 10/18: CBCD,CMP Prozac 5 mg a.m DC Olanzapine scheduled dose, change to 2.5 mg bid prn 10/19: DC Prozac, pt refused Refuses retrial of Haldol, which had been effective by hx. Return to Olanzapine 5 mg hs. Continue prn 10/20 : Continue tx. 10/21: Continue tx. 10/22 continue tx plan 10/24 seems little more organized; continue current treatment plan 10/25 continue tx 10/27 Increase Olanzapine to 5 mg bid Prozac 10 mg a.m. Prilosec 20 mg a.m. 10/28 Continue tx 10/29: continue current management and treatment plan. 10/30: continue current management and treatment plan. 10/31: Continue current regime/plan. 11/02: Continue regime 11/03 reports good; continue tx program Plan: Patient educated on: diagnosis and medication risk/benefits Informed Consent: understands Reason for continued inpatient stay Substantial Risk for: stable for discharge Time Spent With Patient Time: Total time managing care of this patient today ____ minutes.
[2023-11-04] MEDS: hydrOXYzine HCL 25 MG TABLET PO (14:12)
[2023-11-04 20:55] VITALS: BP 131/82; PULSE 96; RESP 16; TEMP 36.4; O2SAT 95
[2023-11-04] MEDS: Prazosin HCL 1 MG CAPSULE PO (21:00)
[2023-11-04] MEDS: Magnesium Hydrox/Alum Hydrox 30 ML ORAL.SUSP PO (21:43)
[2023-11-05] MEDS: Omeprazole 20 MG CAPSULE.DR PO (06:39)
[2023-11-05 08:00] VITALS: BP 105/59; PULSE 77; RESP 18; TEMP 36.4; O2SAT 98
[2023-11-05] MEDS: OLANZapine 5 MG TABLET PO (08:13)
[2023-11-05] MEDS: FLUoxetine HCl 10 MG CAPSULE PO (08:13)
[2023-11-05] MEDS: methADONE HCl 20 MG/2 ML ORAL.CONC 140 MG PO (08:13)
[2023-11-05] MEDS: LORazepam 1 MG TABLET PO (08:13)
--- NOTE | 2023-11-05 10:01 | PM.PSYDC ---
DS: Providers Provider Date of Service: 11/05/23 Date of admission: 09/24/23 12:38 Date of discharge: 11/05/23 Primary care physician: None Physician Admitting clinician: Chana Perez Attending physician on admission: Michael Abudl Consults: 09/24/23 15:31 Addiction Medicine Routine Consulting Provider: Addiction Covering Reason for consultation: Methadone 145 mg/refusing dose/withdrawal education/tapering? Has provider been notified: No 10/12/23 18:47 Addiction Medicine Routine Consulting Provider: Addiction Covering Reason for consultation: Methadone 145-138. Feeling some withdrawal, questions titration Has provider been notified: No Attending physician on discharge: Michael Abdul Discharging clinician: Chana Perez DS: Diagnosis Discharge Diagnosis (1) Bipolar disorder with psychotic features: Status: Acute (2) Post traumatic stress disorder (PTSD): Status: Acute (3) Opioid use disorder, severe, on maintenance therapy: Status: Acute (4) Catatonic reaction: Status: Resolved DS: Medications Discharge Medications Home Medications: Previous Rx's ?Medication ?Instructions ?Recorded acetaminophen 325 mg tablet 650 mg (2 x 325 mg) PO Q6H PRN 11/05/23 Headache/Pain Mild Scale (1-3) #0 tabs fluoxetine 10 mg capsule 10 mg PO DAILY #30 caps 11/05/23 hydroxyzine HCl 25 mg tablet 25 mg PO Q4H PRN Anxiety #60 tabs 11/05/23 lorazepam 1 mg tablet 1 mg PO TID #90 tabs 11/05/23 methadone 10 mg/mL oral 140 mg (14 mL) PO DAILY #0 mL 11/05/23 concentrate (Methadose) olanzapine 2.5 mg tablet 2.5 mg PO BID PRN Psychosis #60 11/05/23 tabs olanzapine 5 mg tablet 5 mg PO BID #60 tabs 11/05/23 omeprazole 20 mg capsule,delayed 20 mg PO DAILY@0630 #30 caps 11/05/23 release polyethylene glycol 3350 17 gram 17 g PO DAILY #30 packets 11/05/23 oral powder packet prazosin 1 mg capsule 1 mg PO BEDTIME #30 caps 11/05/23 trazodone 50 mg tablet 50 mg PO BEDTIME PRN Insomnia #30 11/05/23 tabs Mental Status Exam Mental Status Exam Patient Appearance: Appropriate Patient Orientation: Person, Place, Time and Situation Level of Consciousness: Alert Patient Behavior: Talkative and Good Eye Contact Mood Description: Apprehensive Affect Description: Apprehensive Patient Cognition Impaired: No Ability to Follow Directions: Good Speech Pattern: Spontaneous Speech Memory Description: Episodic Impaired Hallucinations: None Delusions: Not Present Thought Process: Distracted Thought Content: positive for Perseveration Depressive Symptoms: Increased Anxiety Judgement: Good Data Imaging Diagnostic Imaging Impressions Chest X-Ray 09/24/23 09:58 IMPRESSION: No acute abnormality. DS: Summary Hospital Course Hospital Course: Admission to adult psychiatry for exacerbation of bipolar disorder with psychotic features, PTSD, Opiate Use Disorder-currently on Methadone. Pt presented with acute psychosis and catatonia. It was unclear what precipitants there were-it is thought that pt, with take home methadone prior to admission, became confused and was not taking his methadone as scheduled, missing some doses and overtaking some doses. Medications were evaluated, adjusted and stabilized. Several changes were made with pt input. Pt was offered full milieu treatment to strengthen coping skills. Pt will plan to stay with his mother in [place]. He will continue MAT treatment with [facility] and will follow up with [facility] upon discharge. Status at Discharge Functional status at discharge: independent ambulation Overall status at discharge: patient is progressing back to baseline Time Spent with Patient Time attestation: Total time managing care of this patient today ____ minutes. Time spent: Less than 30 minutes Discharge Plan Discharge Anticipated Discharge Date/Time: 11/05/23 12:00 Patient Disposition: Home, Self-Care Discharge Diagnosis: Bipolar Disorder with Psychotic Features PTSD Catatonia, resolved Opiate Use Disorder, Currently on Methadone Maintenance Referrals: Psych Prescriber: Mckayla Kirkpatrick APRN ([facility]) [Other] - 11/10/23 10:20 am (Appointment is virtual, via Zoom, you will be emailed a Zoom link. ) Therapist: Andrew Campuzano ([facility]) [Other] - 11/08/23 10:00 am (Telehealth) [facility] MAT [Other] - 11/05/23 12:00 pm (Go there today after discharge to [employer] spot picker your take homes. You will get 13. Set a date to come back or find a clinic you can guest dose in [place] and [facility] will help set up guest dosing. Your mom will have to sign a chain of custody saying she will be responsible for you and your take home bottles. ) Belén Meyers [Nurse Practitioner] - 11/19/23 9:30 am (in office) Discharge Medications: New acetaminophen 325 mg Tablet 650 mg PO Q6H PRN (Reason: Headache/Pain Mild Scale (1-3)) Qty: 0 0RF trazodone 50 mg Tablet 50 mg PO BEDTIME PRN (Reason: Insomnia) Qty: 30 0RF polyethylene glycol 3350 17 gram Powder In Packet 17 g PO DAILY Qty: 30 0RF prazosin 1 mg Capsule 1 mg PO BEDTIME Qty: 30 0RF Protocol: Hold for SBP< HOLD for SBP < : 90 olanzapine 5 mg Tablet 5 mg PO BID Qty: 60 0RF olanzapine 2.5 mg Tablet 2.5 mg PO BID PRN (Reason: Psychosis) Qty: 60 0RF fluoxetine 10 mg Capsule 10 mg PO DAILY Qty: 30 0RF omeprazole 20 mg Capsule,Delayed Release(Dr/Ec) 20 mg PO DAILY@0630 Qty: 30 0RF hydroxyzine HCl 25 mg Tablet 25 mg PO Q4H PRN (Reason: Anxiety) Qty: 60 0RF methadone [Methadose] 10 mg/mL Concentrate 140 mg PO DAILY Qty: 0 0RF Rx Instructions: Partial Fill upon patient request. lorazepam 1 mg Tablet 1 mg PO TID Qty: 90 0RF Discontinued acetaminophen [Tylenol Extra Strength] 500 mg tablet 500 mg PO Q6H PRN (Reason: pain or fever) Qty: 20 0RF doxycycline hyclate 100 mg capsule 100 mg PO BID 10 Days Qty: 20 0RF prednisone 50 mg tablet 50 mg PO DAILY 5 Days Qty: 5 0RF cephalexin 500 mg tablet 500 mg PO Q6H 10 Days Qty: 40 0RF methadone [Methadone Intensol] 10 mg/mL Concentrate 145 mg PO DAILY fluoxetine [Prozac] 40 mg capsule 40 mg PO DAILY clonidine HCl 0.1 mg tablet 0.1 mg PO TID trazodone 50 mg tablet 50 mg PO DAILY hydroxyzine HCl 50 mg tablet 50 mg PO TID Discharge Orders: Discharge Order (Routine); Ordered 11/05/23 Ordered By: Chana Perez Diet: Advance to usual diet Activity on Discharge: As tolerated Stand Alone Forms: Patient Portal Discharge page, Community Support Print Language: Czech Care Plan Goals: Mood and Behavioral Stabilization Sobriety Health Concerns: Mood and Behavioral Stabilization Sobriety Plan of Treatment: Attend scheduled appointments Take medications as directed Assessment: Scheduled discharge, will stay with mother and family in [place]. No SI/HI/AH/VH/Paranoia Pt reports he is prepared for discharge. Discharge Date/Time: 11/05/23 11:46
== END 2023-11-05 11:46 | disposition home or self-care (01) | DRG 753 ==
LOC: HO.ED 09:25 → HO.PM5 12:42
PROVIDERS: Clinical Nurse Specialist Psychiatric/Mental Health; Physician Assistant; Admitting Provider Clinical Nurse Specialist Psychiatric/Mental Health, Adult; Emergency Provider Emergency Medicine Emergency Medical Services; Visit Provider Clinical Nurse Specialist Psychiatric/Mental Health, Adult
DX: F31.9 Bipolar disorder, unspecified (principal); F06.1 Catatonic disorder due to known physiological condition; F11.20 Opioid dependence, uncomplicated; E86.0 Dehydration; F43.10 Post-traumatic stress disorder, unspecified; Z91.148 Patient's other noncompliance with medication regimen for other reason; Z79.899 Other long term (current) drug therapy
CPT/HCPCS: 0353U; 36415; 71045; 80053; 80061; 80143; 80179; 80307; 81001; 82607; 82746; 82947; 83036; 83735; 84439; 84443; 85007; 85025; 85027; 87389; 93005; 99285; S9485

== ENCOUNTER → 2023-09-24 09:36 | Outpatient (BNV) | payer MEDICAID, SELFPAY | PROVIDERS: Admitting Provider Clinical Nurse Specialist Psychiatric/Mental Health, Adult; Emergency Provider Emergency Medicine Emergency Medical Services; Visit Provider Internal Medicine Cardiovascular Disease | DX: F43.10 Post-traumatic stress disorder, unspecified (principal); F41.9 Anxiety disorder, unspecified; F32.A Depression, unspecified | CPT/HCPCS: 93010 ==

== ENCOUNTER → 2023-09-24 12:38 | Outpatient (BNV) | payer OTHER, SELFPAY | PROVIDERS: Admitting Provider Clinical Nurse Specialist Psychiatric/Mental Health, Adult; Emergency Provider Emergency Medicine Emergency Medical Services; Visit Provider Clinical Nurse Specialist Psychiatric/Mental Health | DX: F31.5 Bipolar disorder, current episode depressed, severe, with psychotic features (principal); F11.20 Opioid dependence, uncomplicated; F06.1 Catatonic disorder due to known physiological condition; F43.11 Post-traumatic stress disorder, acute | CPT/HCPCS: 99231; 99232; 99499 ==